=== PATIENT | male | born 2000 | race Caucasian/White ===

== ENCOUNTER → 2018-09-15 | Emergency (ER) | payer BC, MEDICAID ==
[~2018-09-15] VITALS: Ht 177.8 cm; Wt 78.9 kg
[~2018-09-15] MED LIST: RX-NAPROXEN (NAPROSYN) 250 MG TAB PPK#4 PO STA; RX-TRAMADOL 50 MG (ULTRAM) TAB PPK#4 PO STA; TRAM-42 PO
--- OUTSIDE RECORDS SUMMARY | 2018-09-15 20:53 | XMS REPORT ---
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 Name Role Phone JOSEFELIPAJOAN Unavailable PROBLEMS Type Condition ICD9-CM Code [id number] Code Onset Dates Condition Status SNOMED Code Problem Seasonal allergic rhinitis, unspecified allergic rhinitis trigger J30.2 Active 361830927 Problem PEARL (generalized anxiety disorder) F41.1 Active 04338856 Problem ADHD (attention deficit hyperactivity disorder), combined type F90.2 Active [id number] ALLERGIES No Information ENCOUNTERS Encounter Location Date Diagnosis [place] [id number] [address] Mar, [facility] [address] [address]- [address] Dec, ADHD (attention deficit hyperactivity disorder), combined type F90.2 and PEARL (generalized anxiety disorder) F41.1 [facility] [id number] [place] [address] 93664- 9491 Oct, Dysfunction of right eustachian tube H69.81 [place] [address] [place] [id number] [place] [address] 20811- 4745 Oct, [facility] [id number] [place] [address] 30728- 4669 Oct, [place] [address] [id number] [place] [address] 02030- 4570 Oct, [place] [address] [place] [id number] [place] [address] 61715- 5434 Sep, [place] [address] [place] [id number] [place] [address] 93181- 1347 Aug, ADHD (attention deficit hyperactivity disorder), combined type F90.2 and PEARL (generalized anxiety disorder) F41.1 [facility] [id number] [place] [address] 91567- 9511 Jul, [facility] [id number] [place] [address] 23635- 8973 Jul, [facility] [id number] [place] [address] 79257- 4031 Jun, [facility] [id number] [place] [address] 41683- 6412 May, [facility] [id number] [place] [address] 47544- 7923 May, [facility] [id number] [place] [address] 72811- 6437 Apr, [facility] [id number] [place] [address] 52940- 2027 Mar, [facility] [id number] [place] [address] 96844- 2696 February, [facility] [id number] [place] [address] 90731- 8652 February, [facility] [id number] [place] [address] 37021- 1229 February, PEARL (generalized anxiety disorder) F41.1 [facility] [id number] [place] [address] 16707- 9686 February, [facility] [id number] [place] [address] 48822 -6256 February, Seasonal allergic rhinitis, unspecified allergic rhinitis trigger J30.2 [facility] [id number] [place] [address] 50216- 1331 Jan, PEARL (generalized anxiety disorder) F41.1 [facility] [id number] [place] [address] 40418- 2455 Jan, ADHD (attention deficit hyperactivity disorder), combined type F90.2 and PEARL (generalized anxiety disorder) F41.1 [facility] [id number] [place] [address] 54179- 5909 Dec, [facility] [id number] [place] [address] 35349- 5241 Nov, [facility] [id number] [place] [address] 84736- 9244 Oct, [facility] [id number] [place] [address] 69646- 7985 Oct, [facility] [id number] [place] [address] 19235- 0397 Sep, [facility] [id number] [place] [address] 26561- 7446 Aug, ADHD (attention deficit hyperactivity disorder), combined type F90.2 and PEARL (generalized anxiety disorder) F41.1 [facility] [id number] [address]- 6180 Aug, [facility] [id number] [place] [address] 06008- 8064 Jul, [facility] [id number] [place] [address] 50177- 9152 Jun, ADHD (attention deficit hyperactivity disorder), combined type F90.2 ; ODD (oppositional defiant disorder) F91.3 and PEARL (generalized anxiety disorder) F41.1 [facility] [address] [address]- 7492 Jun, [facility] [id number] [place] [address] 40565- 8037 Jun, [facility] [id number] [address]- 1056 May, [facility] [id number] [place] [address] 24150- 3713 May, ODD (oppositional defiant disorder) F91.3 and ADHD ( attention deficit hyperactivity disorder), combined type F90.2 [facility] [id number] [place] [address] 36655- 4546 May, [facility] [id number] [address]- 1721 Apr, [facility] [id number] [place] [address] 75063- 8831 Mar, [facility] [id number] [place] [address] 37181- 1056 February, [facility] [id number] [place] [address] 78867- 5708 Jan, [facility] [id number] [place] [address] 14994- 3910 Dec, [facility] [id number] [place] [address] 29413- 4162 Dec, [facility] [id number] [place] [address] [id number] Nov, Dental examination Z01.20 [facility] [id number] [place] [address] 57322- 6095 Nov, [facility] [id number] [place] [address] 86419- 0437 Nov, [facility] [id number] [place] [address] 32924- 8155 Nov, Disruptive mood dysregulation disorder F34.8 ; ADHD ( attention deficit hyperactivity disorder), combined type F90.2 and ODD ( oppositional defiant disorder) F91.3 [facility] [address] [address]- 6917 Sep, [facility] [id number] [address]- 4679 Aug, [facility] [address] [address]- 4866 Jul, [facility] [address] [address]- 2816 Jul, [facility] [address] [address]- 2066 Jul, [facility] [id number] [place] [address] 54430- 7596 Jun, Bipolar disorder, unspecified 296.80 ; Attention deficit disorder (ADD), child, 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 and ODD (oppositional defiant disorder) 313.81 [facility] [address] [place] [address] 29396- 3836 May, [facility] [id number] [address]- 8616 May, [facility] [address] [address] [id number] [place] [address] 83864- 8776 May, [facility] [address] [address]- 0242 Apr, [facility] [id number] [place] [address] 06351- 6596 Mar, [facility] [address] [address]- 8086 Mar, [facility] [address] [address]- 1136 February, Bipolar disorder, unspecified 296.80 ; Attention deficit disorder 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 and Oppositional defiant behavior 313.81 [facility] [address] [address]- 6576 February, [facility] [address] [address]- 3536 Jan, [facility] [id number] [place] [address] 11618- 6830 Jan, [facility] [place] [facility] [address] [id number] [place] [address]- 2035 Dec, [facility] [place] [facility] [address] [id number] [place] [address]- 0692 Dec, [facility] [place] [facility] [address] [id number] [place] [address]- 8570 Dec, [facility] [place] [facility] [address] [id number] [place] [address]- 9433 Nov, [facility] [place] [facility] [address] [id number] [place] [address]- 7565 Nov, [facility] [place] [facility] [address] [id number] [place] [address]- 7601 Nov, [facility] [place] [facility] [address] [id number] [place] [address]- 4561 Nov, [facility] [place] [facility] [address] [id number] [place] [address]- 9232 Nov, [facility] [place] [facility] [address] [id number] [place] [address]- 9880 Nov, [facility] [place] [facility] [address] [id number] [place] [address]- 7329 Nov, [facility] [place] [facility] [address] [id number] [place] [address]- 3308 Nov, [facility] [place] [facility] [address] [id number] [place] [address]- 9851 Oct, [facility] [place] [facility] [address] [id number] [place] [address]- 6000 Oct, [facility] [place] [facility] [address] [id number] [place] [address]- 2856 15 Oct, 2014 [facility] [place] [facility] [address] [id number] [place] [address]- 5881 14 Oct, 2014 [facility] [place] [facility] [address] [id number] [place] [address]- 2637 14 Oct, 2014 [facility] [address] [id number] [place] [address]- 4595 Oct, [facility] [place] [facility] [address] [id number] [place] [address]- 2195 08 Oct, 2014 [facility] [address] [id number] [place] [address]- 9877 16 Sep, 2014 [facility] [place] [facility] [address] [id number] [place] [address]- 1963 Sep, [facility] [place] [facility] [address] [id number] [place] [address]- 0952 Sep, [facility] [place] [facility] [address] [id number] [place] [address]- 2781 Aug, [facility] [place] [facility] [address] [id number] [place] [address]- 6192 Aug, [facility] [address] [id number] [place] [address]- 1733 14 Jul, 2014 [facility] [place] [facility] [address] [id number] [place] [address]- 5666 Jul, [facility] [place] [facility] [address] [id number] [place] [address]- 8560 Jun, [facility] [place] [facility] [address] [id number] [place] [address]- 8057 Jun, [facility] [place] [facility] [address] [id number] [place] [address]- 8548 May, [facility] [place] [facility] [address] [id number] [place] [address]- 8654 May, [facility] [place] [facility] [address] [id number] [place] [address]- 5691 May, [facility] [place] [facility] [address] [id number] [place] [address]- 1048 May, [facility] [place] [facility] [address] [id number] [place] [address]- 0799 Apr, [facility] [place] [facility] [address] [id number] [place] [address]- 3138 Apr, [facility] [place] [facility] [address] [id number] [place] [address]- 9976 Apr, [facility] [place] [facility] [address] [id number] [place] [address]- 8000 Apr, [facility] [place] [facility] [address] [id number] [place] [address]- 1072 Apr, [facility] [place] [facility] [address] [id number] [place] [address]- 8985 Mar, [facility] [place] [facility] [address] [id number] [place] [address]- 3959 Mar, [facility] [place] [facility] [address] [id number] [place] [address]- 7877 Mar, [facility] [place] [facility] [address] [id number] [place] [address]- 0935 Mar, [facility] [place] [facility] [address] [id number] [place] [address]- 7379 Mar, [facility] [place] [facility] [address] [id number] [place] [address]- 0475 February, [facility] [place] [facility] [address] [id number] [place] [address]- 9697 February, [facility] [place] [facility] [address] [id number] [place] [address]- 6029 February, [facility] [place] [facility] [address] [id number] [place] [address]- 7876 Jan, [facility] [place] [facility] [address] [id number] [place] [address]- 3493 Jan, [facility] [place] [facility] [address] [id number] [place] [address]- 8339 Dec, [facility] [address] [id number] [place] [address]- 6405 Dec, [facility] [place] [facility] [address] [id number] [place] [address]- 5724 Nov, [facility] [place] [facility] [address] [id number] [place] [address]- 1509 Nov, [facility] [place] [facility] [address] [id number] [place] [address]- 1903 Sep, [facility] [place] [facility] [address] [id number] [place] 6812 Sep, [facility] [place] [facility] [address] [id number] [place] [address]- 9140 Sep, [facility] [address] [id number] [place] [address]- 5058 Sep, [facility] [place] [facility] [address] [id number] [place] [address]- 0775 Aug, [facility] [place] [facility] [address] [id number] [place] [address]- 4099 Aug, [facility] [place] [facility] [address] [id number] [place] [address]- 6984 Aug, [facility] [place] [facility] [address] [id number] [place] [address]- 0288 Aug, [facility] [place] [facility] [address] [id number] [place] [address]- 6507 Jul, [facility] [place] [facility] [address] [id number] [place] [address]- 7716 Jul, [facility] [place] [facility] [address] [id number] [place] [address]- 8510 Jun, [facility] [place] [facility] [address] [id number] [place] [address]- 2312 May, [facility] [place] [facility] [address] [id number] [place] [address]- 4258 15 May, 2013 [facility] [address] [id number] [place] [address]- 7433 15 May, 2013 [facility] [place] [facility] [address] [id number] [place] [address]- 2019 19 Apr, 2013 [facility] [place] [facility] [address] [id number] [place] [address]- 7088 18 Apr, 2013 [facility] [place] [facility] [address] [id number] [place] [address]- 2450 14 Oct, 2012 [facility] [place] [facility] [address] [id number] [place] [address]- 7834 24 Sep, 2012 [facility] [address] [id number] [place] [address]- 8286 Sep, [facility] [address] [id number] [place] [address]- 2704 Sep, [facility] [address] [id number] [place] [address]- 3801 Sep, [facility] [place] [facility] [address] [id number] [place] [address]- 9976 18 Sep, [address] [facility] [place] [facility] [address] [id number] [place] [address]- 6093 Sep, [facility] [place] [facility] [address] [id number] [place] [address]- 6922 03 Sep, 2012 [facility] [place] [facility] [address] [id number] [place] [address]- 9184 Aug, [facility] [place] [facility] [address] [id number] [place] [address]- 1121 19 Aug, 2012 [facility] [place] [facility] [address] [id number] [place] [address]- 7989 14 Aug, 2012 [facility] [place] [facility] [address] [id number], [place] [address]- 4696 Aug, [facility] [place] [facility] [address] [id number] [place] [address]- 3630 Jul, [facility] [place] [facility] [address] [id number] [place] [address]- 7373 Jul, [facility] [place] [facility] [address] [id number] [place] [address]- 4390 Jul, [facility] [place] [facility] [address] [id number], [place] [address]- 0430 Jun, [facility] [place] [facility] [address] [id number] [place] 0082 May, [facility] [place] [facility] [address] [id number] [place] [address]- 8500 May, [facility] [place] [facility] [address] [id number], [place] [address]- 7355 May, [facility] [place] [facility] [address] [id number], [place] [address]- 3352 May, [facility] [place] [facility] [address] [id number], [place] [address]- 9238 May, [facility] [place] [facility] [address] [id number], [place] [address]- 1789 Apr, [facility] [place] [facility] [address] [id number], [place] [address]- 0325 Apr, [facility] [place] [facility] [id number] [id number] Mar, [facility] [place] [facility] [address] [facility] [id number] [id number] Mar, [facility] [place] [facility] [address] [id number], [place] [address]- 4163 Mar, [facility] [place] [facility] [address] [id number], [place] [address]- 3831 Mar, [facility] [place] [facility] [address] [id number] [place] [address]- 3186 Mar, [facility] [address] [id number] [place] [address]- 6380 Mar, [facility] [place] [facility] [address] [id number] [place] [address]- 9156 February, [facility] [address] [id number] [place] [address]- 1166 Jan, [facility] [place] [facility] [address] [id number] [place] [address]- 5639 Jan, [facility] [place] [facility] [address] [id number] [place] [address]- 2205 Dec, [facility] [place] [facility] [address] [id number] [place] [address]- 4256 Dec, [facility] [place] [facility] [address] [id number] [place] [address]- 5600 Dec, [facility] [place] [facility] [address] [id number] [place] [address]- 5029 Dec, [facility] [place] [facility] [address] [id number] [place] [address]- 7187 Dec, [facility] [place] [facility] [address] [id number] [place] [address]- 5425 Nov, [facility] [place] [facility] [address] [id number] [place] [address]- 4993 Oct, [facility] [place] [facility] [address] [id number] [place] [address]- 2546 Oct, [facility] [place] [facility] [address] [id number] [place] [address]- 6097 Sep, [facility] [place] [facility] [address] [id number] [place] [address]- 2546 Sep, [facility] [place] [facility] [address] [id number] [place] [address]- 6016 Aug, [facility] [address] [id number] [address]- 2159 Aug, [facility] [address] [address] 4298 Jul, [facility] [address], [place] [address]- 3649 Jul, [facility] [address] [address]- 1332 Jun, [facility] [address], [place] [address]- 2419 February, [facility] [address] 7047 Jan, [facility] [address], [place] [address]- 4909 Dec, IMMUNIZATIONS No Known Immunizations SOCIAL HISTORY Never Assessed REASON FOR VISIT f/Deanna GODINEZ PLAN OF CARE Activity Details Follow Up 4 Months Reason: VITAL SIGNS Height 69.1 in 2017-12-19 Weight 179.1 lbs 2017-12-19 Heart Rate 60 bpm 2017-12-19 Respiratory Rate 20 2017-12-19 BMI 26.37 kg/m2 2017-12-19 Blood pressure systolic 120 mmHg 2017-12-19 Blood pressure diastolic 70 mmHg 2017-12-19 MEDICATIONS Medication Instructions Dosage Frequency Start Date End Date Duration Status Concerta 54 MG Orally Once a day for ADHD 1 tablet in the morning Dec 28 days Active Protonix 40 MG Orally Once a day 1 tablet 24h Not-Taking Fluticasone Propionate 50 MCG/ACT Nasally Once a day 1 spray in each nostril 24h February, 30 day(s) Not-Taking Clonidine HCl 0.1 MG Orally Once a day 1 tablet at bedtime 24h Aug, Active SudoGest 60 mg Orally every 6 hrs 1 tablet as needed 6h Oct, 05 days Not-Taking RESULTS No Results PROCEDURES No Known procedures INSTRUCTIONS MEDICATIONS ADMINISTERED No Known Medications MEDICAL (GENERAL) HISTORY Type Description Date Medical History Bipolar disorder, unspecified Medical History Bipolar disorder, unspecified Medical History ODD (oppositional defiant disorder) Medical History ODD (oppositional defiant disorder) Medical History Disruptive mood dysregulation disorder
--- OUTSIDE RECORDS SUMMARY | 2018-09-15 20:53 | XMS REPORT ---
Author JOAN Paniagua [employer] Address Unknown Phone Unavailable Care Team Providers Care Scaffolder Name Role Phone JOAN GARCIA CP Unavailable Allergies No Known Allergies Problems Problem Type Condition Code Onset Dates Condition Status Problem Problems with sight V41.0 Active Problem Spasm of muscle 728.85 Active Problem ADHD (attention deficit hyperactivity disorder), combined type F90.2 Active Problem ODD (oppositional defiant disorder) F91.3 Active Problem Disruptive mood dysregulation disorder F34.8 Active Problem Routine or child health check V20.2 Active Problem Allergic rhinitis due to pollen 477.0 Active Problem GARDASIL (HPV) DX V04.89 Active Problem DTAP TEST V06.1 Active Medications Medication Code System Code Instructions Start Date End Date Status Dosage Methylphenidate HCl [facility] [address]-56 5 mg Orally. Once in the afternoon for ADHD 1 tablet on an empty stomach Concerta [facility] [address]-07 54 MG Orally. Once a day for ADHD December 28, 2014 1 tablet Results No Known Results Summary Purpose [employer] Submission
--- OUTSIDE RECORDS SUMMARY | 2018-09-15 20:53 | XMS REPORT ---
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 Name Role Phone JOSEFELIPAJOAN Unavailable PROBLEMS Type Condition ICD9-CM Code MAO47-OG Code Onset Dates Condition Status SNOMED Code Problem Seasonal allergic rhinitis, unspecified allergic rhinitis trigger J30.2 Active 354079347 Problem PEARL (generalized anxiety disorder) F41.1 Active 82508888 Problem ADHD (attention deficit hyperactivity disorder), combined type F90.2 Active 30605930 ALLERGIES No Information ENCOUNTERS Encounter Location Date Diagnosis [place] [id number] [address] Mar, [facility] [address] [address] Dec, ADHD (attention deficit hyperactivity disorder), combined type F90.2 and PEARL (generalized anxiety disorder) F41.1 [facility] [id number] [place] [address]377- 8474 Oct, Dysfunction of right eustachian tube H69.81 [place] [address] [place] [id number] [place] [address] 49632- 7934 Oct, [facility] [id number] [place] [address] 38664- 0450 Oct, [place] [address] [id number] [place] [address] 57045- 0173 Oct, [place] [address] [place] [id number] [place] [address] 25187- 5513 Sep, [place] [address] [id number] [place] [address] 68469- 7994 Aug, ADHD (attention deficit hyperactivity disorder), combined type F90.2 and PEARL (generalized anxiety disorder) F41.1 [facility] [id number] [place] [address] 97391- 7682 Jul, [facility] [id number] [place] [address] 42525- 3666 Jul, [facility] [id number] [place] [address] 47884- 1157 Jun, [facility] [id number] [place] [address] 08289- 1922 May, [facility] [id number] [place] [address] 56427- 9321 May, [facility] [id number] [place] [address] 25734- 7609 Apr, [facility] [id number] [place] [address] 34418- 9475 Mar, [facility] [id number] [place] [address] 42042- 4990 February, [facility] [id number] [place] [address] 86753- 7768 February, [facility] [id number] [place] [address] 11517- 3665 February, PEARL (generalized anxiety disorder) F41.1 [facility] [id number] [place] [address] 02873- 4746 February, [facility] [id number] [place] [address] 69681 -3723 February, Seasonal allergic rhinitis, unspecified allergic rhinitis trigger J30.2 [facility] [id number] [place] [address] 46828- 4258 Jan, PEARL (generalized anxiety disorder) F41.1 [facility] [id number] [place] [address] 84693- 6683 Jan, ADHD (attention deficit hyperactivity disorder), combined type F90.2 and PEARL (generalized anxiety disorder) F41.1 [facility] [id number] [place] [address] 06994- 6830 Dec, [facility] [id number] [place] [address] 75065- 3692 Nov, [facility] [id number] [place] [address] 72127- 2077 Oct, [facility] [id number] [place] [address] 58011- 2429 Oct, [facility] [id number] [place] [address] 57709- 7908 Sep, [facility] [id number] [place] [address] 74791- 1175 Aug, ADHD (attention deficit hyperactivity disorder), combined type F90.2 and PEARL (generalized anxiety disorder) F41.1 [facility] [id number] [address]- 6289 Aug, [facility] [id number] [place] [address] 16288- 2108 Jul, [facility] [id number] [place] [address] 28901- 5213 Jun, ADHD (attention deficit hyperactivity disorder), combined type F90.2 ; ODD (oppositional defiant disorder) F91.3 and PEARL (generalized anxiety disorder) F41.1 [facility] [address] [address]- 4469 Jun, [facility] [id number] [place] [address] 35132- 0564 Jun, [facility] [id number] [address]- 8796 May, [facility] [id number] [place] [address] 86370- 1016 May, ODD (oppositional defiant disorder) F91.3 and ADHD ( attention deficit hyperactivity disorder), combined type F90.2 [facility] [address] [id number] [place] [address] 86026- 9502 May, [facility] [id number] [address]- 9189 Apr, [facility] [id number] [place] [address] 61142- 6821 Mar, [facility] [id number] [place] [address] 19227- 0289 February, [facility] [id number] [place] [address] 03940- 1379 Jan, [facility] [id number] [place] [address] 04058- 1817 Dec, [facility] [id number] [place] [address] 42986- 0539 Dec, [facility] [id number] [place] [address] [id number] Nov, Dental examination Z01.20 [facility] [id number] [place] [address] 40977- 6838 Nov, [facility] [id number] [place] [address] 20664- 0034 Nov, [facility] [id number] [place] [address] 74207- 8483 Nov, Disruptive mood dysregulation disorder F34.8 ; ADHD ( attention deficit hyperactivity disorder), combined type F90.2 and ODD ( oppositional defiant disorder) F91.3 [facility] [address] [address]- 5716 Sep, [facility] [id number] [address]- 2834 Aug, [facility] [address] [address]- 6446 Jul, [facility] [address] [address]- 7386 Jul, [facility] [address] [address]- 1736 Jul, [facility] [id number] [place] [address] 18689- 7836 Jun, Bipolar disorder, unspecified 296.80 ; Attention deficit disorder (ADD), child, 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 and ODD (oppositional defiant disorder) 313.81 [facility] [address] [place] [address] 35242- 1146 May, [facility] [id number] [address]- 8406 May, [facility] [id number] [place] [address] 48387- 3876 May, [facility] [address] [address]- 5838 Apr, [facility] [address] [place] [address] 06511- 8816 Mar, [facility] [address] [address]- 5616 Mar, [facility] [address] [address]- 9186 February, Bipolar disorder, unspecified 296.80 ; Attention deficit disorder 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 and Oppositional defiant behavior 313.81 [facility] [address] [address]- 0356 February, [facility] [address] [address]- 3186 Jan, [facility] [address] [place] [address] 05835- 4926 Jan, [facility] [place] [facility] [address] [id number] [place] [address]- 7286 Dec, [facility] [place] [facility] [address] [id number] [place] [address]- 9852 Dec, [facility] [place] [facility] [address] [id number] [place] [address]- 8672 Dec, [facility] [place] [facility] [address] [id number] [place] [address]- 9635 Nov, [facility] [place] [facility] [address] [id number] [place] [address]- 6093 Nov, [facility] [place] [facility] [address] [id number] [place] [address]- 2454 Nov, [facility] [place] [facility] [address] [id number] [place] [address]- 2495 Nov, [facility] [place] [facility] [address] [id number] [place] [address]- 4729 Nov, [facility] [place] [facility] [address] [id number] [place] [address]- 8052 Nov, [facility] [place] [facility] [address] [id number] [place] [address]- 6779 Nov, [facility] [place] [facility] [address] [id number] [place] [address]- 6815 Nov, [facility] [place] [facility] [address] [id number] [place] [address]- 1761 Oct, [facility] [place] [facility] [address] [id number] [place] [address]- 0226 Oct, [facility] [place] [facility] [address] [id number] [place] [address]- 3795 15 Oct, 2014 [facility] [place] [facility] [address] [id number] [place] [address]- 7556 14 Oct, 2014 [facility] [place] [facility] [address] [id number] [place] [address]- 8175 14 Oct, 2014 [facility] [address] [id number] [place] [address]- 6999 Oct, [facility] [place] [facility] [address] [id number] [place] [address]- 3781 08 Oct, 2014 [facility] [address] [id number] [place] [address]- 0348 16 Sep, 2014 [facility] [place] [facility] [address] [id number] [place] [address]- 8931 Sep, [facility] [place] [facility] [address] [id number] [place] [address]- 6295 Sep, [facility] [place] [facility] [address] [id number] [place] [address]- 9687 Aug, [facility] [place] [facility] [address] [id number] [place] [address]- 1366 Aug, [facility] [address] [id number] [place] [address]- 1248 14 Jul, 2014 [facility] [place] [facility] [address] [id number] [place] [address]- 6883 Jul, [facility] [place] [facility] [address] [id number] [place] [address]- 2444 Jun, [facility] [place] [facility] [address] [id number] [place] [address]- 1478 Jun, [facility] [place] [facility] [address] [id number] [place] [address]- 8402 May, [facility] [place] [facility] [address] [id number] [place] [address]- 8927 May, [facility] [place] [facility] [address] [id number] [place] [address]- 3543 May, [facility] [place] [facility] [address] [id number] [place] [address]- 8212 May, [facility] [place] [facility] [address] [id number] [place] [address]- 5370 Apr, [facility] [place] [facility] [address] [id number] [place] [address]- 0935 Apr, [facility] [place] [facility] [address] [id number] [place] [address]- 4596 Apr, [facility] [place] [facility] [address] [id number] [place] [address]- 3664 Apr, [facility] [place] [facility] [address] [id number] [place] [address]- 9753 Apr, [facility] [place] [facility] [address] [id number] [place] [address]- 4439 Mar, [facility] [place] [facility] [address] [id number] [place] [address]- 2549 Mar, [facility] [place] [facility] [address] [id number] [place] [address]- 2722 Mar, [facility] [place] [facility] [address] [id number] [place] [address]- 8175 Mar, [facility] [place] [facility] [address] [id number] [place] [address]- 2753 Mar, [facility] [place] [facility] [address] [id number] [place] [address]- 0200 February, [facility] [place] [facility] [address] [id number] [place] [address]- 7958 February, [facility] [place] [facility] [address] [id number] [place] [address]- 5199 February, [facility] [place] [facility] [address] [id number] [place] [address]- 5571 Jan, [facility] [place] [facility] [address] [id number] [place] [address]- 4992 Jan, [facility] [place] [facility] [address] [id number] [place] [address]- 9007 Dec, [facility] [address] [id number] [place] [address]- 1167 Dec, [facility] [place] [facility] [address] [id number] [place] [address]- 3636 Nov, [facility] [place] [facility] [address] [id number] [place] [address]- 6117 Nov, [facility] [place] [facility] [address] [id number] [place] [address]- 4167 Sep, [facility] [place] [facility] [address] [id number] [place] 2480 Sep, [facility] [place] [facility] [address] [id number] [place] [address]- 6839 Sep, [facility] [address] [id number] [place] [address]- 8757 Sep, [facility] [place] [facility] [address] [id number] [place] [address]- 8048 Aug, [facility] [place] [facility] [address] [id number] [place] [address]- 1518 Aug, [facility] [place] [facility] [address] [id number] [place] [address]- 6035 Aug, [facility] [place] [facility] [address] [id number] [place] [address]- 5777 Aug, [facility] [place] [facility] [address] [id number] [place] [address]- 3423 Jul, [facility] [place] [facility] [address] [id number] [place] [address]- 0257 Jul, [facility] [place] [facility] [address] [id number] [place] [address]- 2550 Jun, [facility] [place] [facility] [address] [id number] [place] [address]- 6153 May, [facility] [place] [facility] [address] [id number] [place] [address]- 5407 15 May, 2013 [facility] [address] [id number] [place] [address]- 8381 15 May, 2013 [facility] [place] [facility] [address] [id number] [place] [address]- 1488 19 Apr, 2013 [facility] [place] [facility] [address] [id number] [place] [address]- 1379 18 Apr, 2013 [facility] [place] [facility] [address] [id number] [place] [address]- 5274 14 Oct, 2012 [facility] [place] [facility] [address] [id number] [place] [address]- 8805 24 Sep, 2012 [facility] [address] [id number] [place] [address]- 3048 Sep, [facility] [address] [id number] [place] [address]- 2062 Sep, [facility] [address] [id number] [place] [address]- 3797 Sep, [facility] [place] [facility] [address] [id number] [place] [address]- 6551 18 Sep, 2012 [facility] [place] [facility] [address] [id number] [place] [address]- 1652 Sep, [facility] [place] [facility] [address] [id number] [place] [address]- 8959 03 Sep, 2012 [facility] [place] [facility] [address] [id number] [place] [address]- 3699 Aug, [facility] [place] [facility] [address] [id number] [place] [address]- 8511 19 Aug, 2012 [facility] [place] [facility] [address] [id number] [place] [address]- 6707 14 Aug, 2012 [facility] [place] [facility] [address] [id number] [address]- 3596 Aug, [facility] [place] [facility] [address] [id number] [place] [address]- 2363 Jul, [facility] [place] [facility] [address] [id number] [place] [address]- 2065 Jul, [facility] [place] [facility] [address] [id number] [place] [address]- 9469 Jul, [facility] [place] [facility] [address] [id number] [place] [address]- 8189 Jun, [facility] [place] [facility] [address] [id number] [place] 9108 May, [facility] [place] [facility] [address] [id number] [place] [address]- 5715 May, [facility] [place] [facility] [address] [id number] [place] [address]- 5417 May, [facility] [place] [facility] [address] [id number] [place] [address]- 8785 May, [facility] [place] [facility] [address] [id number] [place] [address]- 8403 May, [facility] [place] [facility] [address] [id number] [place] [address]- 2364 Apr, [facility] [place] [facility] [address] [id number] [place] [address]- 7642 Apr, [facility] [place] [facility] [id number] [address] Mar, [facility] [place] [facility] [address] [facility] [id number] [place] [id number] Mar, [facility] [place] [facility] [address] [id number] [place] [address]- 7247 Mar, [facility] [place] [facility] [address] [id number] [place] [address]- 0511 Mar, [facility] [place] [facility] [address] [id number] [place] [address]- 7932 Mar, [facility] [address] [id number] [place] [address]- 6828 Mar, [facility] [place] [facility] [address] [id number] [place] [address]- 8896 February, [facility] [address] [id number] [place] [address]- 3256 Jan, [facility] [place] [facility] [address] [id number] [place] [address]- 5142 Jan, [facility] [place] [facility] [address] [id number] [place] [address]- 9270 Dec, [facility] [place] [facility] [address] [id number] [place] [address]- 6486 Dec, [facility] [place] [facility] [address] [id number] [place] [address]- 6946 Dec, [facility] [place] [facility] [address] [id number] [place] [address]- 5602 Dec, [facility] [place] [facility] [address] [id number] [place] [address]- 3557 Dec, [facility] [place] [facility] [address] [id number] [place] [address]- 1821 Nov, [facility] [place] [facility] [address] [id number] [place] [address]- 1725 Oct, [facility] [place] [facility] [address] [id number] [place] [address]- 2546 Oct, [facility] [place] [facility] [address] [id number] [place] [address]- 8351 Sep, [facility] [place] [facility] [address] [id number] [place] [address]- 2546 Sep, [facility] [place] [facility] [address] [id number] [place] [address]- 8426 Aug, [facility] [id number] [address]- 1096 Aug, [facility] [id number] [address]- 0596 Jul, [facility] [address] [address]- 1836 Jul, [facility] [address] [address] 2546 Jun, [facility] [address] [address] February, [facility] [id number] [address] Jan, [facility] [id number] [address] Dec, IMMUNIZATIONS No Known Immunizations SOCIAL HISTORY Never Assessed REASON FOR VISIT Refill request PLAN OF CARE VITAL SIGNS MEDICATIONS Unknown Medications RESULTS No Results PROCEDURES No Known procedures INSTRUCTIONS MEDICATIONS ADMINISTERED No Known Medications MEDICAL (GENERAL) HISTORY Type Description Date Medical History Bipolar disorder, unspecified Medical History Bipolar disorder, unspecified Medical History ODD (oppositional defiant disorder) Medical History ODD (oppositional defiant disorder) Medical History Disruptive mood dysregulation disorder
--- OUTSIDE RECORDS SUMMARY | 2018-09-15 20:54 | XMS REPORT ---
Author Author JOAN GARCIA [facility] Address [address] [place] [address] Care Team Providers Care Applications Processor Name Role Phone JOSEFELIPAJOAN Unavailable PROBLEMS Type Condition ICD9-CM Code BKN39-FO Code Onset Dates Condition Status SNOMED Code Problem Seasonal allergic rhinitis, unspecified allergic rhinitis trigger J30.2 Active 258526649 Problem PEARL (generalized anxiety disorder) F41.1 Active 43646892 Problem ADHD (attention deficit hyperactivity disorder), combined type F90.2 Active [id number] ALLERGIES No Information ENCOUNTERS Encounter Location Date Diagnosis [place] [id number] [address] Apr, [facility] [address] [address]- 4065 Dec, ADHD (attention deficit hyperactivity disorder), combined type F90.2 and PEARL (generalized anxiety disorder) F41.1 [facility] [address] [place] [id number] [place] [address] 12985- 2724 Oct, Dysfunction of right eustachian tube H69.81 [place] [address] [place] [id number] [place] [address] 27212- 1074 Oct, [facility] [id number] [place] [address] 07007- 6530 Oct, [place] [id number] [place] [address] 35597- 0319 Oct, [place] [address] [id number] [place] [address] 75645- 4695 Sep, [place] [address] [id number] [place] [address] 60577- 9708 Aug, ADHD (attention deficit hyperactivity disorder), combined type F90.2 and PEARL (generalized anxiety disorder) F41.1 [facility] [id number] [place] [address] 96149- 0713 Jul, [facility] [id number] [place] [address] 01258- 6100 Jul, [facility] [id number] [place] [address] 55827- 5287 Jun, [facility] [id number] [place] [address] 29526- 5488 May, [facility] [id number] [place] [address] 25611- 4262 May, [facility] [id number] [place] [address] 53588- 0418 Apr, [facility] [id number] [place] [address] 64645- 6457 Mar, [facility] [id number] [place] [address] 15782- 9923 February, [facility] [id number] [place] [address] 34669- 1841 February, [facility] [id number] [place] [address] 42290- 1658 February, PEARL (generalized anxiety disorder) F41.1 [facility] [id number] [place] [address] 04924- 7547 February, [facility] [id number] [place] [address] 74183 -7596 February, Seasonal allergic rhinitis, unspecified allergic rhinitis trigger J30.2 [facility] [id number] [place] [address] 30581- 0897 Jan, PEARL (generalized anxiety disorder) F41.1 [facility] [id number] [place] [address] 63623- 3545 Jan, ADHD (attention deficit hyperactivity disorder), combined type F90.2 and PEARL (generalized anxiety disorder) F41.1 [facility] [id number] [place] [address] 32727- 6887 Dec, [facility] [id number] [place] [address] 33065- 7627 Nov, [facility] [id number] [place] [address] 32852- 2147 Oct, [facility] [id number] [place] [address] 43174- 6769 Oct, [facility] [id number] [place] [address] 40043- 9002 Sep, [facility] [id number] [place] [address] 49395- 7917 Aug, ADHD (attention deficit hyperactivity disorder), combined type F90.2 and PEARL (generalized anxiety disorder) F41.1 [facility] [id number] [address]- 2693 Aug, [facility] [id number] [place] [address] 35512- 2841 Jul, [facility] [id number] [place] [address] 09900- 6724 Jun, ADHD (attention deficit hyperactivity disorder), combined type F90.2 ; ODD (oppositional defiant disorder) F91.3 and PEARL (generalized anxiety disorder) F41.1 [facility] [address] [address]- 0469 Jun, [facility] [id number] [place] [address] 29659- 0852 Jun, [facility] [id number] [address]- 7248 May, [facility] [id number] [place] [address] 72822- 1305 May, ODD (oppositional defiant disorder) F91.3 and ADHD ( attention deficit hyperactivity disorder), combined type F90.2 [facility] [id number] [place] [address] 05792- 0024 May, [facility] [id number] [address]- 9456 Apr, [facility] [id number] [place] [address] 14016- 1173 Mar, [facility] [id number] [place] [address] 67899- 6242 February, [facility] [id number] [place] [address] 13106- 0683 Jan, [facility] [id number] [place] [address] 52028- 6820 Dec, [facility] [id number] [place] [address] 30197- 8191 Dec, [facility] [address] [id number] [place] [address] [id number] Nov, Dental examination Z01.20 [facility] [id number] [place] [address] 77280- 1997 Nov, [facility] [id number] [place] [address] 76785- 9588 Nov, [facility] [id number] [place] [address] 68888- 8262 Nov, Disruptive mood dysregulation disorder F34.8 ; ADHD ( attention deficit hyperactivity disorder), combined type F90.2 and ODD ( oppositional defiant disorder) F91.3 [facility] [address] [address]- 7598 Sep, [facility] [id number] [address]- 1044 Aug, [facility] [address] [address]- 6456 Jul, [facility] [address] [address]- 4686 Jul, [facility] [address] [address]- 5256 Jul, [facility] [id number] [place] [address] 80247- 2226 Jun, Bipolar disorder, unspecified 296.80 ; Attention deficit disorder (ADD), child, 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 and ODD (oppositional defiant disorder) 313.81 [facility] [id number] [place] [address] 15460- 0956 May, [facility] [id number] [address]- 2366 May, [facility] [id number] [place] [address] 33823- 0396 May, [facility] [address] [address]- 4493 Apr, [facility] [id number] [place] [address] 08890- 4026 Mar, [facility] [address] [address]- 5446 Mar, [facility] [address] [address]- 2036 February, Bipolar disorder, unspecified 296.80 ; Attention deficit disorder 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 and Oppositional defiant behavior 313.81 [facility] [address] [address]- 5966 February, [facility] [address] [address]- 2986 Jan, [facility] [id number] [place] [address] 84956- 5100 Jan, [facility] [place] [facility] [address] [id number] [place] [address]- 4443 Dec, [facility] [place] [facility] [address] [id number] [place] [address]- 7432 Dec, [facility] [place] [facility] [address] [id number] [place] [address]- 9285 Dec, [facility] [place] [facility] [address] [id number] [place] [address]- 4564 Nov, [facility] [place] [facility] [address] [id number] [place] [address]- 1300 Nov, [facility] [place] [facility] [address] [id number] [place] [address]- 1886 Nov, [facility] [place] [facility] [address] [id number] [place] [address]- 7148 Nov, [facility] [place] [facility] [address] [id number] [place] [address]- 2912 Nov, [facility] [place] [facility] [address] [id number] [place] [address]- 4245 Nov, [facility] [place] [facility] [address] [id number] [place] [address]- 1480 Nov, [facility] [place] [facility] [address] [id number] [place] [address]- 4568 Nov, [facility] [place] [facility] [address] [id number] [place] [address]- 3601 Oct, [facility] [place] [facility] [address] [id number] [place] [address]- 6433 Oct, [facility] [place] [facility] [address] [id number] [place] [address]- 8448 15 Oct, 2014 [facility] [place] [facility] [address] [id number] [place] [address]- 7218 14 Oct, 2014 [facility] [place] [facility] [address] [id number] [place] [address]- 3650 14 Oct, 2014 [facility] [address] [id number] [place] [address]- 5490 Oct, [facility] [place] [facility] [address] [id number] [place] [address]- 0849 08 Oct, 2014 [facility] [address] [id number] [place] [address]- 6947 16 Sep, 2014 [facility] [place] [facility] [address] [id number] [place] [address]- 7112 Sep, [facility] [place] [facility] [address] [id number] [place] [address]- 0847 Sep, [facility] [place] [facility] [address] [id number] [place] [address]- 2679 Aug, [facility] [place] [facility] [address] [id number] [place] [address]- 4314 Aug, [facility] [address] [id number] [place] [address]- 0491 14 Jul, 2014 [facility] [place] [facility] [address] [id number] [place] [address]- 9833 Jul, [facility] [place] [facility] [address] [id number] [place] [address]- 0498 Jun, [facility] [place] [facility] [address] [id number] [place] [address]- 2072 Jun, [facility] [place] [facility] [address] [id number] [place] [address]- 4988 May, [facility] [place] [facility] [address] [id number] [place] [address]- 4638 May, [facility] [place] [facility] [address] [id number] [place] [address]- 9371 May, [facility] [place] [facility] [address] [id number] [place] [address]- 7598 May, [facility] [place] [facility] [address] [id number] [place] [address]- 4361 Apr, [facility] [place] [facility] [address] [id number] [place] [address]- 2885 Apr, [facility] [place] [facility] [address] [id number] [place] [address]- 1601 Apr, [facility] [place] [facility] [address] [id number] [place] [address]- 5095 Apr, [facility] [place] [facility] [address] [id number] [place] [address]- 5012 Apr, [facility] [place] [facility] [address] [id number] [place] [address]- 1868 Mar, [facility] [place] [facility] [address] [id number] [place] [address]- 9516 Mar, [facility] [place] [facility] [address] [id number] [place] [address]- 4781 Mar, [facility] [place] [facility] [address] [id number] [place] [address]- 6385 Mar, [facility] [place] [facility] [address] [id number] [place] [address]- 7993 Mar, [facility] [place] [facility] [address] [id number] [place] [address]- 7538 February, [facility] [place] [facility] [address] [id number] [place] [address]- 5977 February, [facility] [place] [facility] [address] [id number] [place] [address]- 0583 February, [facility] [place] [facility] [address] [id number] [place] [address]- 3705 Jan, [facility] [place] [facility] [address] [id number] [place] [address]- 0008 Jan, [facility] [place] [facility] [address] [id number] [place] [address]- 3932 Dec, [facility] [address] [id number] [place] [address]- 7391 Dec, [facility] [place] [facility] [address] [id number] [place] [address]- 5156 Nov, [facility] [place] [facility] [address] [id number] [place] [address]- 7982 Nov, [facility] [place] [facility] [address] [id number] [place] [address]- 1577 Sep, [facility] [place] [facility] [address] [id number] [place] 4951 Sep, [facility] [place] [facility] [address] [id number] [place] [address]- 8892 Sep, [facility] [address] [id number] [place] [address]- 6734 Sep, [facility] [place] [facility] [address] [id number] [place] [address]- 4444 Aug, [facility] [place] [facility] [address] [id number] [place] [address]- 5003 Aug, [facility] [place] [facility] [address] [id number] [place] [address]- 2383 Aug, [facility] [place] [facility] [address] [id number] [place] [address]- 0266 Aug, [facility] [place] [facility] [address] [id number] [place] [address]- 8639 Jul, [facility] [place] [facility] [address] [id number] [place] [address]- 7666 Jul, [facility] [place] [facility] [address] [id number] [place] [address]- 0571 Jun, [facility] [place] [facility] [address] [id number] [place] [address]- 5262 May, [facility] [place] [facility] [address] [id number] [place] [address]- 0977 15 May, 2013 [facility] [address] [id number] [place] [address]- 9634 15 May, 2013 [facility] [place] [facility] [address] [id number] [place] [address]- 2880 19 Apr, 2013 [facility] [place] [facility] [address] [id number] [place] [address]- 4897 18 Apr, 2013 [facility] [place] [facility] [address] [id number] [place] [address]- 7270 14 Oct, 2012 [facility] [place] [facility] [address] [id number] [place] [address]- 1822 24 Sep, 2012 [facility] [address] [id number] [place] [address]- 8211 Sep, [facility] [address] [id number] [place] [address]- 6260 Sep, [facility] [address] [id number] [place] [address]- 5218 Sep, [facility] [place] [facility] [address] [id number] [place] [address]- 0851 18 Sep, 2012 [facility] [place] [facility] [address] [id number] [place] [address]- 9236 Sep, [facility] [place] [facility] [address] [id number] [place] [address]- 8078 03 Sep, 2012 [facility] [place] [facility] [address] [id number] [place] [address]- 4357 Aug, [facility] [place] [facility] [address] [id number] [place] [address]- 9704 19 Aug, 2012 [facility] [place] [facility] [address] [id number] [place] [address]- 7907 14 Aug, 2012 [facility] [place] [facility] [address] [id number] [address]- 5986 Aug, [facility] [place] [facility] [address] [id number] [place] [address]- 4268 Jul, [facility] [place] [facility] [address] [id number] [place] [address]- 7107 Jul, [facility] [place] [facility] [address] [id number] [place] [address]- 0595 Jul, [facility] [place] [facility] [address] [id number] [address]- 0242 Jun, [facility] [place] [facility] [address] [id number] [place] 0985 May, [facility] [place] [facility] [address] [id number] [place] [address]- 5263 May, [facility] [place] [facility] [address] [id number] [place] [address]- 3080 May, [facility] [place] [facility] [address] [id number] [place] [address]- 3622 May, [facility] [place] [facility] [address] [id number] [place] [address]- 4867 May, [facility] [place] [facility] [address] [id number] [place] [address]- 9557 Apr, [facility] [place] [facility] [address] [id number] [place] [address]- 8461 Apr, [facility] [place] [facility] [id number] [address] Mar, [facility] [place] [facility] [address] [facility] [id number] [address] Mar, [facility] [place] [facility] [address] [id number] [place] [address]- 5211 Mar, [facility] [place] [facility] [address] [id number] [place] [address]- 0292 Mar, [facility] [place] [facility] [address] [id number] [place] [address]- 4476 Mar, [facility] [address] [id number] [place] [address]- 2099 Mar, [facility] [place] [facility] [address] [id number] [place] [address]- 3106 February, [facility] [address] [id number] [place] [address]- 0686 Jan, [facility] [place] [facility] [address] [id number] [place] [address]- 8892 Jan, [facility] [place] [facility] [address] [id number] [place] [address]- 0267 Dec, [facility] [place] [facility] [address] [id number] [place] [address]- 9166 Dec, [facility] [place] [facility] [address] [id number] [place] [address]- 1122 Dec, [facility] [place] [facility] [address] [id number] [place] [address]- 0985 Dec, [facility] [place] [facility] [address] [id number] [place] [address]- 2756 Dec, [facility] [place] [facility] [address] [id number] [place] [address]- 1032 Nov, [facility] [place] [facility] [address] [id number] [place] [address]- 0582 Oct, [facility] [place] [facility] [address] [id number] [place] [address]- 2546 Oct, [facility] [place] [facility] [address] [id number] [place] [address]- 7395 Sep, [facility] [place] [facility] [address] [id number] [place] [address]- 2546 Sep, [facility] [place] [facility] [address] [id number] [place] [address]- 1156 Aug, [facility] [address] [id number] [address]- 2546 Aug, [facility] [address] [id number] [address] 2546 Jul, [facility] [address] [address]- 2546 Jul, [facility] [address] [address]- 2546 Jun, [facility] [address] [address]- 2546 February, [facility] [address] [address]- 2546 Jan, [facility] [address] [id number] [address] Dec, IMMUNIZATIONS No Known Immunizations SOCIAL HISTORY Never Assessed REASON FOR VISIT concerta 06/25/2017 PLAN OF CARE VITAL SIGNS MEDICATIONS Medication Instructions Dosage Frequency Start Date End Date Duration Status Concerta 54 MG Orally Once a day for ADHD 1 tablet in the morning Jun 28 days Active RESULTS No Results PROCEDURES No Known procedures INSTRUCTIONS MEDICATIONS ADMINISTERED No Known Medications MEDICAL (GENERAL) HISTORY Type Description Date Medical History Bipolar disorder, unspecified Medical History Bipolar disorder, unspecified Medical History ODD (oppositional defiant disorder) Medical History ODD (oppositional defiant disorder) Medical History Disruptive mood dysregulation disorder
--- OUTSIDE RECORDS SUMMARY | 2018-09-15 20:55 | XMS REPORT ---
Author Author JOAN GARCIA [facility] Address [address] [place] [address] Care Team Providers Care Bait Painter Name Role Phone JOSEFELIPAJOAN Unavailable PROBLEMS Type Condition ICD9-CM Code CSD35-ZR Code Onset Dates Condition Status SNOMED Code Problem Seasonal allergic rhinitis, unspecified allergic rhinitis trigger J30.2 Active 184167188 Problem PEARL (generalized anxiety disorder) F41.1 Active 94112851 Problem ADHD (attention deficit hyperactivity disorder), combined type F90.2 Active 26244043 ALLERGIES No Information ENCOUNTERS Encounter Location Date Diagnosis [place] [address] [address] Apr, [facility] [address] [address]- [address] Dec, ADHD (attention deficit hyperactivity disorder), combined type F90.2 and PEARL (generalized anxiety disorder) F41.1 [facility] [address] [place] [id number] [place] [address] 33179- 1083 Oct, Dysfunction of right eustachian tube H69.81 [place] [address] [place] [id number] [place] [address] 86506- 4930 Oct, [facility] [id number] [place] [address] 31735- 7939 Oct, [place] [address] [place] [id number] [place] [address] 44436- 2165 Oct, [place] [address] [place] [id number] [place] [address] 97233- 4697 Sep, [place] [address] [place] [id number] [place] [address] 36143- 9839 Aug, ADHD (attention deficit hyperactivity disorder), combined type F90.2 and PEARL (generalized anxiety disorder) F41.1 [facility] [id number] [place] [address] 26345- 5495 Jul, [facility] [id number] [place] [address] 17122- 8105 Jul, [facility] [id number] [place] [address] 54776- 8152 Jun, [facility] [id number] [place] [address] 70669- 9568 May, [facility] [id number] [place] [address] 18448- 2791 May, [facility] [id number] [place] [address] 96097- 0206 Apr, [facility] [id number] [place] [address] 53304- 8632 Mar, [facility] [id number] [place] [address] 53511- 5197 February, [facility] [id number] [place] [address] 43696- 4296 February, [facility] [id number] [place] [address] 87148- 7031 February, PEARL (generalized anxiety disorder) F41.1 [facility] [id number] [place] [address] 96445- 5345 February, [facility] [id number] [place] [address] 49198 -8608 February, Seasonal allergic rhinitis, unspecified allergic rhinitis trigger J30.2 [facility] [id number] [place] [address] 97459- 1327 Jan, PEARL (generalized anxiety disorder) F41.1 [facility] [id number] [place] [address] 54754- 7619 Jan, ADHD (attention deficit hyperactivity disorder), combined type F90.2 and PEARL (generalized anxiety disorder) F41.1 [facility] [id number] [place] [address] 26937- 3654 Dec, [facility] [id number] [place] [address] 05049- 9053 Nov, [facility] [id number] [place] [address] 51952- 6158 Oct, [facility] [id number] [place] [address] 99367- 1585 Oct, [facility] [id number] [place] [address] 84034- 9716 Sep, [facility] [id number] [place] [address] 07512- 5397 Aug, ADHD (attention deficit hyperactivity disorder), combined type F90.2 and PEARL (generalized anxiety disorder) F41.1 [facility] [id number] [address]- 5670 Aug, [facility] [id number] [place] [address] 35345- 5145 Jul, [facility] [address] [id number] [place] [address] 59449- 4577 Jun, ADHD (attention deficit hyperactivity disorder), combined type F90.2 ; ODD (oppositional defiant disorder) F91.3 and PEARL (generalized anxiety disorder) F41.1 [facility] [address] [address]- 1322 Jun, [facility] [address] [id number] [place] [address] 25549- 1474 Jun, [facility] [id number] [address]- 3273 May, [facility] [address] [id number] [place] [address] 51548- 2034 May, ODD (oppositional defiant disorder) F91.3 and ADHD ( attention deficit hyperactivity disorder), combined type F90.2 [facility] [address] [id number] [place] [address] 71529- 7715 May, [facility] [id number] [address]- 6243 Apr, [facility] [address] [id number] [place] [address] 93273- 6928 Mar, [facility] [address] [id number] [place] [address] 38754- 1507 February, [facility] [address] [place] [id number] [place] [address] 48463- 7270 Jan, [facility] [id number] [place] [address] 48976- 4818 Dec, [facility] [id number] [place] [address] 95266- 8802 Dec, [facility] [address] [place] [id number] [place] [address] [id number] Nov, Dental examination Z01.20 [facility] [address] [id number] [place] [address] 34935- 5785 Nov, [facility] [address] [id number] [place] [address] 44512- 3419 Nov, [facility] [id number] [place] [address] 07439- 3569 Nov, Disruptive mood dysregulation disorder F34.8 ; ADHD ( attention deficit hyperactivity disorder), combined type F90.2 and ODD ( oppositional defiant disorder) F91.3 [facility] [address] [address]- 9467 Sep, [facility] [id number] [address]- 8090 Aug, [facility] [address] [address]- 4636 Jul, [facility] [address] [address]- 5346 Jul, [facility] [address] [address]- 5056 Jul, [facility] [address] [place] [id number] [place] [address] 37818- 4106 Jun, Bipolar disorder, unspecified 296.80 ; Attention deficit disorder (ADD), child, 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 and ODD (oppositional defiant disorder) 313.81 [facility] [id number] [place] [address] 67122- 9666 May, [facility] [id number] [address]- 4626 May, [facility] [address] [place] [id number] [place] [address] 33516- 2886 May, [facility] [address] [address]- 4912 Apr, [facility] [id number] [place] [address] 87988- 3836 Mar, [facility] [address] [address]- 3646 Mar, [facility] [address] [address]- 9226 February, Bipolar disorder, unspecified 296.80 ; Attention deficit disorder 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 and Oppositional defiant behavior 313.81 [facility] [address] [address]- 1046 February, [facility] [address] [address]- 7206 Jan, [facility] [id number] [place] [address] 98919- 3008 Jan, [facility] [place] [facility] [address] [id number] [place] [address]- 9170 Dec, [facility] [place] [facility] [address] [id number] [place] [address]- 5060 Dec, [facility] [place] [facility] [address] [id number] [place] [address]- 3999 Dec, [facility] [place] [facility] [address] [id number] [place] [address]- 4374 Nov, [facility] [place] [facility] [address] [id number] [place] [address]- 8157 Nov, [facility] [place] [facility] [address] [id number] [place] [address]- 3484 Nov, [facility] [place] [facility] [address] [id number] [place] [address]- 1986 Nov, [facility] [place] [facility] [address] [id number] [place] [address]- 2278 Nov, [facility] [place] [facility] [address] [id number] [place] [address]- 6185 Nov, [facility] [place] [facility] [address] [id number] [place] [address]- 8008 Nov, [facility] [place] [facility] [address] [id number] [place] [address]- 3416 Nov, [facility] [place] [facility] [address] [id number] [place] [address]- 5072 Oct, [facility] [place] [facility] [address] [id number] [place] [address]- 0329 Oct, [facility] [place] [facility] [address] [id number] [place] [address]- 3509 15 Oct, 2014 [facility] [place] [facility] [address] [id number] [place] [address]- 3952 14 Oct, 2014 [facility] [place] [facility] [address] [id number] [place] [address]- 1757 14 Oct, 2014 [facility] [address] [id number] [place] [address]- 6547 Oct, [facility] [place] [facility] [address] [id number] [place] [address]- 0329 08 Oct, 2014 [facility] [address] [id number] [place] [address]- 0687 16 Sep, 2014 [facility] [place] [facility] [address] [id number] [place] [address]- 8536 Sep, [facility] [place] [facility] [address] [id number] [place] [address]- 4825 Sep, [facility] [place] [facility] [address] [id number] [place] [address]- 1824 Aug, [facility] [place] [facility] [address] [id number] [place] [address]- 4301 Aug, [facility] [address] [id number] [place] [address]- 6547 14 Jul, 2014 [facility] [place] [facility] [address] [id number] [place] [address]- 7996 Jul, [facility] [place] [facility] [address] [id number] [place] [address]- 7514 Jun, [facility] [place] [facility] [address] [id number] [place] [address]- 4640 Jun, [facility] [place] [facility] [address] [id number] [place] [address]- 1717 May, [facility] [place] [facility] [address] [id number] [place] [address]- 8845 May, [facility] [place] [facility] [address] [id number] [place] [address]- 1312 May, [facility] [place] [facility] [address] [id number] [place] [address]- 3445 May, [facility] [place] [facility] [address] [id number] [place] [address]- 6346 Apr, [facility] [place] [facility] [address] [id number] [place] [address]- 5380 Apr, [facility] [place] [facility] [address] [id number] [place] [address]- 1102 Apr, [facility] [place] [facility] [address] [id number] [place] [address]- 3446 Apr, [facility] [place] [facility] [address] [id number] [place] [address]- 4867 Apr, [facility] [place] [facility] [address] [id number] [place] [address]- 6433 Mar, [facility] [place] [facility] [address] [id number] [place] [address]- 6714 Mar, [facility] [place] [facility] [address] [id number] [place] [address]- 5131 Mar, [facility] [place] [facility] [address] [id number] [place] [address]- 1721 Mar, [facility] [place] [facility] [address] [id number] [place] [address]- 5445 Mar, [facility] [place] [facility] [address] [id number] [place] [address]- 0952 February, [facility] [place] [facility] [address] [id number] [place] [address]- 5594 February, [facility] [place] [facility] [address] [id number] [place] [address]- 4752 February, [facility] [place] [facility] [address] [id number] [place] [address]- 3404 Jan, [facility] [place] [facility] [address] [id number] [place] [address]- 0910 Jan, [facility] [place] [facility] [address] [id number] [place] [address]- 2580 Dec, [facility] [address] [id number] [place] [address]- 0807 Dec, [facility] [place] [facility] [address] [id number] [place] [address]- 2890 Nov, [facility] [place] [facility] [address] [id number] [place] [address]- 1510 Nov, [facility] [place] [facility] [address] [id number] [place] [address]- 2283 Sep, [facility] [place] [facility] [address] [id number] [place] 7632 Sep, [facility] [place] [facility] [address] [id number] [place] [address]- 3832 Sep, [facility] [address] [id number] [place] [address]- 3929 Sep, [facility] [place] [facility] [address] [id number] [place] [address]- 5578 Aug, [facility] [place] [facility] [address] [id number] [place] [address]- 0206 Aug, [facility] [place] [facility] [address] [id number] [place] [address]- 8265 Aug, [facility] [place] [facility] [address] [id number] [place] [address]- 0044 Aug, [facility] [place] [facility] [address] [id number] [place] [address]- 5121 Jul, [facility] [place] [facility] [address] [id number] [place] [address]- 1542 Jul, [facility] [place] [facility] [address] [id number] [place] [address]- 7671 Jun, [facility] [place] [facility] [address] [id number] [place] [address]- 6679 May, [facility] [place] [facility] [address] [id number] [place] [address]- 0710 15 May, 2013 [facility] [address] [id number] [place] [address]- 9796 15 May, 2013 [facility] [place] [facility] [address] [id number] [place] [address]- 7312 19 Apr, 2013 [facility] [place] [facility] [address] [id number] [place] [address]- 1512 18 Apr, 2013 [facility] [place] [facility] [address] [id number] [place] [address]- 1028 14 Oct, 2012 [facility] [place] [facility] [address] [id number] [place] [address]- 5073 24 Sep, 2012 [facility] [address] [id number] [place] [address]- 8613 Sep, [facility] [address] [id number] [place] [address]- 5641 Sep, [facility] [address] [id number] [place] [address]- 8383 Sep, [facility] [place] [facility] [address] [id number] [place] [address]- 8270 18 Sep, 2012 [facility] [place] [facility] [address] [id number] [place] [address]- 4428 Sep, [facility] [place] [facility] [address] [id number] [place] [address]- 6370 03 Sep, 2012 [facility] [place] [facility] [address] [id number] [place] [address]- 4959 Aug, [facility] [place] [facility] [address] [id number] [place] [address]- 1727 19 Aug, 2012 [facility] [place] [facility] [address] [id number] [place] [address]- 6288 14 Aug, 2012 [facility] [place] [facility] [address] [id number] [address]- 0466 Aug, [facility] [place] [facility] [address] [id number] [place] [address]- 5440 Jul, [facility] [place] [facility] [address] [id number] [place] [address]- 9805 Jul, [facility] [place] [facility] [address] [id number] [place] [address]- 1474 Jul, [facility] [place] [facility] [address] [id number], [place] [address]- 6967 Jun, [facility] [place] [facility] [address] [id number] [place] 9122 May, [facility] [place] [facility] [address] [id number] [place] [address]- 8051 May, [facility] [place] [facility] [address] [id number], [place] [address]- 2257 May, [facility] [place] [facility] [address] [id number], [place] [address]- 6298 May, [facility] [place] [facility] [address] [id number], [place] [address]- 8464 May, [facility] [place] [facility] [address] [id number], [place] [address]- 3830 Apr, [facility] [place] [facility] [address] [id number], [place] [address]- 1882 Apr, [facility] [place] [facility] [id number] [id number] Mar, [facility] [place] [facility] [address] [facility] [id number] [id number] Mar, [facility] [place] [facility] [address] [id number], [place] [address]- 8766 Mar, [facility] [place] [facility] [address] [id number], [place] [address]- 6506 Mar, [facility] [place] [facility] [address] [id number] [place] [address]- 6523 Mar, [facility] [address] [id number] [place] [address]- 0171 Mar, [facility] [place] [facility] [address] [id number] [place] [address]- 4316 February, [facility] [address] [id number] [place] [address]- 3936 Jan, [facility] [place] [facility] [address] [id number] [place] [address]- 3807 Jan, [facility] [place] [facility] [address] [id number] [place] [address]- 2354 Dec, [facility] [place] [facility] [address] [id number] [place] [address]- 4206 Dec, [facility] [place] [facility] [address] [id number] [place] [address]- 9600 Dec, [facility] [place] [facility] [address] [id number] [place] [address]- 9471 Dec, [facility] [place] [facility] [address] [id number] [place] [address]- 0504 Dec, [facility] [place] [facility] [address] [id number] [place] [address]- 1996 Nov, [facility] [place] [facility] [address] [id number] [place] [address]- 6525 Oct, [facility] [place] [facility] [address] [id number] [place] [address]- 2546 Oct, [facility] [place] [facility] [address] [id number] [place] [address]- 2524 Sep, [facility] [place] [facility] [address] [id number] [place] [address]- 2546 Sep, [facility] [place] [facility] [address] [id number] [place] [address]- 6906 Aug, [facility] [id number] [address]- 7386 Aug, [facility] [id number] [address]- 2148 Jul, [facility] [address] [address]- 3356 Jul, [facility] [address] [address]- 3706 Jun, [facility] [address] [address]- 7832 February, [facility] [id number] [address]- 8402 Jan, [facility] [id number] [address]- 6873 Dec, IMMUNIZATIONS No Known Immunizations SOCIAL HISTORY Never Assessed REASON FOR VISIT med refill PLAN OF CARE VITAL SIGNS MEDICATIONS Unknown Medications RESULTS No Results PROCEDURES No Known procedures INSTRUCTIONS MEDICATIONS ADMINISTERED No Known Medications MEDICAL (GENERAL) HISTORY Type Description Date Medical History Bipolar disorder, unspecified Medical History Bipolar disorder, unspecified Medical History ODD (oppositional defiant disorder) Medical History ODD (oppositional defiant disorder) Medical History Disruptive mood dysregulation disorder
--- OUTSIDE RECORDS SUMMARY | 2018-09-15 20:55 | XMS REPORT ---
Author JOAN Paniagua [employer] Address Unknown Phone Unavailable Care Team Providers Care Medical Registrar Name Role Phone JOAN GARCIA CP Unavailable Allergies, Adverse Reactions, Alerts Substance Reaction Event Type N.K.D.A. Info Not Available Non Drug Allergy Problems Problem Type Condition Code Onset Dates Condition Status Assessment ODD (oppositional defiant disorder) F91.3 Active Problem Problems with sight V41.0 Active Problem Spasm of muscle 728.85 Active Assessment ADHD (attention deficit hyperactivity disorder), combined type F90.2 Active Problem ADHD (attention deficit hyperactivity disorder), [...] Instructions Start Date End Date Status Dosage Metoprolol Succinate ER [facility] [address]-29 25 MG Orally at bedtime for panic Jun 05, 2016 1 tablet Procedures Procedure Coding System Code Date Office Visit, Est Pt., Level 4 CPT-4 36284 Jun 05, 2016 Vital Signs Date/Time: Jun 05, 2016 Cardiac Monitoring Heart Rate 68 bpm Weight 186.5 lbs Height 69.0 in Ht Percentile 47.42 % BMI 27.54 Index Blood Pressure Diastolic 71 mmHg Blood Pressure Systolic 122 mmHg BMIPercentile 93.15 % Wt Percentile 91.21 % Results No Known Results Summary Purpose [employer] Submission
--- OUTSIDE RECORDS SUMMARY | 2018-09-15 20:56 | XMS REPORT ---
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 Active Problem Spasm of muscle 728.85 Active Problem Bipolar disorder, unspecified 296.80 Active Problem Allergic rhinitis due to pollen 477.0 Active Problem Problems with sight V41.0 Active Medications Medication Code System Code Instructions Start Date End Date Status Dosage Methylphenidate HCl [facility] [address]-18 5 MG Orally Once a day qAM February 21, 2015 Jun 22, 2015 1 tablet Concerta [facility] [address]-09 54 MG Orally Once a day for ADHD December 28, 2014 Jul 20, 2015 1 tablet Results No Known Results Summary Purpose [employer] Submission
--- OUTSIDE RECORDS SUMMARY | 2018-09-15 20:57 | XMS REPORT ---
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 Role Phone JOSEFLEIPAJOAN Unavailable PROBLEMS Type Condition ICD9-CM Code GKU59-PD Code Onset Dates Condition Status SNOMED Code Problem Seasonal allergic rhinitis, unspecified allergic rhinitis trigger J30.2 Active 611169584 Problem PEARL (generalized anxiety disorder) F41.1 Active 59813747 Problem ADHD (attention deficit hyperactivity disorder), combined type F90.2 Active [id number] ALLERGIES No Information ENCOUNTERS Encounter Location Date Diagnosis [place] [address] [address] Apr, [facility] [address] [address]- [address]763 Dec, ADHD (attention deficit hyperactivity disorder), combined type F90.2 and PEARL (generalized anxiety disorder) F41.1 [facility] [address] [place] [id number] [place] [address] 66218- 4915 Oct, Dysfunction of right eustachian tube H69.81 [place] [address] [place] [id number] [place] [address] 55513- 2195 Oct, [facility] [id number] [place] [address] 81847- 5665 Oct, [place] [id number] [place] [address] 88879- 7779 Oct, [place] [address] [id number] [place] [address] 95924- 2288 Sep, [place] [address] [id number] [place] [address] 40987- 5245 Aug, ADHD (attention deficit hyperactivity disorder), combined type F90.2 and PEARL (generalized anxiety disorder) F41.1 [facility] [id number] [place] [address] 38535- 2079 Jul, [facility] [id number] [place] [address] 97414- 5160 Jul, [facility] [id number] [place] [address] 03138- 0431 Jun, [facility] [id number] [place] [address] 65306- 9646 May, [facility] [id number] [place] [address] 55493- 8195 May, [facility] [id number] [place] [address] 76763- 6470 Apr, [facility] [id number] [place] [address] 40573- 5839 Mar, [facility] [id number] [place] [address] 85720- 7819 February, [facility] [id number] [place] [address] 11424- 0698 February, [facility] [id number] [place] [address] 83219- 3300 February, PEARL (generalized anxiety disorder) F41.1 [facility] [id number] [place] [address] 16119- 1573 February, [facility] [id number] [place] [address] 15431 -8650 February, Seasonal allergic rhinitis, unspecified allergic rhinitis trigger J30.2 [facility] [id number] [place] [address] 51081- 8769 Jan, PEARL (generalized anxiety disorder) F41.1 [facility] [id number] [place] [address] 33772- 6059 Jan, ADHD (attention deficit hyperactivity disorder), combined type F90.2 and PEARL (generalized anxiety disorder) F41.1 [facility] [id number] [place] [address] 25689- 1234 Dec, [facility] [id number] [place] [address] 34674- 4079 Nov, [facility] [id number] [place] [address] 49242- 3103 Oct, [facility] [id number] [place] [address] 91027- 6490 Oct, [facility] [id number] [place] [address] 25367- 9414 Sep, [facility] [id number] [place] [address] 39914- 9312 Aug, ADHD (attention deficit hyperactivity disorder), combined type F90.2 and PEARL (generalized anxiety disorder) F41.1 [facility] [id number] [address]- 5237 Aug, [facility] [id number] [place] [address] 83405- 6607 Jul, [facility] [id number] [place] [address] 92993- 1692 Jun, ADHD (attention deficit hyperactivity disorder), combined type F90.2 ; ODD (oppositional defiant disorder) F91.3 and PEARL (generalized anxiety disorder) F41.1 [facility] [address] [address]- 8029 Jun, [facility] [id number] [place] [address] 09949- 1777 Jun, [facility] [id number] [address]- 6519 May, [facility] [address] [id number] [place] [address] 80547- 9542 May, ODD (oppositional defiant disorder) F91.3 and ADHD ( attention deficit hyperactivity disorder), combined type F90.2 [facility] [address] [id number] [place] [address] 73480- 9421 May, [facility] [id number] [address]- 7110 Apr, [facility] [id number] [place] [address] 70104- 1100 Mar, [facility] [id number] [place] [address] 45189- 8952 February, [facility] [id number] [place] [address] 47546- 4206 Jan, [facility] [id number] [place] [address] 76717- 2177 Dec, [facility] [id number] [place] [address] 50022- 3860 Dec, [facility] [address] [id number] [place] [address] [id number] Nov, Dental examination Z01.20 [facility] [address] [id number] [place] [address] 07176- 1823 Nov, [facility] [address] [id number] [place] [address] 39804- 9663 Nov, [facility] [address] [id number] [place] [address] 21008- 2013 Nov, Disruptive mood dysregulation disorder F34.8 ; ADHD ( attention deficit hyperactivity disorder), combined type F90.2 and ODD ( oppositional defiant disorder) F91.3 [facility] [address] [address]- 5249 Sep, [facility] [id number] [address]- 9513 Aug, [facility] [address] [address]- 5066 Jul, [facility] [address] [address]- 1536 Jul, [facility] [address] [address]- 5866 Jul, [facility] [address] [place] [id number] [place] [address] 63978- 7576 Jun, Bipolar disorder, unspecified 296.80 ; Attention deficit disorder (ADD), child, 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 and ODD (oppositional defiant disorder) 313.81 [facility] [id number] [place] [address] 58073- 0776 May, [facility] [id number] [address]- 7946 May, [facility] [address] [place] [id number] [place] [address] 95243- 5726 May, [facility] [address] [address]- 4821 Apr, [facility] [id number] [place] [address] 00434- 7706 Mar, [facility] [address] [address]- 6946 Mar, [facility] [address] [address]- 3166 February, Bipolar disorder, unspecified 296.80 ; Attention deficit disorder 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 and Oppositional defiant behavior 313.81 [facility] [address] [address]- 9096 February, [facility] [address] [address]- 9536 Jan, [facility] [id number] [place] [address] 24931- 4426 Jan, [facility] [place] [facility] [address] [id number] [place] [address]- 9513 Dec, [facility] [place] [facility] [address] [id number] [place] [address]- 9875 Dec, [facility] [place] [facility] [address] [id number] [place] [address]- 5479 Dec, [facility] [place] [facility] [address] [id number] [place] [address]- 6537 Nov, [facility] [place] [facility] [address] [id number] [place] [address]- 7018 Nov, [facility] [place] [facility] [address] [id number] [place] [address]- 3417 Nov, [facility] [place] [facility] [address] [id number] [place] [address]- 5129 Nov, [facility] [place] [facility] [address] [id number] [place] [address]- 6983 Nov, [facility] [place] [facility] [address] [id number] [place] [address]- 9596 Nov, [facility] [place] [facility] [address] [id number] [place] [address]- 2448 Nov, [facility] [place] [facility] [address] [id number] [place] [address]- 6514 Nov, [facility] [place] [facility] [address] [id number] [place] [address]- 5916 Oct, [facility] [place] [facility] [address] [id number] [place] [address]- 6248 Oct, [facility] [place] [facility] [address] [id number] [place] [address]- 7486 15 Oct, 2014 [facility] [place] [facility] [address] [id number] [place] [address]- 8066 14 Oct, 2014 [facility] [place] [facility] [address] [id number] [place] [address]- 8981 14 Oct, 2014 [facility] [address] [id number] [place] [address]- 6042 Oct, [facility] [place] [facility] [address] [id number] [place] [address]- 5287 08 Oct, 2014 [facility] [address] [id number] [place] [address]- 4105 16 Sep, 2014 [facility] [place] [facility] [address] [id number] [place] [address]- 6143 Sep, [facility] [place] [facility] [address] [id number] [place] [address]- 4771 Sep, [facility] [place] [facility] [address] [id number] [place] [address]- 0056 Aug, [facility] [place] [facility] [address] [id number] [place] [address]- 7480 Aug, [facility] [address] [id number] [place] [address]- 0603 14 Jul, 2014 [facility] [place] [facility] [address] [id number] [place] [address]- 7897 Jul, [facility] [place] [facility] [address] [id number] [place] [address]- 2423 Jun, [facility] [place] [facility] [address] [id number] [place] [address]- 2357 Jun, [facility] [place] [facility] [address] [id number] [place] [address]- 3951 May, [facility] [place] [facility] [address] [id number] [place] [address]- 6709 May, [facility] [place] [facility] [address] [id number] [place] [address]- 9140 May, [facility] [place] [facility] [address] [id number] [place] [address]- 2205 May, [facility] [place] [facility] [address] [id number] [place] [address]- 8761 Apr, [facility] [place] [facility] [address] [id number] [place] [address]- 6184 Apr, [facility] [place] [facility] [address] [id number] [place] [address]- 0860 Apr, [facility] [place] [facility] [address] [id number] [place] [address]- 8186 Apr, [facility] [place] [facility] [address] [id number] [place] [address]- 4526 Apr, [facility] [place] [facility] [address] [id number] [place] [address]- 6305 Mar, [facility] [place] [facility] [address] [id number] [place] [address]- 7255 Mar, [facility] [place] [facility] [address] [id number] [place] [address]- 8614 Mar, [facility] [place] [facility] [address] [id number] [place] [address]- 9866 Mar, [facility] [place] [facility] [address] [id number] [place] [address]- 0352 Mar, [facility] [place] [facility] [address] [id number] [place] [address]- 5600 February, [facility] [place] [facility] [address] [id number] [place] [address]- 2330 February, [facility] [place] [facility] [address] [id number] [place] [address]- 2773 February, [facility] [place] [facility] [address] [id number] [place] [address]- 5464 Jan, [facility] [place] [facility] [address] [id number] [place] [address]- 2719 Jan, [facility] [place] [facility] [address] [id number] [place] [address]- 6731 Dec, [facility] [address] [id number] [place] [address]- 8673 Dec, [facility] [place] [facility] [address] [id number] [place] [address]- 3099 Nov, [facility] [place] [facility] [address] [id number] [place] [address]- 3294 Nov, [facility] [place] [facility] [address] [id number] [place] [address]- 5118 Sep, [facility] [place] [facility] [address] [id number] [place] 4968 Sep, [facility] [place] [facility] [address] [id number] [place] [address]- 2583 Sep, [facility] [address] [id number] [place] [address]- 6806 Sep, [facility] [place] [facility] [address] [id number] [place] [address]- 2682 Aug, [facility] [place] [facility] [address] [id number] [place] [address]- 8615 Aug, [facility] [place] [facility] [address] [id number] [place] [address]- 7737 Aug, [facility] [place] [facility] [address] [id number] [place] [address]- 5298 Aug, [facility] [place] [facility] [address] [id number] [place] [address]- 2635 Jul, [facility] [place] [facility] [address] [id number] [place] [address]- 8188 Jul, [facility] [place] [facility] [address] [id number] [place] [address]- 0713 Jun, [facility] [place] [facility] [address] [id number] [place] [address]- 0918 May, [facility] [place] [facility] [address] [id number] [place] [address]- 8845 15 May, 2013 [facility] [address] [id number] [place] [address]- 9192 15 May, 2013 [facility] [place] [facility] [address] [id number] [place] [address]- 0172 19 Apr, 2013 [facility] [place] [facility] [address] [id number] [place] [address]- 2173 18 Apr, 2013 [facility] [place] [facility] [address] [id number] [place] [address]- 0243 14 Oct, 2012 [facility] [place] [facility] [address] [id number] [place] [address]- 1507 24 Sep, 2012 [facility] [address] [id number] [place] [address]- 0175 Sep, [facility] [address] [id number] [place] [address]- 3041 Sep, [facility] [address] [id number] [place] [address]- 1974 Sep, [facility] [place] [facility] [address] [id number] [place] [address]- 4605 18 Sep, 2012 [facility] [place] [facility] [address] [id number] [place] [address]- 1328 Sep, [facility] [place] [facility] [address] [id number] [place] [address]- 3520 03 Sep, 2012 [facility] [place] [facility] [address] [id number] [place] [address]- 7977 Aug, [facility] [place] [facility] [address] [id number] [place] [address]- 9199 19 Aug, 2012 [facility] [place] [facility] [address] [id number] [place] [address]- 8353 14 Aug, 2012 [facility] [place] [facility] [address] [id number] [address]- 2956 Aug, [facility] [place] [facility] [address] [id number] [place] [address]- 6947 Jul, [facility] [place] [facility] [address] [id number] [place] [address]- 9543 Jul, [facility] [place] [facility] [address] [id number] [place] [address]- 9791 Jul, [facility] [place] [facility] [address] [id number] [address]- 6117 Jun, [facility] [place] [facility] [address] [id number] [place]756 May, [facility] [place] [facility] [address] [id number] [place] [address]- 2593 May, [facility] [place] [facility] [address] [id number] [address]- 4008 May, [facility] [place] [facility] [address] [id number] [address]- 9383 May, [facility] [place] [facility] [address] [id number] [address]- 9861 May, [facility] [place] [facility] [address] [id number] [address]- 6878 Apr, [facility] [place] [facility] [address] [id number] [place] [address]- 5848 Apr, [facility] [place] [facility] [address] [id number] [id number] Mar, [facility] [place] [facility] [address] [facility] [id number] [id number] Mar, [facility] [place] [facility] [address] [id number] [address]- 2407 Mar, [facility] [place] [facility] [address] [id number] [address]- 0825 Mar, [facility] [place] [facility] [address] [id number] [place] [address]- 2807 Mar, [facility] [address] [id number] [place] [address]- 4360 Mar, [facility] [place] [facility] [address] [id number] [place] [address]- 0186 February, [facility] [address] [id number] [place] [address]- 9006 Jan, [facility] [place] [facility] [address] [id number] [place] [address]- 9247 Jan, [facility] [place] [facility] [address] [id number] [place] [address]- 1362 Dec, [facility] [place] [facility] [address] [id number] [place] [address]- 7396 Dec, [facility] [place] [facility] [address] [id number] [place] [address]- 2872 Dec, [facility] [place] [facility] [address] [id number] [place] [address]- 5327 Dec, [facility] [place] [facility] [address] [id number] [place] [address]- 7133 Dec, [facility] [place] [facility] [address] [id number] [place] [address]- 3270 Nov, [facility] [place] [facility] [address] [id number] [place] [address]- 6427 Oct, [facility] [place] [facility] [address] [id number] [place] [address]- 2546 Oct, [facility] [place] [facility] [address] [id number] [place] [address] Sep, [facility] [place] [facility] [address] [id number] [place] [address] Sep, [facility] [place] [facility] [address] [id number] [place] [address] Aug, [facility] [address] [id number] [address] Aug, [facility] [address] [id number] [address] Jul, [facility] [id number] [address] Jul, [facility] [id number] [address] Jun, [facility] [id number] [address] February, [facility] [address] [id number] [address] Jan, [facility] [address] [id number] [address] Dec, IMMUNIZATIONS No Known Immunizations SOCIAL HISTORY [...]
--- OUTSIDE RECORDS SUMMARY | 2018-09-15 20:57 | XMS REPORT ---
Author Author JOAN GARCIA [facility] Address [address] [place] [address] Care Team Providers Care Resident Inspector Name Role Phone JOSEFELIPAJOAN Unavailable PROBLEMS Type Condition ICD9-CM Code NFF74-QO Code Onset Dates Condition Status SNOMED Code Problem Seasonal allergic rhinitis, unspecified allergic rhinitis trigger J30.2 Active 129805079 Problem PEARL (generalized anxiety disorder) F41.1 Active 12830638 Problem ADHD (attention deficit hyperactivity disorder), combined type F90.2 Active [id number] ALLERGIES No Known Allergies ENCOUNTERS Encounter Location Date Diagnosis [place] [id number] [address] Apr, [facility] [address] [address]- [address] Dec, ADHD (attention deficit hyperactivity disorder), combined type F90.2 and PEARL (generalized anxiety disorder) F41.1 [facility] [address] [place] [id number] [place] [address] 87752- 0271 Oct, Dysfunction of right eustachian tube H69.81 [place] [address] [place] [id number] [place] [address] 13978- 9725 Oct, [facility] [id number] [place] [address] 45351- 8175 Oct, [place] [address] [place] [id number] [place] [address] 94921- 9163 Oct, [place] [address] [place] [id number] [place] [address] 79576- 4579 Sep, [place] [address] [place] [id number] [place] [address] 51249- 8720 Aug, ADHD (attention deficit hyperactivity disorder), combined type F90.2 and PEARL (generalized anxiety disorder) F41.1 [facility] [id number] [place] [address] 99547- 5252 Jul, [facility] [id number] [place] [address] 20299- 8645 Jul, [facility] [id number] [place] [address] 95624- 0624 Jun, [facility] [id number] [place] [address] 69547- 2163 May, [facility] [id number] [place] [address] 98113- 1433 May, [facility] [id number] [place] [address] 58230- 9870 Apr, [facility] [id number] [place] [address] 85580- 5564 Mar, [facility] [id number] [place] [address] 61993- 1820 February, [facility] [id number] [place] [address] 54226- 2372 February, [facility] [id number] [place] [address] 70659- 6732 February, EPARL (generalized anxiety disorder) F41.1 [facility] [id number] [place] [address] 79207- 0800 February, [facility] [id number] [place] [address] 28877 -7975 February, Seasonal allergic rhinitis, unspecified allergic rhinitis trigger J30.2 [facility] [id number] [place] [address] 39444- 1946 Jan, PEARL (generalized anxiety disorder) F41.1 [facility] [id number] [place] [address] 10925- 9675 Jan, ADHD (attention deficit hyperactivity disorder), combined type F90.2 and PEARL (generalized anxiety disorder) F41.1 [facility] [id number] [place] [address] 30549- 4694 Dec, [facility] [id number] [place] [address] 61025- 3751 Nov, [facility] [id number] [place] [address] 74690- 0425 Oct, [facility] [id number] [place] [address] 05578- 1344 Oct, [facility] [id number] [place] [address] 80570- 3080 Sep, [facility] [id number] [place] [address] 23158- 0218 Aug, ADHD (attention deficit hyperactivity disorder), combined type F90.2 and PEARL (generalized anxiety disorder) F41.1 [facility] [address] [id number] [place] [address] 02984- 2660 Aug, [facility] [id number] [place] [address] 76951- 6941 Jul, [facility] [id number] [place] [address] 96927- 7829 Jun, ADHD (attention deficit hyperactivity disorder), combined type F90.2 ; ODD (oppositional defiant disorder) F91.3 and PEARL (generalized anxiety disorder) F41.1 [facility] [address] [address]- 5322 Jun, [facility] [address] [id number] [place] [address] 90777- 7169 Jun, [facility] [address] [id number] [place] [address] 91733- 2985 May, [facility] [address] [id number] [place] [address] 54413- 1045 May, ODD (oppositional defiant disorder) F91.3 and ADHD ( attention deficit hyperactivity disorder), combined type F90.2 [facility] [address] [place] [id number] [place] [address] 97290- 0440 May, [facility] [address] [address]- 8294 Apr, [facility] [address] [place] [id number] [place] [address] 75761- 6653 Mar, [facility] [address] [place] [id number] [place] [address] 75880- 7832 February, [facility] [address] [id number] [place] [address] 739694- 7593 Jan, [facility] [address] [id number] [place] [address] 76781- 6032 Dec, [facility] [address] [id number] [place] [address] 78166- 9674 Dec, [facility] [address] [id number] [place] [address] [id number] Nov, Dental examination Z01.20 [facility] [address] [address]- 5431 Nov, [facility] [address] [address]- 0751 Nov, [facility] [address] [id number] [place] [address] 36382- 4771 Nov, Disruptive mood dysregulation disorder F34.8 ; ADHD ( attention deficit hyperactivity disorder), combined type F90.2 and ODD ( oppositional defiant disorder) F91.3 [facility] [address] [address]- 0316 Sep, [facility] [id number] [address]- 8504 Aug, [facility] [address] [address]- 4256 Jul, [facility] [address] [address]- 5106 Jul, [facility] [address] [address]- 2546 Jul, [facility] [address] [id number] [place] [address] 72076- 5316 Jun, Bipolar disorder, unspecified 296.80 ; Attention deficit disorder (ADD), child, 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 and ODD (oppositional defiant disorder) 313.81 [facility] [address] [address] [id number] [address]- 2196 May, [facility] [address] [address]- 9846 May, [facility] [address] [id number] [address]- 6406 May, [facility] [address] [address]- 3338 Apr, [facility] [address] [address]- 9066 Mar, [facility] [address] [address]- 1516 Mar, [facility] [address] [address]- 3346 February, Bipolar disorder, unspecified 296.80 ; Attention deficit disorder 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 and Oppositional defiant behavior 313.81 [facility] [address] [address]- 2416 February, [facility] [address] [address]- 3046 Jan, [facility] [address] [address]- 7944 Jan, [facility] [place] [facility] [address] [id number] [place] [address]- 9688 Dec, [facility] [place] [facility] [address] [id number] [place] [address]- 9882 Dec, [facility] [place] [facility] [address] [id number] [place] [address]- 3611 Dec, [facility] [place] [facility] [address] [id number] [place] [address]- 8117 Nov, [facility] [place] [facility] [address] [id number] [place] [address]- 6574 Nov, [facility] [place] [facility] [address] [id number] [place] [address]- 5192 Nov, [facility] [place] [facility] [address] [id number] [place] [address]- 8151 Nov, [facility] [place] [facility] [address] [id number] [place] [address]- 5841 Nov, [facility] [place] [facility] [address] [id number] [place] [address]- 0855 Nov, [facility] [place] [facility] [address] [id number] [place] [address]- 1549 Nov, [facility] [place] [facility] [address] [id number] [place] [address]- 1463 Nov, [facility] [place] [facility] [address] [id number] [place] [address]- 4595 Oct, [facility] [place] [facility] [address] [id number] [place] [address]- 1094 Oct, [facility] [place] [facility] [address] [id number] [place] [address]- 2631 15 Oct, 2014 [facility] [place] [facility] [address] [id number] [place] [address]- 0448 14 Oct, 2014 [facility] [place] [facility] [address] [id number] [place] [address]- 8700 14 Oct, 2014 [facility] [place] [facility] [address] [id number] [place] [address]- 6530 Oct, [facility] [place] [facility] [address] [id number] [place] [address]- 2101 08 Oct, 2014 [facility] [place] [facility] [address] [id number] [place] [address]- 6963 16 Sep, 2014 [facility] [place] [facility] [address] [id number] [place] [address]- 3626 Sep, [facility] [place] [facility] [address] [id number] [place] [address]- 9195 Sep, [facility] [place] [facility] [address] [id number] [place] [address]- 3592 Aug, [facility] [place] [facility] [address] [id number] [place] [address]- 0052 Aug, [facility] [place] [facility] [address] [id number] [place] [address]- 2295 Jul, [facility] [place] [facility] [address] [id number] [place] [address]- 1434 Jul, [facility] [place] [facility] [address] [id number] [place] [address]- 0771 Jun, [facility] [place] [facility] [address] [id number] [place] [address]- 9714 Jun, [facility] [place] [facility] [address] [id number] [place] [address]- 8983 May, [facility] [place] [facility] [address] [id number] [place] [address]- 5722 May, [facility] [place] [facility] [address] [id number] [place] [address]- 6877 May, [facility] [place] [facility] [address] [id number] [place] [address]- 8225 May, [facility] [place] [facility] [address] [id number] [place] [address]- 6853 Apr, [facility] [place] [facility] [address] [id number] [place] [address]- 5508 Apr, [facility] [place] [facility] [address] [id number] [place] [address]- 2390 Apr, [facility] [place] [facility] [address] [id number] [place] [address]- 9269 Apr, [facility] [place] [facility] [address] [id number] [place] [address]- 1941 Apr, [facility] [place] [facility] [address] [id number] [place] [address]- 3551 Mar, [facility] [place] [facility] [address] [id number] [place] [address]- 6231 Mar, [facility] [place] [facility] [address] [id number] [place] [address]- 9049 Mar, [facility] [place] [facility] [address] [id number] [place] [address]- 3725 Mar, [facility] [place] [facility] [address] [id number] [place] [address]- 7146 Mar, [facility] [place] [facility] [address] [id number] [place] [address]- 4439 February, [facility] [place] [facility] [address] [id number] [place] [address]- 9329 February, [facility] [place] [facility] [address] [id number] [place] [address]- 6717 February, [facility] [place] [facility] [address] [id number] [place] [address]- 2270 Jan, [facility] [place] [facility] [address] [id number] [place] [address]- 1172 Jan, [facility] [place] [facility] [address] [id number] [place] [address]- 2781 10 Dec, 2013 [facility] [place] [facility] [address] [id number] [place] [address]- 5705 Dec, [facility] [place] [facility] [address] [id number] [place] [address]- 4317 03 Nov, 2013 [facility] [place] [facility] [address] [id number] [place] [address]- 0006 Nov, [facility] [place] [facility] [address] [id number] [place] [address]- 6395 Sep, [facility] [place] [facility] [address] [id number] [place] 2764 Sep, [facility] [place] [facility] [address] [id number] [place] [address]- 9582 Sep, [facility] [place] [facility] [address] [id number] [place] [address]- 3719 Sep, [facility] [place] [facility] [address] [id number] [place] [address]- 4672 Aug, [facility] [place] [facility] [address] [id number] [place] [address]- 4373 Aug, [facility] [place] [facility] [address] [facility] [id number] [place] [address]- 4694 Aug, [facility] [place] [facility] [address] [id number] [place] [address]- 8952 Aug, [facility] [place] [facility] [address] [id number] [place] [address]- 1198 Jul, [facility] [place] [facility] [address] [id number] [place] [address]- 2117 Jul, [facility] [place] [facility] [address] [id number] [place] [address]- 6315 Jun, [facility] [place] [facility] [address] [id number] [place] [address]- 5429 May, [facility] [place] [facility] [address] [id number] [place] [address]- 4330 15 May, 2013 [facility] [address] [id number] [place] [address]- 9889 15 May, 2013 [facility] [address] [id number] [place] [address]- 9921 19 Apr, 2013 [facility] [address] [id number] [place] [address]- 6879 18 Apr, 2013 [facility] [address] [id number] [place] [address]- 7280 14 Oct, 2012 [facility] [address] [id number] [place] [address]- 0420 24 Sep, 2012 [facility] [address] [id number] [place] [address]- 0564 Sep, [facility] [address] [id number] [place] [address]- 5782 Sep, [facility] [address] [id number] [place] [address]- 3154 Sep, [facility] [address] [id number] [place] [address]- 4862 18 Sep, 2012 [facility] [address] [id number] [place] [address]- 8638 Sep, [facility] [address] [id number] [place] [address]- 4374 Sep, [facility] [place] [facility] [address] [id number] [place] [address]- 4290 Aug, [facility] [place] [facility] [address] [id number] [place] [address]- 9476 19 Aug, 2012 [facility] [place] [facility] [address] [id number] [place] [address]- 2342 14 Aug, 2012 [facility] [address] [id number] [address]- 5588 Aug, [facility] [place] [facility] [address] [id number] [place] 3998 Jul, [facility] [place] [facility] [address] [id number] [place] [address]- 5114 Jul, [facility] [place] [facility] [address] [id number] [place] [address]- 5105 Jul, [facility] [place] [facility] [address] [id number] [place] [address]- 3157 Jun, [facility] [place] [facility] [address] [id number] [place] [address]- 9941 May, [facility] [place] [facility] [address] [id number] [place] [address]- 8941 May, [facility] [place] [facility] [address] [id number] [place] [address]- 1478 May, [facility] [place] [facility] [address] [id number] [place] [address]- 1491 May, [facility] [place] [facility] [address] [id number] [place] [address]- 3769 May, [facility] [place] [facility] [address] [id number] [place] [address]- 5862 Apr, [facility] [place] [facility] [address] [id number] [place] [address]- 4714 Apr, [facility] [place] [facility] [id number] [address] Mar, [facility] [place] [facility] [address] [id number] [place] [address] Mar, [facility] [place] [facility] [address] [id number] [place] [address]- 1309 Mar, [facility] [place] [facility] [address] [id number] [place] [address]- 4505 Mar, [facility] [place] [facility] [address] [id number] [place] [address] 2541 Mar, [facility] [address] [id number] [place] [address]- 4660 Mar, [facility] [place] [facility] [address] [id number] [place] [address]- 7156 February, [facility] [address] [id number] [place] [address]- 1146 Jan, [facility] [place] [facility] [address] [id number] [place] [address]- 7833 Jan, [facility] [address] [id number] [place] [address]- 4178 Dec, [facility] [place] [facility] [address] [id number] [place] [address]- 7226 Dec, [facility] [address] [id number] [place] [address]- 1581 Dec, [facility] [address] [id number] [place] [address]- 6152 Dec, [facility] [place] [facility] [address] [id number] [place] [address]- 4214 Dec, [facility] [address] [id number] [place] [address]- 3912 Nov, [facility] [place] [facility] [address] [id number] [place] [address]- 0956 Oct, [facility] [place] [facility] [address] [id number] [place] [address]- 2546 Oct, [facility] [place] [facility] [address] [id number] [place] [address]- 7318 Sep, [facility] [place] [facility] [address] [id number] [place] [address]- 2546 Sep, [facility] [place] [facility] [address] [id number] [place] [address]- 4322 Aug, [facility] [id number] [address]- 1884 Aug, [facility] [address] [address]- 6149 Jul, [facility] [address] [address]- 7130 Jul, [facility] [address] [address]- 3280 Jun, [facility] [address] [address]- 2861 February, [facility] [address] [address]- 4713 Jan, [facility] [address] [address]- 5747 Dec, IMMUNIZATIONS No Known Immunizations SOCIAL HISTORY Never Assessed REASON FOR VISIT f/u--Kelley Farias MA, contract, needs stimulant refill if continued. PLAN OF CARE Activity Details Follow Up 6 Weeks Reason: VITAL SIGNS Height 69.1 in 2017-09-10 Weight 179.7 lbs 2017-09-10 Heart Rate 82 bpm 2017-09-10 Respiratory Rate 20 2017-09-10 BMI 26.46 kg/m2 2017-09-10 Blood pressure systolic 118 mmHg 2017-09-10 Blood pressure diastolic 88 mmHg 2017-09-10 MEDICATIONS Medication Instructions Dosage Frequency Start Date End Date Duration Status Fluticasone Propionate 50 MCG/ACT Nasally Once a day 1 spray in each nostril 24h February, 30 day(s) Active Clonidine HCl 0.1 MG Orally Once a day 1 tablet at bedtime 24h Aug, 30 day(s) Active Concerta 54 MG Orally Once a day for ADHD 1 tablet in the morning AugSep, 28 days Active Protonix 40 MG Orally Once a day 1 tablet 24h Active RESULTS No Results PROCEDURES No Known procedures INSTRUCTIONS MEDICATIONS ADMINISTERED No Known Medications MEDICAL (GENERAL) HISTORY Type Description Date Medical History Bipolar disorder, unspecified Medical History Bipolar disorder, unspecified Medical History ODD (oppositional defiant disorder) Medical History ODD (oppositional defiant disorder) Medical History Disruptive mood dysregulation disorder
--- OUTSIDE RECORDS SUMMARY | 2018-09-15 20:57 | XMS REPORT ---
Author Author JOAN GARCIA [facility] Address [address] [place] [address] Care Team Providers Care Bindery Machine Setter/Set Up Operator Name Role Phone JOSEFELIPAJOAN Unavailable PROBLEMS Type Condition ICD9-CM Code OTB98-CT Code Onset Dates Condition Status SNOMED Code Problem Seasonal allergic rhinitis, unspecified allergic rhinitis trigger J30.2 Active 685496269 Problem PEARL (generalized anxiety disorder) F41.1 Active 37208917 Problem ADHD (attention deficit hyperactivity disorder), combined type F90.2 Active [id number] ALLERGIES No Information ENCOUNTERS Encounter Location Date Diagnosis [place] [id number] [address] Apr, [facility] [address] [address]- 9597 Dec, ADHD (attention deficit hyperactivity disorder), combined type F90.2 and PEARL (generalized anxiety disorder) F41.1 [facility] [id number] [place] [address] 24426- 2707 Oct, Dysfunction of right eustachian tube H69.81 [place] [address] [place] [id number] [place] [address] 23354- 3338 Oct, [facility] [id number] [place] [address] 39428- 5622 Oct, [place] [id number] [place] [address] 16376- 0764 Oct, [place] [address] [id number] [place] [address] 47918- 9982 Sep, [place] [id number] [place] [address] 55230- 4028 Aug, ADHD (attention deficit hyperactivity disorder), combined type F90.2 and PEARL (generalized anxiety disorder) F41.1 [facility] [id number] [place] [address] 79775- 7200 Jul, [facility] [id number] [place] [address] 91873- 7694 Jul, [facility] [id number] [place] [address] 48663- 8623 Jun, [facility] [id number] [place] [address] 09562- 5985 May, [facility] [id number] [place] [address] 90811- 0607 May, [facility] [id number] [place] [address] 36162- 5355 Apr, [facility] [id number] [place] [address] 04321- 8790 Mar, [facility] [id number] [place] [address] 47038- 0181 February, [facility] [id number] [place] [address] 46367- 8171 February, [facility] [id number] [place] [address] 68922- 4589 February, PEARL (generalized anxiety disorder) F41.1 [facility] [id number] [place] [address] 73548- 6675 February, [facility] [id number] [place] [address] 72879 -8143 February, Seasonal allergic rhinitis, unspecified allergic rhinitis trigger J30.2 [facility] [id number] [place] [address] 71011- 1305 Jan, PEARL (generalized anxiety disorder) F41.1 [facility] [id number] [place] [address] 22691- 1201 Jan, ADHD (attention deficit hyperactivity disorder), combined type F90.2 and PEARL (generalized anxiety disorder) F41.1 [facility] [id number] [place] [address] 74939- 8511 Dec, [facility] [id number] [place] [address] 61960- 4108 Nov, [facility] [id number] [place] [address] 24849- 5722 Oct, [facility] [id number] [place] [address] 62452- 1906 Oct, [facility] [id number] [place] [address] 28895- 8086 Sep, [facility] [id number] [place] [address] 38247- 1301 Aug, ADHD (attention deficit hyperactivity disorder), combined type F90.2 and PEARL (generalized anxiety disorder) F41.1 [facility] [id number] [address]- 1752 Aug, [facility] [id number] [place] [address] 88046- 7345 Jul, [facility] [id number] [place] [address] 51062- 2027 Jun, ADHD (attention deficit hyperactivity disorder), combined type F90.2 ; ODD (oppositional defiant disorder) F91.3 and PEARL (generalized anxiety disorder) F41.1 [facility] [address] [address]- 4883 Jun, [facility] [id number] [place] [address] 31684- 5895 Jun, [facility] [id number] [address]- 2950 May, [facility] [id number] [place] [address] 92970- 3835 May, ODD (oppositional defiant disorder) F91.3 and ADHD ( attention deficit hyperactivity disorder), combined type F90.2 [facility] [id number] [place] [address] 95128- 3140 May, [facility] [id number] [address]- 2037 Apr, [facility] [id number] [place] [address] 04437- 2335 Mar, [facility] [id number] [place] [address] 28215- 6017 February, [facility] [id number] [place] [address] 78081- 1009 Jan, [facility] [id number] [place] [address] 23019- 1890 Dec, [facility] [id number] [place] [address] 22991- 6391 Dec, [facility] [id number] [place] [address] [id number] Nov, Dental examination Z01.20 [facility] [id number] [place] [address] 82546- 9172 Nov, [facility] [id number] [place] [address] 22801- 8742 Nov, [facility] [id number] [place] [address] 79323- 4574 Nov, Disruptive mood dysregulation disorder F34.8 ; ADHD ( attention deficit hyperactivity disorder), combined type F90.2 and ODD ( oppositional defiant disorder) F91.3 [facility] [address] [address]- 9185 Sep, [facility] [id number] [address]- 7614 Aug, [facility] [address] [address]- 0376 Jul, [facility] [address] [address]- 1546 Jul, [facility] [address] [address]- 5346 Jul, [facility] [id number] [place] [address] 17252- 9436 Jun, Bipolar disorder, unspecified 296.80 ; Attention deficit disorder (ADD), child, 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 and ODD (oppositional defiant disorder) 313.81 [facility] [id number] [place] [address] 08370- 7296 May, [facility] [id number] [address]- 1176 May, [facility] [id number] [place] [address] 17177- 0126 May, [facility] [address], [place] [address]- 4235 Apr, [facility] [id number] [place] [address] 70044- 0256 Mar, [facility] [address] [address]- 3866 Mar, [facility] [address] [address]- 4966 February, Bipolar disorder, unspecified 296.80 ; Attention deficit disorder 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 and Oppositional defiant behavior 313.81 [facility] [address], [place] [address]- 7876 February, [facility] [address], [place] [address]- 3356 Jan, [facility] [id number] [place] [address] 37739- 7867 Jan, [facility] [place] [facility] [address] [id number] [place] [address]- 7654 Dec, [facility] [place] [facility] [address] [id number] [place] [address]- 5359 Dec, [facility] [place] [facility] [address] [id number] [place] [address]- 2425 Dec, [facility] [place] [facility] [address] [id number] [place] [address]- 3668 Nov, [facility] [place] [facility] [address] [id number] [place] [address]- 1922 Nov, [facility] [place] [facility] [address] [id number] [place] [address]- 4186 Nov, [facility] [place] [facility] [address] [id number] [place] [address]- 9146 Nov, [facility] [place] [facility] [address] [id number] [place] [address]- 2770 Nov, [facility] [place] [facility] [address] [id number] [place] [address]- 8475 Nov, [facility] [place] [facility] [address] [id number] [place] [address]- 4644 Nov, [facility] [place] [facility] [address] [id number] [place] [address]- 3272 Nov, [facility] [place] [facility] [address] [id number] [place] [address]- 6700 Oct, [facility] [place] [facility] [address] [id number] [place] [address]- 2441 Oct, [facility] [place] [facility] [address] [id number] [place] [address]- 9564 15 Oct, 2014 [facility] [place] [facility] [address] [id number] [place] [address]- 5517 14 Oct, 2014 [facility] [place] [facility] [address] [id number] [place] [address]- 9579 14 Oct, 2014 [facility] [address] [id number] [place] [address]- 4231 Oct, [facility] [place] [facility] [address] [id number] [place] [address]- 8056 08 Oct, 2014 [facility] [address] [id number] [place] [address]- 2666 16 Sep, 2014 [facility] [place] [facility] [address] [id number] [place] [address]- 3302 Sep, [facility] [place] [facility] [address] [id number] [place] [address]- 5491 Sep, [facility] [place] [facility] [address] [id number] [place] [address]- 0299 Aug, [facility] [place] [facility] [address] [id number] [place] [address]- 4806 Aug, [facility] [address] [id number] [place] [address]- 7007 14 Jul, 2014 [facility] [place] [facility] [address] [id number] [place] [address]- 3185 Jul, [facility] [place] [facility] [address] [id number] [place] [address]- 7451 Jun, [facility] [place] [facility] [address] [id number] [place] [address]- 0140 Jun, [facility] [place] [facility] [address] [id number] [place] [address]- 0798 May, [facility] [place] [facility] [address] [id number] [place] [address]- 5737 May, [facility] [place] [facility] [address] [id number] [place] [address]- 1586 May, [facility] [place] [facility] [address] [id number] [place] [address]- 2557 May, [facility] [place] [facility] [address] [id number] [place] [address]- 1710 Apr, [facility] [place] [facility] [address] [id number] [place] [address]- 4349 Apr, [facility] [place] [facility] [address] [id number] [place] [address]- 5980 Apr, [facility] [place] [facility] [address] [id number] [place] [address]- 2852 Apr, [facility] [place] [facility] [address] [id number] [place] [address]- 9410 Apr, [facility] [place] [facility] [address] [id number] [place] [address]- 6537 Mar, [facility] [place] [facility] [address] [id number] [place] [address]- 2417 Mar, [facility] [place] [facility] [address] [id number] [place] [address]- 4631 Mar, [facility] [place] [facility] [address] [id number] [place] [address]- 1438 Mar, [facility] [place] [facility] [address] [id number] [place] [address]- 5023 Mar, [facility] [place] [facility] [address] [id number] [place] [address]- 7640 February, [facility] [place] [facility] [address] [id number] [place] [address]- 5533 February, [facility] [place] [facility] [address] [id number] [place] [address]- 1783 February, [facility] [place] [facility] [address] [id number] [place] [address]- 5227 Jan, [facility] [place] [facility] [address] [id number] [place] [address]- 3141 Jan, [facility] [place] [facility] [address] [id number] [place] [address]- 4074 Dec, [facility] [address] [id number] [place] [address]- 8324 Dec, [facility] [place] [facility] [address] [id number] [place] [address]- 9511 Nov, [facility] [place] [facility] [address] [id number] [place] [address]- 9700 Nov, [facility] [place] [facility] [address] [id number] [place] [address]- 0913 Sep, [facility] [place] [facility] [address] [id number] [place] 3430 Sep, [facility] [place] [facility] [address] [id number] [place] [address]- 6112 Sep, [facility] [address] [id number] [place] [address]- 9442 Sep, [facility] [place] [facility] [address] [id number] [place] [address]- 0865 Aug, [facility] [place] [facility] [address] [id number] [place] [address]- 5298 Aug, [facility] [place] [facility] [address] [id number] [place] [address]- 4458 Aug, [facility] [place] [facility] [address] [id number] [place] [address]- 9875 Aug, [facility] [place] [facility] [address] [id number] [place] [address]- 0965 Jul, [facility] [place] [facility] [address] [id number] [place] [address]- 1990 Jul, [facility] [place] [facility] [address] [id number] [place] [address]- 2448 Jun, [facility] [place] [facility] [address] [id number] [place] [address]- 3708 May, [facility] [place] [facility] [address] [id number] [place] [address]- 8674 15 May, 2013 [facility] [address] [id number] [place] [address]- 5757 15 May, 2013 [facility] [place] [facility] [address] [id number] [place] [address]- 5861 19 Apr, 2013 [facility] [place] [facility] [address] [id number] [place] [address]- 4912 18 Apr, 2013 [facility] [place] [facility] [address] [id number] [place] [address]- 8355 14 Oct, 2012 [facility] [place] [facility] [address] [id number] [place] [address]- 3490 24 Sep, 2012 [facility] [address] [id number] [place] [address]- 5586 Sep, [facility] [address] [id number] [place] [address]- 4719 Sep, [facility] [address] [id number] [place] [address]- 7870 Sep, [facility] [place] [facility] [address] [id number] [place] [address]- 9046 18 Sep, 2012 [facility] [place] [facility] [address] [id number] [place] [address]- 1174 Sep, [facility] [place] [facility] [address] [id number] [place] [address]- 6591 03 Sep, 2012 [facility] [place] [facility] [address] [id number] [place] [address]- 9019 Aug, [facility] [place] [facility] [address] [id number] [place] [address]- 4375 19 Aug, 2012 [facility] [place] [facility] [address] [id number] [place] [address]- 5932 14 Aug, 2012 [facility] [place] [facility] [address] [id number], [place] [address]- 6226 Aug, [facility] [place] [facility] [address] [id number] [place] [address]- 8012 Jul, [facility] [place] [facility] [address] [id number] [place] [address]- 8536 Jul, [facility] [place] [facility] [address] [id number] [place] [address]- 1174 Jul, [facility] [place] [facility] [address] [id number], [place] [address]- 0880 Jun, [facility] [place] [facility] [address] [id number] [place] 2715 May, [facility] [place] [facility] [address] [id number] [place] [address]- 7134 May, [facility] [place] [facility] [address] [id number], [place] [address]- 2287 May, [facility] [place] [facility] [address] [id number], [place] [address]- 3110 May, [facility] [place] [facility] [address] [id number], [place] [address]- 5914 May, [facility] [place] [facility] [address] [id number], [place] [address]- 9790 Apr, [facility] [place] [facility] [address] [id number], [place] [address]- 5925 Apr, [facility] [place] [facility] [id number] [id number] Mar, [facility] [place] [facility] [address] [facility] [id number] [address] Mar, [facility] [place] [facility] [address] [id number], [place] [address]- 0801 Mar, [facility] [place] [facility] [address] [id number], [place] [address]- 1693 Mar, [facility] [place] [facility] [address] [id number] [place] [address]- 6499 Mar, [facility] [address] [id number] [place] [address]- 4644 Mar, [facility] [place] [facility] [address] [id number] [place] [address]- 3066 February, [facility] [address] [id number] [place] [address]- 4336 Jan, [facility] [place] [facility] [address] [id number] [place] [address]- 5922 Jan, [facility] [place] [facility] [address] [id number] [place] [address]- 3603 Dec, [facility] [place] [facility] [address] [id number] [place] [address]- 2626 Dec, [facility] [place] [facility] [address] [id number] [place] [address]- 3423 Dec, [facility] [place] [facility] [address] [id number] [place] [address]- 0130 Dec, [facility] [place] [facility] [address] [id number] [place] [address]- 0025 Dec, [facility] [place] [facility] [address] [id number] [place] [address]- 0980 Nov, [facility] [place] [facility] [address] [id number] [place] [address]- 6406 Oct, [facility] [place] [facility] [address] [id number] [place] [address]- 2546 Oct, [facility] [place] [facility] [address] [id number] [place] [address]- 5608 Sep, [facility] [place] [facility] [address] [id number] [place] [address]- 2546 Sep, [facility] [place] [facility] [address] [id number] [place] [address]- 8806 Aug, [facility] [id number] [address]- 2546 Aug, [facility] [id number] [address]- 2546 Jul, [facility] [address], [place] [address]- 2546 Jul, [facility] [address], [place] [address]- 2546 Jun, [facility] [address], [place] [address]- 2546 February, [facility] [address], [place] [address]- 2546 Jan, [facility] [id number], [place] [address]- 1896 Dec, IMMUNIZATIONS No Known Immunizations SOCIAL HISTORY Never Assessed REASON FOR VISIT concerta 03/28/2017 PLAN OF CARE VITAL SIGNS MEDICATIONS Medication Instructions Dosage Frequency Start Date End Date Duration Status Concerta 54 MG Orally Once a day for ADHD 1 tablet in the morning Mar 28 days Active RESULTS No Results PROCEDURES No Known procedures INSTRUCTIONS MEDICATIONS ADMINISTERED No Known Medications MEDICAL (GENERAL) HISTORY Type Description Date Medical History Bipolar disorder, unspecified Medical History Bipolar disorder, unspecified Medical History ODD (oppositional defiant disorder) Medical History ODD (oppositional defiant disorder) Medical History Disruptive mood dysregulation disorder
--- OUTSIDE RECORDS SUMMARY | 2018-09-15 20:57 | XMS REPORT ---
Author JOAN Paniagua [employer] Address Unknown Phone Unavailable Care Team Providers Care Alarm Adjuster Name Role Phone JOAN GARCIA CP Unavailable Allergies No Known Allergies Problems Problem Type Condition Code Onset Dates Condition Status Problem Spasm of muscle 728.85 Active Problem Allergic rhinitis due to pollen 477.0 Active Problem Problems with sight V41.0 Active Problem Disruptive mood dysregulation disorder F34.8 Active Problem ADHD (attention deficit hyperactivity disorder), combined type F90.2 Active Problem PEARL (generalized anxiety disorder) F41.1 Active Problem DTAP TEST V06.1 Active Problem Routine infant or child health check V20.2 Active Problem ODD (oppositional defiant disorder) F91.3 Active Problem GARDASIL (HPV) DX V04.89 Active Medications Medication Code System Code Instructions Start Date End Date Status Dosage Concerta [facility] [address]-17 54 MG Orally Once a day for ADHD Jul 05, 2016 1 tablet in the morning Results No Known Results Summary Purpose eClinicalWorks Submission
--- OUTSIDE RECORDS SUMMARY | 2018-09-15 20:58 | XMS REPORT ---
Author Author JOAN GARCIA [employer] Address Unknown Phone Unavailable Care Team Providers Care Design Painter Name Role Phone JOAN GARCIA CP Unavailable Allergies No Known Allergies Problems Problem Type Condition Code Onset Dates Condition Status Problem DTAP [...] Start Date End Date Status Dosage Concerta [facility] [address]-19 54 MG Orally Once a day for ADHD Dr De Dios to sign for Camille December 28, 2014 1 tablet Methylphenidate HCl [facility] [address]-23 5 MG Orally Once in the afternoon for ADHD Dr De Dios to sign for Camlile 1 tablet on an empty stomach Results No Known Results Summary Purpose e[employer]Works Submission
--- OUTSIDE RECORDS SUMMARY | 2018-09-15 20:58 | XMS REPORT ---
Author JOAN Paniagua [employer] Address Unknown Phone Unavailable Care Team Providers Care Retort Loader Name Role Phone JOAN GARCIA CP Unavailable [...] Start Date End Date Status Dosage Concerta [facility] [address]-35 54 MG Orally. Once a day for ADHD December 28, 2014 1 tablet Methylphenidate HCl [facility] [address]-72 5 mg Orally. Once in the afternoon for ADHD 1 tablet on an empty stomach Results No Known Results Summary Purpose eClinicalWorks Submission
--- OUTSIDE RECORDS SUMMARY | 2018-09-15 20:58 | XMS REPORT ---
Author Author JOAN GARCIA [facility] Address [address] [place] [address] Care Team Providers Care Cytogenetic Technician Name Role Phone JOSEFELIPAJOAN Unavailable PROBLEMS Type Condition ICD9-CM Code [id number] Code Onset Dates Condition Status SNOMED Code Problem Seasonal allergic rhinitis, unspecified allergic rhinitis trigger J30.2 Active 108613942 Problem PEARL (generalized anxiety disorder) F41.1 Active 30296614 Problem ADHD (attention deficit hyperactivity disorder), combined type F90.2 Active [id number] ALLERGIES No Information ENCOUNTERS Encounter Location Date Diagnosis [place] [id number] [address] Apr, [facility] [address] [address]- [address] Dec, ADHD (attention deficit hyperactivity disorder), combined type F90.2 and PEARL (generalized anxiety disorder) F41.1 [facility] [id number] [place] [address] 05060- 0736 Oct, Dysfunction of right eustachian tube H69.81 [facility] [id number] [place] [address] 73098- 6481 Oct, [facility] [id number] [place] [address] 43276- 3854 Oct, [place] [id number] [place] [address] 41561- 1873 Oct, [place] [id number] [place] [address] 98939- 8188 Sep, [place] [id number] [place] [address] 14911- 8357 Aug, ADHD (attention deficit hyperactivity disorder), combined type F90.2 and PEARL (generalized anxiety disorder) F41.1 [facility] [id number] [place] [address] 86149- 3314 Jul, [facility] [id number] [place] [address] 34213- 4674 Jul, [facility] [id number] [place] [address] 63464- 8160 Jun, [facility] [id number] [place] [address] 03099- 0015 May, [facility] [id number] [place] [address] 81444- 2886 May, [facility] [id number] [place] [address] 07727- 3130 Apr, [facility] [id number] [place] [address] 76937- 7705 Mar, [facility] [id number] [place] [address] 45902- 1290 February, [facility] [id number] [place] [address] 26599- 6370 February, [facility] [id number] [place] [address] 02226- 5671 February, PEARL (generalized anxiety disorder) F41.1 [facility] [id number] [place] [address] 72840- 3184 February, [facility] [id number] [place] [address] 42046 -7719 February, Seasonal allergic rhinitis, unspecified allergic rhinitis trigger J30.2 [facility] [id number] [place] [address] 42323- 3643 Jan, PEARL (generalized anxiety disorder) F41.1 [facility] [id number] [place] [address] 42254- 5835 Jan, ADHD (attention deficit hyperactivity disorder), combined type F90.2 and PEARL (generalized anxiety disorder) F41.1 [facility] [id number] [place] [address] 33727- 7843 Dec, [facility] [id number] [place] [address] 83550- 8333 Nov, [facility] [id number] [place] [address] 81006- 0530 Oct, [facility] [id number] [place] [address] 44487- 6707 Oct, [facility] [id number] [place] [address] 07020- 8910 Sep, [facility] [id number] [place] [address] 49437- 0691 Aug, ADHD (attention deficit hyperactivity disorder), combined type F90.2 and PEARL (generalized anxiety disorder) F41.1 [facility] [id number] [address]- 0272 Aug, [facility] [id number] [place] [address] 84043- 9725 Jul, [facility] [id number] [place] [address] 62753- 4391 Jun, ADHD (attention deficit hyperactivity disorder), combined type F90.2 ; ODD (oppositional defiant disorder) F91.3 and PEARL (generalized anxiety disorder) F41.1 [facility] [address] [address]- 6326 Jun, [facility] [id number] [place] [address] 08975- 7935 Jun, [facility] [id number] [address]- 9910 May, [facility] [id number] [place] [address] 47473- 9753 May, ODD (oppositional defiant disorder) F91.3 and ADHD ( attention deficit hyperactivity disorder), combined type F90.2 [facility] [id number] [place] [address] 34787- 8624 May, [facility] [id number] [address]- 4779 Apr, [facility] [id number] [place] [address] 51326- 9231 Mar, [facility] [id number] [place] [address] 09455- 7667 February, [facility] [id number] [place] [address] 82188- 7176 Jan, [facility] [id number] [place] [address] 46910- 9318 Dec, [facility] [id number] [place] [address] 19611- 7341 Dec, [facility] [id number] [place] [address] [id number] Nov, Dental examination Z01.20 [facility] [id number] [place] [address] 24821- 8793 Nov, [facility] [id number] [place] [address] 83499- 9353 Nov, [facility] [id number] [place] [address] 77565- 8486 Nov, Disruptive mood dysregulation disorder F34.8 ; ADHD ( attention deficit hyperactivity disorder), combined type F90.2 and ODD ( oppositional defiant disorder) F91.3 [facility] [address] [address]- 4653 Sep, [facility] [id number] [address]- 3121 Aug, [facility] [address] [address]- 3906 Jul, [facility] [address], [place] [address]- 5176 Jul, [facility] [address], [place] [address]- 3916 Jul, [facility] [id number] [place] [address] 25517- 8476 Jun, Bipolar disorder, unspecified 296.80 ; Attention deficit disorder (ADD), child, 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 and ODD (oppositional defiant disorder) 313.81 [facility] [id number] [place] [address] 79070- 0766 May, [facility] [id number] [address]- 3486 May, [facility] [address] [id number] [place] [address] 32729- 0666 May, [facility] [address], [place] [address]- 4913 Apr, [facility] [id number] [place] [address] 38904- 3536 Mar, [facility] [address], [place] [address]- 1366 Mar, [facility] [address] [address]- 0256 February, Bipolar disorder, unspecified 296.80 ; Attention deficit disorder 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 and Oppositional defiant behavior 313.81 [facility] [address] [address]- 0116 February, [facility] [address] [address]- 3996 Jan, [facility] [id number] [place] [address] 00355- 2361 Jan, [facility] [place] [facility] [address] [id number] [place] [address]- 5203 Dec, [facility] [place] [facility] [address] [id number] [place] [address]- 4241 Dec, [facility] [place] [facility] [address] [id number] [place] [address]- 3935 Dec, [facility] [place] [facility] [address] [id number] [place] [address]- 6306 Nov, [facility] [place] [facility] [address] [id number] [place] [address]- 2629 Nov, [facility] [place] [facility] [address] [id number] [place] [address]- 4990 Nov, [facility] [place] [facility] [address] [id number] [place] [address]- 2970 Nov, [facility] [place] [facility] [address] [id number] [place] [address]- 8667 Nov, [facility] [place] [facility] [address] [id number] [place] [address]- 6150 Nov, [facility] [place] [facility] [address] [id number] [place] [address]- 2258 Nov, [facility] [place] [facility] [address] [id number] [place] [address]- 5154 Nov, [facility] [place] [facility] [address] [id number] [place] [address]- 2829 Oct, [facility] [place] [facility] [address] [id number] [place] [address]- 7503 Oct, [facility] [place] [facility] [address] [id number] [place] [address]- 5513 15 Oct, 2014 [facility] [place] [facility] [address] [id number] [place] [address]- 6810 14 Oct, 2014 [facility] [place] [facility] [address] [id number] [place] [address]- 6405 14 Oct, 2014 [facility] [address] [id number] [place] [address]- 7280 Oct, [facility] [place] [facility] [address] [id number] [place] [address]- 4194 08 Oct, 2014 [facility] [address] [id number] [place] [address]- 6092 16 Sep, 2014 [facility] [place] [facility] [address] [id number] [place] [address]- 3478 Sep, [facility] [place] [facility] [address] [id number] [place] [address]- 8222 Sep, [facility] [place] [facility] [address] [id number] [place] [address]- 5543 Aug, [facility] [place] [facility] [address] [id number] [place] [address]- 9788 Aug, [facility] [address] [id number] [place] [address]- 4418 14 Jul, 2014 [facility] [place] [facility] [address] [id number] [place] [address]- 1902 Jul, [facility] [place] [facility] [address] [id number] [place] [address]- 5693 Jun, [facility] [place] [facility] [address] [id number] [place] [address]- 3480 Jun, [facility] [place] [facility] [address] [id number] [place] [address]- 5206 May, [facility] [place] [facility] [address] [id number] [place] [address]- 3959 May, [facility] [place] [facility] [address] [id number] [place] [address]- 5728 May, [facility] [place] [facility] [address] [id number] [place] [address]- 5899 May, [facility] [place] [facility] [address] [id number] [place] [address]- 5126 Apr, [facility] [place] [facility] [address] [id number] [place] [address]- 1210 Apr, [facility] [place] [facility] [address] [id number] [place] [address]- 3063 Apr, [facility] [place] [facility] [address] [id number] [place] [address]- 6148 Apr, [facility] [place] [facility] [address] [id number] [place] [address]- 4956 Apr, [facility] [place] [facility] [address] [id number] [place] [address]- 9947 Mar, [facility] [place] [facility] [address] [id number] [place] [address]- 2005 Mar, [facility] [place] [facility] [address] [id number] [place] [address]- 3218 Mar, [facility] [place] [facility] [address] [id number] [place] [address]- 9380 Mar, [facility] [place] [facility] [address] [id number] [place] [address]- 4358 Mar, [facility] [place] [facility] [address] [id number] [place] [address]- 1931 February, [facility] [place] [facility] [address] [id number] [place] [address]- 0907 February, [facility] [place] [facility] [address] [id number] [place] [address]- 0409 February, [facility] [place] [facility] [address] [id number] [place] [address]- 0679 Jan, [facility] [place] [facility] [address] [id number] [place] [address]- 1420 Jan, [facility] [place] [facility] [address] [id number] [place] [address]- 0840 Dec, [facility] [address] [id number] [place] [address]- 8102 Dec, [facility] [place] [facility] [address] [id number] [place] [address]- 5445 Nov, [facility] [place] [facility] [address] [id number] [place] [address]- 4144 Nov, [facility] [place] [facility] [address] [id number] [place] [address]- 5747 Sep, [facility] [place] [facility] [address] [id number] [place] 3781 Sep, [facility] [place] [facility] [address] [id number] [place] [address]- 7057 Sep, [facility] [address] [id number] [place] [address]- 2673 Sep, [facility] [place] [facility] [address] [id number] [place] [address]- 2317 Aug, [facility] [place] [facility] [address] [id number] [place] [address]- 1367 Aug, [facility] [place] [facility] [address] [id number] [place] [address]- 7072 Aug, [facility] [place] [facility] [address] [id number] [place] [address]- 8887 Aug, [facility] [place] [facility] [address] [id number] [place] [address]- 1040 Jul, [facility] [place] [facility] [address] [id number] [place] [address]- 8726 Jul, [facility] [place] [facility] [address] [id number] [place] [address]- 9305 Jun, [facility] [place] [facility] [address] [id number] [place] [address]- 5704 May, [facility] [place] [facility] [address] [id number] [place] [address]- 1377 15 May, 2013 [facility] [address] [id number] [place] [address]- 0935 15 May, 2013 [facility] [place] [facility] [address] [id number] [place] [address]- 2676 19 Apr, 2013 [facility] [place] [facility] [address] [id number] [place] [address]- 7750 18 Apr, 2013 [facility] [place] [facility] [address] [id number] [place] [address]- 6265 14 Oct, 2012 [facility] [place] [facility] [address] [id number] [place] [address]- 0483 24 Sep, 2012 [facility] [address] [id number] [place] [address]- 1227 Sep, [facility] [address] [id number] [place] [address]- 4206 Sep, [facility] [address] [id number] [place] [address]- 3008 Sep, [facility] [place] [facility] [address] [id number] [place] [address]- 5364 18 Sep, 2012 [facility] [place] [facility] [address] [id number] [place] [address]- 8935 Sep, [facility] [place] [facility] [address] [id number] [place] [address]- 3651 03 Sep, 2012 [facility] [place] [facility] [address] [id number] [place] [address]- 5277 Aug, [facility] [place] [facility] [address] [id number] [place] [address]- 5777 19 Aug, 2012 [facility] [place] [facility] [address] [id number] [place] [address]- 8930 14 Aug, 2012 [facility] [place] [facility] [address] [id number], [place] [address]- 3216 Aug, [facility] [place] [facility] [address] [id number] [place] [address]- 0446 Jul, [facility] [place] [facility] [address] [id number] [place] [address]- 3703 Jul, [facility] [place] [facility] [address] [id number] [place] [address]- 9191 Jul, [facility] [place] [facility] [address] [id number], [place] [address]- 8513 Jun, [facility] [place] [facility] [address] [id number] [place] 8541 May, [facility] [place] [facility] [address] [id number] [place] [address]- 1052 May, [facility] [place] [facility] [address] [id number], [place] [address]- 5213 May, [facility] [place] [facility] [address] [id number], [place] [address]- 5091 May, [facility] [place] [facility] [address] [id number], [place] [address]- 0699 May, [facility] [place] [facility] [address] [id number], [place] [address]- 8297 Apr, [facility] [place] [facility] [address] [id number], [place] [address]- 4344 Apr, [facility] [place] [facility] [id number] [id number] Mar, [facility] [place] [facility] [address] [facility] [id number] [address] Mar, [facility] [place] [facility] [address] [id number], [place] [address]- 7804 Mar, [facility] [place] [facility] [address] [id number], [place] [address]- 0848 Mar, [facility] [place] [facility] [address] [id number] [place] [address]- 5049 Mar, [facility] [address] [id number] [place] [address]- 5545 Mar, [facility] [place] [facility] [address] [id number] [place] [address]- 3286 February, [facility] [address] [id number] [place] [address]- 7896 Jan, [facility] [place] [facility] [address] [id number] [place] [address]- 2298 Jan, [facility] [place] [facility] [address] [id number] [place] [address]- 6406 Dec, [facility] [place] [facility] [address] [id number] [place] [address]- 5936 Dec, [facility] [place] [facility] [address] [id number] [place] [address]- 7264 Dec, [facility] [place] [facility] [address] [id number] [place] [address]- 7437 Dec, [facility] [place] [facility] [address] [id number] [place] [address]- 4899 Dec, [facility] [place] [facility] [address] [id number] [place] [address]- 8955 Nov, [facility] [place] [facility] [address] [id number] [place] [address]- 6781 Oct, [facility] [place] [facility] [address] [id number] [place] [address]- 2546 Oct, [facility] [place] [facility] [address] [id number] [place] [address]- 9085 Sep, [facility] [place] [facility] [address] [id number] [place] [address]- 2546 Sep, [facility] [place] [facility] [address] [id number] [place] [address]- 3866 Aug, [facility] [address] [id number] [address]- 2546 Aug, [facility] [address] [id number], [place] [address] 2546 Jul, [facility] [address], [place] [address]- 2546 Jul, [facility] [address], [place] [address]- 2546 Jun, [facility] [address], [place] [address]- 2546 February, [facility] [address], [place] [address]- 2546 Jan, [facility] [address] [id number], [place] [address]- 2276 Dec, IMMUNIZATIONS No Known Immunizations SOCIAL HISTORY Never Assessed REASON FOR VISIT concerta 11/05/2017 PLAN OF CARE VITAL SIGNS MEDICATIONS Medication Instructions Dosage Frequency Start Date End Date Duration Status Concerta 54 MG Orally Once a day for ADHD 1 tablet in the morning Oct 28 days Active RESULTS No Results PROCEDURES No Known procedures INSTRUCTIONS MEDICATIONS ADMINISTERED No Known Medications MEDICAL (GENERAL) HISTORY Type Description Date Medical History Bipolar disorder, unspecified Medical History Bipolar disorder, unspecified Medical History ODD (oppositional defiant disorder) Medical History ODD (oppositional defiant disorder) Medical History Disruptive mood dysregulation disorder
--- OUTSIDE RECORDS SUMMARY | 2018-09-15 20:58 | XMS REPORT ---
Author Author JOAN GARCIA Organization [facility] Address [address] [place] [address] Care Team Providers Care Lens Block Gauger Name Role Phone JOAN GARCIA Unavailable PROBLEMS Type Condition ICD9-CM Code [id number] Code Onset Dates Condition Status SNOMED Code Problem Problems with sight V41.0 Active 5126822 Problem DTAP TEST V06.1 Active Problem Routine infant or child health check V20.2 Active 518265048 Problem Seasonal allergic rhinitis, unspecified allergic rhinitis trigger J30.2 Active 906155436 Problem PEARL (generalized anxiety disorder) F41.1 Active 19461616 Problem Spasm of muscle 728.85 Active 46542859 Problem GARDASIL (HPV) DX V04.89 Active Problem ADHD (attention deficit hyperactivity disorder), combined type F90.2 Active 56605977 Problem Allergic rhinitis due to pollen 477.0 Active 75893446 ALLERGIES No Information SOCIAL HISTORY Never Assessed PLAN OF CARE VITAL SIGNS MEDICATIONS Medication Instructions Dosage Frequency Start Date End Date Duration Status Methylphenidate HCl 5 mg Orally at 4pm for ADHD 1 tablet on an empty stomach Nov, 28 days Active Concerta 54 MG Orally Once a day for ADHD 1 tablet in the morning Nov 28 days Active RESULTS No Results PROCEDURES No Known procedures IMMUNIZATIONS No Known Immunizations MEDICAL (GENERAL) HISTORY Type Description Date Medical History Bipolar disorder, unspecified Medical History Bipolar disorder, unspecified Medical History ODD (oppositional defiant disorder) Medical History ODD (oppositional defiant disorder) Medical History Disruptive mood dysregulation disorder
--- OUTSIDE RECORDS SUMMARY | 2018-09-15 20:58 | XMS REPORT ---
Author Author JOAN GARCIA eClinical[employer] Address Unknown Phone Unavailable Care Team Providers Care Clinical Assistant Name Role Phone JOAN GARCIA CP Unavailable [...] Date End Date Status Dosage Methylphenidate HCl [facility] [address]-37 5 MG Orally Once in the afternoon for ADHD Mateo to sign for Camille 1 tablet on an empty stomach Concerta [facility] [address]-31 54 MG Orally Once a day for ADHD Mateo to sign for Camille December 28, 2014 1 tablet Results No Known Results Summary Purpose eClinicalWorks Submission
--- OUTSIDE RECORDS SUMMARY | 2018-09-15 20:58 | XMS REPORT ---
Author Author JOAN GARCIA Organization [facility] Address [address] [place] [address] Care Team Providers Care Svp Digital Sales Food & Cooking Name Role Phone JOAN GARCIA Unavailable PROBLEMS Type Condition ICD9-CM Code [id number] Code Onset Dates Condition Status SNOMED Code Problem Problems with sight V41.0 Active Problem Routine or child health check V20.2 Active 021861702 Problem Allergic rhinitis due to pollen 477.0 Active 96577854 Assessment ADHD (attention deficit hyperactivity disorder), combined type F90.2 Jun, Active 138685584 Problem Spasm of muscle 728.85 Active 99638801 Problem PEARL (generalized anxiety disorder) F41.1 Active 38509218 Problem Disruptive mood dysregulation disorder F34.8 Active 98383823 Problem GARDASIL (HPV) DX V04.89 Active Problem DTAP TEST V06.1 Active Problem ADHD (attention deficit hyperactivity disorder), combined type F90.2 Active 40157933 Problem ODD (oppositional defiant disorder) F91.3 Active 05868368 ALLERGIES Substance Reaction Event Type Date Status N.K.D.A. Unknown Non Drug Allergy Jun, Unknown SOCIAL HISTORY No smoking Hx information available PLAN OF CARE VITAL SIGNS Height 68.5 in 2016-07-05 Weight 189.2 lbs 2016-07-05 Heart Rate 92 bpm 2016-07-05 Respiratory Rate 18 2016-07-05 BMI 28.35 kg/m2 2016-07-05 Blood pressure systolic 123 mmHg 2016-07-05 Blood pressure diastolic 67 mmHg 2016-07-05 MEDICATIONS Medication Instructions Dosage Frequency Start Date End Date Duration Status Concerta 54 MG Orally Once a day for ADHD 1 tablet in the morning Jun Active Metoprolol Tartrate 25 MG Orally Twice a day 1/2 tablet 12h May, Active RESULTS No Results PROCEDURES Procedure Date Ordered Related Diagnosis Body Site MH Office Visit, Est Pt., Level 4 Jul 05, 2016 IMMUNIZATIONS No Known Immunizations
--- OUTSIDE RECORDS SUMMARY | 2018-09-15 20:58 | XMS REPORT ---
Author Author JOAN GARCIA Organization [facility] Address [address] [place] [address] Care Team Providers Care Staff Nuclear Weapons Officer Name Role Phone JOAN GARCIA Unavailable PROBLEMS Type Condition ICD9-CM Code RXV69-ZD Code Onset Dates Condition Status SNOMED Code Problem Spasm of muscle 728.85 Active 64797797 Problem Allergic rhinitis due to pollen 477.0 Active 84212277 Problem Problems with sight V41.0 Active Problem Disruptive mood dysregulation disorder F34.8 Active 20778422 Problem ADHD (attention deficit hyperactivity disorder), combined type F90.2 Active 57581919 Problem DTAP TEST V06.1 Active Problem Routine infant or child health check V20.2 Active 777980470 Problem ODD (oppositional defiant disorder) F91.3 Active 95324332 Problem GARDASIL (HPV) DX V04.89 Active ALLERGIES Unknown Allergies SOCIAL HISTORY No smoking Hx information available PLAN OF CARE VITAL SIGNS MEDICATIONS Unknown Medications RESULTS No Results PROCEDURES No Known procedures IMMUNIZATIONS No Known Immunizations
--- OUTSIDE RECORDS SUMMARY | 2018-09-15 20:58 | XMS REPORT ---
Author Author JOAN GARCIA Organization [facility] Address [address] [place] [address] Care Team Providers Care Medical Record Clerk Name Role Phone JOAN GARCIA Unavailable PROBLEMS Type Condition ICD9-CM Code UGN27-AB Code Onset Dates Condition Status SNOMED Code Problem Spasm of muscle 728.85 Active 14686460 Problem Allergic rhinitis due to pollen 477.0 Active 84151320 Problem Problems with sight V41.0 Active Problem Disruptive mood dysregulation disorder F34.8 Active 23065720 Problem ADHD (attention deficit hyperactivity disorder), combined type F90.2 Active 35255002 Problem DTAP TEST V06.1 Active Problem Routine infant or child health check V20.2 Active 143104861 Problem ODD (oppositional defiant disorder) F91.3 Active 89490704 Problem GARDASIL (HPV) DX V04.89 Active ALLERGIES Unknown Allergies SOCIAL HISTORY No smoking Hx information available PLAN OF CARE VITAL SIGNS MEDICATIONS Unknown Medications RESULTS No Results PROCEDURES No Known procedures IMMUNIZATIONS No Known Immunizations
--- OUTSIDE RECORDS SUMMARY | 2018-09-15 20:59 | XMS REPORT ---
Author Author JOAN GARCIA [facility] Address [address] [place] [address] Care Team Providers Care Senior Payroll Manager Name Role Phone JOSEFELIPAJOAN Unavailable PROBLEMS Type Condition ICD9-CM Code MFE75-OP Code Onset Dates Condition Status SNOMED Code Problem Seasonal allergic rhinitis, unspecified allergic rhinitis trigger J30.2 Active 606408467 Problem PEARL (generalized anxiety disorder) F41.1 Active 45002563 Problem ADHD (attention deficit hyperactivity disorder), combined type F90.2 Active 30002767 ALLERGIES No Information ENCOUNTERS Encounter Location Date Diagnosis [place] [id number] [address] Apr, [facility] [address] [address] Dec, ADHD (attention deficit hyperactivity disorder), combined type F90.2 and PEARL (generalized anxiety disorder) F41.1 [facility] [id number] [place] [address]99- 9895 Oct, Dysfunction of right eustachian tube H69.81 [place] [address] [place] [id number] [place] [address] 7[address]20- 4309 Oct, [facility] [id number] [place] [address] 55356- 5720 Oct, [place] [address] [id number] [place] [address] 92024- 9826 Oct, [place] [address] [id number] [place] [address]16- 8937 Sep, [place] [address] [id number] [place] [address] 28630- 9341 Aug, ADHD (attention deficit hyperactivity disorder), combined type F90.2 and PEARL (generalized anxiety disorder) F41.1 [facility] [id number] [place] [address] 50408- 7911 Jul, [facility] [id number] [place] [address] 99281- 0483 Jul, [facility] [id number] [place] [address] 75476- 8197 Jun, [facility] [id number] [place] [address] 00743- 2049 May, [facility] [id number] [place] [address] 03902- 4113 May, [facility] [id number] [place] [address] 08188- 7089 Apr, [facility] [id number] [place] [address] 83392- 6960 Mar, [facility] [id number] [place] [address] 10351- 1909 February, [facility] [id number] [place] [address] 49234- 7628 February, [facility] [id number] [place] [address] 45397- 7631 February, PEARL (generalized anxiety disorder) F41.1 [facility] [id number] [place] [address] 95235- 6094 February, [facility] [id number] [place] [address] 76699 -2829 February, Seasonal allergic rhinitis, unspecified allergic rhinitis trigger J30.2 [facility] [id number] [place] [address] 41172- 0839 Jan, PEARL (generalized anxiety disorder) F41.1 [facility] [id number] [place] [address] 25403- 3122 Jan, ADHD (attention deficit hyperactivity disorder), combined type F90.2 and PEARL (generalized anxiety disorder) F41.1 [facility] [id number] [place] [address] 81705- 4051 Dec, [facility] [id number] [place] [address] 16772- 5643 Nov, [facility] [id number] [place] [address] 74320- 0645 Oct, [facility] [id number] [place] [address] 55622- 0518 Oct, [facility] [id number] [place] [address] 67376- 1491 Sep, [facility] [id number] [place] [address] 25223- 2044 Aug, ADHD (attention deficit hyperactivity disorder), combined type F90.2 and PEARL (generalized anxiety disorder) F41.1 [facility] [id number] [address]- 9792 Aug, [facility] [id number] [place] [address] 21626- 3711 Jul, [facility] [id number] [place] [address] 31466- 9594 Jun, ADHD (attention deficit hyperactivity disorder), combined type F90.2 ; ODD (oppositional defiant disorder) F91.3 and PEARL (generalized anxiety disorder) F41.1 [facility] [address] [place] [address]- 0826 Jun, [facility] [id number] [place] [address] 62616- 7597 Jun, [facility] [id number] [address]- 6641 May, [facility] [id number] [place] [address] 83037- 8467 May, ODD (oppositional defiant disorder) F91.3 and ADHD ( attention deficit hyperactivity disorder), combined type F90.2 [facility] [id number] [place] [address] 41100- 7388 May, [facility] [id number] [address]- 6469 Apr, [facility] [id number] [place] [address] 42432- 7622 Mar, [facility] [id number] [place] [address] 60185- 8657 February, [facility] [id number] [place] [address] 61730- 4409 Jan, [facility] [id number] [place] [address] 36015- 8138 Dec, [facility] [id number] [place] [address] 83821- 6413 Dec, [facility] [address] [id number] [place] [address] [id number] Nov, Dental examination Z01.20 [facility] [id number] [place] [address] 43262- 6414 Nov, [facility] [id number] [place] [address] 88174- 6499 Nov, [facility] [id number] [place] [address] 54852- 9117 Nov, Disruptive mood dysregulation disorder F34.8 ; ADHD ( attention deficit hyperactivity disorder), combined type F90.2 and ODD ( oppositional defiant disorder) F91.3 [facility] [address] [place] [address]- 7206 Sep, [facility] [id number] [place] [address]- 2109 Aug, [facility] [address] [place] [address]- 9786 Jul, [facility] [address] [place] [address]- 3746 Jul, [facility] [address] [place] [address]- 7166 Jul, [facility] [id number] [place] [address] 07737- 4756 Jun, Bipolar disorder, unspecified 296.80 ; Attention deficit disorder (ADD), child, 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 and ODD (oppositional defiant disorder) 313.81 [facility] [id number] [place] [address] 98520- 8366 May, [facility] [id number] [place] [address]- 4116 May, [facility] [address] [id number] [place] [address] 34646- 0776 May, [facility] [address], [place] [address]- 1496 Apr, [facility] [id number] [place] [address] 58614- 0206 Mar, [facility] [address], [place] [address]- 6516 Mar, [facility] [address] [place] [address]- 7406 February, Bipolar disorder, unspecified 296.80 ; Attention deficit disorder 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 and Oppositional defiant behavior 313.81 [facility] [address], [place] [address]- 8376 February, [facility] [address], [place] [address]- 8316 Jan, [facility] [id number] [place] [address] 62402- 3551 Jan, [facility] [place] [facility] [address] [id number] [place] [address]- 5711 Dec, [facility] [place] [facility] [address] [id number] [place] [address]- 8868 Dec, [facility] [place] [facility] [address] [id number] [place] [address]- 5580 Dec, [facility] [place] [facility] [address] [id number] [place] [address]- 9488 Nov, [facility] [place] [facility] [address] [id number] [place] [address]- 3715 Nov, [facility] [place] [facility] [address] [id number] [place] [address]- 2758 Nov, [facility] [place] [facility] [address] [id number] [place] [address]- 1983 Nov, [facility] [place] [facility] [address] [id number] [place] [address]- 2071 Nov, [facility] [place] [facility] [address] [id number] [place] [address]- 2335 Nov, [facility] [place] [facility] [address] [id number] [place] [address]- 1642 Nov, [facility] [place] [facility] [address] [id number] [place] [address]- 4284 Nov, [facility] [place] [facility] [address] [id number] [place] [address]- 7069 Oct, [facility] [place] [facility] [address] [id number] [place] [address]- 3199 Oct, [facility] [place] [facility] [address] [id number] [place] [address]- 6831 15 Oct, 2014 [facility] [place] [facility] [address] [id number] [place] [address]- 1132 14 Oct, 2014 [facility] [place] [facility] [address] [id number] [place] [address]- 4383 14 Oct, 2014 [facility] [address] [id number] [place] [address]- 2527 Oct, [facility] [place] [facility] [address] [id number] [place] [address]- 4381 08 Oct, 2014 [facility] [address] [id number] [place] [address]- 4880 16 Sep, 2014 [facility] [place] [facility] [address] [id number] [place] [address]- 5711 Sep, [facility] [place] [facility] [address] [id number] [place] [address]- 5162 Sep, [facility] [place] [facility] [address] [id number] [place] [address]- 2973 Aug, [facility] [place] [facility] [address] [id number] [place] [address]- 0856 Aug, [facility] [address] [id number] [place] [address]- 8945 14 Jul, 2014 [facility] [place] [facility] [address] [id number] [place] [address]- 0389 Jul, [facility] [place] [facility] [address] [id number] [place] [address]- 6116 Jun, [facility] [place] [facility] [address] [id number] [place] [address]- 9980 Jun, [facility] [place] [facility] [address] [id number] [place] [address]- 2618 May, [facility] [place] [facility] [address] [id number] [place] [address]- 9119 May, [facility] [place] [facility] [address] [id number] [place] [address]- 1863 May, [facility] [place] [facility] [address] [id number] [place] [address]- 6803 May, [facility] [place] [facility] [address] [id number] [place] [address]- 3520 Apr, [facility] [place] [facility] [address] [id number] [place] [address]- 7902 Apr, [facility] [place] [facility] [address] [id number] [place] [address]- 0565 Apr, [facility] [place] [facility] [address] [id number] [place] [address]- 8247 Apr, [facility] [place] [facility] [address] [id number] [place] [address]- 3507 Apr, [facility] [place] [facility] [address] [id number] [place] [address]- 2643 Mar, [facility] [place] [facility] [address] [id number] [place] [address]- 6245 Mar, [facility] [place] [facility] [address] [id number] [place] [address]- 9560 Mar, [facility] [place] [facility] [address] [id number] [place] [address]- 6126 Mar, [facility] [place] [facility] [address] [id number] [place] [address]- 8772 Mar, [facility] [place] [facility] [address] [id number] [place] [address]- 3641 February, [facility] [place] [facility] [address] [id number] [place] [address]- 3787 February, [facility] [place] [facility] [address] [id number] [place] [address]- 4695 February, [facility] [place] [facility] [address] [id number] [place] [address]- 8839 Jan, [facility] [place] [facility] [address] [id number] [place] [address]- 7959 Jan, [facility] [place] [facility] [address] [id number] [place] [address]- 5112 Dec, [facility] [address] [id number] [place] [address]- 8330 Dec, [facility] [place] [facility] [address] [id number] [place] [address]- 1545 Nov, [facility] [place] [facility] [address] [id number] [place] [address]- 1388 Nov, [facility] [place] [facility] [address] [id number] [place] [address]- 5162 Sep, [facility] [place] [facility] [address] [id number] [place] 9049 Sep, [facility] [place] [facility] [address] [id number] [place] [address]- 1289 Sep, [facility] [address] [id number] [place] [address]- 2421 Sep, [facility] [place] [facility] [address] [id number] [place] [address]- 8817 Aug, [facility] [place] [facility] [address] [id number] [place] [address]- 9871 Aug, [facility] [place] [facility] [address] [id number] [place] [address]- 1300 Aug, [facility] [place] [facility] [address] [id number] [place] [address]- 1416 Aug, [facility] [place] [facility] [address] [id number] [place] [address]- 8158 Jul, [facility] [place] [facility] [address] [id number] [place] [address]- 3629 Jul, [facility] [place] [facility] [address] [id number] [place] [address]- 8582 Jun, [facility] [place] [facility] [address] [id number] [place] [address]- 7543 May, [facility] [place] [facility] [address] [id number] [place] [address]- 9771 15 May, 2013 [facility] [address] [id number] [place] [address]- 4423 15 May, 2013 [facility] [place] [facility] [address] [id number] [place] [address]- 3793 19 Apr, 2013 [facility] [place] [facility] [address] [id number] [place] [address]- 6585 18 Apr, 2013 [facility] [place] [facility] [address] [id number] [place] [address]- 7978 14 Oct, 2012 [facility] [place] [facility] [address] [id number] [place] [address]- 0375 24 Sep, 2012 [facility] [address] [id number] [place] [address]- 5565 Sep, [facility] [address] [id number] [place] [address]- 8038 Sep, [facility] [address] [id number] [place] [address]- 8222 Sep, [facility] [place] [facility] [address] [id number] [place] [address]- 7225 18 Sep, 2012 [facility] [place] [facility] [address] [id number] [place] [address]- 3120 Sep, [facility] [place] [facility] [address] [id number] [place] [address]- 6258 03 Sep, 2012 [facility] [place] [facility] [address] [id number] [place] [address]- 0294 Aug, [facility] [place] [facility] [address] [id number] [place] [address]- 6933 19 Aug, 2012 [facility] [place] [facility] [address] [id number] [place] [address]- 6844 14 Aug, 2012 [facility] [place] [facility] [address] [id number], [place] [address]- 9136 Aug, [facility] [place] [facility] [address] [id number] [place] [address]- 7148 Jul, [facility] [place] [facility] [address] [id number] [place] [address]- 5278 Jul, [facility] [place] [facility] [address] [id number] [place] [address]- 7510 Jul, [facility] [place] [facility] [address] [id number], [place] [address]- 1353 Jun, [facility] [place] [facility] [address] [id number] [place] 3005 May, [facility] [place] [facility] [address] [id number] [place] [address]- 6106 May, [facility] [place] [facility] [address] [id number], [place] [address]- 8284 May, [facility] [place] [facility] [address] [id number], [place] [address]- 5221 May, [facility] [place] [facility] [address] [id number], [place] [address]- 4427 May, [facility] [place] [facility] [address] [id number], [place] [address]- 3823 Apr, [facility] [place] [facility] [address] [id number], [place] [address]- 1558 Apr, [facility] [place] [facility] [id number] [id number] Mar, [facility] [place] [facility] [address] [facility] [id number] [id number] Mar, [facility] [place] [facility] [address] [id number], [place] [address]- 7981 Mar, [facility] [place] [facility] [address] [id number], [place] [address] Mar, [facility] [place] [facility] [address] [id number] [place] [address] Mar, [facility] [address] [id number] [place] [address] Mar, [facility] [place] [facility] [address] [id number] [place] [address] February, [facility] [address] [id number] [place] [address] Jan, [facility] [place] [facility] [address] [id number] [place] [address] Jan, [facility] [place] [facility] [address] [id number] [place] [address] Dec, [facility] [place] [facility] [address] [id number] [place] [address] Dec, [facility] [place] [facility] [address] [id number] [place] [address] Dec, [facility] [place] [facility] [address] [id number] [place] [address] Dec, [facility] [place] [facility] [address] [id number] [place] [address] Dec, [facility] [place] [facility] [address] [id number] [place] [address] Nov, [facility] [place] [facility] [address] [id number] [place] [address] Oct, [facility] [place] [facility] [address] [id number] [place] [address] Oct, [facility] [place] [facility] [address] [id number] [place] [address] Sep, [facility] [place] [facility] [address] [id number] [place] [address] Sep, [facility] [place] [facility] [address] [id number] [place] [address] Aug, [facility] [address] [id number], [place] [address] Aug, [facility] [address] [id number], [place] [address] Jul, [facility] [id number], [place] [address] Jul, [facility] [id number], [place] [address] Jun, [facility] [id number], [place] [address] February, [facility] [id number], [place] [address] Jan, [facility] [address] [id number], [place] [address] Dec, IMMUNIZATIONS No Known Immunizations SOCIAL HISTORY Never Assessed REASON FOR VISIT concerta 04/30/2017 PLAN OF CARE VITAL SIGNS MEDICATIONS Medication Instructions Dosage Frequency Start Date End Date Duration Status Concerta 54 MG Orally Once a day for ADHD 1 tablet in the morning Apr 28 days Active RESULTS No Results PROCEDURES No Known procedures INSTRUCTIONS MEDICATIONS ADMINISTERED No Known Medications MEDICAL (GENERAL) HISTORY Type Description Date Medical History Bipolar disorder, unspecified Medical History Bipolar disorder, unspecified Medical History ODD (oppositional defiant disorder) Medical History ODD (oppositional defiant disorder) Medical History Disruptive mood dysregulation disorder
--- OUTSIDE RECORDS SUMMARY | 2018-09-15 20:59 | XMS REPORT ---
Author Author JOAN GARCIA Organization [facility], [place] Address [address] [place] [address] Care Team Providers Care Mosaic Worker Name Role Phone JOAN GARCIA Unavailable PROBLEMS Type Condition ICD9-CM Code [id number] Code Onset Dates Condition Status SNOMED Code Problem Problems with sight V41.0 Active 4417143 Problem DTAP TEST V06.1 Active Problem Routine infant or child health check V20.2 Active 565276210 Problem Seasonal allergic rhinitis, unspecified allergic rhinitis trigger J30.2 Active 144836307 Problem PEARL (generalized anxiety disorder) F41.1 Active 00870197 Problem Spasm of muscle 728.85 Active 33604911 Problem GARDASIL (HPV) DX V04.89 Active 109633336 Problem ADHD (attention deficit hyperactivity disorder), combined type F90.2 Active 97378075 Problem Allergic rhinitis due to pollen 477.0 Active 33170540 ALLERGIES No Information SOCIAL HISTORY Never Assessed PLAN OF CARE VITAL SIGNS MEDICATIONS Unknown Medications RESULTS No Results PROCEDURES No Known procedures IMMUNIZATIONS No Known Immunizations MEDICAL (GENERAL) HISTORY Type Description Date Medical History Bipolar disorder, unspecified Medical History Bipolar disorder, unspecified Medical History ODD (oppositional defiant disorder) Medical History ODD (oppositional defiant disorder) Medical History Disruptive mood dysregulation disorder
--- OUTSIDE RECORDS SUMMARY | 2018-09-15 20:59 | XMS REPORT ---
Author JOAN Paniagua [employer] Address Unknown Phone Unavailable Care Team Providers Care Ncr Operator Name Role Phone JOAN GARCIA CP [...] Start Date End Date Status Dosage Metoprolol Tartrate [facility] [address]-87 25 MG Orally Twice a day Jun 13, 2016 1/2 tablet Results No Known Results Summary Purpose eClinical[employer] Submission
--- OUTSIDE RECORDS SUMMARY | 2018-09-15 20:59 | XMS REPORT ---
Author Author JOAN GARCIA Organization [facility] Address [address] [place] [address] Care Team Providers Care Hospice Coordinator Name Role Phone JOAN GARCIA Unavailable PROBLEMS Type Condition ICD9-CM Code [id number] Code Onset Dates Condition Status SNOMED Code Problem Problems with sight V41.0 Active 2514916 Problem DTAP TEST V06.1 Active Problem Routine infant or child health check V20.2 Active 432205770 Problem Seasonal allergic rhinitis, unspecified allergic rhinitis trigger J30.2 Active 085063231 Problem PEARL (generalized anxiety disorder) F41.1 Active 04833148 Problem Spasm of muscle 728.85 Active 64791841 Problem GARDASIL (HPV) DX V04.89 Active Problem ADHD (attention deficit hyperactivity disorder), combined type F90.2 Active 15747932 Problem Allergic rhinitis due to pollen 477.0 Active 29949402 ALLERGIES Unknown Allergies SOCIAL HISTORY No smoking Hx information available PLAN OF CARE VITAL SIGNS MEDICATIONS Medication Instructions Dosage Frequency Start Date End Date Duration Status Concerta 54 MG Orally Once a day for ADHD 1 tablet in the morning Oct 28 days Active Methylphenidate HCl 5 mg Orally at 4pm for ADHD 1 tablet on an empty stomach Oct, 28 days Active RESULTS No Results PROCEDURES No Known procedures IMMUNIZATIONS No Known Immunizations
--- OUTSIDE RECORDS SUMMARY | 2018-09-15 20:59 | XMS REPORT ---
Author Author JOAN GARCIA Organization [facility] Address [address] [place] [address] Care Team Providers Care Car Detailer Name Role Phone JOAN GARCIA Unavailable PROBLEMS Type Condition ICD9-CM Code [id number] Code Onset Dates Condition Status SNOMED Code Problem Problems with sight V41.0 Active 4172884 Problem DTAP TEST V06.1 Active Problem Routine infant or child health check V20.2 Active 581243256 Problem Seasonal allergic rhinitis, unspecified allergic rhinitis trigger J30.2 Active 123793232 Problem PEARL (generalized anxiety disorder) F41.1 Active 67897610 Problem Spasm of muscle 728.85 Active 80142729 Problem GARDASIL (HPV) DX V04.89 Active Problem ADHD (attention deficit hyperactivity disorder), combined type F90.2 Active 84509147 Problem Allergic rhinitis due to pollen 477.0 Active 63626530 ALLERGIES Unknown Allergies SOCIAL HISTORY No smoking Hx information available PLAN OF CARE VITAL SIGNS MEDICATIONS Medication Instructions Dosage Frequency Start Date End Date Duration Status Methylphenidate HCl 5 mg Orally at 4pm for ADHD 1 tablet on an empty stomach Oct, 28 days Active Concerta 54 MG Orally Once a day for ADHD 1 tablet in the morning Oct 28 days Active RESULTS No Results PROCEDURES No Known procedures IMMUNIZATIONS No Known Immunizations
--- OUTSIDE RECORDS SUMMARY | 2018-09-15 21:00 | XMS REPORT ---
Author Author JIL LOMBARDO Organization [facility] Address [address] [place] [address] Care Team Providers Care Vascular Manager Name Role Phone JIL LOMBARDO Unavailable PROBLEMS Type Condition ICD9-CM Code CUL06-RY Code Onset Dates Condition Status SNOMED Code Problem Problems with sight V41.0 Active 0503358 Problem DTAP TEST V06.1 Active Problem Routine or child health check V20.2 Active 618971482 Problem Seasonal allergic rhinitis, unspecified allergic rhinitis trigger J30.2 Active 983530110 Problem PEARL (generalized anxiety disorder) F41.1 Active 74075504 Problem Spasm of muscle 728.85 Active 33961481 Problem GARDASIL (HPV) DX V04.89 Active 945158693 Problem ADHD (attention deficit hyperactivity disorder), combined type F90.2 Active 98674232 Problem Allergic rhinitis due to pollen 477.0 Active 74544494 ALLERGIES No Known Allergies SOCIAL HISTORY Never Assessed PLAN OF CARE Activity Details Follow Up prn Reason: VITAL SIGNS Height 69.1 in 2017-02-19 Weight 180.2 lbs 2017-02-19 Temperature 98.8 degrees Fahrenheit 2017-02-19 Heart Rate 74 bpm 2017-02-19 Respiratory Rate 20 2017-02-19 BMI 26.53 kg/m2 2017-02-19 Blood pressure systolic 128 mmHg 2017-02-19 Blood pressure diastolic 84 mmHg 2017-02-19 MEDICATIONS Medication Instructions Dosage Frequency Start Date End Date Duration Status Zyrtec Allergy 10 MG Orally Once a day 1 tablet 24h February, Mar, 30 day(s) Active Concerta 54 MG Orally Once a day for ADHD 1 tablet in the morning JanFebruary, 28 days Active Fluticasone Propionate 50 MCG/ACT Nasally Once a day 1 spray in each nostril 24h February, 30 day(s) Active RESULTS No Results PROCEDURES No Known procedures IMMUNIZATIONS No Known Immunizations MEDICAL (GENERAL) HISTORY Type Description Date Medical History Bipolar disorder, unspecified Medical History Bipolar disorder, unspecified Medical History ODD (oppositional defiant disorder) Medical History ODD (oppositional defiant disorder) Medical History Disruptive mood dysregulation disorder
--- OUTSIDE RECORDS SUMMARY | 2018-09-15 21:00 | XMS REPORT ---
Author Author KASSANDRA IRAHETA [facility] Address [address] [place] [address] Care Team Providers Care Learning Support Resource Room Teacher Name Role Phone KASSANDRA IRAHETA Unavailable PROBLEMS Type Condition ICD9-CM Code LLV92-ES Code Onset Dates Condition Status SNOMED Code Problem Seasonal allergic rhinitis, unspecified allergic rhinitis trigger J30.2 Active 705455291 Problem PEARL (generalized anxiety disorder) F41.1 Active 36514639 Problem ADHD (attention deficit hyperactivity disorder), combined type F90.2 Active [id number] ALLERGIES No Known Allergies ENCOUNTERS Encounter Location Date Diagnosis [place] [address] [address] Apr, [facility] [address] [address]- [address] Mar, [place] [address] [address]- 1803 Dec, ADHD (attention deficit hyperactivity disorder), combined type F90.2 and PEARL (generalized anxiety disorder) F41.1 [place] [address] [place] [id number] [place] [address] 45486- 3613 Oct, Dysfunction of right eustachian tube H69.81 [facility] [address] [id number] [place] [address] 80713- 6942 Oct, [facility] [address] [address]- 0454 Oct, [place] [address] [place] [id number] [place] [address] 25147- 0541 Oct, [place] [address] [place] [id number] [place] [address] 02708- 8927 Sep, [place] [id number] [address] 39[address] Aug, ADHD (attention deficit hyperactivity disorder), combined type F90.2 and PEARL (generalized anxiety disorder) F41.1 [facility] [address] [id number] [place] [address] 49516- 3848 Jul, [facility] [id number] [place] [address] 68418- 0623 Jul, [facility] [id number] [place] [address] 50648- 0703 Jun, [facility] [id number] [place] [address] 58626- 5060 May, [facility] [id number] [place] [address] 09817- 1198 May, [facility] [id number] [place] [address] 13561- 0274 Apr, [facility] [address] [id number] [place] [address] 96799- 6232 Mar, [facility] [address] [id number] [place] [address] 96474- 1733 February, [facility] [id number] [place] [address] 08353- 6196 February, [facility] [id number] [place] [address] 09435- 7535 February, PEARL (generalized anxiety disorder) F41.1 [facility] [address], [place] [address] 4078 February, [facility] [address], [place] [address] February, Seasonal allergic rhinitis, unspecified allergic rhinitis trigger J30.2 [facility] [address], [place] [address]- 4151 Jan, PEARL (generalized anxiety disorder) F41.1 [facility] [address], [place] [address] Jan, ADHD (attention deficit hyperactivity disorder), combined type F90.2 and PEARL (generalized anxiety disorder) F41.1 [facility] [address] [id number] [place] [address] 53507- 6387 Dec, [facility] [id number] [place] [address] 11470- 6169 Nov, [facility] [id number] [place] [address] 83730- 9939 Oct, [facility] [id number] [place] [address] 24144- 4328 Oct, [facility] [id number] [place] [address] 65369- 3910 Sep, [facility] [address] [id number] [place] [address] 68343- 7895 Aug, ADHD (attention deficit hyperactivity disorder), combined type F90.2 and PEARL (generalized anxiety disorder) F41.1 [facility] [address] [id number] [place] [address] 12154- 3754 Aug, [facility] [address] [id number] [place] [address] 90820- 8654 Jul, [facility] [address] [id number] [place] [address] 44637- 3415 Jun, ADHD (attention deficit hyperactivity disorder), combined type F90.2 ; ODD (oppositional defiant disorder) F91.3 and PEARL (generalized anxiety disorder) F41.1 [facility] [address] [id number] [place] [address] 03363- 4175 Jun, [facility] [address] [id number] [place] [address] 58193- 4453 Jun, [facility] [address] [address] [id number] [place] [address] 08471- 7801 May, [facility] [address] 7[address] May, ODD (oppositional defiant disorder) F91.3 and ADHD ( attention deficit hyperactivity disorder), combined type F90.2 [facility] [address] 5619 May, [facility] [address] [address] [id number] [place] [address] 80593- 4265 Apr, [facility] [id number] [place] [address] 99071- 4922 Mar, [facility] [address] [id number] [place] [address] 84072- 2896 February, [facility] [address] [address] [id number] [place] [address] 90176- 1150 Jan, [facility] [address] [address] [id number] [place] [address] 23183- 9834 Dec, [facility] [id number] [place] [address] 39190- 7860 Dec, [facility] [place] [facility] [id number] [place] [address] [id number] Nov, Dental examination Z01.20 [facility] [address], [place] [address]- 5729 Nov, [facility] [address] [id number] [place] [address] 36342- 0150 Nov, [facility] [address], [place] [address]- 9990 Nov, Disruptive mood dysregulation disorder F34.8 ; ADHD ( attention deficit hyperactivity disorder), combined type F90.2 and ODD ( oppositional defiant disorder) F91.3 [facility] [address], [place] [address]- 9520 Sep, [facility] [address], [place] [address]- 2546 Aug, [facility] [address], [place] [address] 2546 Jul, [facility] [address], [place] [address]- 2546 Jul, [facility] [address], [place] [address]- 2546 Jul, [facility] [address], [place] [address]- 2546 Jun, Bipolar disorder, unspecified 296.80 ; Attention deficit disorder (ADD), child, 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 and ODD (oppositional defiant disorder) 313.81 [facility] [address], [place] [address] 2546 May, [facility] [address], [place] [address]- 2546 May, [facility] [address], [place] [address]- 1106 May, [facility] [address], [place] [address]- 2546 Apr, [facility] [address] [place] [id number] [address]- 2546 Mar, [facility] [address], [place] [address]- 2546 Mar, [facility] [address] [place] [id number] [address] 2546 February, Bipolar disorder, unspecified 296.80 ; Attention deficit disorder 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 and Oppositional defiant behavior 313.81 [facility] [address] [place] [address] [id number] [address]- 2546 February, [facility] [address] [place] [address] [id number], [place] [address]- 0443 Jan, [facility] [place] [facility] [address] [id number] [place] [address]- 0480 13 Jan, 2015 [facility] [place] [facility] [address] [id number] [place] [address]- 0982 Dec, [facility] [place] [facility] [address] [id number] [place] [address]- 0296 Dec, [facility] [place] [facility] [address] [id number] [place] [address]- 5214 Dec, [facility] [place] [facility] [address] [id number] [place] [address]- 5224 Nov, [facility] [place] [facility] [address] [id number] [place] [address]- 8466 Nov, [facility] [place] [facility] [address] [id number] [place] [address]- 0232 Nov, [facility] [place] [facility] [address] [id number] [place] [address]- 0983 Nov, [facility] [place] [facility] [address] [id number] [place] [address]- 7021 Nov, [facility] [place] [facility] [address] [id number] [place] [address]- 5540 Nov, [facility] [place] [facility] [address] [id number] [place] [address]- 9390 Nov, [facility] [place] [facility] [address] [id number] [place] [address]- 5969 Nov, [facility] [place] [facility] [address] [id number] [place] [address]- 5333 Oct, [facility] [place] [facility] [address] [id number] [place] [address]- 5675 Oct, [facility] [place] [facility] [address] [id number] [place] [address]- 1401 15 Oct, 2014 [facility] [place] [facility] [address] [id number] [place] [address]- 9184 14 Oct, 2014 [facility] [place] [facility] [address] [id number] [place] [address]- 1111 14 Oct, 2014 [facility] [place] [facility] [address] [id number] [place] [address]- 9941 08 Oct, 2014 [facility] [place] [facility] [address] [id number] [place] [address]- 0251 08 Oct, 2014 [facility] [place] [facility] [address] [id number] [place] [address]- 1816 16 Sep, 2014 [facility] [place] [facility] [address] [id number] [place] [address]- 7474 Sep, [facility] [place] [facility] [address] [id number] [place] [address]- 4156 15 Sep, 2014 [facility] [place] [facility] [address] [id number] [place] [address]- 8869 Aug, [facility] [place] [facility] [address] [id number] [place] [address]- 2149 Aug, [facility] [place] [facility] [address] [id number] [place] [address]- 6177 14 Jul, 2014 [facility] [place] [facility] [address] [id number] [place] [address]- 2208 14 Jul, 2014 [facility] [place] [facility] [address] [id number] [place] [address]- 9290 Jun, [facility] [place] [facility] [address] [id number] [place] [address]- 4287 Jun, [facility] [place] [facility] [address] [id number] [place] [address]- 3342 May, [facility] [place] [facility] [address] [id number] [place] [address]- 3750 May, [facility] [place] [facility] [address] [id number] [place] [address]- 8359 May, [facility] [place] [facility] [address] [id number] [place] [address]- 6835 May, [facility] [place] [facility] [address] [id number] [place] [address]- 4495 Apr, [facility] [place] [facility] [address] [id number] [place] [address]- 4595 Apr, [facility] [place] [facility] [address] [id number] [place] [address]- 3437 Apr, [facility] [place] [facility] [address] [id number] [place] [address]- 2993 Apr, [facility] [place] [facility] [address] [id number] [place] [address]- 0031 Apr, [facility] [place] [facility] [address] [id number] [place] [address]- 8222 Mar, [facility] [place] [facility] [address] [id number] [place] [address]- 9469 Mar, [facility] [place] [facility] [address] [id number] [place] [address]- 5336 Mar, [facility] [place] [facility] [address] [id number] [place] [address]- 1916 Mar, [facility] [place] [facility] [address] [id number] [place] [address]- 0908 Mar, [facility] [place] [facility] [address] [id number] [place] [address]- 2691 February, [facility] [place] [facility] [address] [id number] [place] [address]- 7406 February, [facility] [place] [facility] [address] [id number] [place] [address]- 9971 February, [facility] [place] [facility] [address] [id number] [place] [address]- 7607 Jan, [facility] [place] [facility] [address] [id number] [place] [address]- 8722 14 Jan, 2014 [facility] [place] [facility] [address] [id number] [place] [address]- 9913 10 Dec, 2013 [facility] [place] [facility] [address] [id number] [place] [address]- 1442 10 Dec, 2013 [facility] [place] [facility] [address] [id number] [place] [address]- 9334 Nov, [facility] [place] [facility] [address] [id number] [place] [address]- 7680 Nov, [facility] [place] [facility] [address] [id number] [place] [address]- 6778 Sep, [facility] [place] [facility] [address] [id number] [place] [address]- 5282 Sep, [facility] [place] [facility] [address] [id number] [place] [address] Sep, [facility] [place] [facility] [address] [id number] [place] [address]- 4136 Sep, [facility] [place] [facility] [address] [id number] [place] [address]- 8068 Aug, [facility] [place] [facility] [address] [facility] [id number] [place] [address]- 1690 Aug, [facility] [place] [facility] [address] [id number] [place] [address]- 9413 Aug, [facility] [place] [facility] [address] [id number] [place] [address]- 2548 Aug, [facility] [place] [facility] [address] [id number] [place] [address]- 5649 Jul, [facility] [place] [facility] [address] [id number] [place] [address]- 3956 Jul, [facility] [place] [facility] [address] [id number] [place] [address]- 1497 Jun, [facility] [place] [facility] [address] [id number] [place] [address]- 7829 16 May, 2013 [facility] [address] [id number] [place] [address]- 5508 May, [facility] [address] [id number] [place] [address]- 8307 15 May, 2013 [facility] [address] [id number] [place] [address]- 1043 19 Apr, 2013 [facility] [address] [id number] [place] [address]- 2285 18 Apr, 2013 [facility] [address] [id number] [place] [address]- 0977 Oct, [facility] [address] [id number] [place] [address]- 8626 24 Sep, 2012 [facility] [address] [id number] [place] [address]- 6995 Sep, [facility] [address] [id number] [place] [address]- 2205 Sep, [facility] [address] [id number] [place] [address]- 4899 Sep, [facility] [address] [id number] [place] [address]- 5537 Sep, [facility] [address] [id number] [place] [address]- 9942 Sep, [facility] [address] [id number] [place] [address]- 6179 Sep, [facility] [place] [facility] [address] [id number] [place] [address]- 0658 Aug, [facility] [address] [id number] [place] [address]- 1375 Aug, [facility] [address] [id number], [place] [address]- 1303 Aug, [facility] [place] [facility] [address] [id number] [place] [address]- 6450 Aug, [facility] [place] [facility] [address] [id number] [place] [address]- 4861 Jul, [facility] [place] [facility] [address] [id number] [place] [address]- 5905 Jul, [facility] [place] [facility] [address] [id number] [place] [address]- 0115 Jul, [facility] [place] [facility] [address] [id number] [place] [address]- 5798 Jun, [facility] [place] [facility] [address] [id number] [place] 0027 May, [facility] [place] [facility] [address] [id number] [place] [address]- 4339 May, [facility] [place] [facility] [address] [id number] [place] [address]- 5427 May, [facility] [place] [facility] [address] [id number] [place] [address]- 8235 May, [facility] [place] [facility] [address] [id number] [place] [address]- 8221 May, [facility] [place] [facility] [address] [id number], [place] [address]- 4218 Apr, [facility] [place] [facility] [address] [id number], [place] [address]- 5301 Apr, [facility] [place] [facility] [address] [id number] [place] [address] Mar, [facility] [place] [facility] [address] [id number] [address] Mar, [facility] [place] [facility] [address] [id number] [place] [address]- 6692 Mar, [facility] [place] [facility] [address] [id number] [place] [address]- 4563 Mar, [facility] [address] [id number] [place] [address]- 4289 Mar, [facility] [place] [facility] [address] [id number] [place] [address]- 1350 Mar, [facility] [address] [id number] [place] [address]- 0426 February, [facility] [place] [facility] [address] [id number] [place] [address]- 7848 Jan, [facility] [address] [id number] [place] [address]- 2974 Jan, [facility] [place] [facility] [address] [id number] [place] [address]- 1666 Dec, [facility] [address] [id number] [place] [address]- 2446 Dec, [facility] [place] [facility] [address] [id number] [place] [address]- 0860 Dec, [facility] [place] [facility] [address] [id number] [place] [address]- 4953 Dec, [facility] [address] [id number] [place] [address]- 8591 Dec, [facility] [place] [facility] [address] [id number] [place] [address]- 1417 Nov, [facility] [place] [facility] [address] [id number] [place] [address] 2549 Oct, [facility] [place] [facility] [address] [id number] [place] [address]- 1052 Oct, [facility] [place] [facility] [address] [id number] [place] [address]- 8156 Sep, [facility] [place] [facility] [address] [id number] [place] [address]- 6004 Sep, [facility] [address] [id number], [place] [address]- 9436 Aug, [facility] [address], [place] [address] 2546 Aug, [facility] [address], [place] [address]- 3086 Jul, [facility] [id number] [place] [address] 649[address]- 9956 Jul, [facility] [address], [place] [address]- 5605 Jun, [facility] [id number] [place] [address] 88524- 3326 February, [facility] [address], [place] [address]- 7436 Jan, [facility] [address], [place] [address]- 2846 Dec, IMMUNIZATIONS No Known Immunizations SOCIAL HISTORY Never Assessed REASON FOR VISIT ear pain and loss of hearing with nasal drainage and yellow mucusLisha GODINEZ PLAN OF CARE Activity Details Follow Up prn Reason: VITAL SIGNS Height 69.1 in 2017-11-14 Weight 177.4 lbs 2017-11-14 Temperature 98.3 degrees Fahrenheit 2017-11-14 Heart Rate 72 bpm 2017-11-14 Respiratory Rate 20 2017-11-14 BMI 26.12 kg/m2 2017-11-14 Blood pressure systolic 114 mmHg 2017-11-14 Blood pressure diastolic 76 mmHg 2017-11-14 MEDICATIONS Medication Instructions Dosage Frequency Start Date [...] in the morning Oct 28 days Active SudoGest 60 mg Orally every 6 hrs 1 tablet as needed 6h Oct, 05 days Active Protonix 40 MG Orally Once a day 1 tablet 24h Not-Taking RESULTS No Results PROCEDURES No Known procedures INSTRUCTIONS MEDICATIONS ADMINISTERED No Known Medications MEDICAL (GENERAL) HISTORY Type Description Date Medical History Bipolar disorder, unspecified Medical History Bipolar disorder, unspecified Medical History ODD (oppositional defiant disorder) Medical History ODD (oppositional defiant disorder) Medical History Disruptive mood dysregulation disorder
--- OUTSIDE RECORDS SUMMARY | 2018-09-15 21:00 | XMS REPORT ---
Author Author JOAN GARCIA [facility] Address [address] [place] [address] Care Team Providers Care Automatic Profile Shaper Operator Name Role Phone JOSEFELIPAJOAN Unavailable PROBLEMS Type Condition ICD9-CM Code IVB65-XU Code Onset Dates Condition Status SNOMED Code Problem Seasonal allergic rhinitis, unspecified allergic rhinitis trigger J30.2 Active 082963546 Problem PEARL (generalized anxiety disorder) F41.1 Active 72890699 Problem ADHD (attention deficit hyperactivity disorder), combined type F90.2 Active [id number] ALLERGIES No Information ENCOUNTERS Encounter Location Date Diagnosis [place] [id number] [address] Apr, [facility], [place] [address] [address]- [address]10 Dec, ADHD (attention deficit hyperactivity disorder), combined type F90.2 and PEARL (generalized anxiety disorder) F41.1 [facility], [place] [address] [place] [id number] [place] [address] 44903- 6657 Oct, Dysfunction of right eustachian tube H69.81 [place] [address] [place] [id number] [place] [address] 30716- 3442 Oct, [facility], [place] [id number] [place] [address] 98770- 5721 Oct, [place] [address] [place] [id number] [place] [address] 81963- 6499 Oct, [place] [address] [place] [id number] [place] [address] 46474- 8085 Sep, [place] [address] [place] [id number] [place] [address] 88949- 8042 Aug, ADHD (attention deficit hyperactivity disorder), combined type F90.2 and PEARL (generalized anxiety disorder) F41.1 [facility], [place] [id number] [place] [address] 23967- 1873 Jul, [facility], [place] [address] [id number] [place] [address] 52241- 7466 Jul, [facility], [place] [id number] [place] [address] 82825- 9000 Jun, [facility], [place] [id number] [place] [address] 48183- 6687 May, [facility], [place] [id number] [place] [address] 79114- 8262 May, [facility], [place] [id number] [place] [address] 84220- 6742 Apr, [facility], [place] [id number] [place] [address] 72572- 7565 Mar, [facility], [place] [id number] [place] [address] 37546- 4302 February, [facility], [place] [address] [id number] [place] [address] 73969- 4867 February, [facility], [place] [id number] [place] [address] 07822- 4722 February, PEARL (generalized anxiety disorder) F41.1 [facility], [place] [id number] [place] [address] 57017- 7012 February, [facility] [id number] [place] [address] 23108 -1327 February, Seasonal allergic rhinitis, unspecified allergic rhinitis trigger J30.2 [facility], [place] [id number] [place] [address] 93297- 3456 Jan, PEARL (generalized anxiety disorder) F41.1 [facility], [place] [id number] [place] [address] 43425- 8222 Jan, ADHD (attention deficit hyperactivity disorder), combined type F90.2 and PEARL (generalized anxiety disorder) F41.1 [facility], [place] [id number] [place] [address] 33094- 8274 Dec, [facility], [place] [id number] [place] [address] 03724- 4491 Nov, [facility], [place] [id number] [place] [address] 72141- 0875 Oct, [facility], [place] [id number] [place] [address] 32851- 8713 Oct, [facility], [place] [id number] [place] [address] 57637- 4107 Sep, [facility], [place] [id number] [place] [address] 53751- 9691 Aug, ADHD (attention deficit hyperactivity disorder), combined type F90.2 and PEARL (generalized anxiety disorder) F41.1 [facility], [place] [id number] [address]- 0583 Aug, [facility], [place] [id number] [place] [address] 25759- 7220 Jul, [facility], [place] [id number] [place] [address] 53136- 3520 Jun, ADHD (attention deficit hyperactivity disorder), combined type F90.2 ; ODD (oppositional defiant disorder) F91.3 and PEARL (generalized anxiety disorder) F41.1 [facility], [place] [address] [address]- 2084 Jun, [facility], [place] [id number] [place] [address] 05058- 0254 Jun, [facility], [place] [id number] [address]- 7351 May, [facility], [place] [id number] [place] [address] 87047- 6924 May, ODD (oppositional defiant disorder) F91.3 and ADHD ( attention deficit hyperactivity disorder), combined type F90.2 [facility], [place] [address] [place] [id number] [place] [address] 14567- 5519 May, [facility], [place] [id number] [address]- 5595 Apr, [facility], [place] [id number] [place] [address] 79893- 2209 Mar, [facility], [place] [id number] [place] [address] 68880- 4682 February, [facility], [place] [id number] [place] [address] 48993- 9684 Jan, [facility], [place] [id number] [place] [address] 43604- 4778 Dec, [facility], [place] [id number] [place] [address] 89381- 5678 Dec, [facility] [id number] [place] [address] [id number] Nov, Dental examination Z01.20 [facility], [place] [id number] [place] [address] 72755- 9945 Nov, [facility], [place] [id number] [place] [address] 48781- 6854 Nov, [facility], [place] [id number] [place] [address] 39223- 9817 Nov, Disruptive mood dysregulation disorder F34.8 ; ADHD ( attention deficit hyperactivity disorder), combined type F90.2 and ODD ( oppositional defiant disorder) F91.3 [facility], [place] [address] [address]- 5874 Sep, [facility], [place] [id number] [address]- 0047 Aug, [facility], [place] [address] [address]- 2676 Jul, [facility], [place] [id number] [address]- 3416 Jul, [facility], [place] [address] [address]- 1886 Jul, [facility], [place] [id number] [place] [address] 49239- 7656 Jun, Bipolar disorder, unspecified 296.80 ; Attention deficit disorder (ADD), child, 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 and ODD (oppositional defiant disorder) 313.81 [facility], [place] [id number] [place] [address] 55802- 1466 May, [facility], [place] [id number] [address]- 9426 May, [facility], [place] [id number] [place] [address] 77493- 7006 May, [facility], [place] [address] [address]- 4248 Apr, [facility], [place] [id number] [place] [address] 23760- 6786 Mar, [facility], [place] [address], [place] [address]- 8096 Mar, [facility], [place] [address] [address]- 7446 February, Bipolar disorder, unspecified 296.80 ; Attention deficit disorder 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 and Oppositional defiant behavior 313.81 [facility], [place] [address], [place] [address]- 1476 February, [facility], [place] [address], [place] [address]- 9786 Jan, [facility], [place] [id number] [place] [address] 50821- 6414 Jan, [facility] [place] [facility] [address] [id number] [place] [address]- 9993 Dec, [facility] [place] [facility] [address] [id number] [place] [address]- 3812 Dec, [facility] [place] [facility] [address] [id number] [place] [address]- 6064 Dec, [facility] [place] [facility] [address] [id number] [place] [address]- 6932 Nov, [facility] [place] [facility] [address] [id number] [place] [address]- 2911 Nov, [facility] [place] [facility] [address] [id number] [place] [address]- 0975 Nov, [facility] [place] [facility] [address] [id number] [place] [address]- 2357 Nov, [facility] [place] [facility] [address] [id number] [place] [address]- 4702 Nov, [facility] [place] [facility] [address] [id number] [place] [address]- 2594 Nov, [facility] [place] [facility] [address] [id number] [place] [address]- 7013 Nov, [facility] [place] [facility] [address] [id number] [place] [address]- 8779 Nov, [facility] [place] [facility] [address] [id number] [place] [address]- 1602 Oct, [facility] [place] [facility] [address] [id number] [place] [address]- 6987 Oct, [facility] [place] [facility] [address] [id number] [place] [address]- 8599 15 Oct, 2014 [facility] [place] [facility] [address] [id number] [place] [address]- 3494 14 Oct, 2014 [facility] [place] [facility] [address] [id number] [place] [address]- 9644 14 Oct, 2014 [facility] [address] [id number] [place] [address]- 0588 Oct, [facility] [place] [facility] [address] [id number] [place] [address]- 1385 08 Oct, 2014 [facility] [address] [id number] [place] [address]- 9906 16 Sep, 2014 [facility] [place] [facility] [address] [id number] [place] [address]- 6858 Sep, [facility] [place] [facility] [address] [id number] [place] [address]- 5709 Sep, [facility] [place] [facility] [address] [id number] [place] [address]- 0470 Aug, [facility] [place] [facility] [address] [id number] [place] [address]- 9962 Aug, [facility] [address] [id number] [place] [address]- 7278 14 Jul, 2014 [facility] [place] [facility] [address] [id number] [place] [address]- 5532 Jul, [facility] [place] [facility] [address] [id number] [place] [address]- 7558 Jun, [facility] [place] [facility] [address] [id number] [place] [address]- 8722 Jun, [facility] [place] [facility] [address] [id number] [place] [address]- 0640 May, [facility] [place] [facility] [address] [id number] [place] [address]- 6438 May, [facility] [place] [facility] [address] [id number] [place] [address]- 2585 May, [facility] [place] [facility] [address] [id number] [place] [address]- 7216 May, [facility] [place] [facility] [address] [id number] [place] [address]- 2751 Apr, [facility] [place] [facility] [address] [id number] [place] [address]- 6926 Apr, [facility] [place] [facility] [address] [id number] [place] [address]- 9804 Apr, [facility] [place] [facility] [address] [id number] [place] [address]- 0378 Apr, [facility] [place] [facility] [address] [id number] [place] [address]- 8491 Apr, [facility] [place] [facility] [address] [id number] [place] [address]- 4876 Mar, [facility] [place] [facility] [address] [id number] [place] [address]- 1829 Mar, [facility] [place] [facility] [address] [id number] [place] [address]- 3817 Mar, [facility] [place] [facility] [address] [id number] [place] [address]- 3948 Mar, [facility] [place] [facility] [address] [id number] [place] [address]- 8751 Mar, [facility] [place] [facility] [address] [id number] [place] [address]- 7741 February, [facility] [place] [facility] [address] [id number] [place] [address]- 8317 February, [facility] [place] [facility] [address] [id number] [place] [address]- 0048 February, [facility] [place] [facility] [address] [id number] [place] [address]- 1950 Jan, [facility] [place] [facility] [address] [id number] [place] [address]- 8637 Jan, [facility] [place] [facility] [address] [id number] [place] [address]- 9397 Dec, [facility] [address] [id number] [place] [address]- 3986 Dec, [facility] [place] [facility] [address] [id number] [place] [address]- 8834 Nov, [facility] [place] [facility] [address] [id number] [place] [address]- 0182 Nov, [facility] [place] [facility] [address] [id number] [place] [address]- 6707 Sep, [facility] [place] [facility] [address] [id number] [place] 6428 Sep, [facility] [place] [facility] [address] [id number] [place] [address]- 8185 Sep, [facility] [address] [id number] [place] [address]- 0050 Sep, [facility] [place] [facility] [address] [id number] [place] [address]- 8682 Aug, [facility] [place] [facility] [address] [id number] [place] [address]- 1629 Aug, [facility] [place] [facility] [address] [id number] [place] [address]- 3538 Aug, [facility] [place] [facility] [address] [id number] [place] [address]- 4778 Aug, [facility] [place] [facility] [address] [id number] [place] [address]- 4158 Jul, [facility] [place] [facility] [address] [id number] [place] [address]- 3901 Jul, [facility] [place] [facility] [address] [id number] [place] [address]- 5073 Jun, [facility] [place] [facility] [address] [id number] [place] [address]- 0503 May, [facility] [place] [facility] [address] [id number] [place] [address]- 1985 15 May, 2013 [facility] [address] [id number] [place] [address]- 9095 15 May, 2013 [facility] [place] [facility] [address] [id number] [place] [address]- 3667 19 Apr, 2013 [facility] [place] [facility] [address] [id number] [place] [address]- 0954 18 Apr, 2013 [facility] [place] [facility] [address] [id number] [place] [address]- 0622 14 Oct, 2012 [facility] [place] [facility] [address] [id number] [place] [address]- 7713 24 Sep, 2012 [facility] [address] [id number] [place] [address]- 2438 Sep, [facility] [address] [id number] [place] [address]- 7784 Sep, [facility] [address] [id number] [place] [address]- 7951 Sep, [facility] [place] [facility] [address] [id number] [place] [address]- 6873 18 Sep, 2012 [facility] [place] [facility] [address] [id number] [place] [address]- 9862 Sep, [facility] [place] [facility] [address] [id number] [place] [address]- 6892 03 Sep, 2012 [facility] [place] [facility] [address] [id number] [place] [address]- 2197 Aug, [facility] [place] [facility] [address] [id number] [place] [address]- 6983 19 Aug, 2012 [facility] [place] [facility] [address] [id number] [place] [address]- 2260 14 Aug, 2012 [facility] [place] [facility] [address] [id number], [place] [address]- 1676 Aug, [facility] [place] [facility] [address] [id number] [place] [address]- 2687 Jul, [facility] [place] [facility] [address] [id number] [place] [address]- 4574 Jul, [facility] [place] [facility] [address] [id number] [place] [address]- 9513 Jul, [facility] [place] [facility] [address] [id number], [place] [address]- 2308 Jun, [facility] [place] [facility] [address] [id number] [place] 2819 May, [facility] [place] [facility] [address] [id number] [place] [address]- 0292 May, [facility] [place] [facility] [address] [id number], [place] [address]- 5343 May, [facility] [place] [facility] [address] [id number], [place] [address]- 8610 May, [facility] [place] [facility] [address] [id number], [place] [address]- 1671 May, [facility] [place] [facility] [address] [id number], [place] [address]- 7284 Apr, [facility] [place] [facility] [address] [id number], [place] [address]- 1926 Apr, [facility] [place] [facility] [id number] [id number] Mar, [facility] [place] [facility] [address] [facility] [id number] [id number] Mar, [facility] [place] [facility] [address] [id number], [place] [address]- 1934 Mar, [facility] [place] [facility] [address] [id number], [place] [address]- 3045 Mar, [facility] [place] [facility] [address] [id number] [place] [address]- 8712 Mar, [facility] [address] [id number] [place] [address]- 3988 Mar, [facility] [place] [facility] [address] [id number] [place] [address]- 3156 February, [facility] [address] [id number] [place] [address]- 2696 Jan, [facility] [place] [facility] [address] [id number] [place] [address]- 4919 Jan, [facility] [place] [facility] [address] [id number] [place] [address]- 5341 Dec, [facility] [place] [facility] [address] [id number] [place] [address]- 7956 Dec, [facility] [place] [facility] [address] [id number] [place] [address]- 8956 Dec, [facility] [place] [facility] [address] [id number] [place] [address]- 6547 Dec, [facility] [place] [facility] [address] [id number] [place] [address]- 5470 Dec, [facility] [place] [facility] [address] [id number] [place] [address]- 8244 Nov, [facility] [place] [facility] [address] [id number] [place] [address]- 3039 Oct, [facility] [place] [facility] [address] [id number] [place] [address]- 2546 Oct, [facility] [place] [facility] [address] [id number] [place] [address]- 1591 Sep, [facility] [place] [facility] [address] [id number] [place] [address]- 2546 Sep, [facility] [place] [facility] [address] [id number] [place] [address]- 1616 Aug, [facility] [place] [address] [id number] [address]- 2546 Aug, [facility], [place] [address] [id number] [address] Jul, [facility], [place] [id number] [address] Jul, [facility], [place] [id number] [address] Jun, [facility], [place] [id number] [address] February, [facility], [place] [id number] [address] Jan, [facility], [place] [address] [id number], [place] [address] Dec, IMMUNIZATIONS No Known Immunizations SOCIAL HISTORY Never Assessed REASON FOR VISIT concerta 10/08/2017 PLAN OF CARE VITAL SIGNS MEDICATIONS Medication Instructions Dosage Frequency Start Date End Date Duration Status Concerta 54 MG Orally Once a day for ADHD 1 tablet in the morning Sep 28 days Active RESULTS No Results PROCEDURES No Known procedures INSTRUCTIONS MEDICATIONS ADMINISTERED No Known Medications MEDICAL (GENERAL) HISTORY Type Description Date Medical History Bipolar disorder, unspecified Medical History Bipolar disorder, unspecified Medical History ODD (oppositional defiant disorder) Medical History ODD (oppositional defiant disorder) Medical History Disruptive mood dysregulation disorder
--- OUTSIDE RECORDS SUMMARY | 2018-09-15 21:01 | XMS REPORT ---
Author Author JOAN GARCIA [facility] Address [address] [place] [address] Care Team Providers Care Rn Delivery Name Role Phone JOSEFELIPAJOAN Unavailable PROBLEMS Type Condition ICD9-CM Code FFC18-GW Code Onset Dates Condition Status SNOMED Code Problem Seasonal allergic rhinitis, unspecified allergic rhinitis trigger J30.2 Active 853200491 Problem PEARL (generalized anxiety disorder) F41.1 Active 43414720 Problem ADHD (attention deficit hyperactivity disorder), combined type F90.2 Active 23406289 ALLERGIES No Information ENCOUNTERS Encounter Location Date Diagnosis [place] [id number] [address] Apr, [facility] [address] [address] Dec, ADHD (attention deficit hyperactivity disorder), combined type F90.2 and PEARL (generalized anxiety disorder) F41.1 [facility] [id number] [place] [address] 09545- 7774 Oct, Dysfunction of right eustachian tube H69.81 [facility] [id number] [place] [address] 76086- 9781 Oct, [facility] [id number] [place] [address] 53262- 7316 Oct, [place] [id number] [place] [address] 23075- 5577 Oct, [place] [id number] [place] [address] 57777- 7560 Sep, [place] [id number] [place] [address] 28114- 2875 Aug, ADHD (attention deficit hyperactivity disorder), combined type F90.2 and PEARL (generalized anxiety disorder) F41.1 [facility] [id number] [place] [address] 64386- 5069 Jul, [facility] [id number] [place] [address] 27727- 0515 Jul, [facility] [id number] [place] [address] 88929- 4442 Jun, [facility] [id number] [place] [address] 70934- 7467 May, [facility] [id number] [place] [address] 91875- 4785 May, [facility] [id number] [place] [address] 24588- 0713 Apr, [facility] [id number] [place] [address] 85151- 9602 Mar, [facility] [id number] [place] [address] 54247- 1943 February, [facility] [id number] [place] [address] 75916- 0155 February, [facility] [id number] [place] [address] 04571- 2719 February, PEARL (generalized anxiety disorder) F41.1 [facility] [id number] [place] [address] 69594- 0175 February, [facility] [id number] [place] [address] 35426 -3794 February, Seasonal allergic rhinitis, unspecified allergic rhinitis trigger J30.2 [facility] [id number] [place] [address] 88707- 1403 Jan, PEARL (generalized anxiety disorder) F41.1 [facility] [id number] [place] [address] 10842- 4765 Jan, ADHD (attention deficit hyperactivity disorder), combined type F90.2 and PEARL (generalized anxiety disorder) F41.1 [facility] [id number] [place] [address] 33562- 7066 Dec, [facility] [id number] [place] [address] 52031- 3738 Nov, [facility] [id number] [place] [address] 75143- 0287 Oct, [facility] [id number] [place] [address] 38368- 3145 Oct, [facility] [id number] [place] [address] 04434- 0447 Sep, [facility] [id number] [place] [address] 75669- 8674 Aug, ADHD (attention deficit hyperactivity disorder), combined type F90.2 and PEARL (generalized anxiety disorder) F41.1 [facility] [id number] [address]- 8798 Aug, [facility] [id number] [place] [address] 05003- 8639 Jul, [facility] [id number] [place] [address] 17383- 8077 Jun, ADHD (attention deficit hyperactivity disorder), combined type F90.2 ; ODD (oppositional defiant disorder) F91.3 and PEARL (generalized anxiety disorder) F41.1 [facility] [address] [address]- 1173 Jun, [facility] [id number] [place] [address] 48084- 1202 Jun, [facility] [id number] [address]- 7515 May, [facility] [id number] [place] [address] 77279- 0021 May, ODD (oppositional defiant disorder) F91.3 and ADHD ( attention deficit hyperactivity disorder), combined type F90.2 [facility] [id number] [place] [address] 64220- 7076 May, [facility] [id number] [address]- 8170 Apr, [facility] [id number] [place] [address] 70385- 3004 Mar, [facility] [id number] [place] [address] 96021- 3447 February, [facility] [id number] [place] [address] 07358- 7647 Jan, [facility] [id number] [place] [address] 10371- 4871 Dec, [facility] [id number] [place] [address] 76383- 2669 Dec, [facility] [id number] [place] [address] [id number] Nov, Dental examination Z01.20 [facility] [id number] [place] [address] 27557- 8040 Nov, [facility] [id number] [place] [address] 38580- 7155 Nov, [facility] [id number] [place] [address] 06335- 4179 Nov, Disruptive mood dysregulation disorder F34.8 ; ADHD ( attention deficit hyperactivity disorder), combined type F90.2 and ODD ( oppositional defiant disorder) F91.3 [facility] [address] [address]- 8789 Sep, [facility] [id number] [address]- 0042 Aug, [facility] [address] [address]- 6396 Jul, [facility] [address] [address]- 7616 Jul, [facility] [address] [address]- 9296 Jul, [facility] [id number] [place] [address] 17016- 0346 Jun, Bipolar disorder, unspecified 296.80 ; Attention deficit disorder (ADD), child, 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 and ODD (oppositional defiant disorder) 313.81 [facility] [address] [place] [address] 92602- 1466 May, [facility] [id number] [address]- 2536 May, [facility] [id number] [place] [address] 42061- 0626 May, [facility] [address] [address]- 8158 Apr, [facility] [id number] [place] [address] 44068- 2826 Mar, [facility] [address] [address]- 4226 Mar, [facility] [address] [address]- 5146 February, Bipolar disorder, unspecified 296.80 ; Attention deficit disorder 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 and Oppositional defiant behavior 313.81 [facility] [address] [address]- 2446 February, [facility] [address] [address]- 3816 Jan, [facility] [address] [place] [address] 05825- 8955 Jan, [facility] [place] [facility] [address] [id number] [place] [address]- 6294 Dec, [facility] [place] [facility] [address] [id number] [place] [address]- 4326 Dec, [facility] [place] [facility] [address] [id number] [place] [address]- 5295 Dec, [facility] [place] [facility] [address] [id number] [place] [address]- 9144 Nov, [facility] [place] [facility] [address] [id number] [place] [address]- 6254 Nov, [facility] [place] [facility] [address] [id number] [place] [address]- 7302 Nov, [facility] [place] [facility] [address] [id number] [place] [address]- 3697 Nov, [facility] [place] [facility] [address] [id number] [place] [address]- 4903 Nov, [facility] [place] [facility] [address] [id number] [place] [address]- 4044 Nov, [facility] [place] [facility] [address] [id number] [place] [address]- 6972 Nov, [facility] [place] [facility] [address] [id number] [place] [address]- 1539 Nov, [facility] [place] [facility] [address] [id number] [place] [address]- 6570 Oct, [facility] [place] [facility] [address] [id number] [place] [address]- 4938 Oct, [facility] [place] [facility] [address] [id number] [place] [address]- 8730 15 Oct, 2014 [facility] [place] [facility] [address] [id number] [place] [address]- 4730 14 Oct, 2014 [facility] [place] [facility] [address] [id number] [place] [address]- 1434 14 Oct, 2014 [facility] [address] [id number] [place] [address]- 1370 Oct, [facility] [place] [facility] [address] [id number] [place] [address]- 1480 08 Oct, 2014 [facility] [address] [id number] [place] [address]- 4904 16 Sep, 2014 [facility] [place] [facility] [address] [id number] [place] [address]- 4600 Sep, [facility] [place] [facility] [address] [id number] [place] [address]- 0604 Sep, [facility] [place] [facility] [address] [id number] [place] [address]- 2387 Aug, [facility] [place] [facility] [address] [id number] [place] [address]- 7687 Aug, [facility] [address] [id number] [place] [address]- 6844 14 Jul, 2014 [facility] [place] [facility] [address] [id number] [place] [address]- 9369 Jul, [facility] [place] [facility] [address] [id number] [place] [address]- 2089 Jun, [facility] [place] [facility] [address] [id number] [place] [address]- 2736 Jun, [facility] [place] [facility] [address] [id number] [place] [address]- 2991 May, [facility] [place] [facility] [address] [id number] [place] [address]- 7312 May, [facility] [place] [facility] [address] [id number] [place] [address]- 9761 May, [facility] [place] [facility] [address] [id number] [place] [address]- 4276 May, [facility] [place] [facility] [address] [id number] [place] [address]- 9129 Apr, [facility] [place] [facility] [address] [id number] [place] [address]- 6676 Apr, [facility] [place] [facility] [address] [id number] [place] [address]- 3836 Apr, [facility] [place] [facility] [address] [id number] [place] [address]- 8720 Apr, [facility] [place] [facility] [address] [id number] [place] [address]- 0120 Apr, [facility] [place] [facility] [address] [id number] [place] [address]- 6268 Mar, [facility] [place] [facility] [address] [id number] [place] [address]- 4498 Mar, [facility] [place] [facility] [address] [id number] [place] [address]- 6910 Mar, [facility] [place] [facility] [address] [id number] [place] [address]- 9491 Mar, [facility] [place] [facility] [address] [id number] [place] [address]- 8502 Mar, [facility] [place] [facility] [address] [id number] [place] [address]- 1836 February, [facility] [place] [facility] [address] [id number] [place] [address]- 4997 February, [facility] [place] [facility] [address] [id number] [place] [address]- 0220 February, [facility] [place] [facility] [address] [id number] [place] [address]- 4487 Jan, [facility] [place] [facility] [address] [id number] [place] [address]- 2893 Jan, [facility] [place] [facility] [address] [id number] [place] [address]- 1368 Dec, [facility] [address] [id number] [place] [address]- 3463 Dec, [facility] [place] [facility] [address] [id number] [place] [address]- 6796 Nov, [facility] [place] [facility] [address] [id number] [place] [address]- 8407 Nov, [facility] [place] [facility] [address] [id number] [place] [address]- 0639 Sep, [facility] [place] [facility] [address] [id number] [place] 8910 Sep, [facility] [place] [facility] [address] [id number] [place] [address]- 5105 Sep, [facility] [address] [id number] [place] [address]- 6859 Sep, [facility] [place] [facility] [address] [id number] [place] [address]- 9368 Aug, [facility] [place] [facility] [address] [id number] [place] [address]- 8985 Aug, [facility] [place] [facility] [address] [id number] [place] [address]- 2752 Aug, [facility] [place] [facility] [address] [id number] [place] [address]- 8192 Aug, [facility] [place] [facility] [address] [id number] [place] [address]- 6416 Jul, [facility] [place] [facility] [address] [id number] [place] [address]- 4448 Jul, [facility] [place] [facility] [address] [id number] [place] [address]- 2284 Jun, [facility] [place] [facility] [address] [id number] [place] [address]- 1065 May, [facility] [place] [facility] [address] [id number] [place] [address]- 6328 15 May, 2013 [facility] [address] [id number] [place] [address]- 8916 15 May, 2013 [facility] [place] [facility] [address] [id number] [place] [address]- 1999 19 Apr, 2013 [facility] [place] [facility] [address] [id number] [place] [address]- 6575 18 Apr, 2013 [facility] [place] [facility] [address] [id number] [place] [address]- 2473 14 Oct, 2012 [facility] [place] [facility] [address] [id number] [place] [address]- 4695 24 Sep, 2012 [facility] [address] [id number] [place] [address]- 9357 Sep, [facility] [address] [id number] [place] [address]- 6676 Sep, [facility] [address] [id number] [place] [address]- 3599 Sep, [facility] [place] [facility] [address] [id number] [place] [address]- 4837 18 Sep, 2012 [facility] [place] [facility] [address] [id number] [place] [address]- 8778 Sep, [facility] [place] [facility] [address] [id number] [place] [address]- 7942 03 Sep, 2012 [facility] [place] [facility] [address] [id number] [place] [address]- 4202 Aug, [facility] [place] [facility] [address] [id number] [place] [address]- 1873 19 Aug, 2012 [facility] [place] [facility] [address] [id number] [place] [address]- 4438 14 Aug, 2012 [facility] [place] [facility] [address] [id number], [place] [address]- 4506 Aug, [facility] [place] [facility] [address] [id number] [place] [address]- 0970 Jul, [facility] [place] [facility] [address] [id number] [place] [address]- 9627 Jul, [facility] [place] [facility] [address] [id number] [place] [address]- 9740 Jul, [facility] [place] [facility] [address] [id number], [place] [address]- 3759 Jun, [facility] [place] [facility] [address] [id number] [place] 6327 May, [facility] [place] [facility] [address] [id number] [place] [address]- 6361 May, [facility] [place] [facility] [address] [id number], [place] [address]- 1989 May, [facility] [place] [facility] [address] [id number], [place] [address]- 9511 May, [facility] [place] [facility] [address] [id number], [place] [address]- 3692 May, [facility] [place] [facility] [address] [id number], [place] [address]- 4421 Apr, [facility] [place] [facility] [address] [id number], [place] [address]- 7610 Apr, [facility] [place] [facility] [id number] [address] Mar, [facility] [place] [facility] [address] [facility] [id number] [id number] Mar, [facility] [place] [facility] [address] [id number], [place] [address]- 0823 Mar, [facility] [place] [facility] [address] [id number], [place] [address]- 5982 Mar, [facility] [place] [facility] [address] [id number] [place] [address]- 3975 Mar, [facility] [address] [id number] [place] [address]- 7539 Mar, [facility] [place] [facility] [address] [id number] [place] [address]- 4056 February, [facility] [address] [id number] [place] [address]- 3936 Jan, [facility] [place] [facility] [address] [id number] [place] [address]- 9245 Jan, [facility] [place] [facility] [address] [id number] [place] [address]- 1103 Dec, [facility] [place] [facility] [address] [id number] [place] [address]- 0666 Dec, [facility] [place] [facility] [address] [id number] [place] [address]- 9301 Dec, [facility] [place] [facility] [address] [id number] [place] [address]- 4653 Dec, [facility] [place] [facility] [address] [id number] [place] [address]- 8527 Dec, [facility] [place] [facility] [address] [id number] [place] [address]- 8869 Nov, [facility] [place] [facility] [address] [id number] [place] [address]- 7382 Oct, [facility] [place] [facility] [address] [id number] [place] [address]- 2546 Oct, [facility] [place] [facility] [address] [id number] [place] [address]- 8793 Sep, [facility] [place] [facility] [address] [id number] [place] [address]- 2546 Sep, [facility] [place] [facility] [address] [id number] [place] [address]- 9446 Aug, [facility] [id number] [address]- 2546 Aug, [facility] [id number] [address] 2546 Jul, [facility] [address] [address]- 2546 Jul, [facility] [address], [place] [address]- 2546 Jun, [facility] [address], [place] [address]- 2546 February, [facility] [address] [address]- 4776 Jan, [facility] [address] [address]- 0696 Dec, IMMUNIZATIONS No Known Immunizations SOCIAL HISTORY Never Assessed REASON FOR VISIT med refill PLAN OF CARE VITAL SIGNS MEDICATIONS Medication Instructions Dosage Frequency Start Date End Date Duration Status Clonidine HCl 0.1 MG Orally Once a day 1 tablet at bedtime 24h Aug, 30 day(s) Active RESULTS No Results PROCEDURES No Known procedures INSTRUCTIONS MEDICATIONS ADMINISTERED No Known Medications MEDICAL (GENERAL) HISTORY Type Description Date Medical History Bipolar disorder, unspecified Medical History Bipolar disorder, unspecified Medical History ODD (oppositional defiant disorder) Medical History ODD (oppositional defiant disorder) Medical History Disruptive mood dysregulation disorder
--- OUTSIDE RECORDS SUMMARY | 2018-09-15 21:01 | XMS REPORT ---
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 [employer] Name Role Phone SHAW CASTAÑEDALELE Unavailable PROBLEMS Type Condition ICD9-CM Code SAD08-RU Code Onset Dates Condition Status SNOMED Code Problem Seasonal allergic rhinitis, unspecified allergic rhinitis trigger J30.2 Active 535484424 Problem PEARL (generalized anxiety disorder) F41.1 Active 51440763 Problem ADHD (attention deficit hyperactivity disorder), combined type F90.2 Active 53476009 ALLERGIES No Information ENCOUNTERS Encounter Location Date Diagnosis [place] [address] [address] Apr, [place] [address] 97001- [address]878 Dec, ADHD (attention deficit hyperactivity disorder), combined type F90.2 and PEARL (generalized anxiety disorder) F41.1 [place] [address] [place] [id number] [place] [address] 20247- 4919 Oct, Dysfunction of right eustachian tube H69.81 [place] [address] [place] [id number] [place] [address] 68516- 7887 Oct, [place] [address] [place] [id number] [place] [address] 02892- 5199 Oct, [place] [address] 76057- 9548 Oct, [place] [address] [place] [id number] [place] [address] 24494- 5803 Sep, [place] [address] [place] [id number] [place] [address] 63990- 3304 Aug, ADHD (attention deficit hyperactivity disorder), combined type F90.2 and PEARL (generalized anxiety disorder) F41.1 [facility] [address] [id number] [place] [address] 57927- 1610 Jul, [facility] [id number] [place] [address] 03177- 1192 Jul, [facility] [address] [id number] [place] [address] 75154- 5768 Jun, [facility] [id number] [place] [address] 17680- 5218 May, [facility] [id number] [place] [address] 64233- 6433 May, [facility] [address] [id number] [place] [address] 93957- 6069 Apr, [facility] [address] [id number] [place] [address] 18756- 1454 Mar, [facility] [address] [place] [id number] [place] [address] 24744- 8569 February, [facility] [address] [place] [id number] [place] [address] 36371- 5758 February, [facility] [address] [place] [id number] [place] [address] 37024- 0292 February, PEARL (generalized anxiety disorder) F41.1 [facility] [address] [place] [id number] [place] [address] 22488- 9095 February, [facility] [address] [place] [address] 48383 -0296 February, Seasonal allergic rhinitis, unspecified allergic rhinitis trigger J30.2 [facility] [address] [place] [id number] [place] [address] 85326- 2472 Jan, PEARL (generalized anxiety disorder) F41.1 [facility] [address] [place] [id number] [place] [address] 41969- 3865 Jan, ADHD (attention deficit hyperactivity disorder), combined type F90.2 and PEARL (generalized anxiety disorder) F41.1 [facility] [address] [place] [id number] [place] [address] 24194- 6348 Dec, [facility] [address] [place] [id number] [place] [address] 41828- 0177 Nov, [facility] [address] [place] [id number] [place] [address] 28609- 3128 Oct, [facility] [address] [place] [id number] [place] [address] 38050- 8507 Oct, [facility] [address] [id number] [place] [address] 12485- 0797 Sep, [facility] [address] [place] [id number] [place] [address] 77743- 7221 Aug, ADHD (attention deficit hyperactivity disorder), combined type F90.2 and PEARL (generalized anxiety disorder) F41.1 [facility] [address] [place] [id number] [address]- 4892 Aug, [facility] [address] [place] [id number] [place] [address] 62394- 8776 Jul, [facility] [address] [place] [id number] [place] [address] 58851- 8342 Jun, ADHD (attention deficit hyperactivity disorder), combined type F90.2 ; ODD (oppositional defiant disorder) F91.3 and PEARL (generalized anxiety disorder) F41.1 [facility] [address] [address]- 2682 Jun, [facility] [address] [place] [id number] [place] [address] 39663- 1922 Jun, [facility] [address] [id number] [address]- 9706 May, [facility] [address] [place] [id number] [place] [address] 09516- 7565 May, ODD (oppositional defiant disorder) F91.3 and ADHD ( attention deficit hyperactivity disorder), combined type F90.2 [facility] [address] [place] [id number] [place] [address] 15466- 6393 May, [facility] [address] [id number] [address]- 6402 Apr, [facility] [address] [place] [id number] [place] [address] 84320- 5905 Mar, [facility] [address] [place] [id number] [place] [address] 61590- 0463 February, [facility] [address] [place] [id number] [place] [address] 05508- 9177 Jan, [facility] [address] [place] [id number] [place] [address] 71384- 4387 Dec, [facility] [address] [place] [id number] [place] [address] 01690- 0521 Dec, [facility] [address] [place] [id number] [place] [address] [id number] Nov, Dental examination Z01.20 [facility] [address] [place] [id number] [place] [address] 51915- 4241 Nov, [facility] [address] [place] [id number] [place] [address] 82927- 2808 Nov, [facility] [address] [place] [id number] [place] [address] 76518- 2705 Nov, Disruptive mood dysregulation disorder F34.8 ; ADHD ( attention deficit hyperactivity disorder), combined type F90.2 and ODD ( oppositional defiant disorder) F91.3 [facility] [address] [address]- 8043 Sep, [facility] [address] [place] [address] [id number] [address]- 8820 Aug, [facility] [address] [address]- 4626 Jul, [facility] [address], [place] [address]- 4976 Jul, [facility] [address], [place] [address]- 3536 Jul, [facility] [address] [place] [id number] [place] [address] 28206- 6486 Jun, Bipolar disorder, unspecified 296.80 ; Attention deficit disorder (ADD), child, 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 and ODD (oppositional defiant disorder) 313.81 [facility] [address] [place] [address] 52830- 8866 May, [facility] [address] [place] [id number] [address]- 9576 May, [facility] [address] [place] [id number] [place] [address] 93332- 8406 May, [facility] [address], [place] [address]- 9408 Apr, [facility] [address] [place] [address] 04731- 3846 Mar, [facility] [address], [place] [address]- 9236 Mar, [facility] [address], [place] [address]- 4186 February, Bipolar disorder, unspecified 296.80 ; Attention deficit disorder 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 and Oppositional defiant behavior 313.81 [facility] [address], [place] [address]- 7366 February, [facility] [address], [place] [address]- 5396 Jan, [facility] [address] [place] [address] 54614- 3522 Jan, [facility] [place] [facility] [address] [id number] [place] [address]- 5761 Dec, [facility] [place] [facility] [address] [id number] [place] [address]- 9340 Dec, [facility] [place] [facility] [address] [id number] [place] [address]- 4113 Dec, [facility] [place] [facility] [address] [id number] [place] [address]- 1275 Nov, [facility] [place] [facility] [address] [id number] [place] [address]- 2540 Nov, [facility] [place] [facility] [address] [id number] [place] [address]- 0427 Nov, [facility] [place] [facility] [address] [id number] [place] [address]- 0731 Nov, [facility] [place] [facility] [address] [id number] [place] [address]- 3831 Nov, [facility] [place] [facility] [address] [id number] [place] [address]- 7060 Nov, [facility] [place] [facility] [address] [id number] [place] [address]- 1976 Nov, [facility] [place] [facility] [address] [id number] [place] [address]- 2004 Nov, [facility] [place] [facility] [address] [id number] [place] [address]- 3861 Oct, [facility] [place] [facility] [address] [id number] [place] [address]- 7199 Oct, [facility] [place] [facility] [address] [id number] [place] [address]- 9769 15 Oct, 2014 [facility] [place] [facility] [address] [id number] [place] [address]- 4751 14 Oct, 2014 [facility] [place] [facility] [address] [id number] [place] [address]- 6389 14 Oct, 2014 [facility] [address] [id number] [place] [address]- 4703 Oct, [facility] [place] [facility] [address] [id number] [place] [address]- 0116 08 Oct, 2014 [facility] [address] [id number] [place] [address]- 1363 16 Sep, 2014 [facility] [place] [facility] [address] [id number] [place] [address]- 0331 Sep, [facility] [place] [facility] [address] [id number] [place] [address]- 3394 Sep, [facility] [place] [facility] [address] [id number] [place] [address]- 7157 Aug, [facility] [place] [facility] [address] [id number] [place] [address]- 6717 Aug, [facility] [address] [id number] [place] [address]- 1018 14 Jul, 2014 [facility] [place] [facility] [address] [id number] [place] [address]- 9217 Jul, [facility] [place] [facility] [address] [id number] [place] [address]- 4203 Jun, [facility] [place] [facility] [address] [id number] [place] [address]- 9175 Jun, [facility] [place] [facility] [address] [id number] [place] [address]- 1367 May, [facility] [place] [facility] [address] [id number] [place] [address]- 4321 May, [facility] [place] [facility] [address] [id number] [place] [address]- 8482 May, [facility] [place] [facility] [address] [id number] [place] [address]- 2416 May, [facility] [place] [facility] [address] [id number] [place] [address]- 7068 Apr, [facility] [place] [facility] [address] [id number] [place] [address]- 9505 Apr, [facility] [place] [facility] [address] [id number] [place] [address]- 0054 Apr, [facility] [place] [facility] [address] [id number] [place] [address]- 2760 Apr, [facility] [place] [facility] [address] [id number] [place] [address]- 1872 Apr, [facility] [place] [facility] [address] [id number] [place] [address]- 8640 Mar, [facility] [place] [facility] [address] [id number] [place] [address]- 6895 Mar, [facility] [place] [facility] [address] [id number] [place] [address]- 2107 Mar, [facility] [place] [facility] [address] [id number] [place] [address]- 1931 Mar, [facility] [place] [facility] [address] [id number] [place] [address]- 4252 Mar, [facility] [place] [facility] [address] [id number] [place] [address]- 9203 February, [facility] [place] [facility] [address] [id number] [place] [address]- 9498 February, [facility] [place] [facility] [address] [id number] [place] [address]- 2822 February, [facility] [place] [facility] [address] [id number] [place] [address]- 6143 Jan, [facility] [place] [facility] [address] [id number] [place] [address]- 9109 Jan, [facility] [place] [facility] [address] [id number] [place] [address]- 7019 Dec, [facility] [address] [id number] [place] [address]- 7718 Dec, [facility] [place] [facility] [address] [id number] [place] [address]- 8328 Nov, [facility] [place] [facility] [address] [id number] [place] [address]- 4245 Nov, [facility] [place] [facility] [address] [id number] [place] [address]- 1332 Sep, [facility] [place] [facility] [address] [id number] [place] 1998 Sep, [facility] [place] [facility] [address] [id number] [place] [address]- 9077 Sep, [facility] [address] [id number] [place] [address]- 1926 Sep, [facility] [place] [facility] [address] [id number] [place] [address]- 8490 Aug, [facility] [place] [facility] [address] [id number] [place] [address]- 3153 Aug, [facility] [place] [facility] [address] [id number] [place] [address]- 4498 Aug, [facility] [place] [facility] [address] [id number] [place] [address]- 8055 Aug, [facility] [place] [facility] [address] [id number] [place] [address]- 3298 Jul, [facility] [place] [facility] [address] [id number] [place] [address]- 9920 Jul, [facility] [place] [facility] [address] [id number] [place] [address]- 9436 Jun, [facility] [place] [facility] [address] [id number] [place] [address]- 5064 May, [facility] [place] [facility] [address] [id number] [place] [address]- 3125 15 May, 2013 [facility] [address] [id number] [place] [address]- 5283 15 May, 2013 [facility] [place] [facility] [address] [id number] [place] [address]- 7577 19 Apr, 2013 [facility] [place] [facility] [address] [id number] [place] [address]- 0833 18 Apr, 2013 [facility] [place] [facility] [address] [id number] [place] [address]- 2833 14 Oct, 2012 [facility] [place] [facility] [address] [id number] [place] [address]- 3869 24 Sep, 2012 [facility] [address] [id number] [place] [address]- 3554 Sep, [facility] [address] [id number] [place] [address]- 3795 Sep, [facility] [address] [id number] [place] [address]- 1165 Sep, [facility] [place] [facility] [address] [id number] [place] [address]- 1370 18 Sep, 2012 [facility] [place] [facility] [address] [id number] [place] [address]- 1140 Sep, [facility] [place] [facility] [address] [id number] [place] [address]- 5097 03 Sep, 2012 [facility] [place] [facility] [address] [id number] [place] [address]- 2752 Aug, [facility] [place] [facility] [address] [id number] [place] [address]- 0388 19 Aug, 2012 [facility] [place] [facility] [address] [id number] [place] [address]- 1197 14 Aug, 2012 [facility] [place] [facility] [address] [id number] [address]- 4636 Aug, [facility] [place] [facility] [address] [id number] [place] [address]- 7691 Jul, [facility] [place] [facility] [address] [id number] [place] [address]- 5145 Jul, [facility] [place] [facility] [address] [id number] [place] [address]- 4567 Jul, [facility] [place] [facility] [address] [id number], [place] [address]- 1574 Jun, [facility] [place] [facility] [address] [id number] [place] 9163 May, [facility] [place] [facility] [address] [id number] [place] [address]- 3944 May, [facility] [place] [facility] [address] [id number], [place] [address]- 9667 May, [facility] [place] [facility] [address] [id number], [place] [address]- 2243 May, [facility] [place] [facility] [address] [id number], [place] [address]- 5058 May, [facility] [place] [facility] [address] [id number], [place] [address]- 0845 Apr, [facility] [place] [facility] [address] [id number], [place] [address]- 9401 Apr, [facility] [place] [facility] [id number] [address] Mar, [facility] [place] [facility] [address] [facility] [id number] [address] Mar, [facility] [place] [facility] [address] [id number], [place] [address]- 4909 Mar, [facility] [place] [facility] [address] [id number], [place] [address]- 8493 Mar, [facility] [place] [facility] [address] [id number] [place] [address]- 5876 Mar, [facility] [address] [id number] [place] [address]- 6359 Mar, [facility] [place] [facility] [address] [id number] [place] [address]- 9076 February, [facility] [address] [id number] [place] [address]- 1886 Jan, [facility] [place] [facility] [address] [id number] [place] [address]- 7193 Jan, [facility] [place] [facility] [address] [id number] [place] [address]- 1926 Dec, [facility] [place] [facility] [address] [id number] [place] [address]- 1396 Dec, [facility] [place] [facility] [address] [id number] [place] [address]- 5605 Dec, [facility] [place] [facility] [address] [id number] [place] [address]- 7578 Dec, [facility] [place] [facility] [address] [id number] [place] [address]- 8096 Dec, [facility] [place] [facility] [address] [id number] [place] [address]- 9584 Nov, [facility] [place] [facility] [address] [id number] [place] [address]- 4714 Oct, [facility] [place] [facility] [address] [id number] [place] [address]- 2546 Oct, [facility] [place] [facility] [address] [id number] [place] [address]- 1820 Sep, [facility] [place] [facility] [address] [id number] [place] [address]- 2546 Sep, [facility] [place] [facility] [address] [id number] [place] [address]- 3436 Aug, [facility] [id number] [address] 2546 Aug, [facility] [id number] [address]- 5786 Jul, [facility] [address], [place] [address]- 1836 Jul, [facility] [address], [place] [address]- 2546 Jun, [facility] [address], [place] [address]- 7622 February, [facility] [address], [place] [address]- 1786 Jan, [facility] [address], [place] [address]- 8704 Dec, IMMUNIZATIONS No Known Immunizations SOCIAL HISTORY Never Assessed REASON FOR VISIT concerta due 11/12/17 PLAN OF CARE VITAL SIGNS MEDICATIONS Medication Instructions Dosage Frequency Start Date End Date Duration Status Concerta 54 MG Orally Once a day for ADHD 1 tablet in the morning Oct 28 days Active Clonidine HCl 0.1 MG Orally Once [...]
--- OUTSIDE RECORDS SUMMARY | 2018-09-15 21:02 | XMS REPORT ---
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
--- OUTSIDE RECORDS SUMMARY | 2018-09-15 21:02 | XMS REPORT ---
Author Author JOAN GARCIA [facility] Address [address] [place] [address] Care Team Providers Care Train Gate Attendant Name Role Phone JOSEFELIPAJOAN Unavailable PROBLEMS Type Condition ICD9-CM Code XHE43-ZJ Code Onset Dates Condition Status SNOMED Code Problem Seasonal allergic rhinitis, unspecified allergic rhinitis trigger J30.2 Active 094702306 Problem PEARL (generalized anxiety disorder) F41.1 Active 21414064 Problem ADHD (attention deficit hyperactivity disorder), combined type F90.2 Active [id number] ALLERGIES No Information ENCOUNTERS Encounter Location Date Diagnosis [place] [id number] [address] Apr, [facility] [address] [address]- [address] Dec, ADHD (attention deficit hyperactivity disorder), combined type F90.2 and PEARL (generalized anxiety disorder) F41.1 [facility] [id number] [place] [address] 15239- 3122 Oct, Dysfunction of right eustachian tube H69.81 [facility] [id number] [place] [address] 38565- 2524 Oct, [facility] [id number] [place] [address] 50207- 9564 Oct, [place] [id number] [place] [address] 83231- 3586 Oct, [place] [id number] [place] [address] 67236- 9836 Sep, [place] [id number] [place] [address] 13329- 6459 Aug, ADHD (attention deficit hyperactivity disorder), combined type F90.2 and PEARL (generalized anxiety disorder) F41.1 [facility] [id number] [place] [address] 43667- 5850 Jul, [facility] [id number] [place] [address] 33845- 7868 Jul, [facility] [id number] [place] [address] 35554- 9121 Jun, [facility] [id number] [place] [address] 74426- 5074 May, [facility] [id number] [place] [address] 90875- 2708 May, [facility] [id number] [place] [address] 18595- 4501 Apr, [facility] [id number] [place] [address] 38453- 7720 Mar, [facility] [id number] [place] [address] 44277- 4873 February, [facility] [id number] [place] [address] 47838- 7945 February, [facility] [id number] [place] [address] 86677- 8818 February, PEARL (generalized anxiety disorder) F41.1 [facility] [id number] [place] [address] 00756- 1724 February, [facility] [id number] [place] [address] 66743 -5589 February, Seasonal allergic rhinitis, unspecified allergic rhinitis trigger J30.2 [facility] [id number] [place] [address] 57408- 4335 Jan, PEARL (generalized anxiety disorder) F41.1 [facility] [id number] [place] [address] 36031- 8016 Jan, ADHD (attention deficit hyperactivity disorder), combined type F90.2 and PEARL (generalized anxiety disorder) F41.1 [facility] [id number] [place] [address] 52017- 7164 Dec, [facility] [id number] [place] [address] 69723- 1416 Nov, [facility] [id number] [place] [address] 66231- 5684 Oct, [facility] [id number] [place] [address] 08533- 7447 Oct, [facility] [id number] [place] [address] 26090- 3082 Sep, [facility] [id number] [place] [address] 71428- 5862 Aug, ADHD (attention deficit hyperactivity disorder), combined type F90.2 and PEARL (generalized anxiety disorder) F41.1 [facility] [address] [id number] [address]- 8876 Aug, [facility] [id number] [place] [address] 32820- 7498 Jul, [facility] [id number] [place] [address] 67567- 4250 Jun, ADHD (attention deficit hyperactivity disorder), combined type F90.2 ; ODD (oppositional defiant disorder) F91.3 and PEARL (generalized anxiety disorder) F41.1 [facility] [address] [address]- 2328 Jun, [facility] [id number] [place] [address] 40724- 4912 Jun, [facility] [address] [address]- 8992 May, [facility] [id number] [place] [address] 82432- 6954 May, ODD (oppositional defiant disorder) F91.3 and ADHD ( attention deficit hyperactivity disorder), combined type F90.2 [facility] [id number] [place] [address] 49842- 5017 May, [facility] [address] [address]- 9956 Apr, [facility] [id number] [place] [address] 50879- 1253 Mar, [facility] [id number] [place] [address] 57757- 6990 February, [facility] [id number] [place] [address] 75850- 2374 Jan, [facility] [id number] [place] [address] 55210- 4556 Dec, [facility] [id number] [place] [address] 91836- 9861 Dec, [facility] [id number] [place] [address] [id number] Nov, Dental examination Z01.20 [facility] [id number] [place] [address] 47957- 0705 Nov, [facility] [id number] [place] [address] 55116- 3013 Nov, [facility] [id number] [place] [address] 41957- 1512 Nov, Disruptive mood dysregulation disorder F34.8 ; ADHD ( attention deficit hyperactivity disorder), combined type F90.2 and ODD ( oppositional defiant disorder) F91.3 [facility] [address] [address]- 0102 Sep, [facility] [address] [address]- 3620 Aug, [facility] [address] [address]- 0336 Jul, [facility] [address] [address]- 5406 Jul, [facility] [address], [place] [address]- 6826 Jul, [facility] [id number] [place] [address] 46126- 9106 Jun, Bipolar disorder, unspecified 296.80 ; Attention deficit disorder (ADD), child, 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 and ODD (oppositional defiant disorder) 313.81 [facility] [id number] [place] [address] 71924- 9206 May, [facility] [address] [address]- 2816 May, [facility] [id number] [place] [address] 46527- 2426 May, [facility] [address], [place] [address]- 2616 Apr, [facility] [id number] [place] [address] 91928- 5146 Mar, [facility] [address] [address]- 9276 Mar, [facility] [address] [address]- 2636 February, Bipolar disorder, unspecified 296.80 ; Attention deficit disorder 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 and Oppositional defiant behavior 313.81 [facility] [address], [place] [address]- 6036 February, [facility] [address], [place] [address]- 3866 Jan, [facility] [id number] [place] [address] 45849- 3117 Jan, [facility] [place] [facility] [address] [id number] [place] [address]- 7247 Dec, [facility] [place] [facility] [address] [id number] [place] [address]- 2908 Dec, [facility] [place] [facility] [address] [id number] [place] [address]- 9179 Dec, [facility] [place] [facility] [address] [id number] [place] [address]- 4603 Nov, [facility] [place] [facility] [address] [id number] [place] [address]- 2596 Nov, [facility] [place] [facility] [address] [id number] [place] [address]- 9814 Nov, [facility] [place] [facility] [address] [id number] [place] [address]- 5774 Nov, [facility] [place] [facility] [address] [id number] [place] [address]- 4045 Nov, [facility] [place] [facility] [address] [id number] [place] [address]- 1649 Nov, [facility] [place] [facility] [address] [id number] [place] [address]- 9694 Nov, [facility] [place] [facility] [address] [id number] [place] [address]- 1084 Nov, [facility] [place] [facility] [address] [id number] [place] [address]- 1392 Oct, [facility] [place] [facility] [address] [id number] [place] [address]- 3570 Oct, [facility] [place] [facility] [address] [id number] [place] [address]- 4933 15 Oct, 2014 [facility] [place] [facility] [address] [id number] [place] [address]- 7754 14 Oct, 2014 [facility] [place] [facility] [address] [id number] [place] [address]- 8907 14 Oct, 2014 [facility] [address] [id number] [place] [address]- 9978 Oct, [facility] [place] [facility] [address] [id number] [place] [address]- 8677 08 Oct, 2014 [facility] [address] [id number] [place] [address]- 0374 16 Sep, 2014 [facility] [place] [facility] [address] [id number] [place] [address]- 4857 Sep, [facility] [place] [facility] [address] [id number] [place] [address]- 3271 Sep, [facility] [place] [facility] [address] [id number] [place] [address]- 4292 Aug, [facility] [place] [facility] [address] [id number] [place] [address]- 3051 Aug, [facility] [address] [id number] [place] [address]- 7730 14 Jul, 2014 [facility] [place] [facility] [address] [id number] [place] [address]- 4646 Jul, [facility] [place] [facility] [address] [id number] [place] [address]- 9623 Jun, [facility] [place] [facility] [address] [id number] [place] [address]- 6650 Jun, [facility] [place] [facility] [address] [id number] [place] [address]- 7010 May, [facility] [place] [facility] [address] [id number] [place] [address]- 0598 May, [facility] [place] [facility] [address] [id number] [place] [address]- 4357 May, [facility] [place] [facility] [address] [id number] [place] [address]- 4407 May, [facility] [place] [facility] [address] [id number] [place] [address]- 6216 Apr, [facility] [place] [facility] [address] [id number] [place] [address]- 3574 Apr, [facility] [place] [facility] [address] [id number] [place] [address]- 2255 Apr, [facility] [place] [facility] [address] [id number] [place] [address]- 4387 Apr, [facility] [place] [facility] [address] [id number] [place] [address]- 7961 Apr, [facility] [place] [facility] [address] [id number] [place] [address]- 7940 Mar, [facility] [place] [facility] [address] [id number] [place] [address]- 3934 Mar, [facility] [place] [facility] [address] [id number] [place] [address]- 0928 Mar, [facility] [place] [facility] [address] [id number] [place] [address]- 0263 Mar, [facility] [place] [facility] [address] [id number] [place] [address]- 9598 Mar, [facility] [place] [facility] [address] [id number] [place] [address]- 1366 February, [facility] [place] [facility] [address] [id number] [place] [address]- 5238 February, [facility] [place] [facility] [address] [id number] [place] [address]- 9053 February, [facility] [place] [facility] [address] [id number] [place] [address]- 9309 Jan, [facility] [place] [facility] [address] [id number] [place] [address]- 1182 Jan, [facility] [place] [facility] [address] [id number] [place] [address]- 7187 Dec, [facility] [address] [id number] [place] [address]- 6122 Dec, [facility] [place] [facility] [address] [id number] [place] [address]- 0102 Nov, [facility] [place] [facility] [address] [id number] [place] [address]- 5275 Nov, [facility] [place] [facility] [address] [id number] [place] [address]- 0580 Sep, [facility] [place] [facility] [address] [id number] [place] 5830 Sep, [facility] [place] [facility] [address] [id number] [place] [address]- 6877 Sep, [facility] [address] [id number] [place] [address]- 1921 Sep, [facility] [place] [facility] [address] [id number] [place] [address]- 7367 Aug, [facility] [place] [facility] [address] [id number] [place] [address]- 7064 Aug, [facility] [place] [facility] [address] [id number] [place] [address]- 4172 Aug, [facility] [place] [facility] [address] [id number] [place] [address]- 8709 Aug, [facility] [place] [facility] [address] [id number] [place] [address]- 8156 Jul, [facility] [place] [facility] [address] [id number] [place] [address]- 0974 Jul, [facility] [place] [facility] [address] [id number] [place] [address]- 6353 Jun, [facility] [place] [facility] [address] [id number] [place] [address]- 3438 May, [facility] [place] [facility] [address] [id number] [place] [address]- 3424 15 May, 2013 [facility] [address] [id number] [place] [address]- 3974 15 May, 2013 [facility] [place] [facility] [address] [id number] [place] [address]- 2329 19 Apr, 2013 [facility] [place] [facility] [address] [id number] [place] [address]- 2063 18 Apr, 2013 [facility] [place] [facility] [address] [id number] [place] [address]- 8946 14 Oct, 2012 [facility] [place] [facility] [address] [id number] [place] [address]- 1564 24 Sep, 2012 [facility] [address] [id number] [place] [address]- 3049 Sep, [facility] [address] [id number] [place] [address]- 7487 Sep, [facility] [address] [id number] [place] [address]- 4096 Sep, [facility] [place] [facility] [address] [id number] [place] [address]- 3674 18 Sep, 2012 [facility] [place] [facility] [address] [id number] [place] [address]- 0609 Sep, [facility] [place] [facility] [address] [id number] [place] [address]- 2484 03 Sep, 2012 [facility] [place] [facility] [address] [id number] [place] [address]- 8807 Aug, [facility] [place] [facility] [address] [id number] [place] [address]- 5530 19 Aug, 2012 [facility] [place] [facility] [address] [id number] [place] [address]- 9191 14 Aug, 2012 [facility] [place] [facility] [address] [id number] [address]- 6626 Aug, [facility] [place] [facility] [address] [id number] [place] [address]- 3753 Jul, [facility] [place] [facility] [address] [id number] [place] [address]- 5177 Jul, [facility] [place] [facility] [address] [id number] [place] [address]- 5330 Jul, [facility] [place] [facility] [address] [id number], [place] [address]- 0344 Jun, [facility] [place] [facility] [address] [id number] [place] 6333 May, [facility] [place] [facility] [address] [id number] [place] [address]- 0176 May, [facility] [place] [facility] [address] [id number], [place] [address]- 0635 May, [facility] [place] [facility] [address] [id number], [place] [address]- 2022 May, [facility] [place] [facility] [address] [id number], [place] [address]- 8035 May, [facility] [place] [facility] [address] [id number], [place] [address]- 3152 Apr, [facility] [place] [facility] [address] [id number], [place] [address]- 9223 Apr, [facility] [place] [facility] [id number] [address] Mar, [facility] [place] [facility] [address] [facility] [id number] [address] Mar, [facility] [place] [facility] [address] [id number], [place] [address]- 5840 Mar, [facility] [place] [facility] [address] [id number], [place] [address]- 7816 Mar, [facility] [place] [facility] [address] [id number] [place] [address]- 8353 Mar, [facility] [address] [id number] [place] [address]- 2814 Mar, [facility] [place] [facility] [address] [id number] [place] [address]- 2996 February, [facility] [address] [id number] [place] [address]- 3796 Jan, [facility] [place] [facility] [address] [id number] [place] [address]- 2316 Jan, [facility] [place] [facility] [address] [id number] [place] [address]- 0179 Dec, [facility] [place] [facility] [address] [id number] [place] [address]- 0886 Dec, [facility] [place] [facility] [address] [id number] [place] [address]- 2860 Dec, [facility] [place] [facility] [address] [id number] [place] [address]- 1306 Dec, [facility] [place] [facility] [address] [id number] [place] [address]- 9709 Dec, [facility] [place] [facility] [address] [id number] [place] [address]- 2622 Nov, [facility] [place] [facility] [address] [id number] [place] [address]- 0492 Oct, [facility] [place] [facility] [address] [id number] [place] [address]- 2546 Oct, [facility] [place] [facility] [address] [id number] [place] [address]- 3315 Sep, [facility] [place] [facility] [address] [id number] [place] [address]- 2546 Sep, [facility] [place] [facility] [address] [id number] [place] [address]- 0086 Aug, [facility] [id number] [address]- 2546 Aug, [facility] [id number] [address]- 2546 Jul, [facility] [address], [place] [address]- 2546 Jul, [facility] [address], [place] [address]- 2546 Jun, [facility] [address], [place] [address]- 2546 February, [facility] [address], [place] [address]- 2546 Jan, [facility] [id number] [address]- 2706 Dec, IMMUNIZATIONS No Known Immunizations SOCIAL HISTORY Never Assessed REASON FOR VISIT concerta 05/28/2017 PLAN OF CARE VITAL SIGNS MEDICATIONS Medication Instructions Dosage Frequency Start Date End Date Duration Status Concerta 54 MG Orally Once a day for ADHD 1 tablet in the morning May 28 days Active RESULTS No Results PROCEDURES No Known procedures INSTRUCTIONS MEDICATIONS ADMINISTERED No Known Medications MEDICAL (GENERAL) HISTORY Type Description Date Medical History Bipolar disorder, unspecified Medical History Bipolar disorder, unspecified Medical History ODD (oppositional defiant disorder) Medical History ODD (oppositional defiant disorder) Medical History Disruptive mood dysregulation disorder
--- OUTSIDE RECORDS SUMMARY | 2018-09-15 21:02 | XMS REPORT | Continuity of Care Document ---
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 12/28/2010 LEN MARTINEZ PHD 487.1 INFLUENZA WITH OTHER RESPIRATORY MANIFESTATIONS 12/28/2010 LEN MARTINEZ PHD V58.69 LONG-TERM (CURRENT) USE OF OTHER MEDICATIONS 12/28/2010 LEN MARTINEZ PHD 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 12/28/2010 LEN MARTINEZ PHD 487.1 INFLUENZA WITH OTHER RESPIRATORY MANIFESTATIONS 12/28/2010 LEN MARTINEZ PHD V58.69 LONG-TERM (CURRENT) USE OF OTHER MEDICATIONS 12/28/2010 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 12/28/2010 487.1 INFLUENZA WITH OTHER RESPIRATORY MANIFESTATIONS 12/28/2010 V58.69 LONG-TERM ( CURRENT) USE OF OTHER MEDICATIONS 12/28/2010 TOMEKA ANDERSON MD 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 12/28/2010 TOMEKA ANDERSON MD 487.1 INFLUENZA WITH OTHER RESPIRATORY MANIFESTATIONS 12/28/2010 TOMEKA ANDERSON MD V58.69 LONG-TERM (CURRENT) USE OF OTHER MEDICATIONS 12/28/[address] MD 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 12/28/[address] MD 487.1 INFLUENZA WITH OTHER RESPIRATORY MANIFESTATIONS 12/28/[address] MD V58.69 LONG-TERM (CURRENT) USE OF OTHER MEDICATIONS 12/28/2010 JOAN GARCIA APRN 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 12/28/2010 JOAN GARCIA APRN 487.1 INFLUENZA WITH OTHER RESPIRATORY MANIFESTATIONS 12/28/2010 JOAN GARCIA APRN V58.69 LONG-TERM (CURRENT) USE OF OTHER MEDICATIONS 12/28/2010 JOAN GARCIA APRN 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 12/28/2010 JOAN GARCIA APRN 487.1 INFLUENZA WITH OTHER RESPIRATORY MANIFESTATIONS 12/28/2010 JOAN GARCIA APRN V58.69 LONG-TERM (CURRENT) USE OF OTHER MEDICATIONS 12/28/2010 JOAN GARCIA APRN 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 12/28/2010 JOAN GARCIA APRN 487.1 INFLUENZA WITH OTHER RESPIRATORY MANIFESTATIONS 12/28/2010 JOAN GARCIA APRN V58.69 LONG-TERM (CURRENT) USE OF OTHER MEDICATIONS 12/28/2010 JOAN GARCIA APRN 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 12/28/2010 JOAN GARCIA APRN 487.1 INFLUENZA WITH OTHER RESPIRATORY MANIFESTATIONS 12/28/2010 JOAN GARCIA APRN V58.69 LONG-TERM (CURRENT) USE OF OTHER MEDICATIONS 12/28/2010 JOAN GARCIA APRN 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 12/28/2010 JOAN GARCIA APRN 487.1 INFLUENZA WITH OTHER RESPIRATORY MANIFESTATIONS 12/28/2010 JOAN GARCIA APRN V58.69 LONG-TERM (CURRENT) USE OF OTHER MEDICATIONS 12/28/2010 JOAN GARCIA APRN 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 12/28/2010 MARIO GARCIA APRNA Colton 487.1 INFLUENZA WITH OTHER RESPIRATORY MANIFESTATIONS 12/28/2010 JOAN GARCIA APRN V58.69 LONG-TERM (CURRENT) USE OF OTHER MEDICATIONS 12/28/2010 JOAN GARCIA APRN 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 12/28/2010 MARIO GARCAI APRNA Colton 487.1 INFLUENZA WITH OTHER RESPIRATORY MANIFESTATIONS 12/28/2010 JOAN GARCIA APRN V58.69 LONG-TERM (CURRENT) USE OF OTHER MEDICATIONS 01/31/2011 JUAN GILLIAM, LEN Hoffman 296.90 MO MOOD DIS NOS 01/31/2011 JUAN GILLIAM, LEN Hoffman 313.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 01/31/2011 JUAN GILLIAM, LEN Hoffman 296.90 MO MOOD DIS NOS 01/31/2011 LEN MARTINEZ PHD 313.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 01/31/2011 296.90 MO MOOD DIS NOS 01/31/2011 313.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 01/31/2011 JUSTIN CRUZ, OTMEKA 296.90 MO MOOD DIS NOS 01/31/2011 JUSTIN CRUZ, TOMEKA 313.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 01/31/2011 FERDINAND CRUZ, TROY 296.90 MO MOOD DIS NOS 01/31/2011 FERDINAND CRUZ, TROY 313.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 01/31/2011 JOSE BOWERS, JOAN J 296.90 MO MOOD DIS NOS 01/31/2011 JOSE BOWERS, JOAN J 313.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 01/31/2011 JOSE BOWERS, JOAN J 296.90 MO MOOD DIS NOS 01/31/2011 JOSE BOWERS, JOAN J 313.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 01/31/2011 JOSE BOWERS, JOAN J 296.90 MO MOOD DIS NOS 01/31/2011 JOSE BOWERS, JOAN J 313.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 01/31/2011 JOSE BOWERS, JOAN J 296.90 MO MOOD DIS NOS 01/31/2011 JOSE BOWERS, JOAN J 313.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 01/31/2011 JOSE BOWERS, JOAN J 296.90 MO MOOD DIS NOS 01/31/2011 JOSE ADANN, JOAN J 313.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 01/31/2011 JOSE BOWERS, JOAN J 296.90 MO MOOD DIS NOS 01/31/2011 JOSE BOWERS, JOAN J 313.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 01/31/2011 JOSE BOWERS, JOAN J 296.90 MO MOOD DIS NOS 01/31/2011 JOSE BOWERS, JOAN J 313.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 03/21/2012 JUAN GILLIAM, LEN Hoffman V04.89 GARDASIL (HPV) DX 03/21/2012 JUAN PHD, LEN A V06.1 TDAP DX 03/21/2012 JUAN PHD, LEN A V20.2 WELL CHILD 03/21/2012 JUAN GILLIAM, LEN Hoffman V04.89 GARDASIL (HPV) DX 03/21/2012 JUAN PHD, LEN A V06.1 TDAP DX 03/21/2012 JUAN PHD, LEN A V20.2 WELL CHILD 03/21/2012 V04.89 GARDASIL (HPV ) DX 03/21/2012 V06.1 TDAP DX 03/21/2012 V20.2 WELL CHILD 03/21/2012 JUSTIN CRUZ, TOMEKA V04.89 GARDASIL (HPV) DX 03/21/2012 JUSTIN CRUZ, TOMEKA V06.1 TDAP DX 03/21/2012 JUSTIN CRUZ, TOMEKA V20.2 WELL CHILD 03/21/2012 FERDINAND CRUZ, TROY V04.89 GARDASIL (HPV) DX 03/21/2012 FERDINAND CRUZ, TROY V06.1 TDAP DX 03/21/2012 FERDINAND CRUZ, TROY V20.2 WELL CHILD 03/21/2012 MARIO GARCIA APRNA J V04.89 GARDASIL (HPV) DX 03/21/2012 MARIO GARCIA APRNA J V06.1 TDAP DX 03/21/2012 MARIO GARCIA APRNA J V20.2 WELL CHILD 03/21/2012 MARIO GARCIA APRNA J V04.89 GARDASIL (HPV) DX 03/21/2012 MARIO GARCIA APRNA J V06.1 TDAP DX 03/21/2012 MARIO GARCIA APRNA J V20.2 WELL CHILD 03/21/2012 JOSE BOWERS JOAN J V04.89 GARDASIL (HPV) DX 03/21/2012 MARIO GARCIA APRNA J V06.1 TDAP DX 03/21/2012 MARIO GARCIA APRNA J V20.2 WELL CHILD 03/21/2012 MARIO GARCIA APRNA J V04.89 GARDASIL (HPV) DX 03/21/2012 MARIO GARCIA APRNA J V06.1 TDAP DX 03/21/2012 JOAN GARCIA APRN J V20.2 WELL CHILD 03/21/2012 MARIO GARCIA APRNA J V04.89 GARDASIL (HPV) DX 03/21/2012 JOAN GARCIA APRN J V06.1 TDAP DX 03/21/2012 JOAN GARCIA APRN J V20.2 WELL CHILD 03/21/2012 JOAN GARCIA APRN J V04.89 GARDASIL (HPV) DX 03/21/2012 JOAN GARCIA APRN J V06.1 TDAP DX 03/21/2012 JOAN GARCIA APRN J V20.2 WELL CHILD 03/21/2012 JOAN GARCIA APRN J V04.89 GARDASIL (HPV) DX 03/21/2012 JOAN GARCIA APRN J V06.1 TDAP DX 03/21/2012 JOAN GARCIA APRN V20.2 WELL CHILD 04/14/2012 JUAN PHD, LEN Hoffman 296.80 MO BIPOLAR NOS 04/14/2012 JUAN PHD, LEN Hoffman 296.80 MO BIPOLAR NOS 04/14/2012 296.80 MO BIPOLAR NOS 04/14/2012 TOMEKA ANDERSON MD 296.80 MO BIPOLAR NOS 04/14/[address] MD 296.80 MO BIPOLAR NOS 04/14/2012 JOAN GARCIA APRN 296.80 MO BIPOLAR NOS 04/14/2012 MARIO GARCIA APRNA J 296.80 MO BIPOLAR NOS 04/14/2012 MARIO GARCIA APRNA J 296.80 MO BIPOLAR NOS 04/14/2012 JOAN GARCIA APRN J 296.80 MO BIPOLAR NOS 04/14/2012 MARIO GARCIA APRNA J 296.80 MO BIPOLAR NOS 04/14/2012 MARIO GARCIA APRNA J 296.80 MO BIPOLAR NOS 04/14/2012 MARIO GARCIA APRNA Colton 296.80 MO BIPOLAR NOS 06/04/2013 TOMEKA ANDERSON MD 728.85 MUSCLE SPASM 06/04/2013 TOMEKA ANDERSON MD V41.0 vision problems 06/04/[address] MD 728.85 MUSCLE SPASM 06/04/[address]ER MD V41.0 vision problems 06/04/2013 JOAN GARCIA APRN 728.85 MUSCLE SPASM 06/04/2013 JOSE MILL SET UP, JOAN J V41.0 vision problems 06/04/2013 JOSE MILL SET UP, JOAN J 728.85 MUSCLE SPASM 06/04/2013 JOSE MILL SET UP, JOAN J V41.0 vision problems 06/04/2013 JOSE MILL SET UP, JOAN J 728.85 MUSCLE SPASM 06/04/2013 JOSE MILL SET UP, JOAN J V41.0 vision problems 06/04/2013 JOSE MILL SET UP, JOAN J 728.85 MUSCLE SPASM 06/04/2013 JOSE MILL SET UP, JOAN J V41.0 vision problems 06/04/2013 JOSE MILL SET UP, JOAN J 728.85 MUSCLE SPASM 06/04/2013 JOSE MILL SET UP, JOAN J V41.0 vision problems 06/04/2013 JOSE MILL SET UP, JOAN J 728.85 MUSCLE SPASM 06/04/2013 JOSE MILL SET UP, JOAN J V41.0 vision problems 06/04/2013 JOSE MILL SET UP, JOAN J 728.85 MUSCLE SPASM 06/04/2013 JOSE MILL SET UP, JOAN J V41.0 vision problems 04/01/2014 FERDINAND CRUZ, TROY 477.0 ALLERGIC RHINITIS DUE TO POLLEN 04/01/2014 JOSE MILL SET UP, JOAN J 477.0 ALLERGIC RHINITIS DUE TO POLLEN 04/01/2014 JOSE MILL SET UP, JOAN J 477.0 ALLERGIC RHINITIS DUE TO POLLEN 04/01/2014 JOSE MILL SET UP, JOAN J 477.0 ALLERGIC RHINITIS DUE TO POLLEN 04/01/2014 JOSE MILL SET UP, JOAN J 477.0 ALLERGIC RHINITIS DUE TO POLLEN 04/01/2014 JOSE MILL SET UP, JOAN J 477.0 ALLERGIC RHINITIS DUE TO POLLEN 04/01/2014 JOSE MILL SET UP, JOAN J 477.0 ALLERGIC RHINITIS DUE TO POLLEN 04/01/2014 JOSE ADANN, JOAN J 477.0 ALLERGIC RHINITIS DUE TO POLLEN 04/30/2017 MARIEL CASTELLANOS 462 ACUTE PHARYNGITIS 04/30/2017 MARIEL CASTELLANOS A 785.6 ENLARGEMENT OF LYMPH NODES 04/30/2017 MARIEL CASTELLANOS W J02.9 ACUTE PHARYNGITIS, UNSPECIFIED 04/30/2017 MARIEL CASTELLANOS R59.0 LOCALIZED ENLARGED LYMPH NODES 11/27/2017 Jaja Rubio 558.9 OTHER AND UNSPECIFIED NONINFECTIOUS GASTROENTERITIS AND COLITIS 11/27/2017 Jaja Rubio K52.9 NONINFECTIVE GASTROENTERITIS AND COLITIS, UNSPECIFIED 02/03/2018 Jamal Last 784.0 HEADACHE 02/03/2018 Jamal Last R51 HEADACHE Procedures Code [place] [address] PSYCH FAMILY TX W/PAT 09/09/2012 68544 PSYCH FAMILY TX NO PATIENT 09/22/2012 82155 PSYCH PHARM MGMT 09/22/2012 58002 PURE TONE HEARING TEST AIR 06/04/2013 OPHTHALMO CHASEAYALA LOPEZ 06/04/2013 Results Test Result Range Drug Screen Collection Only - 06/12/17 12:37 BMP - 11/27/17 15:01 Anion Gap 15 6-14 BUN 9 mg/dL 5-25 Calcium 9.9 mg/dL 8.3-10.4 Chloride 108 mmol/L 95-114 CO2 22 mEq/L 22-33 Creat 0.85 mg/dL 0.50-1.50 eGFR 116 mL/min/1.73m2 >59 Glucose 94 mg/dL 70-110 Osmo 290 280-295 Potassium 3.7 mmol/L 3.5-5.3 Sodium 141 mmol/L 134-148 Encounters ACCT No. Visit Date/Time Discharge Status Pt. Type Provider Facility Loc./Unit Complaint [id number] 12/16/2014 15:44:00 12/16/2014 23:59:59 CLS Outpatient JOAN GARCIA APRN [id number] 10/28/2014 16:40:00 10/28/2014 23:59:59 CLS Outpatient JOAN GARCIA APRN [id number] 10/28/2014 16:40:00 10/28/2014 23:59:59 CLS Outpatient JOAN GARCIA APRN [id number] 08/03/2014 16:32:00 08/03/2014 23:59:59 CLS Outpatient JOAN GARCIA APRN [id number] 08/03/2014 16:32:00 08/03/2014 23:59:59 CLS Outpatient JOAN GARCIA APRN [id number] 06/10/2014 15:47:00 06/10/2014 23:59:59 CLS Outpatient JOAN GARCIA APRN [id number] 06/10/2014 15:47:00 06/10/2014 23:59:59 CLS Outpatient JOAN GARCIA APRN [id number] 04/01/2014 10:57:00 04/01/2014 23:59:59 CLS Outpatient TROY STREETER MD [id number] 06/04/2013 13:20:00 06/04/2013 23:59:59 CLS Outpatient TOMEKA ANDERSON MD [id number] 09/22/2012 11:33:00 09/22/2012 23:59:59 CLS Outpatient LEN MARTINEZ PHD [id number] 09/08/2012 14:12:00 09/08/2012 23:59:59 CLS Outpatient LEN MARTINEZ PHD [id number] 05/08/2013 10:33:00 Document Registration [id number] 12/19/2017 13:00:00 12/19/2017 23:59:59 CLS Outpatient JOAN GARCIA APRN [facility] [id number] 02/03/2018 13:03:00 02/03/2018 13:39:00 DIS Outpatient Jamal Last [id number] 11/27/2017 14:49:00 11/27/2017 15:50:[address] [facility] [id number] 06/12/2017 11:58:00 06/12/2017 23:59:00 DIS Outpatient UNLISTED, UNLISTED [id number] 04/30/2017 06:12:00 04/30/2017 06:30:00 DIS Outpatient MARIEL CASTELLANOS [id number] 11/27/2017 15:02:05 Document Registration
--- OUTSIDE RECORDS SUMMARY | 2018-09-15 21:02 | XMS REPORT ---
Author Author JOAN GARCIA [employer] Address Unknown Phone Unavailable Care Team Providers Care Bakelite Molder Name Role Phone JOAN GARCIA CP Unavailable [...] Date End Date Status Dosage Methylphenidate HCl [facility] [address]-12 5 MG Orally. MUST HAVE APPT FOR FURTHER REFILLS Once in the afternoon for ADHD Mateo to sign for Camille 1 tablet on an empty stomach Concerta [facility] [address]-16 54 MG Orally. MUST HAVE APPT FOR FUTURE REFILLS Once a day for ADHD Mateo to sign for Camille December 28, 2014 1 tablet Results No Known Results Summary Purpose eClinicalWorks Submission
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
--- NOTE | 2018-09-15 21:40 | Diagnostic Imaging Report ---
INDICATION: Pain status post injury COMPARISON: None. FINDINGS: 3 views of the right hand were obtained. There is subtle cortical irregularity involving the lateral distal margins of the hamate at the carpometacarpal joint space. Small displaced fracture fragment is identified posteriorly. Otherwise, joint spaces are maintained. There is mild soft tissue swelling. No expectorated thick foreign bodies are seen. IMPRESSION: 1. Findings consistent with acute fracture of the hamate of the right wrist. Dictated by: Dictated on workstation # [id number]
== END | disposition home or self-care (01) ==
LOC: EDUNIT# 20:47 → ER 20:49
DX: S62.91XA Unspecified fracture of right hand, initial encounter for closed fracture (principal); W22.01XA Walked into wall, initial encounter
CPT/HCPCS: 73130

== ENCOUNTER 2018-12-23 18:06 | Emergency (ER) | payer BC ==
[~2018-12-23] VITALS: Ht 157.5 cm; Wt 79.4 kg
[~2018-12-23 18:06] MED LIST changes: -RX-NAPROXEN (NAPROSYN) 250 MG TAB PPK#4 PO STA; -RX-TRAMADOL 50 MG (ULTRAM) TAB PPK#4 PO STA
--- OUTSIDE RECORDS SUMMARY | 2018-12-23 18:17 | XMS REPORT | Continuity of Care Document ---
Author Author [facility] Address Unknown Phone Unavailable Allergies Active Description Code Type Severity Reaction Onset Reported/Identified Relationship to Patient Clinical Status Yes NO KNOWN DRUG ALLERGIES UNKNOWN NO KNOWN DRUG ALLERG Yes No Known Drug Allergies [id number] Drug Allergy Unknown N/A 09/15/2018 Medications Medication Packaging Start Date Stop Date [...] DEFICIT DISORDER OF CHILDHOOD WITH HYPERACTIVITY 12/28/2010 TMOEKA ANDERSON MD 487.1 INFLUENZA WITH OTHER RESPIRATORY MANIFESTATIONS 12/28/2010 TOMEKA ANDERSON MD V58.69 LONG-TERM (CURRENT) USE OF OTHER MEDICATIONS 12/28/[address] MD 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 12/28/[address] MD 487.1 INFLUENZA WITH OTHER RESPIRATORY MANIFESTATIONS 12/28/2010 FERDINAND CRUZ, TROY V58.69 LONG-TERM (CURRENT) USE OF OTHER MEDICATIONS 12/28/2010 JOAN GARCIA APRN 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 12/28/2010 MARIO GARCIA APRNA J 487.1 INFLUENZA WITH OTHER RESPIRATORY MANIFESTATIONS 12/28/2010 MARIO GARCIA APRNA [place] V58.69 LONG-TERM (CURRENT) USE OF OTHER MEDICATIONS 12/28/2010 MARIO GARCIA APRNA J 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 12/28/2010 MARIO GARCIA APRNA [place] 487.1 INFLUENZA WITH OTHER RESPIRATORY MANIFESTATIONS 12/28/2010 MARIO GARCIA APRNA [place] V58.69 LONG-TERM (CURRENT) USE OF OTHER MEDICATIONS 12/28/2010 JOAN GARCIA APRN 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 12/28/2010 MARIO GARCIA APRNA [place] 487.1 INFLUENZA WITH OTHER RESPIRATORY MANIFESTATIONS 12/28/2010 JOAN GARCIA APRN V58.69 LONG-TERM (CURRENT) USE OF OTHER MEDICATIONS 12/28/2010 MARIO GARCIA APRNA J 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 12/28/2010 MARIO GARCIA APRNA J 487.1 INFLUENZA WITH OTHER RESPIRATORY MANIFESTATIONS 12/28/2010 JOAN GARCIA APRN V58.69 LONG-TERM (CURRENT) USE OF OTHER MEDICATIONS 12/28/2010 MARIO GARCIA APRNA J 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 12/28/2010 MARIO GARCIA APRNA [place] 487.1 INFLUENZA WITH OTHER RESPIRATORY MANIFESTATIONS 12/28/2010 MARIO GARCIA APRNA [place] V58.69 LONG-TERM (CURRENT) USE OF OTHER MEDICATIONS 12/28/2010 MARIO GARCIA APRNA J 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 12/28/2010 MARIO GARCIA APRNA [place] 487.1 INFLUENZA WITH OTHER RESPIRATORY MANIFESTATIONS 12/28/2010 MARIO GARCIA APRNA [place] V58.69 LONG-TERM (CURRENT) USE OF OTHER MEDICATIONS 12/28/2010 MARIO GARCIA APRNA J 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 12/28/2010 MARIO GARCIA APRNA [place] 487.1 INFLUENZA WITH OTHER RESPIRATORY MANIFESTATIONS 12/28/2010 MARIO GARCIA APRNA [place] V58.69 LONG-TERM (CURRENT) USE OF OTHER MEDICATIONS 01/31/2011 JUAN PHD, LEN A 296.90 MO MOOD DIS NOS 01/31/2011 JUAN GILLIAM, LEN A 313.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 01/31/2011 JUAN GILLIAM, LEN A 296.90 MO MOOD DIS NOS 01/31/2011 JUAN GILILAM, LEN A 313.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 01/31/2011 296.90 MO MOOD DIS NOS 01/31/2011 313.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 01/31/2011 JUSTIN CRUZ, TOMEKA 296.90 MO MOOD DIS NOS 01/31/2011 JUSTIN CRUZ, TOMEKA 313.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 01/31/2011 FERDINAND CRUZ, RTOY 296.90 MO MOOD DIS NOS 01/31/2011 FERDINAND CRUZ, TROY 313.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 01/31/2011 FELIPA GARCIA APRNINDA J 296.90 MO MOOD DIS NOS 01/31/2011 JOSE BOWERS, JOAN J 313.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 01/31/2011 JOSE BOWERS, JOAN J 296.90 MO MOOD DIS NOS 01/31/2011 JOSE BOWERS, JOAN J 313.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 01/31/2011 JOSE BOWERS, JOAN J 296.90 MO MOOD DIS NOS 01/31/2011 JOSE BOWERS JOAN J 313.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 01/31/2011 JOSE BOWERS, JOAN J 296.90 MO MOOD DIS NOS 01/31/2011 JOSE BOWERS JOAN J 313.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 01/31/2011 JOSE BOWERS, JOAN J 296.90 MO MOOD DIS NOS 01/31/2011 JOSE BOWERS, JOAN J 313.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 01/31/2011 JOSE BOWERS JOAN J 296.90 MO MOOD DIS NOS 01/31/2011 JOSE BOWERS, JOAN J 313.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 01/31/2011 JOSE BOWERS JOAN J 296.90 MO MOOD DIS NOS 01/31/2011 JOSE BOWERS JOAN J 313.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 03/21/2012 JUAN PHD, LEN Hoffman V04.89 GARDASIL (HPV) DX 03/21/2012 JUAN PHD, LEN Hoffman V06.1 TDAP DX 03/21/2012 JUAN PHD, LEN A V20.2 WELL CHILD 03/21/2012 JUAN PHD, LEN Hoffman V04.89 GARDASIL (HPV) DX 03/21/2012 JUAN PHD, LEN Hoffman V06.1 TDAP DX 03/21/2012 JUAN PHD, LEN [...] FERDINAND CRUZ, TROY V20.2 WELL CHILD 03/21/2012 JOAN GARCIA APRN V04.89 GARDASIL (HPV) DX 03/21/2012 JOAN GARCIA APRN V06.1 TDAP DX 03/21/2012 JOAN GARCIA APRN V20.2 WELL CHILD 03/21/2012 JOAN GARCIA APRN V04.89 GARDASIL (HPV) DX 03/21/2012 MARIO GARCIA APRNA J V06.1 TDAP DX 03/21/2012 JOAN GARCIA APRN V20.2 WELL CHILD 03/21/2012 JOAN GARCIA APRN V04.89 GARDASIL (HPV) DX 03/21/2012 MARIO GARCIA APRNA J V06.1 TDAP DX 03/21/2012 JOAN GARCIA APRN V20.2 WELL CHILD 03/21/2012 JOAN GARCIA APRN V04.89 GARDASIL (HPV) DX 03/21/2012 JOAN GARCIA APRN V06.1 TDAP DX 03/21/2012 MARIO GARCIA APRNA J V20.2 WELL CHILD 03/21/2012 MARIO GARCIA APRNA J V04.89 GARDASIL (HPV) DX 03/21/2012 MARIO GARCIA APRNA J V06.1 TDAP DX 03/21/2012 JOAN GARCIA APRN J V20.2 WELL CHILD 03/21/2012 MARIO GARCIA APRNA J V04.89 GARDASIL (HPV) DX 03/21/2012 MARIO GARCIA APRNA J V06.1 TDAP DX 03/21/2012 MARIO GARCIA APRNA J V20.2 WELL CHILD 03/21/2012 JOAN GARCIA APRN J V04.89 GARDASIL (HPV) DX 03/21/2012 MARIO GARCIA APRNA J V06.1 TDAP DX 03/21/2012 JOAN GARCIA APRN V20.2 WELL CHILD 04/14/2012 JUAN PHD, LEN A 296.80 MO BIPOLAR NOS 04/14/2012 JUAN PHD, LEN Hoffman 296.80 MO BIPOLAR NOS 04/14/2012 296.80 MO BIPOLAR NOS 04/14/2012 TOMEKA ANDERSON MD 296.80 MO BIPOLAR NOS 04/14/[address] MD 296.80 MO BIPOLAR NOS 04/14/2012 JOAN GARCIA APRN 296.80 MO BIPOLAR NOS 04/14/2012 JOAN GRACIA APRN J 296.80 MO BIPOLAR NOS 04/14/2012 MARIO GARCIA APRNA J 296.80 MO BIPOLAR NOS 04/14/2012 MARIO GARCIA APRNA J 296.80 MO BIPOLAR NOS 04/14/2012 MARIO GARCIA APRNA J 296.80 MO BIPOLAR NOS 04/14/2012 MARIO GARCIA APRNA J 296.80 MO BIPOLAR NOS 04/14/2012 JOAN GARCIA APRN J 296.80 MO BIPOLAR NOS 06/04/2013 TOMEKA ANDERSON MD 728.85 MUSCLE SPASM 06/04/2013 TOMEKA ANDERSON MD V41.0 vision problems 06/04/[address] MD 728.85 MUSCLE SPASM 06/04/2013 FERDINAND MD, TROY V41.0 vision problems 06/04/2013 JOSE ASSISTANT VICE PRESIDENT, JOAN J 728.85 MUSCLE SPASM 06/04/2013 JOSE ASSISTANT VICE PRESIDENT, JOAN J V41.0 vision problems 06/04/2013 JOSE ASSISTANT VICE PRESIDENT, JOAN J 728.85 MUSCLE SPASM 06/04/2013 JOSE ASSISTANT VICE PRESIDENT, JOAN J V41.0 vision problems 06/04/2013 JOSE ASSISTANT VICE PRESIDENT, JOAN J 728.85 MUSCLE SPASM 06/04/2013 JOSE ASSISTANT VICE PRESIDENT, JOAN J V41.0 vision problems 06/04/2013 JOSE ASSISTANT VICE PRESIDENT, JOAN J 728.85 MUSCLE SPASM 06/04/2013 JOSE ASSISTANT VICE PRESIDENT, JOAN J V41.0 vision problems 06/04/2013 JOSE ASSISTANT VICE PRESIDENT, JOAN J 728.85 MUSCLE SPASM 06/04/2013 OJSE ASSISTANT VICE PRESIDENT, JOAN J V41.0 vision problems 06/04/2013 JOSE ASSISTANT VICE PRESIDENT, JOAN J 728.85 MUSCLE SPASM 06/04/2013 JOSE ASSISTANT VICE PRESIDENT, JOAN J V41.0 vision problems 06/04/2013 JOSE ASSISTANT VICE PRESIDENT, JOAN J 728.85 MUSCLE SPASM 06/04/2013 JOSE ASSISTANT VICE PRESIDENT, JOAN J V41.0 vision problems 04/01/2014 FERDINAND CRUZ, TROY 477.0 ALLERGIC RHINITIS DUE TO POLLEN 04/01/2014 JOSE ASSISTANT VICE PRESIDENT, JOAN J 477.0 ALLERGIC RHINITIS DUE TO POLLEN 04/01/2014 JOSE ADANN, JOAN J 477.0 ALLERGIC RHINITIS DUE TO POLLEN 04/01/2014 JOSE BOWERS, JOAN J 477.0 ALLERGIC RHINITIS DUE TO POLLEN 04/01/2014 JOSE ASSISTANT VICE PRESIDENT, JOAN J 477.0 ALLERGIC RHINITIS DUE TO POLLEN 04/01/2014 JOSE ASSISTANT VICE PRESIDENT, JOAN J 477.0 ALLERGIC RHINITIS DUE TO POLLEN 04/01/2014 JOSE ADANN, JOAN J 477.0 ALLERGIC RHINITIS DUE TO POLLEN 04/01/2014 JOSE BOWERS, JOAN J 477.0 ALLERGIC RHINITIS DUE TO POLLEN 04/30/2017 MARIEL CASTELLANOS W 462 ACUTE PHARYNGITIS 04/30/2017 MARIEL CASTELLANOS A [...] Procedures Code [place] [address] PSYCH FAMILY TX W/PAT 09/09/2012 69521 PSYCH FAMILY TX NO PATIENT 09/22/2012 32363 PSYCH PHARM MGMT 09/22/2012 53796 PURE TONE HEARING TEST AIR 06/04/2013 OPHTHALMO AYALA CANTU 06/04/2013 Results Test Result Range Drug Screen [...] Status Pt. Type Provider Facility Loc./Unit Complaint [id number] 12/16/2014 15:44:00 12/16/2014 23:59:59 CLS Outpatient JOAN GARCIA APRN [id number] 10/28/2014 16:40:00 10/28/2014 23:59:59 CLS Outpatient JOAN GARCIA APRN [id number] 10/28/2014 16:40:00 10/28/2014 23:59:59 CLS Outpatient JOAN GARCIA APRN [id number] 08/03/2014 16:32:00 08/03/2014 23:59:59 CLS Outpatient JOAN GARCIA APRN [id number] 08/03/2014 16:32:00 08/03/2014 23:59:59 CLS Outpatient JOAN GARCIA APRN [id number] 06/10/2014 15:47:00 06/10/2014 23:59:59 CLS Outpatient JOAN GARCIA APRN [id number] 06/10/2014 15:47:00 06/10/2014 23:59:59 CLS Outpatient JOAN GARCIA APRN [id number] 04/01/2014 10:57:00 04/01/2014 23:59:59 CLS Outpatient FERDINAND CRUZ, TROY [id number] 06/04/2013 13:20:00 06/04/2013 23:59:59 CLS Outpatient TOMEKA ANDERSON MD [id number] 09/22/2012 11:33:00 09/22/2012 23:59:59 CLS Outpatient LEN MARTINEZ PHD [id number] 09/08/2012 14:12:00 09/08/2012 23:59:59 CLS Outpatient LEN MARTINEZ PHD [id number] 05/08/2013 10:33:00 Document Registration [id number] 12/19/2017 13:00:00 12/19/2017 23:59:59 CLS Outpatient [facility]ARC[facility]N [facility] [id number] 02/03/2018 13:03:00 02/03/2018 13:39:00 DIS Outpatient Abundiotato Jamal [id number] 11/27/2017 14:49:00 11/27/2017 15:50:00 [id number] 06/12/2017 11:58:00 06/12/2017 23:59:00 DIS Outpatient UNLISTED, UNLISTED [id number] 04/30/2017 06:12:00 04/30/2017 06:30:00 DIS Outpatient MARIEL CASTELLANOS [id number] 11/27/2017 15:02:05 Document Registration [id number] 09/15/2018 20:49:00 09/15/2018 22:19:00 DIS Emergency RENNY KATELYN DOUGHERTY K [facility] ER PUNCHED SHED WALL/INJ R HAND [id number] 12/23/2018 18:07:00 ACT Emergency BERNOT, VALARIE [facility] ER FLU SYMPTOMS
[2018-12-23] MEDS ORDERED: TAMIFLU (18:20)
--- NOTE | 2018-12-23 18:32 | ED General ---
General Chief Complaint: General Problems/Pain Stated Complaint: FLU SYMPTOMS Nursing Triage Note: PT WAS SEEN BY HIS DR AND PUT ON TAMIFLU. IS WANTING TO GO BACK TO WORK BUT HAS MISPLACED THE PAPERWORK GIVEN BY HIS DR. WOULD LIKE A NOTE SAYING HE CAN GO BACK AND FOR THE DAYS HE MISSED FROM WORK. STATES HE FEELS BETTER ET ONLY HAS A COUGH NOW. Nursing Sepsis Screen: Possible Sepsis Risk Source of Information: Patient Exam Limitations: No Limitations History of Present Illness Date Seen by Provider: Dec 23, 2018 Time Seen by Provider: 18:31 Initial Comments 18-year-old male who presents to the emergency room with the need for a work note. He reports that 5 days ago he had the diagnosis of the flu and received Tamiflu and symptoms are improving but he still has a cough. He reports that he misplaced the paperwork given to him by his doctor and would like a work note saying that he can return back to work. Timing/Duration: 1 Week Associated Systoms: Cough Allergies and Home Medications Allergies Coded Allergies: No Known Drug Allergies (Unverified , 09/15/18) Patient Home Medication List Home Medication List Reviewed: Yes Review of Systems Review of Systems Constitutional: no symptoms reported, see HPI Respiratory: see HPI, cough All Other Systems Reviewed Negative Unless Noted: Yes Past Wllnqyl-Cshaox-Bzpoel Hx Past Med/Social Hx: Reviewed Nursing Past Med/Soc Hx Patient Social History Alcohol Use: Occasionally Uses Alcohol Beverage of Choice: Beer Recreational Drug Use: Yes Drug of Choice: POT Smoking Status: Never a Smoker Type Used: Cigarettes 2nd Hand Smoke Exposure: Yes Recent Foreign Travel: No Contact w/Someone Who Travel: No Recent Infectious Disease Expo: No Recent Hopitalizations: No Seasonal Allergies Seasonal Allergies: No Past Medical History Surgeries: No Respiratory: No Cardiac: No Neurological: No Genitourinary: No Gastrointestinal: No Musculoskeletal: No Endocrine: No HEENT: No Cancer: No Psychosocial: No Integumentary: No Blood Disorders: No Family Medical History Reviewed Nursing Family Hx Physical Exam Vital Signs Vital Signs - First Documented 12/23/18 18:10 Temp 98.1 Pulse 95 Resp 26 B/P (MAP) 145/68 (93) Pulse Ox 100 O2 Delivery Room Air Capillary Refill : Less Than 3 Seconds Height, Weight, BMI Height: 5'2.00" Weight: 175lbs. oz. 79.378587yj; 21.09 BMI Method:Stated General Appearance: No Apparent Distress, WD/WN HEENT: PERRL/EOMI, TMs Normal, Normal ENT Inspection, Pharynx Normal Respiratory: Chest Non Tender, Lungs Clear, Normal Breath Sounds, No Accessory Muscle Use, No Respiratory Distress Cardiovascular: Regular Rate, Rhythm, No Edema, No Gallop, No JVD, No Murmur, Normal Peripheral Pulses Extremity: Normal Capillary Refill Neurologic/Psychiatric: Alert, Oriented x3, Normal Mood/Affect Skin: Normal Color, Warm/Dry Progress/Results/Core Measures Suspected Sepsis Recent Fever Within 48 Hours: No Infection Criteria Present: Documented Infection New/Unexplained Altered Menta: No Sepsis Screen: Possible Sepsis Risk SIRS Temperature:98.1 Pulse: 95 Respiratory Rate: 26 Blood Pressure 145 /68 Mean: 93 Results/Orders Vital Signs/I&O Capillary Refill : Less Than 3 Seconds Blood Pressure Mean: 93 Departure Impression Primary Impression: Influenza Disposition: 01 HOME, SELF-CARE Condition: Stable/Unchanged Departure-Patient Inst. Decision time for Depature: 18:31 [place]: [facility] [place] Primary Care Physician Patient Instructions: Flu, Adult (DC) Add. Discharge Instructions: You may use ibuprofen and Tylenol as directed by the bottle for pain and fever relief. You may use zoll-yza-vfyuzai cold cough flu medications. Do not exceed your daily limit of 4000 mg of Tylenol. Return back to the emergency room for worsening symptoms or concerns as needed. All discharge instructions reviewed with patient and/or family. Voiced understanding. Work/School Note: Work Release Form Date Seen in the Emergency Department: Dec 23, 2018 Return to Work: Dec 24, 2018 Restrictions: No Restrictions VALARIE DANIELS Dec 23, 2018 18:32
[2018-12-23 18:38] VITALS: BP 145/68
== END 2018-12-23 18:38 | disposition home or self-care (01) ==
LOC: EDUNIT# 18:06 → ER 18:07
DX: J11.1 Influenza due to unidentified influenza virus with other respiratory manifestations (principal); F12.10 Cannabis abuse, uncomplicated; Z77.22 Contact with and (suspected) exposure to environmental tobacco smoke (acute) (chronic)
CPT/HCPCS: 99281

== ENCOUNTER 2019-05-18 01:13 | Emergency (ER) | payer BC ==
[~2019-05-18] VITALS: Ht 177.8 cm; Wt 83.9 kg
[~2019-05-18 01:13] MED LIST changes: +TAMIFLU
--- OUTSIDE RECORDS SUMMARY | 2019-05-18 01:22 | XMS REPORT ---
Author Author JOAN GARCIA [facility] Address [address] [place] [address] Care Team Providers Care [employer] Name Role Phone JOSE JOAN Unavailable PROBLEMS Type Condition ICD9-CM Code IHD45-QW Code Onset Dates Condition Status SNOMED Code Problem PEARL (generalized anxiety disorder) F41.1 Active 64837497 Problem Seasonal allergic rhinitis, unspecified allergic rhinitis trigger J30.2 Active 818861270 Problem ADHD (attention deficit hyperactivity disorder), combined type F90.2 Active 81412315 ALLERGIES No Information ENCOUNTERS Encounter Location Date Diagnosis [facility] [id number] [place] [address] February, Concern about STD in male without diagnosis Z71.1 [facility] [id number] [place] [address] Mar, [facility] [address] [address] Dec, ADHD (attention deficit hyperactivity disorder), combined type F90.2 and PEARL (generalized anxiety disorder) F41.1 [facility] [id number] [place] [address] Oct, Dysfunction of right eustachian tube H69.81 [facility] [id number] [place] [address] Oct, [facility] [address] [address] Oct, [facility] [id number] [place] [address] Oct, [facility] [address] [address] Sep, [facility] [id number] [place] [address] Aug, ADHD (attention deficit hyperactivity disorder), combined type F90.2 and PEARL (generalized anxiety disorder) F41.1 [facility] [id number] [address] Jul, [facility] [id number] [place] [address] Jul, [facility] [id number] [place] [address] Jun, [facility] [id number] [place] [address] May, [facility] [id number] [place] [address] May, [facility] [id number] [place] [address] Apr, [facility] [id number] [place] [address] Mar, [facility] [id number] [place] [address] February, [facility] [id number] [address] February, [facility] [id number] [place] [address] February, PEARL (generalized anxiety disorder) F41.1 [facility] [id number] [place] [address] February, [facility] [address] [address] February, Seasonal allergic rhinitis, unspecified allergic rhinitis trigger J30.2 [facility] [id number] [place] [address] Jan, PEARL (generalized anxiety disorder) F41.1 [facility] [address] [address] Jan, ADHD (attention deficit hyperactivity disorder), combined type F90.2 and PEARL (generalized anxiety disorder) F41.1 [facility] [address] [address] Dec, [facility] [id number] [place] [address] Nov, [facility] [id number] [place] [address] Oct, [facility] [id number] [place] [address] Oct, [facility] [id number] [place] [address] Sep, [facility] [id number] [place] [address] Aug, ADHD (attention deficit hyperactivity disorder), combined type F90.2 and PEARL (generalized anxiety disorder) F41.1 [facility] [id number] [place] [address] Aug, [facility] [address] [address] Jul, [facility] [id number] [place] [address] Jun, ADHD (attention deficit hyperactivity disorder), combined type F90.2 ; ODD (oppositional defiant disorder) F91.3 and PEARL (generalized anxiety disorder) F41.1 [facility] [id number] [place] [address] Jun, [facility] [id number] [address] Jun, [facility] [address] [address] May, [facility] [address] [place] [address] May, ODD (oppositional defiant disorder) F91.3 and ADHD (attention deficit hyperactivity disorder), combined type F90.2 [facility] [id number] [place] [address] May, [facility] [id number] [place] [address] Apr, [facility] [id number] [place] [address] Mar, [facility] [id number] [place] [address] February, [facility] [id number] [place] [address] Jan, [facility] [id number] [place] [address] Dec, [facility] [id number] [place] [address] Dec, [facility] [address] [place] [id number] Nov, Dental examination Z01.20 [facility] [address] [place] [address] Nov, [facility] [address] [address] Nov, [facility] [id number] [place] [address] Nov, Disruptive mood dysregulation disorder F34.8 ; ADHD (attention deficit hyperactivity disorder), combined type F90.2 and ODD (oppositional defiant disorder) F91.3 [facility] [address] [place] [address] Sep, [facility] [address] [address] Aug, [facility] [id number] [place] [address] Jul, [facility] [address] [address] Jul, [facility] [id number] [place] [address] Jul, [facility] [address] [address] Jun, Bipolar disorder, unspecified 296.80 ; Attention deficit disorder (ADD), child, 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 and ODD (oppositional defiant disorder) 313.81 [facility] [address] [address] May, [facility] [address] [address] May, [facility] [address] [place] [address] May, [facility] [address] [address] Apr, [facility] [address] [address] Mar, [facility] [address] [address] Mar, [facility] [id number] [address] February, Bipolar disorder, unspecified 296.80 ; Attention deficit disorder 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 and Oppositional defiant behavior 313.81 [facility] [address] [address] February, [facility] [id number] [place] [address] [place] [address] 14 Jan, 2015 [facility] [place] [facility] [address] [id number] [place] [address] 13 Jan, 2015 [facility] [place] [facility] [address] [id number] [place] [address] 11 Dec, 2014 [facility] [place] [facility] [address] [id number] [place] [address] 10 Dec, 2014 [facility] [place] [facility] [address] [id number] [place] [address] 10 Dec, 2014 [facility] [place] [facility] [address] [id number] [place] [address] Nov, [facility] [place] [facility] [address] [id number] [place] [address] Nov, [facility] [place] [facility] [address] [id number] [place] [address] Nov, [facility] [place] [facility] [address] [id number] [place] [address] Nov, [facility] [place] [facility] [address] [id number] [place] [address] Nov, [facility] [place] [facility] [address] [id number] [place] [address] Nov, [facility] [place] [facility] [address] [id number] [place] [address] Nov, [facility] [place] [facility] [address] [id number] [place] [address] Nov, [facility] [place] [facility] [address] [id number] [place] [address] Oct, [facility] [place] [facility] [address] [id number] [place] [address] Oct, [facility] [place] [facility] [address] [id number] [place] [address] 15 Oct, 2014 [facility] [place] [facility] [address] [id number] [place] [address] 14 Oct, 2014 [facility] [place] [facility] [address] [id number] [place] [address] Oct, [facility] [place] [facility] [address] [id number] [place] [address] Oct, [facility] [place] [facility] [address] [id number] [place] [address] Oct, [facility] [place] [facility] [address] [id number] [place] [address] 16 Sep, 2014 [facility] [place] [facility] [address] [id number] [place] [address] 15 Sep, 2014 [facility] [place] [facility] [address] [id number] [place] [address] Sep, [facility] [place] [facility] [address] [id number] [place] [address] Aug, [facility] [place] [facility] [address] [id number] [place] [address] Aug, [facility] [place] [facility] [address] [id number] [place] [address] 14 Jul, 2014 [facility] [place] [facility] [address] [id number] [place] [address] Jul, [facility] [place] [facility] [address] [id number] [place] [address] Jun, [facility] [place] [facility] [address] [id number] [place] [address] Jun, [facility] [place] [facility] [address] [id number] [place] [address] May, [facility] [place] [facility] [address] [id number] [place] [address] May, [facility] [place] [facility] [address] [id number] [place] [address] May, [facility] [place] [facility] [address] [id number] [place] [address] May, [facility] [place] [facility] [address] [id number] [place] [address] Apr, [facility] [place] [facility] [address] [id number] [place] [address] Apr, [facility] [place] [facility] [address] [id number] [place] [address] Apr, [facility] [place] [facility] [address] [id number] [place] [address] Apr, [facility] [place] [facility] [address] [id number] [place] [address] Apr, [facility] [place] [facility] [address] [id number] [place] [address] Mar, [facility] [place] [facility] [address] [id number] [place] [address] Mar, [facility] [place] [facility] [address] [id number] [place] [address] Mar, [facility] [place] [facility] [address] [id number] [place] [address] Mar, [facility] [place] [facility] [address] [id number] [place] [address] Mar, [facility] [place] [facility] [address] [id number] [place] [address] February, [facility] [place] [facility] [address] [id number] [place] [address] February, [facility] [place] [facility] [address] [id number] [place] [address] February, [facility] [place] [facility] [address] [id number] [place] [address] Jan, [facility] [place] [facility] [address] [id number] [place] [address] 14 Jan, 2014 [facility] [place] [facility] [address] [id number] [place] [address] Dec, [facility] [place] [facility] [address] [id number] [place] [address] Dec, [facility] [place] [facility] [address] [id number] [place] [address] Nov, [facility] [place] [facility] [address] [id number] [place] [address] Nov, [facility] [place] [facility] [address] [id number] [place] [address] Sep, [facility] [place] [facility] [address] [id number] [place] [address] Sep, [facility] [place] [facility] [address] [id number] [place] [address] Sep, [facility] [place] [facility] [address] [id number] [place] [address] Sep, [facility] [place] [facility] [address] [id number] [place] [address] Aug, [facility] [place] [facility] [address] [id number] [place] [address] Aug, [facility] [place] [facility] [address] [id number] [place] [address] Aug, [facility] [place] [facility] [address] [id number] [place] [address] Aug, [facility] [place] [facility] [address] [id number] [place] [address] Jul, [facility] [place] [facility] [address] [id number] [place] [address] Jul, [facility] [place] [facility] [address] [id number] [place] [address] Jun, [facility] [address] [id number] [place] [address] 16 May, 2013 [facility] [place] [facility] [address] [id number] [place] [address] May, [facility] [place] [facility] [address] [id number] [place] [address] May, [facility] [place] [facility] [address] [id number] [place] [address] Apr, [facility] [place] [facility] [address] [id number] [place] [address] Apr, [facility] [place] [facility] [address] [id number] [place] [address] Oct, [facility] [place] [facility] [address] [id number] [place] [address] 24 Sep, 2012 [facility] [place] [facility] [address] [id number] [place] [address] Sep, [facility] [place] [facility] [address] [id number] [place] [address] Sep, [facility] [place] [facility] [address] [id number] [place] [address] Sep, [facility] [place] [facility] [address] [id number] [place] [address] Sep, [facility] [place] [facility] [address] [id number] [address] Sep, [facility] [place] [facility] [address] [id number] [place] [address] Sep, [facility] [place] [facility] [address] [id number] [place] [address] Aug, [facility] [place] [facility] [address] [id number] [place] [address] Aug, [facility] [place] [facility] [address] [id number] [place] [address] 14 Aug, 2012 [facility] [place] [facility] [address] [id number] [place] [address] Aug, [facility] [place] [facility] [address] [id number] [place] [address] Jul, [facility] [place] [facility] [address] [id number] [place] [address] Jul, [facility] [place] [facility] [address] [id number] [place] [address] Jul, [facility] [place] [facility] [address] [id number] [place] [address] Jun, [facility] [place] [facility] [address] [id number] [place] [address] May, [facility] [place] [facility] [address] [id number] [place] [address] May, [facility] [place] [facility] [address] [id number] [place] [address] May, [facility] [place] [facility] [address] [id number] [place] [address] May, [facility] [place] [facility] [address] [facility] [id number] [place] [address] May, [facility] [place] [facility] [address] [id number] [place] [address] Apr, [facility] [place] [facility] [address] [id number] [place] [address] Apr, [facility] [place] [facility] [address] [id number] [place] [id number] Mar, [facility] [place] [facility] [id number] [place] [id number] Mar, [facility] [place] [facility] [address] [id number] [place] [address] Mar, [facility] [place] [facility] [address] [id number] [place] [address] Mar, [facility] [place] [facility] [address] [id number] [place] [address] Mar, [facility] [place] [facility] [address] [id number] [place] [address] Mar, [facility] [place] [facility] [address] [id number] [place] [address] February, [facility] [address] [id number] [place] [address] Jan, [facility] [place] [facility] [address] [id number] [place] [address] Jan, [facility] [address] [id number] [place] [address] Dec, [facility] [address] [id number] [place] [address] Dec, [facility] [place] [facility] [address] [id number] [place] [address] Dec, [facility] [place] [facility] [address] [id number] [place] [address] Dec, [facility] [place] [facility] [address] [id number] [place] [address] Dec, [facility] [place] [facility] [address] [id number] [place] [address] Nov, [facility] [place] [facility] [address] [id number] [place] [address] Oct, [facility] [place] [facility] [address] [id number] [place] [address] Oct, [facility] [place] [facility] [address] [id number] [place] [address] Sep, [facility] [place] [facility] [address] [id number] [place] [address] Sep, [facility] [id number] [address] Aug, [facility] [address] [address] Aug, [facility] [address] [address] Jul, [facility] [address] [address] Jul, [facility] [address] [address] Jun, [facility] [address] [address] February, [facility] [address] [address] Jan, [facility] [address] [address] Dec, IMMUNIZATIONS No Known Immunizations SOCIAL HISTORY Never Assessed REASON FOR VISIT PLAN OF CARE VITAL SIGNS MEDICATIONS No Known Medications RESULTS No Results PROCEDURES No Known procedures INSTRUCTIONS MEDICATIONS ADMINISTERED No Known Medications MEDICAL (GENERAL) HISTORY Type Description Date Medical History Bipolar disorder, unspecified Medical History Bipolar disorder, unspecified Medical History ODD (oppositional defiant disorder) Medical History ODD (oppositional defiant disorder) Medical History Disruptive mood dysregulation disorder Surgical History No know Surgical history
--- OUTSIDE RECORDS SUMMARY | 2019-05-18 01:22 | XMS REPORT ---
Author Author JOAN GARCIA [facility] Address [address] [place] [address] Care Team Providers Care Sales Product Manager Name Role Phone JOSE JOAN Unavailable PROBLEMS Type Condition ICD9-CM Code [id number] Code Onset Dates Condition Status SNOMED Code Problem PEARL (generalized anxiety disorder) F41.1 Active 51312119 Problem Seasonal allergic rhinitis, unspecified allergic rhinitis trigger J30.2 Active 992338492 Problem ADHD (attention deficit hyperactivity disorder), combined type F90.2 Active [id number] ALLERGIES No Information ENCOUNTERS Encounter Location Date Diagnosis [facility] [id number] [place] [address] February, Concern about STD in male without diagnosis Z71.1 [facility] [id number] [place] [address] Mar, [facility] [address] [address] Dec, ADHD (attention deficit hyperactivity disorder), combined type F90.2 and PEARL (generalized anxiety disorder) F41.1 [facility] [id number] [place] [address] Oct, Dysfunction of right eustachian tube H69.81 [facility] [id number] [place] [address] Oct, [facility] [address] [address] Oct, [facility] [id number] [place] [address] Oct, [facility] [address] [address] Sep, [facility] [id number] [place] [address] Aug, ADHD (attention deficit hyperactivity disorder), combined type F90.2 and PEARL (generalized anxiety disorder) F41.1 [facility] [id number] [address] Jul, [facility] [id number] [place] [address] Jul, [facility] [id number] [place] [address] Jun, [facility] [id number] [place] [address] May, [facility] [id number] [place] [address] May, [facility] [id number] [place] [address] Apr, [facility] [id number] [place] [address] Mar, [facility] [id number] [place] [address] February, [facility] [id number] [address] February, [facility] [id number] [place] [address] February, PEARL (generalized anxiety disorder) F41.1 [facility] [id number] [place] [address] February, [facility] [address] [address] February, Seasonal allergic rhinitis, unspecified allergic rhinitis trigger J30.2 [facility] [id number] [place] [address] Jan, PEARL (generalized anxiety disorder) F41.1 [facility] [address] [address] Jan, ADHD (attention deficit hyperactivity disorder), combined type F90.2 and PEARL (generalized anxiety disorder) F41.1 [facility] [address] [address] Dec, [facility] [id number] [place] [address] Nov, [facility] [id number] [place] [address] Oct, [facility] [id number] [place] [address] Oct, [facility] [id number] [place] [address] Sep, [facility] [id number] [place] [address] Aug, ADHD (attention deficit hyperactivity disorder), combined type F90.2 and PEARL (generalized anxiety disorder) F41.1 [facility] [id number] [place] [address] Aug, [facility] [address] [address] Jul, [facility] [id number] [place] [address] Jun, ADHD (attention deficit hyperactivity disorder), combined type F90.2 ; ODD (oppositional defiant disorder) F91.3 and PEARL (generalized anxiety disorder) F41.1 [facility] [id number] [place] [address] Jun, [facility] [id number] [address] Jun, [facility] [address] [address] May, [facility] [id number] [place] [address] May, ODD (oppositional defiant disorder) F91.3 and ADHD (attention deficit hyperactivity disorder), combined type F90.2 [facility] [id number] [place] [address] May, [facility] [id number] [place] [address] Apr, [facility] [id number] [place] [address] Mar, [facility] [id number] [place] [address] February, [facility] [id number] [place] [address] Jan, [facility] [id number] [place] [address] Dec, [facility] [id number] [place] [address] Dec, [facility] [id number] [place] [id number] Nov, Dental examination Z01.20 [facility] [id number] [place] [address] Nov, [facility] [address] [address] Nov, [facility] [id number] [place] [address] Nov, Disruptive mood dysregulation disorder F34.8 ; ADHD (attention deficit hyperactivity disorder), combined type F90.2 and ODD (oppositional defiant disorder) F91.3 [facility] [id number] [place] [address] Sep, [facility] [address] [address] Aug, [facility] [id number] [place] [address] Jul, [facility] [address] [address] Jul, [facility] [id number] [place] [address] Jul, [facility] [address] [address] Jun, Bipolar disorder, unspecified 296.80 ; Attention deficit disorder (ADD), child, 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 and ODD (oppositional defiant disorder) 313.81 [facility] [id number] [address] May, [facility] [id number] [address] May, [facility] [id number] [place] [address] May, [facility] [address] [address] Apr, [facility] [address] [address] Mar, [facility] [id number] [address] Mar, [facility] [id number] [address] February, Bipolar disorder, unspecified 296.80 ; Attention deficit disorder 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 and Oppositional defiant behavior 313.81 [facility] [address] [address] February, [facility] [id number] [place] [address] [place] [address] 14 Jan, 2015 [facility] [place] [facility] [address] [id number] [place] [address] 13 Jan, 2015 [facility] [place] [facility] [address] [id number] [place] [address] 11 Dec, 2014 [facility] [place] [facility] [address] [id number] [place] [address] 10 Dec, 2014 [facility] [place] [facility] [address] [id number] [place] [address] 10 Dec, 2014 [facility] [place] [facility] [address] [id number] [place] [address] Nov, [facility] [place] [facility] [address] [id number] [place] [address] Nov, [facility] [place] [facility] [address] [id number] [place] [address] Nov, [facility] [place] [facility] [address] [id number] [place] [address] Nov, [facility] [place] [facility] [address] [id number] [place] [address] Nov, [facility] [place] [facility] [address] [id number] [place] [address] Nov, [facility] [place] [facility] [address] [id number] [place] [address] Nov, [facility] [place] [facility] [address] [id number] [place] [address] Nov, [facility] [place] [facility] [address] [id number] [place] [address] Oct, [facility] [place] [facility] [address] [id number] [place] [address] Oct, [facility] [place] [facility] [address] [id number] [place] [address] 15 Oct, 2014 [facility] [place] [facility] [address] [id number] [place] [address] 14 Oct, 2014 [facility] [place] [facility] [address] [id number] [place] [address] Oct, [facility] [place] [facility] [address] [id number] [place] [address] Oct, [facility] [place] [facility] [address] [id number] [place] [address] Oct, [facility] [place] [facility] [address] [id number] [place] [address] 16 Sep, 2014 [facility] [place] [facility] [address] [id number] [place] [address] 15 Sep, 2014 [facility] [place] [facility] [address] [id number] [place] [address] Sep, [facility] [place] [facility] [address] [id number] [place] [address] Aug, [facility] [place] [facility] [address] [id number] [place] [address] Aug, [facility] [place] [facility] [address] [id number] [place] [address] 14 Jul, 2014 [facility] [place] [facility] [address] [id number] [place] [address] Jul, [facility] [place] [facility] [address] [id number] [place] [address] Jun, [facility] [place] [facility] [address] [id number] [place] [address] Jun, [facility] [place] [facility] [address] [id number] [place] [address] May, [facility] [place] [facility] [address] [id number] [place] [address] May, [facility] [place] [facility] [address] [id number] [place] [address] May, [facility] [place] [facility] [address] [id number] [place] [address] May, [facility] [place] [facility] [address] [id number] [place] [address] Apr, [facility] [place] [facility] [address] [id number] [place] [address] Apr, [facility] [place] [facility] [address] [id number] [place] [address] Apr, [facility] [place] [facility] [address] [id number] [place] [address] Apr, [facility] [place] [facility] [address] [id number] [place] [address] Apr, [facility] [place] [facility] [address] [id number] [place] [address] Mar, [facility] [place] [facility] [address] [id number] [place] [address] Mar, [facility] [place] [facility] [address] [id number] [place] [address] Mar, [facility] [place] [facility] [address] [id number] [place] [address] Mar, [facility] [place] [facility] [address] [id number] [place] [address] Mar, [facility] [place] [facility] [address] [id number] [place] [address] February, [facility] [place] [facility] [address] [id number] [place] [address] February, [facility] [place] [facility] [address] [id number] [place] [address] February, [facility] [place] [facility] [address] [id number] [place] [address] Jan, [facility] [place] [facility] [address] [id number] [place] [address] 14 Jan, 2014 [facility] [place] [facility] [address] [id number] [place] [address] Dec, [facility] [place] [facility] [address] [id number] [place] [address] Dec, [facility] [place] [facility] [address] [id number] [place] [address] Nov, [facility] [place] [facility] [address] [id number] [place] [address] Nov, [facility] [place] [facility] [address] [id number] [place] [address] Sep, [facility] [place] [facility] [address] [id number] [place] [address] Sep, [facility] [place] [facility] [address] [id number] [place] [address] Sep, [facility] [place] [facility] [address] [id number] [place] [address] Sep, [facility] [place] [facility] [address] [id number] [place] [address] Aug, [facility] [place] [facility] [address] [id number] [place] [address] Aug, [facility] [place] [facility] [address] [id number] [place] [address] Aug, [facility] [place] [facility] [address] [id number] [place] [address] Aug, [facility] [place] [facility] [address] [id number] [place] [address] Jul, [facility] [place] [facility] [address] [id number] [place] [address] Jul, [facility] [place] [facility] [address] [id number] [place] [address] Jun, [facility] [address] [id number] [place] [address] 16 May, 2013 [facility] [place] [facility] [address] [id number] [place] [address] May, [facility] [place] [facility] [address] [id number] [place] [address] May, [facility] [place] [facility] [address] [id number] [place] [address] Apr, [facility] [place] [facility] [address] [id number] [place] [address] Apr, [facility] [place] [facility] [address] [id number] [place] [address] Oct, [facility] [place] [facility] [address] [id number] [place] [address] 24 Sep, 2012 [facility] [place] [facility] [address] [id number] [place] [address] Sep, [facility] [place] [facility] [address] [id number] [place] [address] Sep, [facility] [place] [facility] [address] [id number] [place] [address] Sep, [facility] [place] [facility] [address] [id number] [place] [address] Sep, [facility] [place] [facility] [address] [id number] [address] Sep, [facility] [place] [facility] [address] [id number] [place] [address] Sep, [facility] [place] [facility] [address] [id number] [place] [address] Aug, [facility] [place] [facility] [address] [id number] [place] [address] Aug, [facility] [place] [facility] [address] [id number] [place] [address] 14 Aug, 2012 [facility] [place] [facility] [address] [id number] [place] [address] Aug, [facility] [place] [facility] [address] [id number] [place] [address] Jul, [facility] [place] [facility] [address] [id number] [place] [address] Jul, [facility] [place] [facility] [address] [id number] [place] [address] Jul, [facility] [place] [facility] [address] [id number] [place] [address] Jun, [facility] [place] [facility] [address] [id number] [place] [address] May, [facility] [place] [facility] [address] [id number] [place] [address] May, [facility] [place] [facility] [address] [id number] [place] [address] May, [facility] [place] [facility] [address] [id number] [place] [address] May, [facility] [place] [facility] [address] [facility] [id number] [place] [address] May, [facility] [place] [facility] [address] [id number] [place] [address] Apr, [facility] [place] [facility] [address] [id number] [place] [address] Apr, [facility] [place] [facility] [address] [id number] [place] [id number] Mar, [facility] [place] [facility] [id number] [id number] Mar, [facility] [place] [facility] [address] [id number] [place] [address] Mar, [facility] [place] [facility] [address] [id number] [place] [address] Mar, [facility] [place] [facility] [address] [id number] [place] [address] Mar, [facility] [place] [facility] [address] [id number] [place] [address] Mar, [facility] [place] [facility] [address] [id number] [place] [address] February, [facility] [address] [id number] [place] [address] Jan, [facility] [place] [facility] [address] [id number] [place] [address] Jan, [facility] [address] [id number] [place] [address] Dec, [facility] [address] [id number] [place] [address] Dec, [facility] [place] [facility] [address] [id number] [place] [address] Dec, [facility] [place] [facility] [address] [id number] [place] [address] Dec, [facility] [place] [facility] [address] [id number] [place] [address] Dec, [facility] [place] [facility] [address] [id number] [place] [address] Nov, [facility] [place] [facility] [address] [id number] [place] [address] Oct, [facility] [place] [facility] [address] [id number] [place] [address] Oct, [facility] [place] [facility] [address] [id number] [place] [address] Sep, [facility] [place] [facility] [address] [id number] [address] Sep, [facility] [address] [id number] [address] Aug, [facility] [id number] [address] Aug, [facility] [id number] [address] Jul, [facility] [id number] [address] Jul, [facility] [id number] [address] Jun, [facility] [id number] [address] February, [facility] [id number] [address] Jan, [facility] [id number] [address] Dec, IMMUNIZATIONS No Known Immunizations SOCIAL HISTORY [...]
--- OUTSIDE RECORDS SUMMARY | 2019-05-18 01:22 | XMS REPORT ---
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 Name Role Phone JOSEFELIPAJOAN Unavailable PROBLEMS Type Condition ICD9-CM Code [id number] Code Onset Dates Condition Status SNOMED Code Problem PEARL (generalized anxiety disorder) F41.1 Active 75075806 Problem Seasonal allergic rhinitis, unspecified allergic rhinitis trigger J30.2 Active 448953511 Problem ADHD (attention deficit hyperactivity disorder), combined type F90.2 Active 24205270 ALLERGIES No Information ENCOUNTERS Encounter Location Date Diagnosis [facility] [id number] [place] [address] February, Concern about STD in male without diagnosis Z71.1 [facility] [id number] [place] [address] Mar, [facility] [address] [address] Dec, ADHD (attention deficit hyperactivity disorder), combined type F90.2 and PEARL (generalized anxiety disorder) F41.1 [facility] [id number] [place] [address] Oct, Dysfunction of right eustachian tube H69.81 [facility] [id number] [place] [address] Oct, [facility] [address] [address] Oct, [facility] [id number] [place] [address] Oct, [facility] [address] [address] Sep, [facility] [id number] [place] [address] Aug, ADHD (attention deficit hyperactivity disorder), combined type F90.2 and PEARL (generalized anxiety disorder) F41.1 [facility] [id number] [address] Jul, [facility] [id number] [place] [address] Jul, [facility] [id number] [place] [address] Jun, [facility] [id number] [place] [address] May, [facility] [id number] [place] [address] May, [facility] [id number] [place] [address] Apr, [facility] [id number] [place] [address] Mar, [facility] [id number] [place] [address] February, [facility] [id number] [address] February, [facility] [id number] [place] [address] February, PEARL (generalized anxiety disorder) F41.1 [facility] [id number] [place] [address] February, [facility] [address] [address] February, Seasonal allergic rhinitis, unspecified allergic rhinitis trigger J30.2 [facility] [id number] [place] [address] Jan, PEARL (generalized anxiety disorder) F41.1 [facility] [address] [address] Jan, ADHD (attention deficit hyperactivity disorder), combined type F90.2 and PEARL (generalized anxiety disorder) F41.1 [facility] [address] [address] Dec, [facility] [id number] [place] [address] Nov, [facility] [id number] [place] [address] Oct, [facility] [id number] [place] [address] Oct, [facility] [id number] [place] [address] Sep, [facility] [id number] [place] [address] Aug, ADHD (attention deficit hyperactivity disorder), combined type F90.2 and PEARL (generalized anxiety disorder) F41.1 [facility] [address] [place] [address] Aug, [facility] [address] [address] Jul, [facility] [id number] [place] [address] Jun, ADHD (attention deficit hyperactivity disorder), combined type F90.2 ; ODD (oppositional defiant disorder) F91.3 and PEARL (generalized anxiety disorder) F41.1 [facility] [id number] [place] [address] Jun, [facility] [id number], [place] [address] Jun, [facility] [address] [address] May, [facility] [address] [place] [address] May, ODD (oppositional defiant disorder) F91.3 and ADHD (attention deficit hyperactivity disorder), combined type F90.2 [facility] [id number] [place] [address] May, [facility] [id number] [place] [address] Apr, [facility] [id number] [place] [address] Mar, [facility] [id number] [place] [address] February, [facility] [id number] [place] [address] Jan, [facility] [id number] [place] [address] Dec, [facility] [id number] [place] [address] Dec, [facility] [id number] [place] [id number] Nov, Dental examination Z01.20 [facility] [id number] [place] [address] Nov, [facility] [address] [address] Nov, [facility] [id number] [place] [address] Nov, Disruptive mood dysregulation disorder F34.8 ; ADHD (attention deficit hyperactivity disorder), combined type F90.2 and ODD (oppositional defiant disorder) F91.3 [facility] [id number] [place] [address] Sep, [facility] [address], [place] [address] Aug, [facility] [id number] [place] [address] Jul, [facility] [address], [place] [address] Jul, [facility] [id number] [place] [address] Jul, [facility] [address] [address] Jun, Bipolar disorder, unspecified 296.80 ; Attention deficit disorder (ADD), child, 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 and ODD (oppositional defiant disorder) 313.81 [facility] [id number] [address] May, [facility] [id number] [address] May, [facility] [id number] [place] [address] May, [facility] [address], [place] [address] Apr, [facility] [address] [address] Mar, [facility] [id number] [address] Mar, [facility] [id number] [address] February, Bipolar disorder, unspecified 296.80 ; Attention deficit disorder 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 and Oppositional defiant behavior 313.81 [facility] [address] [address] February, [facility] [id number] [place] [address] [place] [address] 14 Jan, 2015 [facility] [place] [facility] [address] [id number] [place] [address] 13 Jan, 2015 [facility] [place] [facility] [address] [id number] [place] [address] 11 Dec, 2014 [facility] [place] [facility] [address] [id number] [place] [address] 10 Dec, 2014 [facility] [place] [facility] [address] [id number] [place] [address] 10 Dec, 2014 [facility] [place] [facility] [address] [id number] [place] [address] Nov, [facility] [place] [facility] [address] [id number] [place] [address] Nov, [facility] [place] [facility] [address] [id number] [place] [address] Nov, [facility] [place] [facility] [address] [id number] [place] [address] Nov, [facility] [place] [facility] [address] [id number] [place] [address] Nov, [facility] [place] [facility] [address] [id number] [place] [address] Nov, [facility] [place] [facility] [address] [id number] [place] [address] Nov, [facility] [place] [facility] [address] [id number] [place] [address] Nov, [facility] [place] [facility] [address] [id number] [place] [address] Oct, [facility] [place] [facility] [address] [id number] [place] [address] Oct, [facility] [place] [facility] [address] [id number] [place] [address] 15 Oct, 2014 [facility] [place] [facility] [address] [id number] [place] [address] 14 Oct, 2014 [facility] [place] [facility] [address] [id number] [place] [address] Oct, [facility] [place] [facility] [address] [id number] [place] [address] Oct, [facility] [place] [facility] [address] [id number] [place] [address] Oct, [facility] [place] [facility] [address] [id number] [place] [address] 16 Sep, 2014 [facility] [place] [facility] [address] [id number] [place] [address] 15 Sep, 2014 [facility] [place] [facility] [address] [id number] [place] [address] Sep, [facility] [place] [facility] [address] [id number] [place] [address] Aug, [facility] [place] [facility] [address] [id number] [place] [address] Aug, [facility] [place] [facility] [address] [id number] [place] [address] 14 Jul, 2014 [facility] [place] [facility] [address] [id number] [place] [address] Jul, [facility] [place] [facility] [address] [id number] [place] [address] Jun, [facility] [place] [facility] [address] [id number] [place] [address] Jun, [facility] [place] [facility] [address] [id number] [place] [address] May, [facility] [place] [facility] [address] [id number] [place] [address] May, [facility] [place] [facility] [address] [id number] [place] [address] May, [facility] [place] [facility] [address] [id number] [place] [address] May, [facility] [place] [facility] [address] [id number] [place] [address] Apr, [facility] [place] [facility] [address] [id number] [place] [address] Apr, [facility] [place] [facility] [address] [id number] [place] [address] Apr, [facility] [place] [facility] [address] [id number] [place] [address] Apr, [facility] [place] [facility] [address] [id number] [place] [address] Apr, [facility] [place] [facility] [address] [id number] [place] [address] Mar, [facility] [place] [facility] [address] [id number] [place] [address] Mar, [facility] [place] [facility] [address] [id number] [place] [address] Mar, [facility] [place] [facility] [address] [id number] [place] [address] Mar, [facility] [place] [facility] [address] [id number] [place] [address] Mar, [facility] [place] [facility] [address] [id number] [place] [address] February, [facility] [place] [facility] [address] [id number] [place] [address] February, [facility] [place] [facility] [address] [id number] [place] [address] February, [facility] [place] [facility] [address] [id number] [place] [address] Jan, [facility] [place] [facility] [address] [id number] [place] [address] 14 Jan, 2014 [facility] [place] [facility] [address] [id number] [place] [address] Dec, [facility] [place] [facility] [address] [id number] [place] [address] Dec, [facility] [place] [facility] [address] [id number] [place] [address] Nov, [facility] [place] [facility] [address] [id number] [place] [address] Nov, [facility] [place] [facility] [address] [id number] [place] [address] Sep, [facility] [place] [facility] [address] [id number] [place] [address] Sep, [facility] [place] [facility] [address] [id number] [place] [address] Sep, [facility] [place] [facility] [address] [id number] [place] [address] Sep, [facility] [place] [facility] [address] [id number] [place] [address] Aug, [facility] [place] [facility] [address] [id number] [place] [address] Aug, [facility] [place] [facility] [address] [id number] [place] [address] Aug, [facility] [place] [facility] [address] [id number] [place] [address] Aug, [facility] [place] [facility] [address] [id number] [place] [address] Jul, [facility] [place] [facility] [address] [id number] [place] [address] Jul, [facility] [place] [facility] [address] [id number] [place] [address] Jun, [facility] [address] [id number] [place] [address] 16 May, 2013 [facility] [place] [facility] [address] [id number] [place] [address] May, [facility] [place] [facility] [address] [id number] [place] [address] May, [facility] [place] [facility] [address] [id number] [place] [address] Apr, [facility] [place] [facility] [address] [id number] [place] [address] Apr, [facility] [place] [facility] [address] [id number] [place] [address] Oct, [facility] [place] [facility] [address] [id number] [place] [address] 24 Sep, 2012 [facility] [place] [facility] [address] [id number] [place] [address] Sep, [facility] [place] [facility] [address] [id number] [place] [address] Sep, [facility] [place] [facility] [address] [id number] [place] [address] Sep, [facility] [place] [facility] [address] [id number] [place] [address] Sep, [facility] [place] [facility] [address] [id number], [place] [address] Sep, [facility] [place] [facility] [address] [id number] [place] [address] Sep, [facility] [place] [facility] [address] [id number] [place] [address] Aug, [facility] [place] [facility] [address] [id number] [place] [address] Aug, [facility] [place] [facility] [address] [id number] [place] [address] 14 Aug, 2012 [facility] [place] [facility] [address] [id number] [place] [address] Aug, [facility] [place] [facility] [address] [id number] [place] [address] Jul, [facility] [place] [facility] [address] [id number] [place] [address] Jul, [facility] [place] [facility] [address] [id number] [place] [address] Jul, [facility] [place] [facility] [address] [id number] [place] [address] Jun, [facility] [place] [facility] [address] [id number] [place] [address] May, [facility] [place] [facility] [address] [id number] [place] [address] May, [facility] [place] [facility] [address] [id number] [place] [address] May, [facility] [place] [facility] [address] [id number] [place] [address] May, [facility] [place] [facility] [address] [facility] [id number] [place] [address] May, [facility] [place] [facility] [address] [id number] [place] [address] Apr, [facility] [place] [facility] [address] [id number] [place] [address] Apr, [facility] [place] [facility] [address] [id number] [place] [id number] Mar, [facility] [place] [facility] [id number] [id number] Mar, [facility] [place] [facility] [address] [id number] [place] [address] Mar, [facility] [place] [facility] [address] [id number] [place] [address] Mar, [facility] [place] [facility] [address] [id number] [place] [address] Mar, [facility] [place] [facility] [address] [id number] [place] [address] Mar, [facility] [place] [facility] [address] [id number] [place] [address] February, [facility] [address] [id number] [place] [address] Jan, [facility] [place] [facility] [address] [id number] [place] [address] Jan, [facility] [address] [id number] [place] [address] Dec, [facility] [address] [id number] [place] [address] Dec, [facility] [place] [facility] [address] [id number] [place] [address] Dec, [facility] [place] [facility] [address] [id number] [place] [address] Dec, [facility] [place] [facility] [address] [id number] [place] [address] Dec, [facility] [place] [facility] [address] [id number] [place] [address] Nov, [facility] [place] [facility] [address] [id number] [place] [address] Oct, [facility] [place] [facility] [address] [id number] [place] [address] Oct, [facility] [place] [facility] [address] [id number] [place] [address] Sep, [facility] [place] [facility] [address] [id number], [place] [address] Sep, [facility] [id number] [address] Aug, [facility] [id number] [address] Aug, [facility] [id number] [address] Jul, [facility] [address] [address] Jul, [facility] [id number] [address] Jun, [facility] [id number] [address] February, [facility] [id number] [address] Jan, [facility] [id number] [address] Dec, IMMUNIZATIONS No Known Immunizations SOCIAL HISTORY Never Assessed REASON FOR VISIT PLAN OF CARE VITAL SIGNS Height 68 in 2014-10-28 Weight 186.5 lbs 2014-10-28 Temperature 98.9 degrees Fahrenheit 2014-10-28 Heart Rate 100 bpm 2014-10-28 Respiratory Rate 24 2014-10-28 Blood pressure systolic 126 mmHg 2014-10-28 Blood pressure diastolic 72 mmHg 2014-10-28 MEDICATIONS No Known Medications RESULTS No Results [...]
--- OUTSIDE RECORDS SUMMARY | 2019-05-18 01:23 | XMS REPORT ---
Author Author Migration, Doctor Organization [facility] Address Unknown Phone Unavailable Care Team Providers Care Stack Matcher Name Role Phone Migration, Doctor Unavailable Unavailable PROBLEMS Type Condition ICD9-CM Code HRI63-BU Code Onset Dates Condition Status SNOMED Code Problem PEARL (generalized anxiety disorder) F41.1 Active 02999471 Problem Seasonal allergic rhinitis, unspecified allergic rhinitis trigger J30.2 Active 919364917 Problem ADHD (attention deficit hyperactivity disorder), combined type F90.2 Active [id number] ALLERGIES No Information ENCOUNTERS Encounter Location Date Diagnosis [facility] [id number] [place] [address] February, Concern about STD in male without diagnosis Z71.1 [facility] [address] [address] Mar, [facility] [address] [address] Dec, ADHD (attention deficit hyperactivity disorder), combined type F90.2 and PEARL (generalized anxiety disorder) F41.1 [facility] [id number] [place] [address] Oct, Dysfunction of right eustachian tube H69.81 [facility] [id number] [place] [address] Oct, [facility] [id number] [place] [address] Oct, [facility] [address] [address] Oct, [facility] [id number] [place] [address] Sep, [facility] [address] [address] Aug, ADHD (attention deficit hyperactivity disorder), combined type F90.2 and PEARL (generalized anxiety disorder) F41.1 [facility] [id number] [place] [address] Jul, [facility] [id number] [place] [address] Jul, [facility] [id number] [place] [address] Jun, [facility] [id number] [place] [address] May, [facility] [id number] [place] [address] May, [facility] [id number] [place] [address] Apr, [facility] [id number] [place] [address] Mar, [facility] [id number] [place] [address] February, [facility] [id number] [place] [address] February, [facility] [id number] [place] [address] February, PEARL (generalized anxiety disorder) F41.1 [facility] [address] [address] February, [facility] [id number] [place] [address] February, Seasonal allergic rhinitis, unspecified allergic rhinitis trigger J30.2 [facility] [address], [place] [address] Jan, PEARL (generalized anxiety disorder) F41.1 [facility] [address] [id number] [address] Jan, ADHD (attention deficit hyperactivity disorder), combined type F90.2 and PEARL (generalized anxiety disorder) F41.1 [facility] [id number] [place] [address] Dec, [facility] [id number] [place] [address] Nov, [facility] [id number] [place] [address] Oct, [facility] [id number] [place] [address] Oct, [facility] [id number] [place] [address] Sep, [facility] [id number] [place] [address] Aug, ADHD (attention deficit hyperactivity disorder), combined type F90.2 and PEARL (generalized anxiety disorder) F41.1 [facility] [id number] [place] [address] Aug, [facility] [id number] [place] [address] Jul, [facility] [id number] [place] [address] Jun, ADHD (attention deficit hyperactivity disorder), combined type F90.2 ; ODD (oppositional defiant disorder) F91.3 and PEARL (generalized anxiety disorder) F41.1 [facility] [address] [address] Jun, [facility] [id number] [place] [address] Jun, [facility] [id number] [place] [address] May, [facility] [address], [place] [address] May, ODD (oppositional defiant disorder) F91.3 and ADHD (attention deficit hyperactivity disorder), combined type F90.2 [facility] [address] [address] May, [facility] [id number] [place] [address] Apr, [facility] [id number] [place] [address] Mar, [facility] [id number] [place] [address] February, [facility] [id number] [place] [address] Jan, [facility] [id number] [place] [address] Dec, [facility] [id number] [place] [address] Dec, [facility] [id number] [place] [id number] Nov, Dental examination Z01.20 [facility] [address], [place] [address] Nov, [facility] [id number] [place] [address] Nov, [facility] [address] [place] [address] Nov, Disruptive mood dysregulation disorder F34.8 ; ADHD (attention deficit hyperactivity disorder), combined type F90.2 and ODD (oppositional defiant disorder) F91.3 [facility] [address] [address] Sep, [facility] [id number] [place] [address] Aug, [facility] [address], [place] [address] Jul, [facility] [address], [place] [address] Jul, [facility] [address], [place] [address] Jul, [facility] [address], [place] [address] Jun, Bipolar disorder, unspecified 296.80 ; Attention deficit disorder (ADD), child, 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 and ODD (oppositional defiant disorder) 313.81 [facility] [address], [place] [address] May, [facility] [address], [place] [address] May, [facility] [address], [place] [address] May, [facility] [address], [place] [address] Apr, [facility] [address], [place] [address] Mar, [facility] [address], [place] [address] Mar, [facility] [id number] [address] February, Bipolar disorder, unspecified 296.80 ; Attention deficit disorder 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 and Oppositional defiant behavior 313.81 [facility] [address], [place] [address] February, [facility] [id number] [address] Jan, [facility] [address] [place] [address] 13 Jan, 2015 [facility] [place] [facility] [address] [id number] [place] [address] Dec, [facility] [place] [facility] [address] [id number] [place] [address] Dec, [facility] [place] [facility] [address] [id number] [place] [address] Dec, [facility] [place] [facility] [address] [id number] [place] [address] Nov, 2014 [facility] [place] [facility] [address] [id number] [place] [address] Nov, 2014 [facility] [place] [facility] [address] [facility] [id number] [place] [address] Nov, 2014 [facility] [place] [facility] [address] [id number] [place] [address] Nov, [facility] [place] [facility] [address] [id number] [place] [address] Nov, [facility] [place] [facility] [address] [id number] [place] [address] Nov, [facility] [place] [facility] [address] [facility] [id number] [place] [address] Nov, [facility] [place] [facility] [address] [facility] [id number] [place] [address] Nov, [facility] [place] [facility] [address] [id number] [place] [address] Oct, [facility] [place] [facility] [address] [id number] [place] [address] Oct, [facility] [place] [facility] [address] [id number] [place] [address] 15 Oct, 2014 [facility] [place] [facility] [address] [facility] [id number] [place] [address] 14 Oct, 2014 [facility] [place] [facility] [address] [id number] [place] [address] 14 Oct, 2014 [facility] [place] [facility] [address] [id number] [place] [address] Oct, [facility] [place] [facility] [address] [id number] [place] [address] Oct, [facility] [place] [facility] [address] [id number] [place] [address] 16 Sep, 2014 [facility] [place] [facility] [address] [id number] [place] [address] Sep, [facility] [place] [facility] [address] [id number] [place] [address] Sep, [facility] [place] [facility] [address] [id number] [place] [address] Aug, [facility] [place] [facility] [address] [id number] [place] [address] Aug, [facility] [place] [facility] [address] [id number] [place] [address] 14 Jul, 2014 [facility] [place] [facility] [address] [id number] [place] [address] Jul, [facility] [place] [facility] [address] [id number] [place] [address] Jun, [facility] [place] [facility] [address] [id number], [place] [address] Jun, [facility] [place] [facility] [address] [id number] [place] [address] May, [facility] [place] [facility] [address] [id number] [place] [address] May, [facility] [place] [facility] [address] [id number] [place] [address] May, [facility] [place] [facility] [address] [id number] [place] [address] May, [facility] [place] [facility] [address] [id number] [place] [address] Apr, [facility] [place] [facility] [address] [id number] [place] [address] Apr, [facility] [place] [facility] [address] [id number] [place] [address] Apr, [facility] [place] [facility] [address] [id number] [place] [address] Apr, [facility] [place] [facility] [address] [id number] [place] [address] Apr, [facility] [place] [facility] [address] [id number] [place] [address] Mar, [facility] [place] [facility] [address] [id number] [place] [address] Mar, [facility] [place] [facility] [address] [id number] [place] [address] Mar, [facility] [place] [facility] [address] [id number] [place] [address] Mar, [facility] [place] [facility] [address] [id number] [place] [address] Mar, [facility] [place] [facility] [address] [id number] [place] [address] February, [facility] [place] [facility] [address] [id number] [place] [address] February, [facility] [place] [facility] [address] [id number] [place] [address] February, [facility] [place] [facility] [address] [id number] [place] [address] Jan, [facility] [place] [facility] [address] [id number] [place] [address] Jan, [facility] [place] [facility] [address] [id number] [place] [address] Dec, [facility] [place] [facility] [address] [id number] [place] [address] Dec, [facility] [place] [facility] [address] [id number] [place] [address] Nov, [facility] [place] [facility] [address] [id number] [place] [address] Nov, [facility] [place] [facility] [address] [id number] [place] [address] Sep, [facility] [place] [facility] [address] [id number] [place] [address] Sep, [facility] [place] [facility] [address] [id number] [place] [address] Sep, [facility] [place] [facility] [address] [id number] [place] [address] Sep, [facility] [place] [facility] [address] [id number] [place] [address] Aug, [facility] [place] [facility] [address] [id number] [place] [address] Aug, [facility] [place] [facility] [address] [id number] [place] [address] Aug, [facility] [place] [facility] [address] [id number], [place] [address] Aug, [facility] [place] [facility] [address] [id number] [place] [address] Jul, [facility] [place] [facility] [address] [id number] [place] [address] Jul, [facility] [place] [facility] [address] [id number] [place] [address] Jun, [facility] [place] [facility] [address] [id number] [place] [address] 16 May, 2013 [facility] [address] [id number] [place] [address] 15 May, 2013 [facility] [place] [facility] [address] [id number] [place] [address] 15 May, 2013 [facility] [address] [id number] [place] [address] 19 Apr, 2013 [facility] [place] [facility] [address] [id number] [place] [address] 18 Apr, 2013 [facility] [address] [id number] [place] [address] 14 Oct, 2012 [facility] [address] [id number] [place] [address] 24 Sep, 2012 [facility] [address] [id number] [place] [address] 19 Sep, 2012 [facility] [address] [id number] [place] [address] 19 Sep, 2012 [facility] [address] [id number] [place] [address] 18 Sep, 2012 [facility] [address] [id number] [place] [address] 18 Sep, 2012 [facility] [address] [id number] [place] [address] 03 Sep, 2012 [facility] [place] [facility] [address] [id number] [place] [address] 03 Sep, 2012 [facility] [place] [facility] [address] [id number] [place] [address] 19 Aug, 2012 [facility] [place] [facility] [address] [id number] [place] [address] 19 Aug, 2012 [facility] [place] [facility] [address] [id number] [place] [address] 14 Aug, 2012 [facility] [place] [facility] [address] [id number] [place] [address] Aug, [facility] [place] [facility] [address] [id number] [place] [address] Jul, [facility] [place] [facility] [address] [id number] [place] [address] Jul, [facility] [place] [facility] [address] [id number] [place] [address] Jul, [facility] [place] [facility] [address] [id number] [place] [address] Jun, [facility] [place] [facility] [address] [id number] [place] [address] May, [facility] [place] [facility] [address] [id number] [place] [address] May, [facility] [place] [facility] [address] [id number] [place] [address] May, [facility] [place] [facility] [address] [id number] [place] [address] May, [facility] [place] [facility] [address] [id number] [place] [address] May, [facility] [place] [facility] [address] [id number] [place] [address] Apr, [facility] [place] [facility] [address] [id number] [place] [address] Apr, [facility] [place] [facility] [address] [id number] [place] [id number] Mar, [facility] [place] [facility] [address] [id number] [place] [id number] Mar, [facility] [place] [facility] [address] [id number] [place] [address] Mar, [facility] [place] [facility] [address] [id number] [place] [address] Mar, [facility] [address] [id number] [place] [address] Mar, [facility] [place] [facility] [address] [id number] [place] [address] Mar, [facility] [place] [facility] [address] [id number] [place] [address] February, [facility] [place] [facility] [address] [id number] [place] [address] Jan, [facility] [place] [facility] [address] [id number] [place] [address] Jan, [facility] [place] [facility] [address] [id number] [place] [address] Dec, [facility] [place] [facility] [address] [id number] [place] [address] Dec, [facility] [place] [facility] [address] [id number] [place] [address] Dec, [facility] [place] [facility] [address] [id number] [place] [address] Dec, [facility] [place] [facility] [address] [id number] [place] [address] Dec, [facility] [place] [facility] [address] [id number] [place] [address] Nov, [facility] [place] [facility] [address] [id number], [place] [address] Oct, [facility] [place] [facility] [address] [id number] [place] [address] Oct, [facility] [place] [facility] [address] [id number] [place] [address] Sep, [facility] [place] [facility] [address] [id number] [place] [address] Sep, [facility] [place] [facility] [id number], [place] [address] 17 Aug, 2011 [facility] [address], [place] [address] 15 Aug, 2011 [facility] [id number], [place] [address] 29 Jul, 2011 [facility] [address], [place] [address] Jul, [facility] [address], [place] [address] 16 Jun, 2011 [facility] [address], [place] [address] February, [facility] [address], [place] [address] Jan, [facility] [id number], [place] [address] 10 Dec, 2010 IMMUNIZATIONS No Known Immunizations SOCIAL HISTORY Never Assessed REASON FOR VISIT [facility] [place] PLAN OF CARE VITAL SIGNS MEDICATIONS No [...]
--- OUTSIDE RECORDS SUMMARY | 2019-05-18 01:23 | XMS REPORT ---
Author Author [facility]AN [facility] Address [address] [place] [address] Care Team Providers Care Manager Database Name Role Phone JOSEFELIPAJOAN Unavailable PROBLEMS Type Condition ICD9-CM Code PQS02-TF Code Onset Dates Condition Status SNOMED Code Problem PEARL (generalized anxiety disorder) F41.1 Active 34188984 Problem Seasonal allergic rhinitis, unspecified allergic rhinitis trigger J30.2 Active 281482982 Problem ADHD (attention deficit hyperactivity disorder), combined type F90.2 Active 27483827 ALLERGIES No Information ENCOUNTERS Encounter Location Date Diagnosis [facility] [id number] [place] [address] February, Concern about STD in male without diagnosis Z71.1 [facility] [id number] [place] [address] Mar, [facility] [address] [address] Dec, ADHD (attention deficit hyperactivity disorder), combined type F90.2 and PEARL (generalized anxiety disorder) F41.1 [facility] [id number] [place] [address] Oct, Dysfunction of right eustachian tube H69.81 [facility] [id number] [place] [address] Oct, [facility] [address] [address] Oct, [facility] [id number] [place] [address] Oct, [facility] [address] [address] Sep, [facility] [id number] [place] [address] Aug, ADHD (attention deficit hyperactivity disorder), combined type F90.2 and PEARL (generalized anxiety disorder) F41.1 [facility] [id number] [address] Jul, [facility] [id number] [place] [address] Jul, [facility] [id number] [place] [address] Jun, [facility] [id number] [place] [address] May, [facility] [id number] [place] [address] May, [facility] [id number] [place] [address] Apr, [facility] [id number] [place] [address] Mar, [facility] [id number] [place] [address] February, [facility] [id number] [address] February, [facility] [id number] [place] [address] February, PEARL (generalized anxiety disorder) F41.1 [facility] [id number] [place] [address] February, [facility] [address] [address] February, Seasonal allergic rhinitis, unspecified allergic rhinitis trigger J30.2 [facility] [id number] [place] [address] Jan, PEARL (generalized anxiety disorder) F41.1 [facility] [address] [address] Jan, ADHD (attention deficit hyperactivity disorder), combined type F90.2 and PEARL (generalized anxiety disorder) F41.1 [facility] [address] [address] Dec, [facility] [id number] [place] [address] Nov, [facility] [id number] [place] [address] Oct, [facility] [id number] [place] [address] Oct, [facility] [id number] [place] [address] Sep, [facility] [id number] [place] [address] Aug, ADHD (attention deficit hyperactivity disorder), combined type F90.2 and PEARL (generalized anxiety disorder) F41.1 [facility] [id number] [place] [address] Aug, [facility] [address] [address] Jul, [facility] [id number] [place] [address] Jun, ADHD (attention deficit hyperactivity disorder), combined type F90.2 ; ODD (oppositional defiant disorder) F91.3 and PEARL (generalized anxiety disorder) F41.1 [facility] [id number] [place] [address] Jun, [facility] [id number] [address] Jun, [facility] [address] [place] [address] May, [facility] [id number] [place] [address] May, ODD (oppositional defiant disorder) F91.3 and ADHD (attention deficit hyperactivity disorder), combined type F90.2 [facility] [id number] [place] [address] May, [facility] [id number] [place] [address] Apr, [facility] [id number] [place] [address] Mar, [facility] [id number] [place] [address] February, [facility] [id number] [place] [address] Jan, [facility] [id number] [place] [address] Dec, [facility] [id number] [place] [address] Dec, [facility] [id number] [place] [id number] Nov, Dental examination Z01.20 [facility] [id number] [place] [address] Nov, [facility] [address] [address] Nov, [facility] [id number] [place] [address] Nov, Disruptive mood dysregulation disorder F34.8 ; ADHD (attention deficit hyperactivity disorder), combined type F90.2 and ODD (oppositional defiant disorder) F91.3 [facility] [id number] [place] [address] Sep, [facility] [address], [place] [address] Aug, [facility] [id number] [place] [address] Jul, [facility] [address] [address] Jul, [facility] [id number] [place] [address] Jul, [facility] [address] [address] Jun, Bipolar disorder, unspecified 296.80 ; Attention deficit disorder (ADD), child, 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 and ODD (oppositional defiant disorder) 313.81 [facility] [id number] [address] May, [facility] [id number] [address] May, [facility] [id number] [place] [address] May, [facility] [address], [place] [address] Apr, [facility] [address] [address] Mar, [facility] [id number] [address] Mar, [facility] [id number] [address] February, Bipolar disorder, unspecified 296.80 ; Attention deficit disorder 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 and Oppositional defiant behavior 313.81 [facility] [address] [address] February, [facility] [id number] [place] [address] [place] [address] 14 Jan, 2015 [facility] [place] [facility] [address] [id number] [place] [address] 13 Jan, 2015 [facility] [place] [facility] [address] [id number] [place] [address] 11 Dec, 2014 [facility] [place] [facility] [address] [id number] [place] [address] 10 Dec, 2014 [facility] [place] [facility] [address] [id number] [place] [address] 10 Dec, 2014 [facility] [place] [facility] [address] [id number] [place] [address] Nov, [facility] [place] [facility] [address] [id number] [place] [address] Nov, [facility] [place] [facility] [address] [id number] [place] [address] Nov, [facility] [place] [facility] [address] [id number] [place] [address] Nov, [facility] [place] [facility] [address] [id number] [place] [address] Nov, [facility] [place] [facility] [address] [id number] [place] [address] Nov, [facility] [place] [facility] [address] [id number] [place] [address] Nov, [facility] [place] [facility] [address] [id number] [place] [address] Nov, [facility] [place] [facility] [address] [id number] [place] [address] Oct, [facility] [place] [facility] [address] [id number] [place] [address] Oct, [facility] [place] [facility] [address] [id number] [place] [address] 15 Oct, 2014 [facility] [place] [facility] [address] [id number] [place] [address] 14 Oct, 2014 [facility] [place] [facility] [address] [id number] [place] [address] Oct, [facility] [place] [facility] [address] [id number] [place] [address] Oct, [facility] [place] [facility] [address] [id number] [place] [address] Oct, [facility] [place] [facility] [address] [id number] [place] [address] 16 Sep, 2014 [facility] [place] [facility] [address] [id number] [place] [address] 15 Sep, 2014 [facility] [place] [facility] [address] [id number] [place] [address] Sep, [facility] [place] [facility] [address] [id number] [place] [address] Aug, [facility] [place] [facility] [address] [id number] [place] [address] Aug, [facility] [place] [facility] [address] [id number] [place] [address] 14 Jul, 2014 [facility] [place] [facility] [address] [id number] [place] [address] Jul, [facility] [place] [facility] [address] [id number] [place] [address] Jun, [facility] [place] [facility] [address] [id number] [place] [address] Jun, [facility] [place] [facility] [address] [id number] [place] [address] May, [facility] [place] [facility] [address] [id number] [place] [address] May, [facility] [place] [facility] [address] [id number] [place] [address] May, [facility] [place] [facility] [address] [id number] [place] [address] May, [facility] [place] [facility] [address] [id number] [place] [address] Apr, [facility] [place] [facility] [address] [id number] [place] [address] Apr, [facility] [place] [facility] [address] [id number] [place] [address] Apr, [facility] [place] [facility] [address] [id number] [place] [address] Apr, [facility] [place] [facility] [address] [id number] [place] [address] Apr, [facility] [place] [facility] [address] [id number] [place] [address] Mar, [facility] [place] [facility] [address] [id number] [place] [address] Mar, [facility] [place] [facility] [address] [id number] [place] [address] Mar, [facility] [place] [facility] [address] [id number] [place] [address] Mar, [facility] [place] [facility] [address] [id number] [place] [address] Mar, [facility] [place] [facility] [address] [id number] [place] [address] February, [facility] [place] [facility] [address] [id number] [place] [address] February, [facility] [place] [facility] [address] [id number] [place] [address] February, [facility] [place] [facility] [address] [id number] [place] [address] Jan, [facility] [place] [facility] [address] [id number] [place] [address] 14 Jan, 2014 [facility] [place] [facility] [address] [id number] [place] [address] Dec, [facility] [place] [facility] [address] [id number] [place] [address] Dec, [facility] [place] [facility] [address] [id number] [place] [address] Nov, [facility] [place] [facility] [address] [id number] [place] [address] Nov, [facility] [place] [facility] [address] [id number] [place] [address] Sep, [facility] [place] [facility] [address] [id number] [place] [address] Sep, [facility] [place] [facility] [address] [id number] [place] [address] Sep, [facility] [place] [facility] [address] [id number] [place] [address] Sep, [facility] [place] [facility] [address] [id number] [place] [address] Aug, [facility] [place] [facility] [address] [id number] [place] [address] Aug, [facility] [place] [facility] [address] [id number] [place] [address] Aug, [facility] [place] [facility] [address] [id number] [place] [address] Aug, [facility] [place] [facility] [address] [id number] [place] [address] Jul, [facility] [place] [facility] [address] [id number] [place] [address] Jul, [facility] [place] [facility] [address] [id number] [place] [address] Jun, [facility] [address] [id number] [place] [address] 16 May, 2013 [facility] [place] [facility] [address] [id number] [place] [address] May, [facility] [place] [facility] [address] [id number] [place] [address] May, [facility] [place] [facility] [address] [id number] [place] [address] Apr, [facility] [place] [facility] [address] [id number] [place] [address] Apr, [facility] [place] [facility] [address] [id number] [place] [address] Oct, [facility] [place] [facility] [address] [id number] [place] [address] 24 Sep, 2012 [facility] [place] [facility] [address] [id number] [place] [address] Sep, [facility] [place] [facility] [address] [id number] [place] [address] Sep, [facility] [place] [facility] [address] [id number] [place] [address] Sep, [facility] [place] [facility] [address] [id number] [place] [address] Sep, [facility] [place] [facility] [address] [id number] [address] Sep, [facility] [place] [facility] [address] [id number] [place] [address] Sep, [facility] [place] [facility] [address] [id number] [place] [address] Aug, [facility] [place] [facility] [address] [id number] [place] [address] Aug, [facility] [place] [facility] [address] [id number] [place] [address] 14 Aug, 2012 [facility] [place] [facility] [address] [id number] [place] [address] Aug, [facility] [place] [facility] [address] [id number] [place] [address] Jul, [facility] [place] [facility] [address] [id number] [place] [address] Jul, [facility] [place] [facility] [address] [id number] [place] [address] Jul, [facility] [place] [facility] [address] [id number] [place] [address] Jun, [facility] [place] [facility] [address] [id number] [place] [address] May, [facility] [place] [facility] [address] [id number] [place] [address] May, [facility] [place] [facility] [address] [id number] [place] [address] May, [facility] [place] [facility] [address] [id number] [place] [address] May, [facility] [place] [facility] [address] [facility] [id number] [place] [address] May, [facility] [place] [facility] [address] [id number] [place] [address] Apr, [facility] [place] [facility] [address] [id number] [place] [address] Apr, [facility] [place] [facility] [address] [id number] [place] [id number] Mar, [facility] [place] [facility] [id number] [place] [id number] Mar, [facility] [place] [facility] [address] [id number] [place] [address] Mar, [facility] [place] [facility] [address] [id number] [place] [address] Mar, [facility] [place] [facility] [address] [id number] [place] [address] Mar, [facility] [place] [facility] [address] [id number] [place] [address] Mar, [facility] [place] [facility] [address] [id number] [place] [address] February, [facility] [address] [id number] [place] [address] Jan, [facility] [place] [facility] [address] [id number] [place] [address] Jan, [facility] [address] [id number] [place] [address] Dec, [facility] [address] [id number] [place] [address] Dec, [facility] [place] [facility] [address] [id number] [place] [address] Dec, [facility] [place] [facility] [address] [id number] [place] [address] Dec, [facility] [place] [facility] [address] [id number] [place] [address] Dec, [facility] [place] [facility] [address] [id number] [place] [address] Nov, [facility] [place] [facility] [address] [id number] [place] [address] Oct, [facility] [place] [facility] [address] [id number] [place] [address] Oct, [facility] [place] [facility] [address] [id number] [place] [address] Sep, [facility] [place] [facility] [address] [id number] [address] Sep, [facility] [id number] [address] Aug, [facility] [id number] [address] Aug, [facility] [id number] [address] Jul, [facility] [id number] [address] Jul, [facility] [id number] [address] Jun, [facility] [id number] [address] February, [facility] [id number] [address] Jan, [facility] [id number] [address] Dec, IMMUNIZATIONS No Known Immunizations SOCIAL HISTORY Never Assessed REASON FOR VISIT PLAN OF CARE VITAL SIGNS Height 67.5 in 2014-12-16 Weight 182.12 lbs 2014-12-16 Temperature 98.8 degrees Fahrenheit 2014-12-16 Heart Rate 110 bpm 2014-12-16 Respiratory Rate 24 2014-12-16 Blood pressure systolic 110 mmHg 2014-12-16 Blood pressure diastolic 84 mmHg 2014-12-16 MEDICATIONS No Known Medications RESULTS No Results [...]
--- OUTSIDE RECORDS SUMMARY | 2019-05-18 01:23 | XMS REPORT ---
Author Author JOAN GARCIA [facility] Address [address] [place] [address] Care Team Providers Care Slope Runner Name Role Phone JOSEFELIPAJOAN Unavailable PROBLEMS Type Condition ICD9-CM Code MLO01-SX Code Onset Dates Condition Status SNOMED Code Problem PEARL (generalized anxiety disorder) F41.1 Active 71524193 Problem Seasonal allergic rhinitis, unspecified allergic rhinitis trigger J30.2 Active 680903371 Problem ADHD (attention deficit hyperactivity disorder), combined type F90.2 Active [id number] ALLERGIES No Information ENCOUNTERS Encounter Location Date Diagnosis [facility] [id number] [place] [address] February, Concern about STD in male without diagnosis Z71.1 [facility] [id number] [place] [address] Mar, [facility] [address] [address] Dec, ADHD (attention deficit hyperactivity disorder), combined type F90.2 and PEARL (generalized anxiety disorder) F41.1 [facility] [id number] [place] [address] Oct, Dysfunction of right eustachian tube H69.81 [facility] [id number] [place] [address] Oct, [facility] [address] [address] Oct, [facility] [id number] [place] [address] Oct, [facility] [address] [address] Sep, [facility] [id number] [place] [address] Aug, ADHD (attention deficit hyperactivity disorder), combined type F90.2 and PEARL (generalized anxiety disorder) F41.1 [facility] [id number] [address] Jul, [facility] [id number] [place] [address] Jul, [facility] [id number] [place] [address] Jun, [facility] [id number] [place] [address] May, [facility] [id number] [place] [address] May, [facility] [id number] [place] [address] Apr, [facility] [id number] [place] [address] Mar, [facility] [id number] [place] [address] February, [facility] [id number] [address] February, [facility] [id number] [place] [address] February, PEARL (generalized anxiety disorder) F41.1 [facility] [id number] [place] [address] February, [facility] [address] [address] February, Seasonal allergic rhinitis, unspecified allergic rhinitis trigger J30.2 [facility] [id number] [place] [address] Jan, PEARL (generalized anxiety disorder) F41.1 [facility] [address], [place] [address] Jan, ADHD (attention deficit hyperactivity disorder), combined type F90.2 and PEARL (generalized anxiety disorder) F41.1 [facility] [address] [address] Dec, [facility] [id number] [place] [address] Nov, [facility] [id number] [place] [address] Oct, [facility] [id number] [place] [address] Oct, [facility] [id number] [place] [address] Sep, [facility] [id number] [place] [address] Aug, ADHD (attention deficit hyperactivity disorder), combined type F90.2 and PEARL (generalized anxiety disorder) F41.1 [facility] [id number] [place] [address] Aug, [facility] [address] [address] Jul, [facility] [id number] [place] [address] Jun, ADHD (attention deficit hyperactivity disorder), combined type F90.2 ; ODD (oppositional defiant disorder) F91.3 and PEARL (generalized anxiety disorder) F41.1 [facility] [id number] [place] [address] Jun, [facility] [id number] [address] Jun, [facility] [address] [place] [address] May, [facility] [address] [place] [address] May, ODD (oppositional defiant disorder) F91.3 and ADHD (attention deficit hyperactivity disorder), combined type F90.2 [facility] [id number] [place] [address] May, [facility] [id number] [place] [address] Apr, [facility] [id number] [place] [address] Mar, [facility] [id number] [place] [address] February, [facility] [id number] [place] [address] Jan, [facility] [id number] [place] [address] Dec, [facility] [id number] [place] [address] Dec, [facility] [address] [place] [id number] Nov, Dental examination Z01.20 [facility] [address] [place] [address] Nov, [facility] [address], [place] [address] Nov, [facility] [id number] [place] [address] Nov, Disruptive mood dysregulation disorder F34.8 ; ADHD (attention deficit hyperactivity disorder), combined type F90.2 and ODD (oppositional defiant disorder) F91.3 [facility] [address] [place] [address] Sep, [facility] [address], [place] [address] Aug, [facility] [id number] [place] [address] Jul, [facility] [address], [place] [address] Jul, [facility] [id number] [place] [address] Jul, [facility] [address], [place] [address] Jun, Bipolar disorder, unspecified 296.80 ; Attention deficit disorder (ADD), child, 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 and ODD (oppositional defiant disorder) 313.81 [facility] [id number] [address] May, [facility] [id number] [address] May, [facility] [id number] [place] [address] May, [facility] [address], [place] [address] Apr, [facility] [address], [place] [address] Mar, [facility] [id number] [address] Mar, [facility] [id number] [address] February, Bipolar disorder, unspecified 296.80 ; Attention deficit disorder 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 and Oppositional defiant behavior 313.81 [facility] [address], [place] [address] February, [facility] [id number] [place] [address] [place] [address] 14 Jan, 2015 [facility] [place] [facility] [address] [id number] [place] [address] 13 Jan, 2015 [facility] [place] [facility] [address] [id number] [place] [address] 11 Dec, 2014 [facility] [place] [facility] [address] [id number] [place] [address] 10 Dec, 2014 [facility] [place] [facility] [address] [id number] [place] [address] 10 Dec, 2014 [facility] [place] [facility] [address] [id number] [place] [address] Nov, [facility] [place] [facility] [address] [id number] [place] [address] Nov, [facility] [place] [facility] [address] [id number] [place] [address] Nov, [facility] [place] [facility] [address] [id number] [place] [address] Nov, [facility] [place] [facility] [address] [id number] [place] [address] Nov, [facility] [place] [facility] [address] [id number] [place] [address] Nov, [facility] [place] [facility] [address] [id number] [place] [address] Nov, [facility] [place] [facility] [address] [id number] [place] [address] Nov, [facility] [place] [facility] [address] [id number] [place] [address] Oct, [facility] [place] [facility] [address] [id number] [place] [address] Oct, [facility] [place] [facility] [address] [id number] [place] [address] 15 Oct, 2014 [facility] [place] [facility] [address] [id number] [place] [address] 14 Oct, 2014 [facility] [place] [facility] [address] [id number] [place] [address] Oct, [facility] [place] [facility] [address] [id number] [place] [address] Oct, [facility] [place] [facility] [address] [id number] [place] [address] Oct, [facility] [place] [facility] [address] [id number] [place] [address] 16 Sep, 2014 [facility] [place] [facility] [address] [id number] [place] [address] 15 Sep, 2014 [facility] [place] [facility] [address] [id number] [place] [address] Sep, [facility] [place] [facility] [address] [id number] [place] [address] Aug, [facility] [place] [facility] [address] [id number] [place] [address] Aug, [facility] [place] [facility] [address] [id number] [place] [address] 14 Jul, 2014 [facility] [place] [facility] [address] [id number] [place] [address] Jul, [facility] [place] [facility] [address] [id number] [place] [address] Jun, [facility] [place] [facility] [address] [id number] [place] [address] Jun, [facility] [place] [facility] [address] [id number] [place] [address] May, [facility] [place] [facility] [address] [id number] [place] [address] May, [facility] [place] [facility] [address] [id number] [place] [address] May, [facility] [place] [facility] [address] [id number] [place] [address] May, [facility] [place] [facility] [address] [id number] [place] [address] Apr, [facility] [place] [facility] [address] [id number] [place] [address] Apr, [facility] [place] [facility] [address] [id number] [place] [address] Apr, [facility] [place] [facility] [address] [id number] [place] [address] Apr, [facility] [place] [facility] [address] [id number] [place] [address] Apr, [facility] [place] [facility] [address] [id number] [place] [address] Mar, [facility] [place] [facility] [address] [id number] [place] [address] Mar, [facility] [place] [facility] [address] [id number] [place] [address] Mar, [facility] [place] [facility] [address] [id number] [place] [address] Mar, [facility] [place] [facility] [address] [id number] [place] [address] Mar, [facility] [place] [facility] [address] [id number] [place] [address] February, [facility] [place] [facility] [address] [id number] [place] [address] February, [facility] [place] [facility] [address] [id number] [place] [address] February, [facility] [place] [facility] [address] [id number] [place] [address] Jan, [facility] [place] [facility] [address] [id number] [place] [address] 14 Jan, 2014 [facility] [place] [facility] [address] [id number] [place] [address] Dec, [facility] [place] [facility] [address] [id number] [place] [address] Dec, [facility] [place] [facility] [address] [id number] [place] [address] Nov, [facility] [place] [facility] [address] [id number] [place] [address] Nov, [facility] [place] [facility] [address] [id number] [place] [address] Sep, [facility] [place] [facility] [address] [id number] [place] [address] Sep, [facility] [place] [facility] [address] [id number] [place] [address] Sep, [facility] [place] [facility] [address] [id number] [place] [address] Sep, [facility] [place] [facility] [address] [id number] [place] [address] Aug, [facility] [place] [facility] [address] [id number] [place] [address] Aug, [facility] [place] [facility] [address] [id number] [place] [address] Aug, [facility] [place] [facility] [address] [id number] [place] [address] Aug, [facility] [place] [facility] [address] [id number] [place] [address] Jul, [facility] [place] [facility] [address] [id number] [place] [address] Jul, [facility] [place] [facility] [address] [id number] [place] [address] Jun, [facility] [address] [id number] [place] [address] 16 May, 2013 [facility] [place] [facility] [address] [id number] [place] [address] May, [facility] [place] [facility] [address] [id number] [place] [address] May, [facility] [place] [facility] [address] [id number] [place] [address] Apr, [facility] [place] [facility] [address] [id number] [place] [address] Apr, [facility] [place] [facility] [address] [id number] [place] [address] Oct, [facility] [place] [facility] [address] [id number] [place] [address] 24 Sep, 2012 [facility] [place] [facility] [address] [id number] [place] [address] Sep, [facility] [place] [facility] [address] [id number] [place] [address] Sep, [facility] [place] [facility] [address] [id number] [place] [address] Sep, [facility] [place] [facility] [address] [id number] [place] [address] Sep, [facility] [place] [facility] [address] [id number] [address] Sep, [facility] [place] [facility] [address] [id number] [place] [address] Sep, [facility] [place] [facility] [address] [id number] [place] [address] Aug, [facility] [place] [facility] [address] [id number] [place] [address] Aug, [facility] [place] [facility] [address] [id number] [place] [address] 14 Aug, 2012 [facility] [place] [facility] [address] [id number] [place] [address] Aug, [facility] [place] [facility] [address] [id number] [place] [address] Jul, [facility] [place] [facility] [address] [id number] [place] [address] Jul, [facility] [place] [facility] [address] [id number] [place] [address] Jul, [facility] [place] [facility] [address] [id number] [place] [address] Jun, [facility] [place] [facility] [address] [id number] [place] [address] May, [facility] [place] [facility] [address] [id number] [place] [address] May, [facility] [place] [facility] [address] [id number] [place] [address] May, [facility] [place] [facility] [address] [id number] [place] [address] May, [facility] [place] [facility] [address] [facility] [id number] [place] [address] May, [facility] [place] [facility] [address] [id number] [place] [address] Apr, [facility] [place] [facility] [address] [id number] [place] [address] Apr, [facility] [place] [facility] [address] [id number] [place] [id number] Mar, [facility] [place] [facility] [id number] [id number] Mar, [facility] [place] [facility] [address] [id number] [place] [address] Mar, [facility] [place] [facility] [address] [id number] [place] [address] Mar, [facility] [place] [facility] [address] [id number] [place] [address] Mar, [facility] [place] [facility] [address] [id number] [place] [address] Mar, [facility] [place] [facility] [address] [id number] [place] [address] February, [facility] [address] [id number] [place] [address] Jan, [facility] [place] [facility] [address] [id number] [place] [address] Jan, [facility] [address] [id number] [place] [address] Dec, [facility] [address] [id number] [place] [address] Dec, [facility] [place] [facility] [address] [id number] [place] [address] Dec, [facility] [place] [facility] [address] [id number] [place] [address] Dec, [facility] [place] [facility] [address] [id number] [place] [address] Dec, [facility] [place] [facility] [address] [id number] [place] [address] Nov, [facility] [place] [facility] [address] [id number] [place] [address] Oct, [facility] [place] [facility] [address] [id number] [place] [address] Oct, [facility] [place] [facility] [address] [id number] [place] [address] Sep, [facility] [place] [facility] [address] [id number] [address] Sep, [facility] [id number], [place] [address] Aug, [facility] [address], [place] [address] Aug, [facility] [address], [place] [address] Jul, [facility] [address], [place] [address] Jul, [facility] [address], [place] [address] Jun, [facility] [address], [place] [address] February, [facility] [address], [place] [address] Jan, [facility] [address], [place] [address] Dec, IMMUNIZATIONS No Known Immunizations SOCIAL HISTORY [...]
--- OUTSIDE RECORDS SUMMARY | 2019-05-18 01:24 | XMS REPORT ---
Author Author Migration, Doctor Organization [facility] Address Unknown Phone Unavailable Care Team Providers Care Lingo Cleaner Name Role Phone Migration, Doctor Unavailable Unavailable PROBLEMS Type Condition ICD9-CM Code KPH56-TS Code Onset Dates Condition Status SNOMED Code Problem PEARL (generalized anxiety disorder) F41.1 Active 33572248 Problem Seasonal allergic rhinitis, unspecified allergic rhinitis trigger J30.2 Active 704100431 Problem ADHD (attention deficit hyperactivity disorder), combined type F90.2 Active [id number] ALLERGIES No Information ENCOUNTERS Encounter Location Date Diagnosis [place] [id number] [place] [address] Mar, [place] [address] [address] Dec, ADHD (attention deficit hyperactivity disorder), combined type F90.2 and PEARL (generalized anxiety disorder) F41.1 [place] [id number] [place] [address] Oct, Dysfunction of right eustachian tube H69.81 [place] [id number] [place] [address] Oct, [place] [id number] [place] [address] Oct, [place] [id number] [place] [address] Oct, [place] [address] [address] Sep, [place] [id number] [place] [address] Aug, ADHD (attention deficit hyperactivity disorder), combined type F90.2 and PEARL (generalized anxiety disorder) F41.1 [place] [address] [address] Jul, [facility] [address] [address] Jul, [facility] [address] [address] Jun, [facility] [address] [address] May, [facility] [address] [address] May, [facility] [address] [place] [address], [place] [address] Apr, [facility] [address] [address] Mar, [facility] [address] [address] February, [facility] [address] [address] February, [facility] [address] [address] February, PEARL (generalized anxiety disorder) F41.1 [facility] [address] [address] February, [facility] [id number] [address] February, Seasonal allergic rhinitis, unspecified allergic rhinitis trigger J30.2 [facility] [address] [address] Jan, PEARL (generalized anxiety disorder) F41.1 [facility] [address] [address] Jan, ADHD (attention deficit hyperactivity disorder), combined type F90.2 and PEARL (generalized anxiety disorder) F41.1 [facility] [address] [address] Dec, [facility] [address] [address] Nov, [facility] [address] [address] Oct, [facility] [address] [address] Oct, [facility] [address] [address] Sep, [facility] [address] [address] Aug, ADHD (attention deficit hyperactivity disorder), combined type F90.2 and PEARL (generalized anxiety disorder) F41.1 [facility] [address] [address] Aug, [facility] [address] [address] Jul, [facility] [address] [address] Jun, ADHD (attention deficit hyperactivity disorder), combined type F90.2 ; ODD (oppositional defiant disorder) F91.3 and PEARL (generalized anxiety disorder) F41.1 [facility] [address] [address] Jun, [facility] [id number] [address] Jun, [facility] [address] [address] May, [facility] [id number] [address] May, ODD (oppositional defiant disorder) F91.3 and ADHD (attention deficit hyperactivity disorder), combined type F90.2 [facility] [address] [address] May, [facility] [id number] [place] [address] Apr, [facility] [id number] [place] [address] Mar, [facility] [id number] [place] [address] February, [facility] [id number] [place] [address] Jan, [facility] [id number] [place] [address] Dec, [facility] [id number] [place] [address] Dec, [facility] [id number] [place] [id number] Nov, Dental examination Z01.20 [facility] [id number] [place] [address] Nov, [facility] [id number] [place] [address] Nov, [facility] [id number] [place] [address] Nov, Disruptive mood dysregulation disorder F34.8 ; ADHD (attention deficit hyperactivity disorder), combined type F90.2 and ODD (oppositional defiant disorder) F91.3 [facility] [id number] [place] [address] Sep, [facility] [id number] [place] [address] Aug, [facility] [id number] [place] [address] Jul, [facility] [address] [address] Jul, [facility] [id number] [place] [address] Jul, [facility] [address] [address] Jun, Bipolar disorder, unspecified 296.80 ; Attention deficit disorder (ADD), child, 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 and ODD (oppositional defiant disorder) 313.81 [facility] [address] [address] May, [facility] [id number] [place] [address] May, [facility] [id number] [place] [address] May, [facility] [id number] [place] [address] Apr, [facility] [address] [address] Mar, [facility] [address] [place] [address] Mar, [facility] [address] [address] February, Bipolar disorder, unspecified 296.80 ; Attention deficit disorder 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 and Oppositional defiant behavior 313.81 [facility] [address] [address] February, [facility] [id number] [place] [address] Jan, [facility] [address] [address] Jan, [facility] [id number] [place] [address] Dec, [facility] [place] [facility] [address] [id number] [place] [address] Dec, [facility] [place] [facility] [address] [id number] [place] [address] Dec, [facility] [place] [facility] [address] [id number] [place] [address] Nov, 2014 [facility] [place] [facility] [address] [id number] [place] [address] Nov, 2014 [facility] [place] [facility] [address] [id number] [place] [address] Nov, [facility] [place] [facility] [address] [id number] [place] [address] Nov, [facility] [place] [facility] [address] [facility] [id number] [place] [address] Nov, [facility] [place] [facility] [address] [id number] [place] [address] Nov, [facility] [place] [facility] [address] [id number] [place] [address] Nov, [facility] [place] [facility] [address] [facility]NOTE 3] [id number] [place] [address] Nov, [facility] [place] [facility] [address] [facility] 3] [id number] [place] [address] Oct, [facility] [place] [facility] [address] [id number] [address] 16 Oct, 2014 [facility] [place] [facility] [address] [id number] [address] 15 Oct, 2014 [facility] [place] [facility] [address] [facility]] [id number] [place] [address] Oct, [facility] [place] [facility] [address] [facility] 3] [id number] [address] Oct, [facility] [place] [facility] [address] [id number] [place] [address] 08 Oct, 2014 [facility] [place] [facility] [address] [id number] [place] [address] Oct, [facility] [place] [facility] [address] [id number] [place] [address] 16 Sep, 2014 [facility] [place] [facility] [address] [id number] [place] [address] Sep, [facility] [place] [facility] [address] [id number] [place] [address] Sep, [facility] [place] [facility] [address] [id number] [place] [address] Aug, [facility] [place] [facility] [address] [id number] [place] [address] Aug, [facility] [place] [facility] [address] [id number] [place] [address] Jul, [facility] [place] [facility] [address] [id number] [place] [address] Jul, [facility] [place] [facility] [address] [id number] [place] [address] Jun, [facility] [place] [facility] [address] [id number] [place] [address] Jun, [facility] [place] [facility] [address] [id number] [place] [address] May, [facility] [place] [facility] [address] [id number] [place] [address] May, [facility] [place] [facility] [address] [id number] [place] [address] May, [facility] [place] [facility] [address] [id number] [place] [address] May, [facility] [place] [facility] [address] [id number] [place] [address] Apr, [facility] [place] [facility] [address] [id number] [place] [address] Apr, [facility] [place] [facility] [address] [id number] [place] [address] Apr, [facility] [place] [facility] [address] [id number] [place] [address] Apr, [facility] [place] [facility] [address] [id number] [place] [address] Apr, [facility] [place] [facility] [address] [id number] [place] [address] Mar, [facility] [place] [facility] [address] [id number] [place] [address] Mar, [facility] [place] [facility] [address] [id number] [place] [address] Mar, [facility] [place] [facility] [address] [id number] [place] [address] Mar, [facility] [place] [facility] [address] [id number] [place] [address] Mar, [facility] [place] [facility] [address] [id number] [place] [address] February, [facility] [place] [facility] [address] [id number] [place] [address] February, [facility] [place] [facility] [address] [id number] [place] [address] February, [facility] [place] [facility] [address] [id number] [place] [address] Jan, [facility] [place] [facility] [address] [id number] [place] [address] Jan, [facility] [place] [facility] [address] [id number] [place] [address] Dec, [facility] [place] [facility] [address] [id number] [place] [address] Dec, [facility] [address] [id number] [place] [address] Nov, [facility] [address] [id number] [place] [address] Nov, [facility] [address] [id number] [place] [address] Sep, [facility] [address] [id number] [place] [address] Sep, [facility] [address] [id number] [place] [address] Sep, [facility] [address] [id number] [place] [address] Sep, [facility] [address] [id number] [place] [address] Aug, [facility] [address] [id number] [place] [address] Aug, [facility] [address] [id number] [place] [address] Aug, [facility] [address] [id number] [place] [address] Aug, [facility] [place] [facility] [address] [id number] [place] [address] Jul, [facility] [place] [facility] [address] [id number] [place] [address] Jul, [facility] [place] [facility] [address] [id number] [place] [address] Jun, [facility] [place] [facility] [address] [id number] [place] [address] May, [facility] [place] [facility] [address] [id number] [place] [address] May, [facility] [place] [facility] [address] [id number] [place] [address] 15 May, 2013 [facility] [place] [facility] [address] [id number] [place] [address] 19 Apr, 2013 [facility] [place] [facility] [address] [id number] [place] [address] 18 Apr, 2013 [facility] [place] [facility] [address] [id number] [place] [address] 14 Oct, 2012 [facility] [place] [facility] [address] [id number] [place] [address] 24 Sep, 2012 [facility] [place] [facility] [address] [id number] [place] [address] Sep, [facility] [place] [facility] [address] [id number] [place] [address] Sep, [facility] [place] [facility] [address] [id number] [place] [address] 18 Sep, 2012 [facility] [place] [facility] [address] [id number] [place] [address] 18 Sep, 2012 [facility] [place] [facility] [address] [id number] [place] [address] Sep, [facility] [place] [facility] [address] [id number] [place] [address] Sep, [facility] [place] [facility] [address] [id number] [place] [address] 19 Aug, 2012 [facility] [place] [facility] [address] [id number] [place] [address] 19 Aug, 2012 [facility] [place] [facility] [address] [id number] [place] [address] 14 Aug, 2012 [facility] [place] [facility] [address] [id number] [place] [address] 14 Aug, 2012 [facility] [place] [facility] [address] [id number] [place] [address] Jul, [facility] [place] [facility] [address] [id number] [place] [address] Jul, [facility] [place] [facility] [address] [id number] [place] [address] Jul, [facility] [place] [facility] [address] [id number] [place] [address] Jun, [facility] [place] [facility] [address] [id number] [place] [address] May, [facility] [place] [facility] [address] [id number] [place] [address] May, [facility] [place] [facility] [address] [id number] [place] [address] May, [facility] [place] [facility] [address] [id number] [place] [address] May, [facility] [place] [facility] [address] [id number] [place] [address] May, [facility] [place] [facility] [address] [id number] [place] [address] Apr, [facility] [place] [facility] [address] [id number] [place] [address] Apr, [facility] [place] [facility] [address] [id number] [place] [address] Mar, [facility] [place] [facility] [address] [address] Mar, [facility] [place] [facility] [address] [id number] [place] [address] Mar, [facility] [place] [facility] [address] [id number] [place] [address] Mar, [facility] [place] [facility] [address] [id number] [place] [address] Mar, [facility] [place] [facility] [address] [id number] [place] [address] Mar, [facility] [address] [id number] [place] [address] February, [facility] [address] [id number] [place] [address] Jan, [facility] [address] [id number] [place] [address] Jan, [facility] [address] [id number] [place] [address] Dec, [facility] [address] [id number] [place] [address] Dec, [facility] [address] [id number] [place] [address] Dec, [facility] [address] [id number] [place] [address] Dec, [facility] [address] [id number] [place] [address] Dec, [facility] [address] [id number] [place] [address] Nov, [facility] [address] [id number] [place] [address] Oct, [facility] [address] [id number] [place] [address] Oct, [facility] [address] [id number] [place] [address] Sep, [facility] [place] [facility] [address] [id number] [place] [address] Sep, [facility] [address] [id number] [place] [address] Aug, [facility] [address] [id number] [place] [address] Aug, [facility] [address] [facility] 3[facility] [id number] [address] 29 Jul, 2011 [facility] [address] [address] Jul, [facility] [id number] [address] Jun, [facility] [address] [address] February, [facility] [id number] [address] Jan, [facility] [address] [address] Dec, IMMUNIZATIONS No Known Immunizations SOCIAL HISTORY Never Assessed REASON FOR VISIT EMR-[facility] PLAN OF CARE VITAL SIGNS MEDICATIONS Unknown Medications RESULTS No Results PROCEDURES No Known procedures INSTRUCTIONS MEDICATIONS ADMINISTERED No Known Medications MEDICAL (GENERAL) HISTORY Type Description Date Medical History Bipolar disorder, unspecified Medical History Bipolar disorder, unspecified Medical History ODD (oppositional defiant disorder) Medical History ODD (oppositional defiant disorder) Medical History Disruptive mood dysregulation disorder
--- OUTSIDE RECORDS SUMMARY | 2019-05-18 01:24 | XMS REPORT ---
Author Author Migration, Doctor Organization [facility] Address Unknown Phone Unavailable Care Team Providers Care Test Rack Operator Name Role Phone Migration, Doctor Unavailable Unavailable PROBLEMS Type Condition ICD9-CM Code [id number] Code Onset Dates Condition Status SNOMED Code Problem PEARL (generalized anxiety disorder) F41.1 Active 40891453 Problem Seasonal allergic rhinitis, unspecified allergic rhinitis trigger J30.2 Active 788833223 Problem ADHD (attention deficit hyperactivity disorder), combined type F90.2 Active [id number] ALLERGIES No Information ENCOUNTERS Encounter Location Date Diagnosis [place] [id number] [place] [address] Mar, [place] [address] [address] Dec, ADHD (attention deficit hyperactivity disorder), combined type F90.2 and PEARL (generalized anxiety disorder) F41.1 [place] [id number] [place] [address] Oct, Dysfunction of right eustachian tube H69.81 [place] [id number] [place] [address] Oct, [place] [id number] [place] [address] Oct, [place] [id number] [place] [address] Oct, [place] [address] [address] Sep, [place] [id number] [place] [address] Aug, ADHD (attention deficit hyperactivity disorder), combined type F90.2 and PEARL (generalized anxiety disorder) F41.1 [place] [address] [address] Jul, [facility] [place] [address] [address] Jul, [facility] [place] [address] [address] Jun, [facility] [place] [address] [address] May, [facility] [place] [address] [address] May, [facility] [place] [id number] [place] [address], [place] [address] Apr, [facility] [place] [address] [address] Mar, [facility] [place] [address] [address] February, [facility] [place] [address] [address] February, [facility] [place] [address] [address] February, PEARL (generalized anxiety disorder) F41.1 [facility] [place] [address] [address] February, [facility] [id number] [address] February, Seasonal allergic rhinitis, unspecified allergic rhinitis trigger J30.2 [facility] [place] [address] [address] Jan, PEARL (generalized anxiety disorder) F41.1 [facility] [place] [address] [address] Jan, ADHD (attention deficit hyperactivity disorder), combined type F90.2 and PEARL (generalized anxiety disorder) F41.1 [facility] [place] [address] [address] Dec, [facility] [place] [address] [address] Nov, [facility] [place] [address] [address] Oct, [facility] [place] [address] [address] Oct, [facility] [place] [address] [address] Sep, [facility] [place] [address] [address] Aug, ADHD (attention deficit hyperactivity disorder), combined type F90.2 and PEARL (generalized anxiety disorder) F41.1 [facility] [place] [address] [address] Aug, [facility] [place] [address] [address] Jul, [facility] [place] [address] [address] Jun, ADHD (attention deficit hyperactivity disorder), combined type F90.2 ; ODD (oppositional defiant disorder) F91.3 and PEARL (generalized anxiety disorder) F41.1 [facility] [place] [address] [address] Jun, [facility] [place] [id number] [address] Jun, [facility] [place] [address] [address] May, [facility] [place] [id number] [address] May, ODD (oppositional defiant disorder) F91.3 and ADHD (attention deficit hyperactivity disorder), combined type F90.2 [facility] [place] [address] [address] May, [facility] [place] [id number] [place] [address] Apr, [facility] [place] [id number] [place] [address] Mar, [facility] [place] [id number] [place] [address] February, [facility] [place] [id number] [place] [address] Jan, [facility] [place] [id number] [place] [address] Dec, [facility] [place] [id number] [place] [address] Dec, [facility] [id number] [place] [id number] Nov, Dental examination Z01.20 [facility] [place] [id number] [place] [address] Nov, [facility] [place] [id number] [place] [address] Nov, [facility] [place] [id number] [place] [address] Nov, Disruptive mood dysregulation disorder F34.8 ; ADHD (attention deficit hyperactivity disorder), combined type F90.2 and ODD (oppositional defiant disorder) F91.3 [facility] [place] [id number] [place] [address] Sep, [facility] [place] [id number] [place] [address] Aug, [facility] [place] [id number] [place] [address] Jul, [facility] [place] [address] [address] Jul, [facility] [place] [id number] [place] [address] Jul, [facility] [place] [address] [address] Jun, Bipolar disorder, unspecified 296.80 ; Attention deficit disorder (ADD), child, 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 and ODD (oppositional defiant disorder) 313.81 [facility] [place] [address] [address] May, [facility] [place] [id number] [place] [address] May, [facility] [place] [id number] [place] [address] May, [facility] [place] [id number] [place] [address] Apr, [facility] [place] [address] [address] Mar, [facility] [place] [id number] [place] [address] Mar, [facility] [place] [address] [address] February, Bipolar disorder, unspecified 296.80 ; Attention deficit disorder 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 and Oppositional defiant behavior 313.81 [facility] [place] [address] [address] February, [facility] [place] [id number] [place] [address] Jan, [facility] [place] [address] [address] Jan, [facility] [place] [id number] [place] [address] Dec, [facility] [place] [facility] [address] [id number] [place] [address] Dec, [facility] [place] [facility] [address] [id number] [place] [address] Dec, [facility] [place] [facility] [address] [id number] [place] [address] Nov, 2014 [facility] [place] [facility] [address] [id number] [place] [address] Nov, 2014 [facility] [place] [facility] [address] [id number] [place] [address] Nov, [facility] [place] [facility] [address] [id number] [place] [address] Nov, [facility] [place] [facility] [address] [facility] [id number] [place] [address] Nov, [facility] [place] [facility] [address] [id number] [place] [address] Nov, [facility] [place] [facility] [address] [id number] [place] [address] Nov, [facility] [place] [facility] [address] [facility] [id number] [place] [address] Nov, [facility] [place] [facility] [address] [facility] [id number] [place] [address] Oct, [facility] [place] [facility] [address] [id number] [address] 16 Oct, 2014 [facility] [place] [facility] [address] [id number] [address] 15 Oct, 2014 [facility] [place] [facility] [address] [facility] [id number] [place] [address] Oct, [facility] [place] [facility] [address] [facility] [id number] [address] Oct, [facility] [place] [facility] [address] [id number] [place] [address] 08 Oct, 2014 [facility] [place] [facility] [address] [id number] [place] [address] Oct, [facility] [place] [facility] [address] [id number] [place] [address] 16 Sep, 2014 [facility] [place] [facility] [address] [id number] [place] [address] Sep, [facility] [place] [facility] [address] [id number] [place] [address] Sep, [facility] [place] [facility] [address] [id number] [place] [address] Aug, [facility] [place] [facility] [address] [id number] [place] [address] Aug, [facility] [place] [facility] [address] [id number] [place] [address] Jul, [facility] [place] [facility] [address] [id number] [place] [address] Jul, [facility] [place] [facility] [address] [id number] [place] [address] Jun, [facility] [place] [facility] [address] [id number] [place] [address] Jun, [facility] [place] [facility] [address] [id number] [place] [address] May, [facility] [place] [facility] [address] [id number] [place] [address] May, [facility] [place] [facility] [address] [id number] [place] [address] May, [facility] [place] [facility] [address] [id number] [place] [address] May, [facility] [place] [facility] [address] [id number] [place] [address] Apr, [facility] [place] [facility] [address] [id number] [place] [address] Apr, [facility] [place] [facility] [address] [id number] [place] [address] Apr, [facility] [place] [facility] [address] [id number] [place] [address] Apr, [facility] [place] [facility] [address] [id number] [place] [address] Apr, [facility] [place] [facility] [address] [id number] [place] [address] Mar, [facility] [place] [facility] [address] [id number] [place] [address] Mar, [facility] [place] [facility] [address] [id number] [place] [address] Mar, [facility] [place] [facility] [address] [id number] [place] [address] Mar, [facility] [place] [facility] [address] [id number] [place] [address] Mar, [facility] [place] [facility] [address] [id number] [place] [address] February, [facility] [place] [facility] [address] [id number] [place] [address] February, [facility] [place] [facility] [address] [id number] [place] [address] February, [facility] [place] [facility] [address] [id number] [place] [address] Jan, [facility] [place] [facility] [address] [id number] [place] [address] Jan, [facility] [place] [facility] [address] [id number] [place] [address] Dec, [facility] [place] [facility] [address] [id number] [place] [address] Dec, [facility] [address] [id number] [place] [address] Nov, [facility] [address] [id number] [place] [address] Nov, [facility] [address] [id number] [place] [address] Sep, [facility] [address] [id number] [place] [address] Sep, [facility] [address] [id number] [place] [address] Sep, [facility] [address] [id number] [place] [address] Sep, [facility] [address] [id number] [place] [address] Aug, [facility] [address] [id number] [place] [address] Aug, [facility] [address] [id number] [place] [address] Aug, [facility] [address] [id number] [place] [address] Aug, [facility] [place] [facility] [address] [id number] [place] [address] Jul, [facility] [place] [facility] [address] [id number] [place] [address] Jul, [facility] [place] [facility] [address] [id number] [place] [address] Jun, [facility] [place] [facility] [address] [id number] [place] [address] May, [facility] [place] [facility] [address] [id number] [place] [address] May, [facility] [place] [facility] [address] [id number] [place] [address] 15 May, 2013 [facility] [place] [facility] [address] [id number] [place] [address] 19 Apr, 2013 [facility] [place] [facility] [address] [id number] [place] [address] 18 Apr, 2013 [facility] [place] [facility] [address] [id number] [place] [address] 14 Oct, 2012 [facility] [place] [facility] [address] [id number] [place] [address] 24 Sep, 2012 [facility] [place] [facility] [address] [id number] [place] [address] Sep, [facility] [place] [facility] [address] [id number] [place] [address] Sep, [facility] [place] [facility] [address] [id number] [place] [address] 18 Sep, 2012 [facility] [place] [facility] [address] [id number] [place] [address] 18 Sep, 2012 [facility] [place] [facility] [address] [id number] [place] [address] Sep, [facility] [place] [facility] [address] [id number] [place] [address] Sep, [facility] [place] [facility] [address] [id number] [place] [address] 19 Aug, 2012 [facility] [place] [facility] [address] [id number] [place] [address] 19 Aug, 2012 [facility] [place] [facility] [address] [id number] [place] [address] 14 Aug, 2012 [facility] [place] [facility] [address] [id number] [place] [address] 14 Aug, 2012 [facility] [place] [facility] [address] [id number] [place] [address] Jul, [facility] [place] [facility] [address] [id number] [place] [address] Jul, [facility] [place] [facility] [address] [id number] [place] [address] Jul, [facility] [place] [facility] [address] [id number] [place] [address] Jun, [facility] [place] [facility] [address] [id number] [place] [address] May, [facility] [place] [facility] [address] [id number] [place] [address] May, [facility] [place] [facility] [address] [id number] [place] [address] May, [facility] [place] [facility] [address] [id number] [place] [address] May, [facility] [place] [facility] [address] [id number] [place] [address] May, [facility] [place] [facility] [address] [id number] [place] [address] Apr, [facility] [place] [facility] [address] [id number] [place] [address] Apr, [facility] [place] [facility] [address] [id number] [place] [address] Mar, [facility] [place] [facility] [address] [address] Mar, [facility] [place] [facility] [address] [id number] [place] [address] Mar, [facility] [place] [facility] [address] [id number] [place] [address] Mar, [facility] [place] [facility] [address] [id number] [place] [address] Mar, [facility] [place] [facility] [address] [id number] [place] [address] Mar, [facility] [address] [id number] [place] [address] February, [facility] [address] [id number] [place] [address] Jan, [facility] [address] [id number] [place] [address] Jan, [facility] [address] [id number] [place] [address] Dec, [facility] [address] [id number] [place] [address] Dec, [facility] [address] [id number] [place] [address] Dec, [facility] [address] [id number] [place] [address] Dec, [facility] [address] [id number] [place] [address] Dec, [facility] [address] [id number] [place] [address] Nov, [facility] [address] [id number] [place] [address] Oct, [facility] [address] [id number] [place] [address] Oct, [facility] [address] [id number] [place] [address] Sep, [facility] [place] [facility] [address] [id number] [place] [address] Sep, [facility] [address] [id number] [place] [address] Aug, [facility] [address] [id number] [place] [address] Aug, [facility] [place] [address] [facility] [id number] [address] 29 Jul, 2011 [facility] [place] [id number] [address] Jul, [facility] [place] [id number] [address] Jun, [facility] [place] [id number] [address] February, [facility] [place] [id number] [address] Jan, [facility] [place] [id number] [address] Dec, IMMUNIZATIONS No Known Immunizations SOCIAL HISTORY Never Assessed REASON FOR VISIT EMR-[facility] PLAN OF CARE VITAL SIGNS MEDICATIONS Unknown Medications RESULTS No Results PROCEDURES No Known procedures INSTRUCTIONS MEDICATIONS ADMINISTERED No Known Medications MEDICAL (GENERAL) HISTORY Type Description Date Medical History Bipolar disorder, unspecified Medical History Bipolar disorder, unspecified Medical History ODD (oppositional defiant disorder) Medical History ODD (oppositional defiant disorder) Medical History Disruptive mood dysregulation disorder
--- OUTSIDE RECORDS SUMMARY | 2019-05-18 01:25 | XMS REPORT ---
Author Author Migration, Doctor Organization [facility] Address Unknown Phone Unavailable Care Team Providers Care Building Mover Name Role Phone Migration, Doctor Unavailable Unavailable PROBLEMS Type Condition ICD9-CM Code [id number] Code Onset Dates Condition Status SNOMED Code Problem PEARL (generalized anxiety disorder) F41.1 Active 18058843 Problem Seasonal allergic rhinitis, unspecified allergic rhinitis trigger J30.2 Active 400869683 Problem ADHD (attention deficit hyperactivity disorder), combined type F90.2 Active [id number] ALLERGIES No Information ENCOUNTERS Encounter Location Date Diagnosis [place] [id number] [place] [address] Mar, [place] [address] [address] Dec, ADHD (attention deficit hyperactivity disorder), combined type F90.2 and PEARL (generalized anxiety disorder) F41.1 [place] [id number] [place] [address] Oct, Dysfunction of right eustachian tube H69.81 [place] [id number] [place] [address] Oct, [place] [id number] [place] [address] Oct, [place] [id number] [place] [address] Oct, [place] [address] [address] Sep, [place] [id number] [place] [address] Aug, ADHD (attention deficit hyperactivity disorder), combined type F90.2 and PEARL (generalized anxiety disorder) F41.1 [place] [address] [address] Jul, [facility] [address] [address] Jul, [facility] [address], [place] [address] Jun, [facility] [address], [place] [address] May, [facility] [address], [place] [address] May, [facility] [id number] [place] [address], [place] [address] Apr, [facility] [address], [place] [address] Mar, [facility] [address], [place] [address] February, [facility] [address], [place] [address] February, [facility] [address] [address] February, PEARL (generalized anxiety disorder) F41.1 [facility] [address] [address] February, [facility] [id number] [address] February, Seasonal allergic rhinitis, unspecified allergic rhinitis trigger J30.2 [facility] [address], [place] [address] Jan, PEARL (generalized anxiety disorder) F41.1 [facility] [address], [place] [address] Jan, ADHD (attention deficit hyperactivity disorder), combined type F90.2 and PEARL (generalized anxiety disorder) F41.1 [facility] [address], [place] [address] Dec, [facility] [address], [place] [address] Nov, [facility] [address], [place] [address] Oct, [facility] [address], [place] [address] Oct, [facility] [address], [place] [address] Sep, [facility] [address], [place] [address] Aug, ADHD (attention deficit hyperactivity disorder), combined type F90.2 and PEARL (generalized anxiety disorder) F41.1 [facility] [address], [place] [address] Aug, [facility] [address], [place] [address] Jul, [facility] [address], [place] [address] Jun, ADHD (attention deficit hyperactivity disorder), combined type F90.2 ; ODD (oppositional defiant disorder) F91.3 and PEARL (generalized anxiety disorder) F41.1 [facility] [address], [place] [address] Jun, [facility] [id number], [place] [address] Jun, [facility] [address], [place] [address] May, [facility] [id number], [place] [address] May, ODD (oppositional defiant disorder) F91.3 and ADHD (attention deficit hyperactivity disorder), combined type F90.2 [facility] [address], [place] [address] May, [facility] [id number] [place] [address] Apr, [facility] [id number] [place] [address] Mar, [facility] [id number] [place] [address] February, [facility] [id number] [place] [address] Jan, [facility] [id number] [place] [address] Dec, [facility] [id number] [place] [address] Dec, [facility] [id number] [place] [id number] Nov, Dental examination Z01.20 [facility] [id number] [place] [address] Nov, [facility] [id number] [place] [address] Nov, [facility] [id number] [place] [address] Nov, Disruptive mood dysregulation disorder F34.8 ; ADHD (attention deficit hyperactivity disorder), combined type F90.2 and ODD (oppositional defiant disorder) F91.3 [facility] [id number] [place] [address] Sep, [facility] [id number] [place] [address] Aug, [facility] [id number] [place] [address] Jul, [facility] [address], [place] [address] Jul, [facility] [id number] [place] [address] Jul, [facility] [address], [place] [address] Jun, Bipolar disorder, unspecified 296.80 ; Attention deficit disorder (ADD), child, 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 and ODD (oppositional defiant disorder) 313.81 [facility] [address], [place] [address] May, [facility] [id number] [place] [address] May, [facility] [id number] [place] [address] May, [facility] [id number] [place] [address] Apr, [facility] [address], [place] [address] Mar, [facility] [id number] [place] [address] Mar, [facility] [address], [place] [address] February, Bipolar disorder, unspecified 296.80 ; Attention deficit disorder 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 and Oppositional defiant behavior 313.81 [facility] [address], [place] [address] February, [facility] [id number] [place] [address] Jan, [facility] [address], [place] [address] Jan, [facility] [id number] [place] [address] Dec, [facility] [place] [facility] [address] [id number] [place] [address] Dec, [facility] [place] [facility] [address] [id number] [place] [address] Dec, [facility] [place] [facility] [address] [id number] [place] [address] Nov, 2014 [facility] [place] [facility] [address] [id number] [place] [address] Nov, 2014 [facility] [place] [facility] [address] [id number] [place] [address] Nov, [facility] [place] [facility] [address] [id number] [place] [address] Nov, [facility] [place] [facility] [address] [facility] [id number] [place] [address] Nov, [facility] [place] [facility] [address] [id number] [place] [address] Nov, [facility] [place] [facility] [address] [id number] [place] [address] Nov, [facility] [place] [facility] [address] [facility] [id number] [place] [address] Nov, [facility] [place] [facility] [address] [facility] [id number] [place] [address] Oct, [facility] [place] [facility] [address] [id number] [address] 16 Oct, 2014 [facility] [place] [facility] [address] [id number] [address] 15 Oct, 2014 [facility] [place] [facility] [address] [facility] [id number] [place] [address] Oct, [facility] [place] [facility] [address] [facility] [id number] [address] Oct, [facility] [place] [facility] [address] [id number] [place] [address] 08 Oct, 2014 [facility] [place] [facility] [address] [id number] [place] [address] Oct, [facility] [place] [facility] [address] [id number] [place] [address] 16 Sep, 2014 [facility] [place] [facility] [address] [id number] [place] [address] Sep, [facility] [place] [facility] [address] [id number] [place] [address] Sep, [facility] [place] [facility] [address] [id number] [place] [address] Aug, [facility] [place] [facility] [address] [id number] [place] [address] Aug, [facility] [place] [facility] [address] [id number] [place] [address] Jul, [facility] [place] [facility] [address] [id number] [place] [address] Jul, [facility] [place] [facility] [address] [id number] [place] [address] Jun, [facility] [place] [facility] [address] [id number] [place] [address] Jun, [facility] [place] [facility] [address] [id number] [place] [address] May, [facility] [place] [facility] [address] [id number] [place] [address] May, [facility] [place] [facility] [address] [id number] [place] [address] May, [facility] [place] [facility] [address] [id number] [place] [address] May, [facility] [place] [facility] [address] [id number] [place] [address] Apr, [facility] [place] [facility] [address] [id number] [place] [address] Apr, [facility] [place] [facility] [address] [id number] [place] [address] Apr, [facility] [place] [facility] [address] [id number] [place] [address] Apr, [facility] [place] [facility] [address] [id number] [place] [address] Apr, [facility] [place] [facility] [address] [id number] [place] [address] Mar, [facility] [place] [facility] [address] [id number] [place] [address] Mar, [facility] [place] [facility] [address] [id number] [place] [address] Mar, [facility] [place] [facility] [address] [id number] [place] [address] Mar, [facility] [place] [facility] [address] [id number] [place] [address] Mar, [facility] [place] [facility] [address] [id number] [place] [address] February, [facility] [place] [facility] [address] [id number] [place] [address] February, [facility] [place] [facility] [address] [id number] [place] [address] February, [facility] [place] [facility] [address] [id number] [place] [address] Jan, [facility] [place] [facility] [address] [id number] [place] [address] Jan, [facility] [place] [facility] [address] [id number] [place] [address] Dec, [facility] [place] [facility] [address] [id number] [place] [address] Dec, [facility] [address] [id number] [place] [address] Nov, [facility] [address] [id number] [place] [address] Nov, [facility] [address] [id number] [place] [address] Sep, [facility] [address] [id number] [place] [address] Sep, [facility] [address] [id number] [place] [address] Sep, [facility] [address] [id number] [place] [address] Sep, [facility] [address] [id number] [place] [address] Aug, [facility] [address] [id number] [place] [address] Aug, [facility] [address] [id number] [place] [address] Aug, [facility] [address] [id number] [place] [address] Aug, [facility] [place] [facility] [address] [id number] [place] [address] Jul, [facility] [place] [facility] [address] [id number] [place] [address] Jul, [facility] [place] [facility] [address] [id number] [place] [address] Jun, [facility] [place] [facility] [address] [id number] [place] [address] May, [facility] [place] [facility] [address] [id number] [place] [address] May, [facility] [place] [facility] [address] [id number] [place] [address] 15 May, 2013 [facility] [place] [facility] [address] [id number] [place] [address] 19 Apr, 2013 [facility] [place] [facility] [address] [id number] [place] [address] 18 Apr, 2013 [facility] [place] [facility] [address] [id number] [place] [address] 14 Oct, 2012 [facility] [place] [facility] [address] [id number] [place] [address] 24 Sep, 2012 [facility] [place] [facility] [address] [id number] [place] [address] Sep, [facility] [place] [facility] [address] [id number] [place] [address] Sep, [facility] [place] [facility] [address] [id number] [place] [address] 18 Sep, 2012 [facility] [place] [facility] [address] [id number] [place] [address] 18 Sep, 2012 [facility] [place] [facility] [address] [id number] [place] [address] Sep, [facility] [place] [facility] [address] [id number] [place] [address] Sep, [facility] [place] [facility] [address] [id number] [place] [address] 19 Aug, 2012 [facility] [place] [facility] [address] [id number] [place] [address] 19 Aug, 2012 [facility] [place] [facility] [address] [id number] [place] [address] 14 Aug, 2012 [facility] [place] [facility] [address] [id number] [place] [address] 14 Aug, 2012 [facility] [place] [facility] [address] [id number] [place] [address] Jul, [facility] [place] [facility] [address] [id number] [place] [address] Jul, [facility] [place] [facility] [address] [id number] [place] [address] Jul, [facility] [place] [facility] [address] [id number] [place] [address] Jun, [facility] [place] [facility] [address] [id number] [place] [address] May, [facility] [place] [facility] [address] [id number] [place] [address] May, [facility] [place] [facility] [address] [id number] [place] [address] May, [facility] [place] [facility] [address] [id number] [place] [address] May, [facility] [place] [facility] [address] [id number] [place] [address] May, [facility] [place] [facility] [address] [id number] [place] [address] Apr, [facility] [place] [facility] [address] [id number] [place] [address] Apr, [facility] [place] [facility] [address] [id number] [place] [address] Mar, [facility] [place] [facility] [address] [address] Mar, [facility] [place] [facility] [address] [id number] [place] [address] Mar, [facility] [place] [facility] [address] [id number] [place] [address] Mar, [facility] [place] [facility] [address] [id number] [place] [address] Mar, [facility] [place] [facility] [address] [id number] [place] [address] Mar, [facility] [address] [id number] [place] [address] February, [facility] [address] [id number] [place] [address] Jan, [facility] [address] [id number] [place] [address] Jan, [facility] [address] [id number] [place] [address] Dec, [facility] [address] [id number] [place] [address] Dec, [facility] [address] [id number] [place] [address] Dec, [facility] [address] [id number] [place] [address] Dec, [facility] [address] [id number] [place] [address] Dec, [facility] [address] [id number] [place] [address] Nov, [facility] [address] [id number] [place] [address] Oct, [facility] [address] [id number] [place] [address] Oct, [facility] [address] [id number] [place] [address] Sep, [facility] [place] [facility] [address] [id number] [place] [address] Sep, [facility] [address] [id number] [place] [address] Aug, [facility] [address] [id number] [place] [address] Aug, [facility] [address] [facility] [id number], [place] [address] 29 Jul, 2011 [facility] [address] [address] Jul, [facility] [id number] [address] Jun, [facility] [address], [place] [address] February, [facility] [id number] [address] Jan, [facility] [address], [place] [address] Dec, IMMUNIZATIONS No Known Immunizations SOCIAL HISTORY Never Assessed REASON FOR VISIT EMR-[facility] [place] PLAN OF CARE VITAL SIGNS MEDICATIONS Unknown Medications RESULTS No Results PROCEDURES No Known procedures INSTRUCTIONS MEDICATIONS ADMINISTERED No Known Medications MEDICAL (GENERAL) HISTORY Type Description Date Medical History Bipolar disorder, unspecified Medical History Bipolar disorder, unspecified Medical History ODD (oppositional defiant disorder) Medical History ODD (oppositional defiant disorder) Medical History Disruptive mood dysregulation disorder
--- OUTSIDE RECORDS SUMMARY | 2019-05-18 01:25 | XMS REPORT ---
Author Author Migration, Doctor Organization [facility] Address Unknown Phone Unavailable Care Team Providers Care Improvement Lead Name Role Phone Migration, Doctor Unavailable Unavailable PROBLEMS Type Condition ICD9-CM Code FIA56-KN Code Onset Dates Condition Status SNOMED Code Problem PEARL (generalized anxiety disorder) F41.1 Active 49418556 Problem Seasonal allergic rhinitis, unspecified allergic rhinitis trigger J30.2 Active 641193756 Problem ADHD (attention deficit hyperactivity disorder), combined type F90.2 Active [id number] ALLERGIES No Information ENCOUNTERS Encounter Location Date Diagnosis [place] [id number] [place] [address] Mar, [place] [address] [address] Dec, ADHD (attention deficit hyperactivity disorder), combined type F90.2 and PEARL (generalized anxiety disorder) F41.1 [place] [id number] [place] [address] Oct, Dysfunction of right eustachian tube H69.81 [place] [id number] [place] [address] Oct, [place] [id number] [place] [address] Oct, [place] [id number] [place] [address] Oct, [place] [address] [address] Sep, [place] [id number] [place] [address] Aug, ADHD (attention deficit hyperactivity disorder), combined type F90.2 and PEARL (generalized anxiety disorder) F41.1 [place] [address] [address] Jul, [facility] [address] [address] Jul, [facility] [address] [address] Jun, [facility] [address] [address] May, [facility] [address] [address] May, [facility] [id number] [place] [address], [place] [address] Apr, [facility] [address] [address] Mar, [facility] [address] [address] February, [facility] [address] [address] February, [facility] [address] [address] February, PEARL (generalized anxiety disorder) F41.1 [facility] [address] [address] February, [facility] [id number] [address] February, Seasonal allergic rhinitis, unspecified allergic rhinitis trigger J30.2 [facility] [address] [address] Jan, PEARL (generalized anxiety disorder) F41.1 [facility] [address] [address] Jan, ADHD (attention deficit hyperactivity disorder), combined type F90.2 and PEARL (generalized anxiety disorder) F41.1 [facility] [address] [address] Dec, [facility] [address] [address] Nov, [facility] [address] [address] Oct, [facility] [address] [address] Oct, [facility] [address] [address] Sep, [facility] [address] [address] Aug, ADHD (attention deficit hyperactivity disorder), combined type F90.2 and PEARL (generalized anxiety disorder) F41.1 [facility] [address] [address] Aug, [facility] [address] [address] Jul, [facility] [address] [address] Jun, ADHD (attention deficit hyperactivity disorder), combined type F90.2 ; ODD (oppositional defiant disorder) F91.3 and PEARL (generalized anxiety disorder) F41.1 [facility] [address] [address] Jun, [facility] [id number] [address] Jun, [facility] [address] [address] May, [facility] [id number] [address] May, ODD (oppositional defiant disorder) F91.3 and ADHD (attention deficit hyperactivity disorder), combined type F90.2 [facility] [address] [address] May, [facility] [id number] [place] [address] Apr, [facility] [id number] [place] [address] Mar, [facility] [id number] [place] [address] February, [facility] [id number] [place] [address] Jan, [facility] [id number] [place] [address] Dec, [facility] [id number] [place] [address] Dec, [facility] [id number] [place] [id number] Nov, Dental examination Z01.20 [facility] [id number] [place] [address] Nov, [facility] [id number] [place] [address] Nov, [facility] [id number] [place] [address] Nov, Disruptive mood dysregulation disorder F34.8 ; ADHD (attention deficit hyperactivity disorder), combined type F90.2 and ODD (oppositional defiant disorder) F91.3 [facility] [id number] [place] [address] Sep, [facility] [id number] [place] [address] Aug, [facility] [id number] [place] [address] Jul, [facility] [address] [address] Jul, [facility] [id number] [place] [address] Jul, [facility] [address] [address] Jun, Bipolar disorder, unspecified 296.80 ; Attention deficit disorder (ADD), child, 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 and ODD (oppositional defiant disorder) 313.81 [facility] [address] [address] May, [facility] [id number] [place] [address] May, [facility] [id number] [place] [address] May, [facility] [id number] [place] [address] Apr, [facility] [address] [address] Mar, [facility] [id number] [place] [address] Mar, [facility] [address] [address] February, Bipolar disorder, unspecified 296.80 ; Attention deficit disorder 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 and Oppositional defiant behavior 313.81 [facility] [address] [address] February, [facility] [id number] [place] [address] Jan, [facility] [address] [address] Jan, [facility] [id number] [place] [address] Dec, [facility] [place] [facility] [address] [id number] [place] [address] Dec, [facility] [place] [facility] [address] [id number] [place] [address] Dec, [facility] [place] [facility] [address] [id number] [place] [address] Nov, 2014 [facility] [place] [facility] [address] [id number] [place] [address] Nov, 2014 [facility] [place] [facility] [address] [id number] [place] [address] Nov, [facility] [place] [facility] [address] [id number] [place] [address] Nov, [facility] [place] [facility] [address] [facility] [id number] [place] [address] Nov, [facility] [place] [facility] [address] [id number] [place] [address] Nov, [facility] [place] [facility] [address] [id number] [place] [address] Nov, [facility] [place] [facility] [address] [facility] [id number] [place] [address] Nov, [facility] [place] [facility] [address] [facility] [id number] [place] [address] Oct, [facility] [place] [facility] [address] [id number] [address] 16 Oct, 2014 [facility] [place] [facility] [address] [id number] [address] 15 Oct, 2014 [facility] [place] [facility] [address] [facility] [id number] [place] [address] Oct, [facility] [place] [facility] [address] [facility] [id number] [address] Oct, [facility] [place] [facility] [address] [id number] [place] [address] 08 Oct, 2014 [facility] [place] [facility] [address] [id number] [place] [address] Oct, [facility] [place] [facility] [address] [id number] [place] [address] 16 Sep, 2014 [facility] [place] [facility] [address] [id number] [place] [address] Sep, [facility] [place] [facility] [address] [id number] [place] [address] Sep, [facility] [place] [facility] [address] [id number] [place] [address] Aug, [facility] [place] [facility] [address] [id number] [place] [address] Aug, [facility] [place] [facility] [address] [id number] [place] [address] Jul, [facility] [place] [facility] [address] [id number] [place] [address] Jul, [facility] [place] [facility] [address] [id number] [place] [address] Jun, [facility] [place] [facility] [address] [id number] [place] [address] Jun, [facility] [place] [facility] [address] [id number] [place] [address] May, [facility] [place] [facility] [address] [id number] [place] [address] May, [facility] [place] [facility] [address] [id number] [place] [address] May, [facility] [place] [facility] [address] [id number] [place] [address] May, [facility] [place] [facility] [address] [id number] [place] [address] Apr, [facility] [place] [facility] [address] [id number] [place] [address] Apr, [facility] [place] [facility] [address] [id number] [place] [address] Apr, [facility] [place] [facility] [address] [id number] [place] [address] Apr, [facility] [place] [facility] [address] [id number] [place] [address] Apr, [facility] [place] [facility] [address] [id number] [place] [address] Mar, [facility] [place] [facility] [address] [id number] [place] [address] Mar, [facility] [place] [facility] [address] [id number] [place] [address] Mar, [facility] [place] [facility] [address] [id number] [place] [address] Mar, [facility] [place] [facility] [address] [id number] [place] [address] Mar, [facility] [place] [facility] [address] [id number] [place] [address] February, [facility] [place] [facility] [address] [id number] [place] [address] February, [facility] [place] [facility] [address] [id number] [place] [address] February, [facility] [place] [facility] [address] [id number] [place] [address] Jan, [facility] [place] [facility] [address] [id number] [place] [address] Jan, [facility] [place] [facility] [address] [id number] [place] [address] Dec, [facility] [place] [facility] [address] [id number] [place] [address] Dec, [facility] [address] [id number] [place] [address] Nov, [facility] [address] [id number] [place] [address] Nov, [facility] [address] [id number] [place] [address] Sep, [facility] [address] [id number] [place] [address] Sep, [facility] [address] [id number] [place] [address] Sep, [facility] [address] [id number] [place] [address] Sep, [facility] [address] [id number] [place] [address] Aug, [facility] [address] [id number] [place] [address] Aug, [facility] [address] [id number] [place] [address] Aug, [facility] [address] [id number] [place] [address] Aug, [facility] [place] [facility] [address] [id number] [place] [address] Jul, [facility] [place] [facility] [address] [id number] [place] [address] Jul, [facility] [place] [facility] [address] [id number] [place] [address] Jun, [facility] [place] [facility] [address] [id number] [place] [address] May, [facility] [place] [facility] [address] [id number] [place] [address] May, [facility] [place] [facility] [address] [id number] [place] [address] 15 May, 2013 [facility] [place] [facility] [address] [id number] [place] [address] 19 Apr, 2013 [facility] [place] [facility] [address] [id number] [place] [address] 18 Apr, 2013 [facility] [place] [facility] [address] [id number] [place] [address] 14 Oct, 2012 [facility] [place] [facility] [address] [id number] [place] [address] 24 Sep, 2012 [facility] [place] [facility] [address] [id number] [place] [address] Sep, [facility] [place] [facility] [address] [id number] [place] [address] Sep, [facility] [place] [facility] [address] [id number] [place] [address] 18 Sep, 2012 [facility] [place] [facility] [address] [id number] [place] [address] 18 Sep, 2012 [facility] [place] [facility] [address] [id number] [place] [address] Sep, [facility] [place] [facility] [address] [id number] [place] [address] Sep, [facility] [place] [facility] [address] [id number] [place] [address] 19 Aug, 2012 [facility] [place] [facility] [address] [id number] [place] [address] 19 Aug, 2012 [facility] [place] [facility] [address] [id number] [place] [address] 14 Aug, 2012 [facility] [place] [facility] [address] [id number] [place] [address] 14 Aug, 2012 [facility] [place] [facility] [address] [id number] [place] [address] Jul, [facility] [place] [facility] [address] [id number] [place] [address] Jul, [facility] [place] [facility] [address] [id number] [place] [address] Jul, [facility] [place] [facility] [address] [id number] [place] [address] Jun, [facility] [place] [facility] [address] [id number] [place] [address] May, [facility] [place] [facility] [address] [id number] [place] [address] May, [facility] [place] [facility] [address] [id number] [place] [address] May, [facility] [place] [facility] [address] [id number] [place] [address] May, [facility] [place] [facility] [address] [id number] [place] [address] May, [facility] [place] [facility] [address] [id number] [place] [address] Apr, [facility] [place] [facility] [address] [id number] [place] [address] Apr, [facility] [place] [facility] [address] [id number] [place] [address] Mar, [facility] [place] [facility] [address] [id number] Mar, [facility] [place] [facility] [address] [id number] [place] [address] Mar, [facility] [place] [facility] [address] [id number] [place] [address] Mar, [facility] [place] [facility] [address] [id number] [place] [address] Mar, [facility] [place] [facility] [address] [id number] [place] [address] Mar, [facility] [address] [id number] [place] [address] February, [facility] [address] [id number] [place] [address] Jan, [facility] [address] [id number] [place] [address] Jan, [facility] [address] [id number] [place] [address] Dec, [facility] [address] [id number] [place] [address] Dec, [facility] [address] [id number] [place] [address] Dec, [facility] [address] [id number] [place] [address] Dec, [facility] [address] [id number] [place] [address] Dec, [facility] [address] [id number] [place] [address] Nov, [facility] [address] [id number] [place] [address] Oct, [facility] [address] [id number] [place] [address] Oct, [facility] [address] [id number] [place] [address] Sep, [facility] [place] [facility] [address] [id number] [place] [address] Sep, [facility] [address] [id number] [place] [address] Aug, [facility] [address] [id number] [place] [address] Aug, [facility] [address] [facility] [id number] [address] 29 Jul, 2011 [facility] [address] [address] Jul, [facility] [id number] [address] Jun, [facility] [address] [address] February, [facility] [id number] [address] Jan, [facility] [address] [address] Dec, IMMUNIZATIONS No Known Immunizations SOCIAL HISTORY Never Assessed REASON FOR VISIT EMR-[facility] [place] PLAN OF CARE [...]
--- OUTSIDE RECORDS SUMMARY | 2019-05-18 01:25 | XMS REPORT ---
Author Author Migration, Doctor Organization [facility] Address Unknown Phone Unavailable Care Team Providers Care Shadow Graph Weight Operator Name Role Phone Migration, Doctor Unavailable Unavailable PROBLEMS Type Condition ICD9-CM Code LEZ15-WH Code Onset Dates Condition Status SNOMED Code Problem PEARL (generalized anxiety disorder) F41.1 Active 57047429 Problem Seasonal allergic rhinitis, unspecified allergic rhinitis trigger J30.2 Active 269991508 Problem ADHD (attention deficit hyperactivity disorder), combined type F90.2 Active [id number] ALLERGIES No Information ENCOUNTERS Encounter Location Date Diagnosis [place] [id number] [place] [address] Mar, [place] [address] [address] Dec, ADHD (attention deficit hyperactivity disorder), combined type F90.2 and PEARL (generalized anxiety disorder) F41.1 [place] [id number] [place] [address] Oct, Dysfunction of right eustachian tube H69.81 [place] [id number] [place] [address] Oct, [place] [id number] [place] [address] Oct, [place] [id number] [place] [address] Oct, [place] [address] [address] Sep, [place] [id number] [place] [address] Aug, ADHD (attention deficit hyperactivity disorder), combined type F90.2 and PEARL (generalized anxiety disorder) F41.1 [place] [address] [address] Jul, [facility] [address] [address] Jul, [facility] [address], [place] [address] Jun, [facility] [address] [address] May, [facility] [address], [place] [address] May, [facility] [id number] [place] [address], [place] [address] Apr, [facility] [address], [place] [address] Mar, [facility] [address], [place] [address] February, [facility] [address] [address] February, [facility] [address], [place] [address] February, PEARL (generalized anxiety disorder) F41.1 [facility] [address] [address] February, [facility] [id number] [address] February, Seasonal allergic rhinitis, unspecified allergic rhinitis trigger J30.2 [facility] [address], [place] [address] Jan, PEARL (generalized anxiety disorder) F41.1 [facility] [address], [place] [address] Jan, ADHD (attention deficit hyperactivity disorder), combined type F90.2 and PEARL (generalized anxiety disorder) F41.1 [facility] [address], [place] [address] Dec, [facility] [address], [place] [address] Nov, [facility] [address], [place] [address] Oct, [facility] [address], [place] [address] Oct, [facility] [address], [place] [address] Sep, [facility] [address], [place] [address] Aug, ADHD (attention deficit hyperactivity disorder), combined type F90.2 and PEARL (generalized anxiety disorder) F41.1 [facility] [address], [place] [address] Aug, [facility] [address], [place] [address] Jul, [facility] [address], [place] [address] Jun, ADHD (attention deficit hyperactivity disorder), combined type F90.2 ; ODD (oppositional defiant disorder) F91.3 and PEARL (generalized anxiety disorder) F41.1 [facility] [address], [place] [address] Jun, [facility] [id number], [place] [address] Jun, [facility] [address], [place] [address] May, [facility] [id number] [address] May, ODD (oppositional defiant disorder) F91.3 and ADHD (attention deficit hyperactivity disorder), combined type F90.2 [facility] [address], [place] [address] May, [facility] [id number] [place] [address] Apr, [facility] [id number] [place] [address] Mar, [facility] [id number] [place] [address] February, [facility] [id number] [place] [address] Jan, [facility] [id number] [place] [address] Dec, [facility] [id number] [place] [address] Dec, [facility] [id number] [place] [id number] Nov, Dental examination Z01.20 [facility] [id number] [place] [address] Nov, [facility] [id number] [place] [address] Nov, [facility] [id number] [place] [address] Nov, Disruptive mood dysregulation disorder F34.8 ; ADHD (attention deficit hyperactivity disorder), combined type F90.2 and ODD (oppositional defiant disorder) F91.3 [facility] [id number] [place] [address] Sep, [facility] [id number] [place] [address] Aug, [facility] [id number] [place] [address] Jul, [facility] [address], [place] [address] Jul, [facility] [id number] [place] [address] Jul, [facility] [address], [place] [address] Jun, Bipolar disorder, unspecified 296.80 ; Attention deficit disorder (ADD), child, 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 and ODD (oppositional defiant disorder) 313.81 [facility] [address], [place] [address] May, [facility] [id number] [place] [address] May, [facility] [id number] [place] [address] May, [facility] [id number] [place] [address] Apr, [facility] [address], [place] [address] Mar, [facility] [id number] [place] [address] Mar, [facility] [address], [place] [address] February, Bipolar disorder, unspecified 296.80 ; Attention deficit disorder 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 and Oppositional defiant behavior 313.81 [facility] [address], [place] [address] February, [facility] [id number] [place] [address] Jan, [facility] [address], [place] [address] Jan, [facility] [id number] [place] [address] Dec, [facility] [place] [facility] [address] [id number] [place] [address] Dec, [facility] [place] [facility] [address] [id number] [place] [address] Dec, [facility] [place] [facility] [address] [id number] [place] [address] Nov, 2014 [facility] [place] [facility] [address] [id number] [place] [address] Nov, 2014 [facility] [place] [facility] [address] [id number] [place] [address] Nov, [facility] [place] [facility] [address] [id number] [place] [address] Nov, [facility] [place] [facility] [address] [facility] [id number] [place] [address] Nov, [facility] [place] [facility] [address] [id number] [place] [address] Nov, [facility] [place] [facility] [address] [id number] [place] [address] Nov, [facility] [place] [facility] [address] [facility] [id number] [place] [address] Nov, [facility] [place] [facility] [address] [facility] [id number] [place] [address] Oct, [facility] [place] [facility] [address] [id number] [address] 16 Oct, 2014 [facility] [place] [facility] [address] [id number] [address] 15 Oct, 2014 [facility] [place] [facility] [address] [facility] [id number] [place] [address] Oct, [facility] [place] [facility] [address] [facility] [id number] [address] Oct, [facility] [place] [facility] [address] [id number] [place] [address] 08 Oct, 2014 [facility] [place] [facility] [address] [id number] [place] [address] Oct, [facility] [place] [facility] [address] [id number] [place] [address] 16 Sep, 2014 [facility] [place] [facility] [address] [id number] [place] [address] Sep, [facility] [place] [facility] [address] [id number] [place] [address] Sep, [facility] [place] [facility] [address] [id number] [place] [address] Aug, [facility] [place] [facility] [address] [id number] [place] [address] Aug, [facility] [place] [facility] [address] [id number] [place] [address] Jul, [facility] [place] [facility] [address] [id number] [place] [address] Jul, [facility] [place] [facility] [address] [id number] [place] [address] Jun, [facility] [place] [facility] [address] [id number] [place] [address] Jun, [facility] [place] [facility] [address] [id number] [place] [address] May, [facility] [place] [facility] [address] [id number] [place] [address] May, [facility] [place] [facility] [address] [id number] [place] [address] May, [facility] [place] [facility] [address] [id number] [place] [address] May, [facility] [place] [facility] [address] [id number] [place] [address] Apr, [facility] [place] [facility] [address] [id number] [place] [address] Apr, [facility] [place] [facility] [address] [id number] [place] [address] Apr, [facility] [place] [facility] [address] [id number] [place] [address] Apr, [facility] [place] [facility] [address] [id number] [place] [address] Apr, [facility] [place] [facility] [address] [id number] [place] [address] Mar, [facility] [place] [facility] [address] [id number] [place] [address] Mar, [facility] [place] [facility] [address] [id number] [place] [address] Mar, [facility] [place] [facility] [address] [id number] [place] [address] Mar, [facility] [place] [facility] [address] [id number] [place] [address] Mar, [facility] [place] [facility] [address] [id number] [place] [address] February, [facility] [place] [facility] [address] [id number] [place] [address] February, [facility] [place] [facility] [address] [id number] [place] [address] February, [facility] [place] [facility] [address] [id number] [place] [address] Jan, [facility] [place] [facility] [address] [id number] [place] [address] Jan, [facility] [place] [facility] [address] [id number] [place] [address] Dec, [facility] [place] [facility] [address] [id number] [place] [address] Dec, [facility] [address] [id number] [place] [address] Nov, [facility] [address] [id number] [place] [address] Nov, [facility] [address] [id number] [place] [address] Sep, [facility] [address] [id number] [place] [address] Sep, [facility] [address] [id number] [place] [address] Sep, [facility] [address] [id number] [place] [address] Sep, [facility] [address] [id number] [place] [address] Aug, [facility] [address] [id number] [place] [address] Aug, [facility] [address] [id number] [place] [address] Aug, [facility] [address] [id number] [place] [address] Aug, [facility] [place] [facility] [address] [id number] [place] [address] Jul, [facility] [place] [facility] [address] [id number] [place] [address] Jul, [facility] [place] [facility] [address] [id number] [place] [address] Jun, [facility] [place] [facility] [address] [id number] [place] [address] May, [facility] [place] [facility] [address] [id number] [place] [address] May, [facility] [place] [facility] [address] [id number] [place] [address] 15 May, 2013 [facility] [place] [facility] [address] [id number] [place] [address] 19 Apr, 2013 [facility] [place] [facility] [address] [id number] [place] [address] 18 Apr, 2013 [facility] [place] [facility] [address] [id number] [place] [address] 14 Oct, 2012 [facility] [place] [facility] [address] [id number] [place] [address] 24 Sep, 2012 [facility] [place] [facility] [address] [id number] [place] [address] Sep, [facility] [place] [facility] [address] [id number] [place] [address] Sep, [facility] [place] [facility] [address] [id number] [place] [address] 18 Sep, 2012 [facility] [place] [facility] [address] [id number] [place] [address] 18 Sep, 2012 [facility] [place] [facility] [address] [id number] [place] [address] Sep, [facility] [place] [facility] [address] [id number] [place] [address] Sep, [facility] [place] [facility] [address] [id number] [place] [address] 19 Aug, 2012 [facility] [place] [facility] [address] [id number] [place] [address] 19 Aug, 2012 [facility] [place] [facility] [address] [id number] [place] [address] 14 Aug, 2012 [facility] [place] [facility] [address] [id number] [place] [address] 14 Aug, 2012 [facility] [place] [facility] [address] [id number] [place] [address] Jul, [facility] [place] [facility] [address] [id number] [place] [address] Jul, [facility] [place] [facility] [address] [id number] [place] [address] Jul, [facility] [place] [facility] [address] [id number] [place] [address] Jun, [facility] [place] [facility] [address] [id number] [place] [address] May, [facility] [place] [facility] [address] [id number] [place] [address] May, [facility] [place] [facility] [address] [id number] [place] [address] May, [facility] [place] [facility] [address] [id number] [place] [address] May, [facility] [place] [facility] [address] [id number] [place] [address] May, [facility] [place] [facility] [address] [id number] [place] [address] Apr, [facility] [place] [facility] [address] [id number] [place] [address] Apr, [facility] [place] [facility] [address] [id number] [place] [id number] Mar, [facility] [place] [facility] [address] [address] Mar, [facility] [place] [facility] [address] [id number] [place] [address] Mar, [facility] [place] [facility] [address] [id number] [place] [address] Mar, [facility] [place] [facility] [address] [id number] [place] [address] Mar, [facility] [place] [facility] [address] [id number] [place] [address] Mar, [facility] [address] [id number] [place] [address] February, [facility] [address] [id number] [place] [address] Jan, [facility] [address] [id number] [place] [address] Jan, [facility] [address] [id number] [place] [address] Dec, [facility] [address] [id number] [place] [address] Dec, [facility] [address] [id number] [place] [address] Dec, [facility] [address] [id number] [place] [address] Dec, [facility] [address] [id number] [place] [address] Dec, [facility] [address] [id number] [place] [address] Nov, [facility] [address] [id number] [place] [address] Oct, [facility] [address] [id number] [place] [address] Oct, [facility] [address] [id number] [place] [address] Sep, [facility] [place] [facility] [address] [id number] [place] [address] Sep, [facility] [address] [id number] [place] [address] Aug, [facility] [address] [id number] [place] [address] Aug, [facility] [address] [facility] [id number], [place] [address] 29 Jul, 2011 [facility] [address] [address] Jul, [facility] [id number] [address] Jun, [facility] [address], [place] [address] February, [facility] [id number] [address] Jan, [facility] [address], [place] [address] Dec, IMMUNIZATIONS No Known Immunizations SOCIAL HISTORY Never Assessed [place]AS[place] [place] VITAL SIGNS MEDICATIONS Unknown Medications RESULTS No Results PROCEDURES No Known procedures INSTRUCTIONS MEDICATIONS ADMINISTERED No Known Medications MEDICAL (GENERAL) HISTORY Type Description Date Medical History Bipolar disorder, unspecified Medical History Bipolar disorder, unspecified Medical History ODD (oppositional defiant disorder) Medical History ODD (oppositional defiant disorder) Medical History Disruptive mood dysregulation disorder
--- OUTSIDE RECORDS SUMMARY | 2019-05-18 01:26 | XMS REPORT ---
Author Author Migration, Doctor Organization [facility] Address Unknown Phone Unavailable Care Team Providers Care Sociology Teacher Name Role Phone Migration, Doctor Unavailable Unavailable PROBLEMS Type Condition ICD9-CM Code CLW58-HH Code Onset Dates Condition Status SNOMED Code Problem PEARL (generalized anxiety disorder) F41.1 Active 44774334 Problem Seasonal allergic rhinitis, unspecified allergic rhinitis trigger J30.2 Active 285639648 Problem ADHD (attention deficit hyperactivity disorder), combined type F90.2 Active [id number] ALLERGIES No Information ENCOUNTERS Encounter Location Date Diagnosis [place] [id number] [place] [address] Mar, [place] [address] [address] Dec, ADHD (attention deficit hyperactivity disorder), combined type F90.2 and PEARL (generalized anxiety disorder) F41.1 [place] [id number] [place] [address] Oct, Dysfunction of right eustachian tube H69.81 [place] [id number] [place] [address] Oct, [place] [id number] [place] [address] Oct, [place] [id number] [place] [address] Oct, [place] [address] [address] Sep, [place] [id number] [place] [address] Aug, ADHD (attention deficit hyperactivity disorder), combined type F90.2 and PEARL (generalized anxiety disorder) F41.1 [place] [address] [address] Jul, [facility] [address] [address] Jul, [facility] [address] [address] Jun, [facility] [address] [address] May, [facility] [address] [address] May, [facility] [id number] [place] [address], [place] [address] Apr, [facility] [address] [address] Mar, [facility] [address] [address] February, [facility] [address] [address] February, [facility] [address] [address] February, PEARL (generalized anxiety disorder) F41.1 [facility] [address] [address] February, [facility] [id number] [address] February, Seasonal allergic rhinitis, unspecified allergic rhinitis trigger J30.2 [facility] [address] [address] Jan, PEARL (generalized anxiety disorder) F41.1 [facility] [address] [address] Jan, ADHD (attention deficit hyperactivity disorder), combined type F90.2 and PEARL (generalized anxiety disorder) F41.1 [facility] [address] [address] Dec, [facility] [address] [address] Nov, [facility] [address] [address] Oct, [facility] [address] [address] Oct, [facility] [address] [address] Sep, [facility] [address] [address] Aug, ADHD (attention deficit hyperactivity disorder), combined type F90.2 and PERAL (generalized anxiety disorder) F41.1 [facility] [address] [address] Aug, [facility] [address] [address] Jul, [facility] [address] [address] Jun, ADHD (attention deficit hyperactivity disorder), combined type F90.2 ; ODD (oppositional defiant disorder) F91.3 and PEARL (generalized anxiety disorder) F41.1 [facility] [address] [address] Jun, [facility] [id number] [address] Jun, [facility] [address] [address] May, [facility] [id number] [address] May, ODD (oppositional defiant disorder) F91.3 and ADHD (attention deficit hyperactivity disorder), combined type F90.2 [facility] [address] [address] May, [facility] [id number] [place] [address] Apr, [facility] [id number] [place] [address] Mar, [facility] [id number] [place] [address] February, [facility] [id number] [place] [address] Jan, [facility] [id number] [place] [address] Dec, [facility] [id number] [place] [address] Dec, [facility] [id number] [place] [id number] Nov, Dental examination Z01.20 [facility] [id number] [place] [address] Nov, [facility] [id number] [place] [address] Nov, [facility] [id number] [place] [address] Nov, Disruptive mood dysregulation disorder F34.8 ; ADHD (attention deficit hyperactivity disorder), combined type F90.2 and ODD (oppositional defiant disorder) F91.3 [facility] [id number] [place] [address] Sep, [facility] [id number] [place] [address] Aug, [facility] [id number] [place] [address] Jul, [facility] [address] [address] Jul, [facility] [id number] [place] [address] Jul, [facility] [address] [address] Jun, Bipolar disorder, unspecified 296.80 ; Attention deficit disorder (ADD), child, 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 and ODD (oppositional defiant disorder) 313.81 [facility] [address] [address] May, [facility] [id number] [place] [address] May, [facility] [id number] [place] [address] May, [facility] [id number] [place] [address] Apr, [facility] [address] [address] Mar, [facility] [address] [place] [address] Mar, [facility] [address] [address] February, Bipolar disorder, unspecified 296.80 ; Attention deficit disorder 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 and Oppositional defiant behavior 313.81 [facility] [address] [address] February, [facility] [id number] [place] [address] Jan, [facility] [address] [address] Jan, [facility] [id number] [place] [address] Dec, [facility] [place] [facility] [address] [id number] [place] [address] Dec, [facility] [place] [facility] [address] [id number] [place] [address] Dec, [facility] [place] [facility] [address] [id number] [place] [address] Nov, 2014 [facility] [place] [facility] [address] [id number] [place] [address] Nov, 2014 [facility] [place] [facility] [address] [id number] [place] [address] Nov, [facility] [place] [facility] [address] [id number] [place] [address] Nov, [facility] [place] [facility] [address] [facility] [id number] [place] [address] Nov, [facility] [place] [facility] [address] [id number] [place] [address] Nov, [facility] [place] [facility] [address] [id number] [place] [address] Nov, [facility] [place] [facility] [address] [facility] [id number] [place] [address] Nov, [facility] [place] [facility] [address] [facility] [id number] [place] [address] Oct, [facility] [place] [facility] [address] [id number] [place] [address] 16 Oct, 2014 [facility] [place] [facility] [address] [id number] [place] [address] 15 Oct, 2014 [facility] [place] [facility] [address] [facility] [id number] [place] [address] Oct, [facility] [place] [facility] [address] [facility] [id number] [address] Oct, [facility] [place] [facility] [address] [id number] [place] [address] 08 Oct, 2014 [facility] [place] [facility] [address] [id number] [place] [address] Oct, [facility] [place] [facility] [address] [id number] [place] [address] 16 Sep, 2014 [facility] [place] [facility] [address] [id number] [place] [address] Sep, [facility] [place] [facility] [address] [id number] [place] [address] Sep, [facility] [place] [facility] [address] [id number] [place] [address] Aug, [facility] [place] [facility] [address] [id number] [place] [address] Aug, [facility] [place] [facility] [address] [id number] [place] [address] Jul, [facility] [place] [facility] [address] [id number] [place] [address] Jul, [facility] [place] [facility] [address] [id number] [place] [address] Jun, [facility] [place] [facility] [address] [id number] [place] [address] Jun, [facility] [place] [facility] [address] [id number] [place] [address] May, [facility] [place] [facility] [address] [id number] [place] [address] May, [facility] [place] [facility] [address] [id number] [place] [address] May, [facility] [place] [facility] [address] [id number] [place] [address] May, [facility] [place] [facility] [address] [id number] [place] [address] Apr, [facility] [place] [facility] [address] [id number] [place] [address] Apr, [facility] [place] [facility] [address] [id number] [place] [address] Apr, [facility] [place] [facility] [address] [id number] [place] [address] Apr, [facility] [place] [facility] [address] [id number] [place] [address] Apr, [facility] [place] [facility] [address] [id number] [place] [address] Mar, [facility] [place] [facility] [address] [id number] [place] [address] Mar, [facility] [place] [facility] [address] [id number] [place] [address] Mar, [facility] [place] [facility] [address] [id number] [place] [address] Mar, [facility] [place] [facility] [address] [id number] [place] [address] Mar, [facility] [place] [facility] [address] [id number] [place] [address] February, [facility] [place] [facility] [address] [id number] [place] [address] February, [facility] [place] [facility] [address] [id number] [place] [address] February, [facility] [place] [facility] [address] [id number] [place] [address] Jan, [facility] [place] [facility] [address] [id number] [place] [address] Jan, [facility] [place] [facility] [address] [id number] [place] [address] Dec, [facility] [place] [facility] [address] [id number] [place] [address] Dec, [facility] [address] [id number] [place] [address] Nov, [facility] [address] [id number] [place] [address] Nov, [facility] [address] [id number] [place] [address] Sep, [facility] [address] [id number] [place] [address] Sep, [facility] [address] [id number] [place] [address] Sep, [facility] [address] [id number] [place] [address] Sep, [facility] [address] [id number] [place] [address] Aug, [facility] [address] [id number] [place] [address] Aug, [facility] [address] [id number] [place] [address] Aug, [facility] [address] [id number] [place] [address] Aug, [facility] [place] [facility] [address] [id number] [place] [address] Jul, [facility] [place] [facility] [address] [id number] [place] [address] Jul, [facility] [place] [facility] [address] [id number] [place] [address] Jun, [facility] [place] [facility] [address] [id number] [place] [address] May, [facility] [place] [facility] [address] [id number] [place] [address] May, [facility] [place] [facility] [address] [id number] [place] [address] 15 May, 2013 [facility] [place] [facility] [address] [id number] [place] [address] 19 Apr, 2013 [facility] [place] [facility] [address] [id number] [place] [address] 18 Apr, 2013 [facility] [place] [facility] [address] [id number] [place] [address] 14 Oct, 2012 [facility] [place] [facility] [address] [id number] [place] [address] 24 Sep, 2012 [facility] [place] [facility] [address] [id number] [place] [address] Sep, [facility] [place] [facility] [address] [id number] [place] [address] Sep, [facility] [place] [facility] [address] [id number] [place] [address] 18 Sep, 2012 [facility] [place] [facility] [address] [id number] [place] [address] 18 Sep, 2012 [facility] [place] [facility] [address] [id number] [place] [address] Sep, [facility] [place] [facility] [address] [id number] [place] [address] Sep, [facility] [place] [facility] [address] [id number] [place] [address] 19 Aug, 2012 [facility] [place] [facility] [address] [id number] [place] [address] 19 Aug, 2012 [facility] [place] [facility] [address] [id number] [place] [address] 14 Aug, 2012 [facility] [place] [facility] [address] [id number] [place] [address] 14 Aug, 2012 [facility] [place] [facility] [address] [id number] [place] [address] Jul, [facility] [place] [facility] [address] [id number] [place] [address] Jul, [facility] [place] [facility] [address] [id number] [place] [address] Jul, [facility] [place] [facility] [address] [id number] [place] [address] Jun, [facility] [place] [facility] [address] [id number] [place] [address] May, [facility] [place] [facility] [address] [id number] [place] [address] May, [facility] [place] [facility] [address] [id number] [place] [address] May, [facility] [place] [facility] [address] [id number] [place] [address] May, [facility] [place] [facility] [address] [id number] [place] [address] May, [facility] [place] [facility] [address] [id number] [place] [address] Apr, [facility] [place] [facility] [address] [id number] [place] [address] Apr, [facility] [place] [facility] [address] [id number] [place] [address] Mar, [facility] [place] [facility] [address] [address] Mar, [facility] [place] [facility] [address] [id number] [place] [address] Mar, [facility] [place] [facility] [address] [id number] [place] [address] Mar, [facility] [place] [facility] [address] [id number] [place] [address] Mar, [facility] [place] [facility] [address] [id number] [place] [address] Mar, [facility] [address] [id number] [place] [address] February, [facility] [address] [id number] [place] [address] Jan, [facility] [address] [id number] [place] [address] Jan, [facility] [address] [id number] [place] [address] Dec, [facility] [address] [id number] [place] [address] Dec, [facility] [address] [id number] [place] [address] Dec, [facility] [address] [id number] [place] [address] Dec, [facility] [address] [id number] [place] [address] Dec, [facility] [address] [id number] [place] [address] Nov, [facility] [address] [id number] [place] [address] Oct, [facility] [address] [id number] [place] [address] Oct, [facility] [address] [id number] [place] [address] Sep, [facility] [place] [facility] [address] [id number] [place] [address] Sep, [facility] [address] [id number] [place] [address] Aug, [facility] [address] [id number] [place] [address] Aug, [facility] [address] [facility] [id number] [place] [address] 29 Jul, 2011 [facility] [address] [address] Jul, [facility] [id number] [address] Jun, [facility] [address] [address] February, [facility] [id number] [address] Jan, [facility] [address] [address] Dec, IMMUNIZATIONS No Known Immunizations SOCIAL HISTORY Never Assessed [place]ASON FOR VISIT [place] [place] VITAL SIGNS MEDICATIONS Unknown Medications RESULTS No Results PROCEDURES No Known procedures INSTRUCTIONS MEDICATIONS ADMINISTERED No Known Medications MEDICAL (GENERAL) HISTORY Type Description Date Medical History Bipolar disorder, unspecified Medical History Bipolar disorder, unspecified Medical History ODD (oppositional defiant disorder) Medical History ODD (oppositional defiant disorder) Medical History Disruptive mood dysregulation disorder
--- OUTSIDE RECORDS SUMMARY | 2019-05-18 01:26 | XMS REPORT ---
Author Author Migration, Doctor Organization [facility] Address Unknown Phone Unavailable Care Team Providers Care Product Safety Head Name Role Phone Migration, Doctor Unavailable Unavailable PROBLEMS Type Condition ICD9-CM Code NFK69-KM Code Onset Dates Condition Status SNOMED Code Problem PEARL (generalized anxiety disorder) F41.1 Active 48204983 Problem Seasonal allergic rhinitis, unspecified allergic rhinitis trigger J30.2 Active 932214878 Problem ADHD (attention deficit hyperactivity disorder), combined type F90.2 Active 87527227 ALLERGIES No Information ENCOUNTERS Encounter Location Date Diagnosis [place] [id number] [place] [address] Mar, [place] [address] [address] Dec, ADHD (attention deficit hyperactivity disorder), combined type F90.2 and PEARL (generalized anxiety disorder) F41.1 [place] [id number] [place] [address] Oct, Dysfunction of right eustachian tube H69.81 [place] [id number] [place] [address] Oct, [place] [id number] [place] [address] Oct, [place] [id number] [place] [address] Oct, [place] [address] [address] Sep, [place] [id number] [place] [address] Aug, ADHD (attention deficit hyperactivity disorder), combined type F90.2 and PEARL (generalized anxiety disorder) F41.1 [place] [address] [address] Jul, [facility] [address] [address] Jul, [facility] [address] [address] Jun, [facility] [address] [address] May, [facility] [address] [address] May, [facility] [id number] [place] [address], [place] [address] Apr, [facility] [address] [address] Mar, [facility] [address] [address] February, [facility] [address] [address] February, [facility] [address] [address] February, PEARL (generalized anxiety disorder) F41.1 [facility] [address] [address] February, [facility] [id number] [address] February, Seasonal allergic rhinitis, unspecified allergic rhinitis trigger J30.2 [facility] [address] [address] Jan, PEARL (generalized anxiety disorder) F41.1 [facility] [address] [address] Jan, ADHD (attention deficit hyperactivity disorder), combined type F90.2 and PEARL (generalized anxiety disorder) F41.1 [facility] [address] [address] Dec, [facility] [address] [address] Nov, [facility] [address] [address] Oct, [facility] [address] [address] Oct, [facility] [address] [address] Sep, [facility] [address] [address] Aug, ADHD (attention deficit hyperactivity disorder), combined type F90.2 and PEARL (generalized anxiety disorder) F41.1 [facility] [address] [address] Aug, [facility] [address] [address] Jul, [facility] [address] [address] Jun, ADHD (attention deficit hyperactivity disorder), combined type F90.2 ; ODD (oppositional defiant disorder) F91.3 and PEARL (generalized anxiety disorder) F41.1 [facility] [address] [address] Jun, [facility] [id number] [address] Jun, [facility] [address] [address] May, [facility] [id number] [address] May, ODD (oppositional defiant disorder) F91.3 and ADHD (attention deficit hyperactivity disorder), combined type F90.2 [facility] [address] [address] May, [facility] [id number] [place] [address] Apr, [facility] [id number] [place] [address] Mar, [facility] [id number] [place] [address] February, [facility] [id number] [place] [address] Jan, [facility] [id number] [place] [address] Dec, [facility] [id number] [place] [address] Dec, [facility] [id number] [place] [id number] Nov, Dental examination Z01.20 [facility] [id number] [place] [address] Nov, [facility] [id number] [place] [address] Nov, [facility] [id number] [place] [address] Nov, Disruptive mood dysregulation disorder F34.8 ; ADHD (attention deficit hyperactivity disorder), combined type F90.2 and ODD (oppositional defiant disorder) F91.3 [facility] [id number] [place] [address] Sep, [facility] [id number] [place] [address] Aug, [facility] [id number] [place] [address] Jul, [facility] [address] [address] Jul, [facility] [id number] [place] [address] Jul, [facility] [address] [address] Jun, Bipolar disorder, unspecified 296.80 ; Attention deficit disorder (ADD), child, 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 and ODD (oppositional defiant disorder) 313.81 [facility] [address] [address] May, [facility] [id number] [place] [address] May, [facility] [id number] [place] [address] May, [facility] [id number] [place] [address] Apr, [facility] [address] [address] Mar, [facility] [id number] [place] [address] Mar, [facility] [address] [address] February, Bipolar disorder, unspecified 296.80 ; Attention deficit disorder 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 and Oppositional defiant behavior 313.81 [facility] [address] [address] February, [facility] [id number] [place] [address] Jan, [facility] [address] [address] Jan, [facility] [id number] [place] [address] Dec, [facility] [place] [facility] [address] [id number] [place] [address] Dec, [facility] [place] [facility] [address] [id number] [place] [address] Dec, [facility] [place] [facility] [address] [id number] [place] [address] Nov, 2014 [facility] [place] [facility] [address] [id number] [place] [address] Nov, 2014 [facility] [place] [facility] [address] [id number] [place] [address] Nov, [facility] [place] [facility] [address] [id number] [place] [address] Nov, [facility] [place] [facility] [address] [facility] [id number] [place] [address] Nov, [facility] [place] [facility] [address] [id number] [place] [address] Nov, [facility] [place] [facility] [address] [id number] [place] [address] Nov, [facility] [place] [facility] [address] [facility] [id number] [place] [address] Nov, [facility] [place] [facility] [address] [facility] [id number] [place] [address] Oct, [facility] [place] [facility] [address] [id number] [place] [address] 16 Oct, 2014 [facility] [place] [facility] [address] [id number] [place] [address] 15 Oct, 2014 [facility] [place] [facility] [address] [facility] [id number] [place] [address] Oct, [facility] [place] [facility] [address] [facility] [id number] [place] [address] Oct, [facility] [place] [facility] [address] [id number] [place] [address] 08 Oct, 2014 [facility] [place] [facility] [address] [id number] [place] [address] Oct, [facility] [place] [facility] [address] [id number] [place] [address] 16 Sep, 2014 [facility] [place] [facility] [address] [id number] [place] [address] Sep, [facility] [place] [facility] [address] [id number] [place] [address] Sep, [facility] [place] [facility] [address] [id number] [place] [address] Aug, [facility] [place] [facility] [address] [id number] [place] [address] Aug, [facility] [place] [facility] [address] [id number] [place] [address] Jul, [facility] [place] [facility] [address] [id number] [place] [address] Jul, [facility] [place] [facility] [address] [id number] [place] [address] Jun, [facility] [place] [facility] [address] [id number] [place] [address] Jun, [facility] [place] [facility] [address] [id number] [place] [address] May, [facility] [place] [facility] [address] [id number] [place] [address] May, [facility] [place] [facility] [address] [id number] [place] [address] May, [facility] [place] [facility] [address] [id number] [place] [address] May, [facility] [place] [facility] [address] [id number] [place] [address] Apr, [facility] [place] [facility] [address] [id number] [place] [address] Apr, [facility] [place] [facility] [address] [id number] [place] [address] Apr, [facility] [place] [facility] [address] [id number] [place] [address] Apr, [facility] [place] [facility] [address] [id number] [place] [address] Apr, [facility] [place] [facility] [address] [id number] [place] [address] Mar, [facility] [place] [facility] [address] [id number] [place] [address] Mar, [facility] [place] [facility] [address] [id number] [place] [address] Mar, [facility] [place] [facility] [address] [id number] [place] [address] Mar, [facility] [place] [facility] [address] [id number] [place] [address] Mar, [facility] [place] [facility] [address] [id number] [place] [address] February, [facility] [place] [facility] [address] [id number] [place] [address] February, [facility] [place] [facility] [address] [id number] [place] [address] February, [facility] [place] [facility] [address] [id number] [place] [address] Jan, [facility] [place] [facility] [address] [id number] [place] [address] Jan, [facility] [place] [facility] [address] [id number] [place] [address] Dec, [facility] [place] [facility] [address] [id number] [place] [address] Dec, [facility] [address] [id number] [place] [address] Nov, [facility] [address] [id number] [place] [address] Nov, [facility] [address] [id number] [place] [address] Sep, [facility] [address] [id number] [place] [address] Sep, [facility] [address] [id number] [place] [address] Sep, [facility] [address] [id number] [place] [address] Sep, [facility] [address] [id number] [place] [address] Aug, [facility] [address] [id number] [place] [address] Aug, [facility] [address] [id number] [place] [address] Aug, [facility] [address] [id number] [place] [address] Aug, [facility] [place] [facility] [address] [id number] [place] [address] Jul, [facility] [place] [facility] [address] [id number] [place] [address] Jul, [facility] [place] [facility] [address] [id number] [place] [address] Jun, [facility] [place] [facility] [address] [id number] [place] [address] May, [facility] [place] [facility] [address] [id number] [place] [address] May, [facility] [place] [facility] [address] [id number] [place] [address] 15 May, 2013 [facility] [place] [facility] [address] [id number] [place] [address] 19 Apr, 2013 [facility] [place] [facility] [address] [id number] [place] [address] 18 Apr, 2013 [facility] [place] [facility] [address] [id number] [place] [address] 14 Oct, 2012 [facility] [place] [facility] [address] [id number] [place] [address] 24 Sep, 2012 [facility] [place] [facility] [address] [id number] [place] [address] Sep, [facility] [place] [facility] [address] [id number] [place] [address] Sep, [facility] [place] [facility] [address] [id number] [place] [address] 18 Sep, 2012 [facility] [place] [facility] [address] [id number] [place] [address] 18 Sep, 2012 [facility] [place] [facility] [address] [id number] [place] [address] Sep, [facility] [place] [facility] [address] [id number] [place] [address] Sep, [facility] [place] [facility] [address] [id number] [place] [address] 19 Aug, 2012 [facility] [place] [facility] [address] [id number] [place] [address] 19 Aug, 2012 [facility] [place] [facility] [address] [id number] [place] [address] 14 Aug, 2012 [facility] [place] [facility] [address] [id number] [place] [address] 14 Aug, 2012 [facility] [place] [facility] [address] [id number] [place] [address] Jul, [facility] [place] [facility] [address] [id number] [place] [address] Jul, [facility] [place] [facility] [address] [id number] [place] [address] Jul, [facility] [place] [facility] [address] [id number] [place] [address] Jun, [facility] [place] [facility] [address] [id number] [place] [address] May, [facility] [place] [facility] [address] [id number] [place] [address] May, [facility] [place] [facility] [address] [id number] [place] [address] May, [facility] [place] [facility] [address] [id number] [place] [address] May, [facility] [place] [facility] [address] [id number] [place] [address] May, [facility] [place] [facility] [address] [id number] [place] [address] Apr, [facility] [place] [facility] [address] [id number] [place] [address] Apr, [facility] [place] [facility] [address] [id number] [place] [address] Mar, [facility] [place] [facility] [address] [address] Mar, [facility] [place] [facility] [address] [id number] [place] [address] Mar, [facility] [place] [facility] [address] [id number] [place] [address] Mar, [facility] [place] [facility] [address] [id number] [place] [address] Mar, [facility] [place] [facility] [address] [id number] [place] [address] Mar, [facility] [address] [id number] [place] [address] February, [facility] [address] [id number] [place] [address] Jan, [facility] [address] [id number] [place] [address] Jan, [facility] [address] [id number] [place] [address] Dec, [facility] [address] [id number] [place] [address] Dec, [facility] [address] [id number] [place] [address] Dec, [facility] [address] [id number] [place] [address] Dec, [facility] [address] [id number] [place] [address] Dec, [facility] [address] [id number] [place] [address] Nov, [facility] [address] [id number] [place] [address] Oct, [facility] [address] [id number] [place] [address] Oct, [facility] [address] [id number] [place] [address] Sep, [facility] [place] [facility] [address] [id number] [place] [address] Sep, [facility] [address] [id number] [place] [address] Aug, [facility] [address] [id number] [place] [address] Aug, [facility] [address] [facility] [id number] [place] [address] 29 Jul, 2011 [facility] [address] [address] Jul, [facility] [id number] [address] Jun, [facility] [address] [address] February, [facility] [id number] [address] Jan, [facility] [address] [address] Dec, IMMUNIZATIONS No Known Immunizations SOCIAL HISTORY Never Assessed REASON FOR VISIT EMR-[facility] PLAN OF CARE VITAL SIGNS MEDICATIONS Unknown Medications RESULTS No Results PROCEDURES No Known procedures INSTRUCTIONS MEDICATIONS ADMINISTERED No Known Medications MEDICAL (GENERAL) HISTORY Type Description Date Medical History Bipolar disorder, unspecified Medical History Bipolar disorder, unspecified Medical History ODD (oppositional defiant disorder) Medical History ODD (oppositional defiant disorder) Medical History Disruptive mood dysregulation disorder
--- OUTSIDE RECORDS SUMMARY | 2019-05-18 01:27 | XMS REPORT ---
Author Author Migration, Doctor Organization [facility] Address Unknown Phone Unavailable Care Team Providers Care Resolution Specialist Name Role Phone Migration, Doctor Unavailable Unavailable PROBLEMS Type Condition ICD9-CM Code CHD32-MP Code Onset Dates Condition Status SNOMED Code Problem PEARL (generalized anxiety disorder) F41.1 Active 35381046 Problem Seasonal allergic rhinitis, unspecified allergic rhinitis trigger J30.2 Active 608052499 Problem ADHD (attention deficit hyperactivity disorder), combined type F90.2 Active [id number] ALLERGIES No Information ENCOUNTERS Encounter Location Date Diagnosis [place] [id number] [place] [address] Mar, [place] [address] [address] Dec, ADHD (attention deficit hyperactivity disorder), combined type F90.2 and PEARL (generalized anxiety disorder) F41.1 [place] [id number] [place] [address] Oct, Dysfunction of right eustachian tube H69.81 [place] [id number] [place] [address] Oct, [place] [id number] [place] [address] Oct, [place] [id number] [place] [address] Oct, [place] [address] [address] Sep, [place] [id number] [place] [address] Aug, ADHD (attention deficit hyperactivity disorder), combined type F90.2 and PEARL (generalized anxiety disorder) F41.1 [place] [address] [address] Jul, [facility] [address] [address] Jul, [facility] [address] [address] Jun, [facility] [address] [address] May, [facility] [address] [address] May, [facility] [id number] [place] [address], [place] [address] Apr, [facility] [address] [address] Mar, [facility] [address] [address] February, [facility] [address] [address] February, [facility] [address] [address] February, PEARL (generalized anxiety disorder) F41.1 [facility] [address] [address] February, [facility] [id number] [address] February, Seasonal allergic rhinitis, unspecified allergic rhinitis trigger J30.2 [facility] [address] [address] Jan, PEARL (generalized anxiety disorder) F41.1 [facility] [address] [address] Jan, ADHD (attention deficit hyperactivity disorder), combined type F90.2 and PEARL (generalized anxiety disorder) F41.1 [facility] [address] [address] Dec, [facility] [address] [address] Nov, [facility] [address] [address] Oct, [facility] [address] [address] Oct, [facility] [address] [address] Sep, [facility] [address] [address] Aug, ADHD (attention deficit hyperactivity disorder), combined type F90.2 and PEARL (generalized anxiety disorder) F41.1 [facility] [address] [address] Aug, [facility] [address] [address] Jul, [facility] [address] [address] Jun, ADHD (attention deficit hyperactivity disorder), combined type F90.2 ; ODD (oppositional defiant disorder) F91.3 and PEARL (generalized anxiety disorder) F41.1 [facility] [address] [address] Jun, [facility] [id number] [address] Jun, [facility] [address] [address] May, [facility] [id number] [address] May, ODD (oppositional defiant disorder) F91.3 and ADHD (attention deficit hyperactivity disorder), combined type F90.2 [facility] [address] [address] May, [facility] [id number] [place] [address] Apr, [facility] [id number] [place] [address] Mar, [facility] [id number] [place] [address] February, [facility] [id number] [place] [address] Jan, [facility] [id number] [place] [address] Dec, [facility] [id number] [place] [address] Dec, [facility] [id number] [place] [id number] Nov, Dental examination Z01.20 [facility] [id number] [place] [address] Nov, [facility] [id number] [place] [address] Nov, [facility] [id number] [place] [address] Nov, Disruptive mood dysregulation disorder F34.8 ; ADHD (attention deficit hyperactivity disorder), combined type F90.2 and ODD (oppositional defiant disorder) F91.3 [facility] [id number] [place] [address] Sep, [facility] [id number] [place] [address] Aug, [facility] [id number] [place] [address] Jul, [facility] [address] [address] Jul, [facility] [id number] [place] [address] Jul, [facility] [address] [address] Jun, Bipolar disorder, unspecified 296.80 ; Attention deficit disorder (ADD), child, 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 and ODD (oppositional defiant disorder) 313.81 [facility] [address] [address] May, [facility] [id number] [place] [address] May, [facility] [id number] [place] [address] May, [facility] [id number] [place] [address] Apr, [facility] [address] [address] Mar, [facility] [id number] [place] [address] Mar, [facility] [address] [address] February, Bipolar disorder, unspecified 296.80 ; Attention deficit disorder 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 and Oppositional defiant behavior 313.81 [facility] [address] [address] February, [facility] [id number] [place] [address] Jan, [facility] [address] [address] Jan, [facility] [id number] [place] [address] Dec, [facility] [place] [facility] [address] [id number] [place] [address] Dec, [facility] [place] [facility] [address] [id number] [place] [address] Dec, [facility] [place] [facility] [address] [id number] [place] [address] Nov, 2014 [facility] [place] [facility] [address] [id number] [place] [address] Nov, 2014 [facility] [place] [facility] [address] [id number] [place] [address] Nov, [facility] [place] [facility] [address] [id number] [place] [address] Nov, [facility] [place] [facility] [address] [facility] [id number] [place] [address] Nov, [facility] [place] [facility] [address] [id number] [place] [address] Nov, [facility] [place] [facility] [address] [id number] [place] [address] Nov, [facility] [place] [facility] [address] [facility] [id number] [place] [address] Nov, [facility] [place] [facility] [address] [facility] [id number] [place] [address] Oct, [facility] [place] [facility] [address] [id number] [place] [address] 16 Oct, 2014 [facility] [place] [facility] [address] [id number] [place] [address] 15 Oct, 2014 [facility] [place] [facility] [address] [facility] [id number] [place] [address] Oct, [facility] [place] [facility] [address] [facility] [id number] [place] [address] Oct, [facility] [place] [facility] [address] [id number] [place] [address] 08 Oct, 2014 [facility] [place] [facility] [address] [id number] [place] [address] Oct, [facility] [place] [facility] [address] [id number] [place] [address] 16 Sep, 2014 [facility] [place] [facility] [address] [id number] [place] [address] Sep, [facility] [place] [facility] [address] [id number] [place] [address] Sep, [facility] [place] [facility] [address] [id number] [place] [address] Aug, [facility] [place] [facility] [address] [id number] [place] [address] Aug, [facility] [place] [facility] [address] [id number] [place] [address] Jul, [facility] [place] [facility] [address] [id number] [place] [address] Jul, [facility] [place] [facility] [address] [id number] [place] [address] Jun, [facility] [place] [facility] [address] [id number] [place] [address] Jun, [facility] [place] [facility] [address] [id number] [place] [address] May, [facility] [place] [facility] [address] [id number] [place] [address] May, [facility] [place] [facility] [address] [id number] [place] [address] May, [facility] [place] [facility] [address] [id number] [place] [address] May, [facility] [place] [facility] [address] [id number] [place] [address] Apr, [facility] [place] [facility] [address] [id number] [place] [address] Apr, [facility] [place] [facility] [address] [id number] [place] [address] Apr, [facility] [place] [facility] [address] [id number] [place] [address] Apr, [facility] [place] [facility] [address] [id number] [place] [address] Apr, [facility] [place] [facility] [address] [id number] [place] [address] Mar, [facility] [place] [facility] [address] [id number] [place] [address] Mar, [facility] [place] [facility] [address] [id number] [place] [address] Mar, [facility] [place] [facility] [address] [id number] [place] [address] Mar, [facility] [place] [facility] [address] [id number] [place] [address] Mar, [facility] [place] [facility] [address] [id number] [place] [address] February, [facility] [place] [facility] [address] [id number] [place] [address] February, [facility] [place] [facility] [address] [id number] [place] [address] February, [facility] [place] [facility] [address] [id number] [place] [address] Jan, [facility] [place] [facility] [address] [id number] [place] [address] Jan, [facility] [place] [facility] [address] [id number] [place] [address] Dec, [facility] [place] [facility] [address] [id number] [place] [address] Dec, [facility] [address] [id number] [place] [address] Nov, [facility] [address] [id number] [place] [address] Nov, [facility] [address] [id number] [place] [address] Sep, [facility] [address] [id number] [place] [address] Sep, [facility] [address] [id number] [place] [address] Sep, [facility] [address] [id number] [place] [address] Sep, [facility] [address] [id number] [place] [address] Aug, [facility] [address] [id number] [place] [address] Aug, [facility] [address] [id number] [place] [address] Aug, [facility] [address] [id number] [place] [address] Aug, [facility] [place] [facility] [address] [id number] [place] [address] Jul, [facility] [place] [facility] [address] [id number] [place] [address] Jul, [facility] [place] [facility] [address] [id number] [place] [address] Jun, [facility] [place] [facility] [address] [id number] [place] [address] May, [facility] [place] [facility] [address] [id number] [place] [address] May, [facility] [place] [facility] [address] [id number] [place] [address] 15 May, 2013 [facility] [place] [facility] [address] [id number] [place] [address] 19 Apr, 2013 [facility] [place] [facility] [address] [id number] [place] [address] 18 Apr, 2013 [facility] [place] [facility] [address] [id number] [place] [address] 14 Oct, 2012 [facility] [place] [facility] [address] [id number] [place] [address] 24 Sep, 2012 [facility] [place] [facility] [address] [id number] [place] [address] Sep, [facility] [place] [facility] [address] [id number] [place] [address] Sep, [facility] [place] [facility] [address] [id number] [place] [address] 18 Sep, 2012 [facility] [place] [facility] [address] [id number] [place] [address] 18 Sep, 2012 [facility] [place] [facility] [address] [id number] [place] [address] Sep, [facility] [place] [facility] [address] [id number] [place] [address] Sep, [facility] [place] [facility] [address] [id number] [place] [address] 19 Aug, 2012 [facility] [place] [facility] [address] [id number] [place] [address] 19 Aug, 2012 [facility] [place] [facility] [address] [id number] [place] [address] 14 Aug, 2012 [facility] [place] [facility] [address] [id number] [place] [address] 14 Aug, 2012 [facility] [place] [facility] [address] [id number] [place] [address] Jul, [facility] [place] [facility] [address] [id number] [place] [address] Jul, [facility] [place] [facility] [address] [id number] [place] [address] Jul, [facility] [place] [facility] [address] [id number] [place] [address] Jun, [facility] [place] [facility] [address] [id number] [place] [address] May, [facility] [place] [facility] [address] [id number] [place] [address] May, [facility] [place] [facility] [address] [id number] [place] [address] May, [facility] [place] [facility] [address] [id number] [place] [address] May, [facility] [place] [facility] [address] [id number] [place] [address] May, [facility] [place] [facility] [address] [id number] [place] [address] Apr, [facility] [place] [facility] [address] [id number] [place] [address] Apr, [facility] [place] [facility] [address] [id number] [place] [address] Mar, [facility] [place] [facility] [address] [address] Mar, [facility] [place] [facility] [address] [id number] [place] [address] Mar, [facility] [place] [facility] [address] [id number] [place] [address] Mar, [facility] [place] [facility] [address] [id number] [place] [address] Mar, [facility] [place] [facility] [address] [id number] [place] [address] Mar, [facility] [address] [id number] [place] [address] February, [facility] [address] [id number] [place] [address] Jan, [facility] [address] [id number] [place] [address] Jan, [facility] [address] [id number] [place] [address] Dec, [facility] [address] [id number] [place] [address] Dec, [facility] [address] [id number] [place] [address] Dec, [facility] [address] [id number] [place] [address] Dec, [facility] [address] [id number] [place] [address] Dec, [facility] [address] [id number] [place] [address] Nov, [facility] [address] [id number] [place] [address] Oct, [facility] [address] [id number] [place] [address] Oct, [facility] [address] [id number] [place] [address] Sep, [facility] [place] [facility] [address] [id number] [place] [address] Sep, [facility] [address] [id number] [place] [address] Aug, [facility] [address] [id number] [place] [address] Aug, [facility] [address] [facility] [id number] [place] [address] 29 Jul, 2011 [facility] [address] [address] Jul, [facility] [id number] [address] Jun, [facility] [address] [address] February, [facility] [id number] [address] Jan, [facility] [address] [address] Dec, IMMUNIZATIONS No Known Immunizations SOCIAL HISTORY Never Assessed REASON FOR VISIT [facility]MR-[facility] PLAN OF CARE VITAL SIGNS MEDICATIONS Unknown Medications RESULTS No Results PROCEDURES No Known procedures INSTRUCTIONS MEDICATIONS ADMINISTERED No Known Medications MEDICAL (GENERAL) HISTORY Type Description Date Medical History Bipolar disorder, unspecified Medical History Bipolar disorder, unspecified Medical History ODD (oppositional defiant disorder) Medical History ODD (oppositional defiant disorder) Medical History Disruptive mood dysregulation disorder
--- OUTSIDE RECORDS SUMMARY | 2019-05-18 01:27 | XMS REPORT ---
Author Author Migration, Doctor Organization [facility] Address Unknown Phone Unavailable Care Team Providers Care Housecleaner Name Role Phone Migration, Doctor Unavailable Unavailable PROBLEMS Type Condition ICD9-CM Code ALC99-EQ Code Onset Dates Condition Status SNOMED Code Problem PEARL (generalized anxiety disorder) F41.1 Active 19561485 Problem Seasonal allergic rhinitis, unspecified allergic rhinitis trigger J30.2 Active 390795000 Problem ADHD (attention deficit hyperactivity disorder), combined type F90.2 Active [id number] ALLERGIES No Information ENCOUNTERS Encounter Location Date Diagnosis [place] [id number] [place] [place] [address] Mar, [place] [address] [address] Dec, ADHD (attention deficit hyperactivity disorder), combined type F90.2 and PEARL (generalized anxiety disorder) F41.1 [place] [id number] [place] [address] Oct, Dysfunction of right eustachian tube H69.81 [place] [id number] [place] [place] [address] Oct, [place] [id number] [place] [place] [address] Oct, [place] [id number] [place] [place] [address] Oct, [place] [address] [address] Sep, [place] [id number] [place] [address] Aug, ADHD (attention deficit hyperactivity disorder), combined type F90.2 and PEARL (generalized anxiety disorder) F41.1 [place] [address] [address] Jul, [facility] [address], [place] [address] Jul, [facility] [address], [place] [address] Jun, [facility] [address], [place] [address] May, [facility] [address] [address] May, [facility] [id number] [place] [address], [place] [address] Apr, [facility] [address], [place] [address] Mar, [facility] [address], [place] [address] February, [facility] [address], [place] [address] February, [facility] [address], [place] [address] February, PEARL (generalized anxiety disorder) F41.1 [facility] [address], [place] [address] February, [facility] [id number], [place] [address] February, Seasonal allergic rhinitis, unspecified allergic rhinitis trigger J30.2 [facility] [address], [place] [address] Jan, PEARL (generalized anxiety disorder) F41.1 [facility] [address], [place] [address] Jan, ADHD (attention deficit hyperactivity disorder), combined type F90.2 and PEARL (generalized anxiety disorder) F41.1 [facility] [address], [place] [address] Dec, [facility] [address], [place] [address] Nov, [facility] [address], [place] [address] Oct, [facility] [address], [place] [address] Oct, [facility] [address], [place] [address] Sep, [facility] [address], [place] [address] Aug, ADHD (attention deficit hyperactivity disorder), combined type F90.2 and PEARL (generalized anxiety disorder) F41.1 [facility] [address], [place] [address] Aug, [facility] [address], [place] [address] Jul, [facility] [address], [place] [address] Jun, ADHD (attention deficit hyperactivity disorder), combined type F90.2 ; ODD (oppositional defiant disorder) F91.3 and PEARL (generalized anxiety disorder) F41.1 [facility] [address], [place] [address] Jun, [facility] [id number], [place] [address] Jun, [facility] [address], [place] [address] May, [facility] [id number], [place] [address] May, ODD (oppositional defiant disorder) F91.3 and ADHD (attention deficit hyperactivity disorder), combined type F90.2 [facility] [address], [place] [address] May, [facility] [id number] [place] [address] Apr, [facility] [id number] [place] [address] Mar, [facility] [id number] [place] [address] February, [facility] [id number] [place] [address] Jan, [facility] [id number] [place] [address] Dec, [facility] [id number] [place] [address] Dec, [facility] [id number] [place] [id number] Nov, Dental examination Z01.20 [facility] [id number] [place] [address] Nov, [facility] [id number] [place] [address] Nov, [facility] [id number] [place] [address] Nov, Disruptive mood dysregulation disorder F34.8 ; ADHD (attention deficit hyperactivity disorder), combined type F90.2 and ODD (oppositional defiant disorder) F91.3 [facility] [id number] [place] [address] Sep, [facility] [id number] [place] [address] Aug, [facility] [id number] [place] [address] Jul, [facility] [address], [place] [address] Jul, [facility] [id number] [place] [address] Jul, [facility] [address], [place] [address] Jun, Bipolar disorder, unspecified 296.80 ; Attention deficit disorder (ADD), child, 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 and ODD (oppositional defiant disorder) 313.81 [facility] [address], [place] [address] May, [facility] [id number] [place] [address] May, [facility] [id number] [place] [address] May, [facility] [id number] [place] [address] Apr, [facility] [address], [place] [address] Mar, [facility] [id number] [place] [address] Mar, [facility] [address], [place] [address] February, Bipolar disorder, unspecified 296.80 ; Attention deficit disorder 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 and Oppositional defiant behavior 313.81 [facility] [address], [place] [address] February, [facility] [id number] [place] [address] Jan, [facility] [address], [place] [address] Jan, [facility] [id number] [place] [address] Dec, [facility] [place] [facility] [address] [id number] [place] [address] Dec, [facility] [place] [facility] [address] [id number] [place] [address] Dec, [facility] [place] [facility] [address] [id number] [place] [address] Nov, 2014 [facility] [place] [facility] [address] [id number] [place] [address] Nov, 2014 [facility] [place] [facility] [address] [id number] [place] [address] Nov, [facility] [place] [facility] [address] [id number] [place] [address] Nov, [facility] [place] [facility] [address] [facility] [id number] [place] [address] Nov, [facility] [place] [facility] [address] [id number] [place] [address] Nov, [facility] [place] [facility] [address] [id number] [place] [address] Nov, [facility] [place] [facility] [address] [facility] [id number] [place] [address] Nov, [facility] [place] [facility] [address] [facility] [id number] [place] [address] Oct, [facility] [place] [facility] [address] [id number] [address] 16 Oct, 2014 [facility] [place] [facility] [address] [id number], [place] [address] 15 Oct, 2014 [facility] [place] [facility] [address] [facility] [id number] [place] [address] Oct, [facility] [place] [facility] [address] [facility] [id number] [address] Oct, [facility] [place] [facility] [address] [id number] [place] [address] 08 Oct, 2014 [facility] [place] [facility] [address] [id number] [place] [address] Oct, [facility] [place] [facility] [address] [id number] [place] [address] 16 Sep, 2014 [facility] [place] [facility] [address] [id number] [place] [address] Sep, [facility] [place] [facility] [address] [id number] [place] [address] Sep, [facility] [place] [facility] [address] [id number] [place] [address] Aug, [facility] [place] [facility] [address] [id number] [place] [address] Aug, [facility] [place] [facility] [address] [id number] [place] [address] Jul, [facility] [place] [facility] [address] [id number] [place] [address] Jul, [facility] [place] [facility] [address] [id number] [place] [address] Jun, [facility] [place] [facility] [address] [id number] [place] [address] Jun, [facility] [place] [facility] [address] [id number] [place] [address] May, [facility] [place] [facility] [address] [id number] [place] [address] May, [facility] [place] [facility] [address] [id number] [place] [address] May, [facility] [place] [facility] [address] [id number] [place] [address] May, [facility] [place] [facility] [address] [id number] [place] [address] Apr, [facility] [place] [facility] [address] [id number] [place] [address] Apr, [facility] [place] [facility] [address] [id number] [place] [address] Apr, [facility] [place] [facility] [address] [id number] [place] [address] Apr, [facility] [place] [facility] [address] [id number] [place] [address] Apr, [facility] [place] [facility] [address] [id number] [place] [address] Mar, [facility] [place] [facility] [address] [id number] [place] [address] Mar, [facility] [place] [facility] [address] [id number] [place] [address] Mar, [facility] [place] [facility] [address] [id number] [place] [address] Mar, [facility] [place] [facility] [address] [id number] [place] [address] Mar, [facility] [place] [facility] [address] [id number] [place] [address] February, [facility] [place] [facility] [address] [id number] [place] [address] February, [facility] [place] [facility] [address] [id number] [place] [address] February, [facility] [place] [facility] [address] [id number] [place] [address] Jan, [facility] [place] [facility] [address] [id number] [place] [address] Jan, [facility] [place] [facility] [address] [id number] [place] [address] Dec, [facility] [place] [facility] [address] [id number] [place] [address] Dec, [facility] [address] [id number] [place] [address] Nov, [facility] [address] [id number] [place] [address] Nov, [facility] [address] [id number] [place] [address] Sep, [facility] [address] [id number] [place] [address] Sep, [facility] [address] [id number] [place] [address] Sep, [facility] [address] [id number] [place] [address] Sep, [facility] [address] [id number] [place] [address] Aug, [facility] [address] [id number] [place] [address] Aug, [facility] [address] [id number] [place] [address] Aug, [facility] [address] [id number] [place] [address] Aug, [facility] [place] [facility] [address] [id number] [place] [address] Jul, [facility] [place] [facility] [address] [id number] [place] [address] Jul, [facility] [place] [facility] [address] [id number] [place] [address] Jun, [facility] [place] [facility] [address] [id number] [place] [address] May, [facility] [place] [facility] [address] [id number] [place] [address] May, [facility] [place] [facility] [address] [id number] [place] [address] 15 May, 2013 [facility] [place] [facility] [address] [id number] [place] [address] 19 Apr, 2013 [facility] [place] [facility] [address] [id number] [place] [address] 18 Apr, 2013 [facility] [place] [facility] [address] [id number] [place] [address] 14 Oct, 2012 [facility] [place] [facility] [address] [id number] [place] [address] 24 Sep, 2012 [facility] [place] [facility] [address] [id number] [place] [address] Sep, [facility] [place] [facility] [address] [id number] [place] [address] Sep, [facility] [place] [facility] [address] [id number] [place] [address] 18 Sep, 2012 [facility] [place] [facility] [address] [id number] [place] [address] 18 Sep, 2012 [facility] [place] [facility] [address] [id number] [place] [address] Sep, [facility] [place] [facility] [address] [id number] [place] [address] Sep, [facility] [place] [facility] [address] [id number] [place] [address] 19 Aug, 2012 [facility] [place] [facility] [address] [id number] [place] [address] 19 Aug, 2012 [facility] [place] [facility] [address] [id number] [place] [address] 14 Aug, 2012 [facility] [place] [facility] [address] [id number] [place] [address] 14 Aug, 2012 [facility] [place] [facility] [address] [id number] [place] [address] Jul, [facility] [place] [facility] [address] [id number] [place] [address] Jul, [facility] [place] [facility] [address] [id number] [place] [address] Jul, [facility] [place] [facility] [address] [id number] [place] [address] Jun, [facility] [place] [facility] [address] [id number] [place] [address] May, [facility] [place] [facility] [address] [id number] [place] [address] May, [facility] [place] [facility] [address] [id number] [place] [address] May, [facility] [place] [facility] [address] [id number] [place] [address] May, [facility] [place] [facility] [address] [id number] [place] [address] May, [facility] [place] [facility] [address] [id number] [place] [address] Apr, [facility] [place] [facility] [address] [id number] [place] [address] Apr, [facility] [place] [facility] [address] [id number] [place] [id number] Mar, [facility] [place] [facility] [address] [id number] Mar, [facility] [place] [facility] [address] [id number] [place] [address] Mar, [facility] [place] [facility] [address] [id number] [place] [address] Mar, [facility] [place] [facility] [address] [id number] [place] [address] Mar, [facility] [place] [facility] [address] [id number] [place] [address] Mar, [facility] [address] [id number] [place] [address] February, [facility] [address] [id number] [place] [address] Jan, [facility] [address] [id number] [place] [address] Jan, [facility] [address] [id number] [place] [address] Dec, [facility] [address] [id number] [place] [address] Dec, [facility] [address] [id number] [place] [address] Dec, [facility] [address] [id number] [place] [address] Dec, [facility] [address] [id number] [place] [address] Dec, [facility] [address] [id number] [place] [address] Nov, [facility] [address] [id number] [place] [address] Oct, [facility] [address] [id number] [place] [address] Oct, [facility] [address] [id number] [place] [address] Sep, [facility] [place] [facility] [address] [id number] [place] [address] Sep, [facility] [address] [id number] [place] [address] Aug, [facility] [address] [id number] [place] [address] Aug, [facility] [address] [facility] [id number] [address] 29 Jul, 2011 [facility] [address] [address] Jul, [facility] [address] [id number] [address] Jun, [facility] [id number] [address] February, [facility] [address] [id number] [address] Jan, [facility] [id number] [address] Dec, IMMUNIZATIONS No Known Immunizations SOCIAL HISTORY Never Assessed REASON FOR VISIT EMR-[facility] [place] PLAN OF CARE [...]
--- OUTSIDE RECORDS SUMMARY | 2019-05-18 01:28 | XMS REPORT ---
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 Name Role Phone Migration, Doctor Unavailable Unavailable PROBLEMS Type Condition ICD9-CM Code ASG64-CG Code Onset Dates Condition Status SNOMED Code Problem PEARL (generalized anxiety disorder) F41.1 Active 93238702 Problem Seasonal allergic rhinitis, unspecified allergic rhinitis trigger J30.2 Active 888341254 Problem ADHD (attention deficit hyperactivity disorder), combined type F90.2 Active 14383335 ALLERGIES No Information ENCOUNTERS Encounter Location Date Diagnosis [place] [id number] [place] [address] Mar, [place] [address] [address] Dec, ADHD (attention deficit hyperactivity disorder), combined type F90.2 and PEARL (generalized anxiety disorder) F41.1 [place] [id number] [place] [address] Oct, Dysfunction of right eustachian tube H69.81 [place] [id number] [place] [address] Oct, [place] [id number] [place] [address] Oct, [place] [id number] [place] [address] Oct, [place] [address] [address] Sep, [place] [id number] [place] [address] Aug, ADHD (attention deficit hyperactivity disorder), combined type F90.2 and PEARL (generalized anxiety disorder) F41.1 [place] [address] [address] Jul, [facility] [address] [address] Jul, [facility] [address] [address] Jun, [facility] [address] [address] May, [facility] [address] [address] May, [facility] [id number] [place] [address], [place] [address] Apr, [facility] [address] [address] Mar, [facility] [address] [address] February, [facility] [address] [address] February, [facility] [address] [address] February, PEARL (generalized anxiety disorder) F41.1 [facility] [address] [address] February, [facility] [id number] [address] February, Seasonal allergic rhinitis, unspecified allergic rhinitis trigger J30.2 [facility] [address] [address] Jan, PEARL (generalized anxiety disorder) F41.1 [facility] [address] [address] Jan, ADHD (attention deficit hyperactivity disorder), combined type F90.2 and PEARL (generalized anxiety disorder) F41.1 [facility] [address] [address] Dec, [facility] [address] [address] Nov, [facility] [address] [address] Oct, [facility] [address] [address] Oct, [facility] [address] [address] Sep, [facility] [address] [address] Aug, ADHD (attention deficit hyperactivity disorder), combined type F90.2 and PEARL (generalized anxiety disorder) F41.1 [facility] [address] [address] Aug, [facility] [address] [address] Jul, [facility] [address] [address] Jun, ADHD (attention deficit hyperactivity disorder), combined type F90.2 ; ODD (oppositional defiant disorder) F91.3 and PEARL (generalized anxiety disorder) F41.1 [facility] [address] [address] Jun, [facility] [id number] [address] Jun, [facility] [address] [address] May, [facility] [id number] [address] May, ODD (oppositional defiant disorder) F91.3 and ADHD (attention deficit hyperactivity disorder), combined type F90.2 [facility] [address] [address] May, [facility] [id number] [place] [address] Apr, [facility] [id number] [place] [address] Mar, [facility] [id number] [place] [address] February, [facility] [id number] [place] [address] Jan, [facility] [id number] [place] [address] Dec, [facility] [id number] [place] [address] Dec, [facility] [id number] [place] [id number] Nov, Dental examination Z01.20 [facility] [id number] [place] [address] Nov, [facility] [id number] [place] [address] Nov, [facility] [id number] [place] [address] Nov, Disruptive mood dysregulation disorder F34.8 ; ADHD (attention deficit hyperactivity disorder), combined type F90.2 and ODD (oppositional defiant disorder) F91.3 [facility] [id number] [place] [address] Sep, [facility] [id number] [place] [address] Aug, [facility] [id number] [place] [address] Jul, [facility] [address] [address] Jul, [facility] [id number] [place] [address] Jul, [facility] [address] [address] Jun, Bipolar disorder, unspecified 296.80 ; Attention deficit disorder (ADD), child, 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 and ODD (oppositional defiant disorder) 313.81 [facility] [address] [address] May, [facility] [id number] [place] [address] May, [facility] [id number] [place] [address] May, [facility] [id number] [place] [address] Apr, [facility] [address] [address] Mar, [facility] [address] [place] [address] Mar, [facility] [address] [address] February, Bipolar disorder, unspecified 296.80 ; Attention deficit disorder 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 and Oppositional defiant behavior 313.81 [facility] [address] [address] February, [facility] [id number] [place] [address] Jan, [facility] [address] [address] Jan, [facility] [id number] [place] [address] Dec, [facility] [place] [facility] [address] [id number] [place] [address] Dec, [facility] [place] [facility] [address] [id number] [place] [address] Dec, [facility] [place] [facility] [address] [id number] [place] [address] Nov, 2014 [facility] [place] [facility] [address] [id number] [place] [address] Nov, 2014 [facility] [place] [facility] [address] [id number] [place] [address] Nov, [facility] [place] [facility] [address] [id number] [place] [address] Nov, [facility] [place] [facility] [address] [facility] [id number] [place] [address] Nov, [facility] [place] [facility] [address] [id number] [place] [address] Nov, [facility] [place] [facility] [address] [id number] [place] [address] Nov, [facility] [place] [facility] [address] [facility] [id number] [place] [address] Nov, [facility] [place] [facility] [address] [facility] [id number] [place] [address] Oct, [facility] [place] [facility] [address] [id number] [address] 16 Oct, 2014 [facility] [place] [facility] [address] [id number] [address] 15 Oct, 2014 [facility] [place] [facility] [address] [facility] [id number] [place] [address] Oct, [facility] [place] [facility] [address] [facility] [id number] [address] Oct, [facility] [place] [facility] [address] [id number] [place] [address] 08 Oct, 2014 [facility] [place] [facility] [address] [id number] [place] [address] Oct, [facility] [place] [facility] [address] [id number] [place] [address] 16 Sep, 2014 [facility] [place] [facility] [address] [id number] [place] [address] Sep, [facility] [place] [facility] [address] [id number] [place] [address] Sep, [facility] [place] [facility] [address] [id number] [place] [address] Aug, [facility] [place] [facility] [address] [id number] [place] [address] Aug, [facility] [place] [facility] [address] [id number] [place] [address] Jul, [facility] [place] [facility] [address] [id number] [place] [address] Jul, [facility] [place] [facility] [address] [id number] [place] [address] Jun, [facility] [place] [facility] [address] [id number] [place] [address] Jun, [facility] [place] [facility] [address] [id number] [place] [address] May, [facility] [place] [facility] [address] [id number] [place] [address] May, [facility] [place] [facility] [address] [id number] [place] [address] May, [facility] [place] [facility] [address] [id number] [place] [address] May, [facility] [place] [facility] [address] [id number] [place] [address] Apr, [facility] [place] [facility] [address] [id number] [place] [address] Apr, [facility] [place] [facility] [address] [id number] [place] [address] Apr, [facility] [place] [facility] [address] [id number] [place] [address] Apr, [facility] [place] [facility] [address] [id number] [place] [address] Apr, [facility] [place] [facility] [address] [id number] [place] [address] Mar, [facility] [place] [facility] [address] [id number] [place] [address] Mar, [facility] [place] [facility] [address] [id number] [place] [address] Mar, [facility] [place] [facility] [address] [id number] [place] [address] Mar, [facility] [place] [facility] [address] [id number] [place] [address] Mar, [facility] [place] [facility] [address] [id number] [place] [address] February, [facility] [place] [facility] [address] [id number] [place] [address] February, [facility] [place] [facility] [address] [id number] [place] [address] February, [facility] [place] [facility] [address] [id number] [place] [address] Jan, [facility] [place] [facility] [address] [id number] [place] [address] Jan, [facility] [place] [facility] [address] [id number] [place] [address] Dec, [facility] [place] [facility] [address] [id number] [place] [address] Dec, [facility] [address] [id number] [place] [address] Nov, [facility] [address] [id number] [place] [address] Nov, [facility] [address] [id number] [place] [address] Sep, [facility] [address] [id number] [place] [address] Sep, [facility] [address] [id number] [place] [address] Sep, [facility] [address] [id number] [place] [address] Sep, [facility] [address] [id number] [place] [address] Aug, [facility] [address] [id number] [place] [address] Aug, [facility] [address] [id number] [place] [address] Aug, [facility] [address] [id number] [place] [address] Aug, [facility] [place] [facility] [address] [id number] [place] [address] Jul, [facility] [place] [facility] [address] [id number] [place] [address] Jul, [facility] [place] [facility] [address] [id number] [place] [address] Jun, [facility] [place] [facility] [address] [id number] [place] [address] May, [facility] [place] [facility] [address] [id number] [place] [address] May, [facility] [place] [facility] [address] [id number] [place] [address] 15 May, 2013 [facility] [place] [facility] [address] [id number] [place] [address] 19 Apr, 2013 [facility] [place] [facility] [address] [id number] [place] [address] 18 Apr, 2013 [facility] [place] [facility] [address] [id number] [place] [address] 14 Oct, 2012 [facility] [place] [facility] [address] [id number] [place] [address] 24 Sep, 2012 [facility] [place] [facility] [address] [id number] [place] [address] Sep, [facility] [place] [facility] [address] [id number] [place] [address] Sep, [facility] [place] [facility] [address] [id number] [place] [address] 18 Sep, 2012 [facility] [place] [facility] [address] [id number] [place] [address] 18 Sep, 2012 [facility] [place] [facility] [address] [id number] [place] [address] Sep, [facility] [place] [facility] [address] [id number] [place] [address] Sep, [facility] [place] [facility] [address] [id number] [place] [address] 19 Aug, 2012 [facility] [place] [facility] [address] [id number] [place] [address] 19 Aug, 2012 [facility] [place] [facility] [address] [id number] [place] [address] 14 Aug, 2012 [facility] [place] [facility] [address] [id number] [place] [address] 14 Aug, 2012 [facility] [place] [facility] [address] [id number] [place] [address] Jul, [facility] [place] [facility] [address] [id number] [place] [address] Jul, [facility] [place] [facility] [address] [id number] [place] [address] Jul, [facility] [place] [facility] [address] [id number] [place] [address] Jun, [facility] [place] [facility] [address] [id number] [place] [address] May, [facility] [place] [facility] [address] [id number] [place] [address] May, [facility] [place] [facility] [address] [id number] [place] [address] May, [facility] [place] [facility] [address] [id number] [place] [address] May, [facility] [place] [facility] [address] [id number] [place] [address] May, [facility] [place] [facility] [address] [id number] [place] [address] Apr, [facility] [place] [facility] [address] [id number] [place] [address] Apr, [facility] [place] [facility] [address] [id number] [place] [id number] Mar, [facility] [place] [facility] [address] [address] Mar, [facility] [place] [facility] [address] [id number] [place] [address] Mar, [facility] [place] [facility] [address] [id number] [place] [address] Mar, [facility] [place] [facility] [address] [id number] [place] [address] Mar, [facility] [place] [facility] [address] [id number] [place] [address] Mar, [facility] [address] [id number] [place] [address] February, [facility] [address] [id number] [place] [address] Jan, [facility] [address] [id number] [place] [address] Jan, [facility] [address] [id number] [place] [address] Dec, [facility] [address] [id number] [place] [address] Dec, [facility] [address] [id number] [place] [address] Dec, [facility] [address] [id number] [place] [address] Dec, [facility] [address] [id number] [place] [address] Dec, [facility] [address] [id number] [place] [address] Nov, [facility] [address] [id number] [place] [address] Oct, [facility] [address] [id number] [place] [address] Oct, [facility] [address] [id number] [place] [address] Sep, [facility] [place] [facility] [address] [id number] [place] [address] Sep, [facility] [address] [id number] [place] [address] Aug, [facility] [address] [id number] [place] [address] Aug, [facility] [address] [facility] [id number] [address] 29 Jul, 2011 [facility] [address] [address] Jul, [facility] [id number] [address] Jun, [facility] [address] [address] February, [facility] [id number] [address] Jan, [facility] [address] [address] Dec, IMMUNIZATIONS No Known Immunizations SOCIAL HISTORY Never Assessed REASON FOR VISIT EMR-[facility] [place] PLAN OF CARE VITAL SIGNS MEDICATIONS Unknown Medications RESULTS No Results PROCEDURES No Known procedures INSTRUCTIONS MEDICATIONS ADMINISTERED No Known Medications MEDICAL (GENERAL) HISTORY Type Description Date Medical History Bipolar disorder, unspecified Medical History Bipolar disorder, unspecified Medical History ODD (oppositional defiant disorder) Medical History ODD (oppositional defiant disorder) Medical History Disruptive mood dysregulation disorder
--- OUTSIDE RECORDS SUMMARY | 2019-05-18 01:28 | XMS REPORT ---
Author Author Migration, Doctor Organization [facility] Address Unknown Phone Unavailable Care Team Providers Care Assembler Faucets Name Role Phone Migration, Doctor Unavailable Unavailable PROBLEMS Type Condition ICD9-CM Code [id number] Code Onset Dates Condition Status SNOMED Code Problem PEARL (generalized anxiety disorder) F41.1 Active 22506670 Problem Seasonal allergic rhinitis, unspecified allergic rhinitis trigger J30.2 Active 299084456 Problem ADHD (attention deficit hyperactivity disorder), combined type F90.2 Active [id number] ALLERGIES No Information ENCOUNTERS Encounter Location Date Diagnosis [place] [id number] [place] [address] Mar, [place] [address] [address] Dec, ADHD (attention deficit hyperactivity disorder), combined type F90.2 and PEARL (generalized anxiety disorder) F41.1 [place] [id number] [place] [address] Oct, Dysfunction of right eustachian tube H69.81 [place] [id number] [place] [address] Oct, [place] [id number] [place] [address] Oct, [place] [id number] [place] [address] Oct, [place] [address] [address] Sep, [place] [address] [address] Aug, ADHD (attention deficit hyperactivity disorder), combined type F90.2 and PEARL (generalized anxiety disorder) F41.1 [place] [address] [address] Jul, [facility] [address] [address] Jul, [facility] [address] [address] Jun, [facility] [address] [address] May, [facility] [address] [address] May, [facility] [id number] [place] [address], [place] [address] Apr, [facility] [address] [address] Mar, [facility] [address] [address] February, [facility] [address] [address] February, [facility] [address] [address] February, PEARL (generalized anxiety disorder) F41.1 [facility] [address] [address] February, [facility] [id number] [address] February, Seasonal allergic rhinitis, unspecified allergic rhinitis trigger J30.2 [facility] [address] [address] Jan, PEARL (generalized anxiety disorder) F41.1 [facility] [address] [address] Jan, ADHD (attention deficit hyperactivity disorder), combined type F90.2 and PEARL (generalized anxiety disorder) F41.1 [facility] [address] [address] Dec, [facility] [address] [address] Nov, [facility] [address] [address] Oct, [facility] [address] [address] Oct, [facility] [address] [address] Sep, [facility] [address] [address] Aug, ADHD (attention deficit hyperactivity disorder), combined type F90.2 and PEARL (generalized anxiety disorder) F41.1 [facility] [address] [address] Aug, [facility] [address] [address] Jul, [facility] [address] [address] Jun, ADHD (attention deficit hyperactivity disorder), combined type F90.2 ; ODD (oppositional defiant disorder) F91.3 and PEARL (generalized anxiety disorder) F41.1 [facility] [address] [address] Jun, [facility] [id number] [address] Jun, [facility] [address] [address] May, [facility] [id number] [address] May, ODD (oppositional defiant disorder) F91.3 and ADHD (attention deficit hyperactivity disorder), combined type F90.2 [facility] [address] [address] May, [facility] [id number] [place] [address] Apr, [facility] [id number] [place] [address] Mar, [facility] [id number] [place] [address] February, [facility] [id number] [place] [address] Jan, [facility] [id number] [place] [address] Dec, [facility] [id number] [place] [address] Dec, [facility] [id number] [place] [id number] Nov, Dental examination Z01.20 [facility] [id number] [place] [address] Nov, [facility] [id number] [place] [address] Nov, [facility] [id number] [place] [address] Nov, Disruptive mood dysregulation disorder F34.8 ; ADHD (attention deficit hyperactivity disorder), combined type F90.2 and ODD (oppositional defiant disorder) F91.3 [facility] [id number] [place] [address] Sep, [facility] [id number] [place] [address] Aug, [facility] [id number] [place] [address] Jul, [facility] [address] [address] Jul, [facility] [id number] [place] [address] Jul, [facility] [address] [address] Jun, Bipolar disorder, unspecified 296.80 ; Attention deficit disorder (ADD), child, 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 and ODD (oppositional defiant disorder) 313.81 [facility] [address] [address] May, [facility] [id number] [place] [address] May, [facility] [id number] [place] [address] May, [facility] [id number] [place] [address] Apr, [facility] [address] [address] Mar, [facility] [id number] [place] [address] Mar, [facility] [address] [address] February, Bipolar disorder, unspecified 296.80 ; Attention deficit disorder 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 and Oppositional defiant behavior 313.81 [facility] [address] [address] February, [facility] [id number] [place] [address] Jan, [facility] [address] [address] Jan, [facility] [id number] [place] [address] Dec, [facility] [place] [facility] [address] [id number] [place] [address] Dec, [facility] [place] [facility] [address] [id number] [place] [address] Dec, [facility] [place] [facility] [address] [id number] [place] [address] Nov, 2014 [facility] [place] [facility] [address] [id number] [place] [address] Nov, 2014 [facility] [place] [facility] [address] [id number] [place] [address] Nov, [facility] [place] [facility] [address] [id number] [place] [address] Nov, [facility] [place] [facility] [address] [facility] [id number] [place] [address] Nov, [facility] [place] [facility] [address] [id number] [place] [address] Nov, [facility] [place] [facility] [address] [id number] [place] [address] Nov, [facility] [place] [facility] [address] [facility] [id number] [place] [address] Nov, [facility] [place] [facility] [address] [facility] [id number] [place] [address] Oct, [facility] [place] [facility] [address] [id number] [address] 16 Oct, 2014 [facility] [place] [facility] [address] [id number] [address] 15 Oct, 2014 [facility] [place] [facility] [address] [facility] [id number] [place] [address] Oct, [facility] [place] [facility] [address] [facility] [id number] [address] Oct, [facility] [place] [facility] [address] [id number] [place] [address] 08 Oct, 2014 [facility] [place] [facility] [address] [id number] [place] [address] Oct, [facility] [place] [facility] [address] [id number] [place] [address] 16 Sep, 2014 [facility] [place] [facility] [address] [id number] [place] [address] Sep, [facility] [place] [facility] [address] [id number] [place] [address] Sep, [facility] [place] [facility] [address] [id number] [place] [address] Aug, [facility] [place] [facility] [address] [id number] [place] [address] Aug, [facility] [place] [facility] [address] [id number] [place] [address] Jul, [facility] [place] [facility] [address] [id number] [place] [address] Jul, [facility] [place] [facility] [address] [id number] [place] [address] Jun, [facility] [place] [facility] [address] [id number] [place] [address] Jun, [facility] [place] [facility] [address] [id number] [place] [address] May, [facility] [place] [facility] [address] [id number] [place] [address] May, [facility] [place] [facility] [address] [id number] [place] [address] May, [facility] [place] [facility] [address] [id number] [place] [address] May, [facility] [place] [facility] [address] [id number] [place] [address] Apr, [facility] [place] [facility] [address] [id number] [place] [address] Apr, [facility] [place] [facility] [address] [id number] [place] [address] Apr, [facility] [place] [facility] [address] [id number] [place] [address] Apr, [facility] [place] [facility] [address] [id number] [place] [address] Apr, [facility] [place] [facility] [address] [id number] [place] [address] Mar, [facility] [place] [facility] [address] [id number] [place] [address] Mar, [facility] [place] [facility] [address] [id number] [place] [address] Mar, [facility] [place] [facility] [address] [id number] [place] [address] Mar, [facility] [place] [facility] [address] [id number] [place] [address] Mar, [facility] [place] [facility] [address] [id number] [place] [address] February, [facility] [place] [facility] [address] [id number] [place] [address] February, [facility] [place] [facility] [address] [id number] [place] [address] February, [facility] [place] [facility] [address] [id number] [place] [address] Jan, [facility] [place] [facility] [address] [id number] [place] [address] Jan, [facility] [place] [facility] [address] [id number] [place] [address] Dec, [facility] [place] [facility] [address] [id number] [place] [address] Dec, [facility] [address] [id number] [place] [address] Nov, [facility] [address] [id number] [place] [address] Nov, [facility] [address] [id number] [place] [address] Sep, [facility] [address] [id number] [place] [address] Sep, [facility] [address] [id number] [place] [address] Sep, [facility] [address] [id number] [place] [address] Sep, [facility] [address] [id number] [place] [address] Aug, [facility] [address] [id number] [place] [address] Aug, [facility] [address] [id number] [place] [address] Aug, [facility] [address] [id number] [place] [address] Aug, [facility] [place] [facility] [address] [id number] [place] [address] Jul, [facility] [place] [facility] [address] [id number] [place] [address] Jul, [facility] [place] [facility] [address] [id number] [place] [address] Jun, [facility] [place] [facility] [address] [id number] [place] [address] May, [facility] [place] [facility] [address] [id number] [place] [address] May, [facility] [place] [facility] [address] [id number] [place] [address] 15 May, 2013 [facility] [place] [facility] [address] [id number] [place] [address] 19 Apr, 2013 [facility] [place] [facility] [address] [id number] [place] [address] 18 Apr, 2013 [facility] [place] [facility] [address] [id number] [place] [address] 14 Oct, 2012 [facility] [place] [facility] [address] [id number] [place] [address] 24 Sep, 2012 [facility] [place] [facility] [address] [id number] [place] [address] Sep, [facility] [place] [facility] [address] [id number] [place] [address] Sep, [facility] [place] [facility] [address] [id number] [place] [address] 18 Sep, 2012 [facility] [place] [facility] [address] [id number] [place] [address] 18 Sep, 2012 [facility] [place] [facility] [address] [id number] [place] [address] Sep, [facility] [place] [facility] [address] [id number] [place] [address] Sep, [facility] [place] [facility] [address] [id number] [place] [address] 19 Aug, 2012 [facility] [place] [facility] [address] [id number] [place] [address] 19 Aug, 2012 [facility] [place] [facility] [address] [id number] [place] [address] 14 Aug, 2012 [facility] [place] [facility] [address] [id number] [place] [address] 14 Aug, 2012 [facility] [place] [facility] [address] [id number] [place] [address] Jul, [facility] [place] [facility] [address] [id number] [place] [address] Jul, [facility] [place] [facility] [address] [id number] [place] [address] Jul, [facility] [place] [facility] [address] [id number] [place] [address] Jun, [facility] [place] [facility] [address] [id number] [place] [address] May, [facility] [place] [facility] [address] [id number] [place] [address] May, [facility] [place] [facility] [address] [id number] [place] [address] May, [facility] [place] [facility] [address] [id number] [place] [address] May, [facility] [place] [facility] [address] [id number] [place] [address] May, [facility] [place] [facility] [address] [id number] [place] [address] Apr, [facility] [place] [facility] [address] [id number] [place] [address] Apr, [facility] [place] [facility] [address] [id number] [place] [address] Mar, [facility] [place] [facility] [address] [address] Mar, [facility] [place] [facility] [address] [id number] [place] [address] Mar, [facility] [place] [facility] [address] [id number] [place] [address] Mar, [facility] [place] [facility] [address] [id number] [place] [address] Mar, [facility] [place] [facility] [address] [id number] [place] [address] Mar, [facility] [address] [id number] [place] [address] February, [facility] [address] [id number] [place] [address] Jan, [facility] [address] [id number] [place] [address] Jan, [facility] [address] [id number] [place] [address] Dec, [facility] [address] [id number] [place] [address] Dec, [facility] [address] [id number] [place] [address] Dec, [facility] [address] [id number] [place] [address] Dec, [facility] [address] [id number] [place] [address] Dec, [facility] [address] [id number] [place] [address] Nov, [facility] [address] [id number] [place] [address] Oct, [facility] [address] [id number] [place] [address] Oct, [facility] [address] [id number] [place] [address] Sep, [facility] [place] [facility] [address] [id number] [place] [address] Sep, [facility] [address] [id number] [place] [address] Aug, [facility] [address] [id number] [place] [address] Aug, [facility] [address] [facility] [id number] [address] 29 Jul, 2011 [facility] [address] [address] Jul, [facility] [id number] [address] Jun, [facility] [address] [address] February, [facility] [id number] [address] Jan, [facility] [address] [address] Dec, IMMUNIZATIONS No Known Immunizations SOCIAL HISTORY Never Assessed REASON FOR VISIT EMR-[facility] [place] PLAN OF CARE VITAL SIGNS MEDICATIONS Unknown Medications RESULTS No Results PROCEDURES No Known procedures INSTRUCTIONS MEDICATIONS ADMINISTERED No Known Medications MEDICAL (GENERAL) HISTORY Type Description Date Medical History Bipolar disorder, unspecified Medical History Bipolar disorder, unspecified Medical History ODD (oppositional defiant disorder) Medical History ODD (oppositional defiant disorder) Medical History Disruptive mood dysregulation disorder
--- OUTSIDE RECORDS SUMMARY | 2019-05-18 01:29 | XMS REPORT ---
Author Author Migration, Doctor Organization [facility] Address Unknown Phone Unavailable Care Team Providers Care Prosthetics Lab Technician Name Role Phone Migration, Doctor Unavailable Unavailable PROBLEMS Type Condition ICD9-CM Code [id number] Code Onset Dates Condition Status SNOMED Code Problem PEARL (generalized anxiety disorder) F41.1 Active 83447510 Problem Seasonal allergic rhinitis, unspecified allergic rhinitis trigger J30.2 Active 247994586 Problem ADHD (attention deficit hyperactivity disorder), combined type F90.2 Active [id number] ALLERGIES No Information ENCOUNTERS Encounter Location Date Diagnosis [place] [id number] [place] [address] Mar, [place] [address] [address] Dec, ADHD (attention deficit hyperactivity disorder), combined type F90.2 and PEARL (generalized anxiety disorder) F41.1 [place] [id number] [place] [address] Oct, Dysfunction of right eustachian tube H69.81 [place] [id number] [place] [address] Oct, [place] [id number] [place] [address] Oct, [place] [id number] [place] [address] Oct, [place] [address] [address] Sep, [place] [address] [address] Aug, ADHD (attention deficit hyperactivity disorder), combined type F90.2 and PEARL (generalized anxiety disorder) F41.1 [place] [address] [address] Jul, [facility] [address] [address] Jul, [facility] [address] [address] Jun, [facility] [address] [address] May, [facility] [address] [address] May, [facility] [id number] [place] [address], [place] [address] Apr, [facility] [address] [address] Mar, [facility] [address] [address] February, [facility] [address] [address] February, [facility] [address] [address] February, PEARL (generalized anxiety disorder) F41.1 [facility] [address] [address] February, [facility] [id number] [address] February, Seasonal allergic rhinitis, unspecified allergic rhinitis trigger J30.2 [facility] [address] [address] Jan, PEARL (generalized anxiety disorder) F41.1 [facility] [address] [address] Jan, ADHD (attention deficit hyperactivity disorder), combined type F90.2 and PEARL (generalized anxiety disorder) F41.1 [facility] [address] [address] Dec, [facility] [address] [address] Nov, [facility] [address] [address] Oct, [facility] [address] [address] Oct, [facility] [address] [address] Sep, [facility] [address] [address] Aug, ADHD (attention deficit hyperactivity disorder), combined type F90.2 and PEARL (generalized anxiety disorder) F41.1 [facility] [id number] [address] Aug, [facility] [id number] [address] Jul, [facility] [address] [address] Jun, ADHD (attention deficit hyperactivity disorder), combined type F90.2 ; ODD (oppositional defiant disorder) F91.3 and PEARL (generalized anxiety disorder) F41.1 [facility] [address] [address] Jun, [facility] [id number] [address] Jun, [facility] [address] [address] May, [facility] [id number] [address] May, ODD (oppositional defiant disorder) F91.3 and ADHD (attention deficit hyperactivity disorder), combined type F90.2 [facility] [address] [address] May, [facility] [id number] [place] [address] Apr, [facility] [id number] [place] [address] Mar, [facility] [id number] [place] [address] February, [facility] [id number] [place] [address] Jan, [facility] [id number] [place] [address] Dec, [facility] [id number] [place] [address] Dec, [facility] [id number] [place] [id number] Nov, Dental examination Z01.20 [facility] [id number] [place] [address] Nov, [facility] [id number] [place] [address] Nov, [facility] [id number] [place] [address] Nov, Disruptive mood dysregulation disorder F34.8 ; ADHD (attention deficit hyperactivity disorder), combined type F90.2 and ODD (oppositional defiant disorder) F91.3 [facility] [id number] [place] [address] Sep, [facility] [id number] [place] [address] Aug, [facility] [id number] [place] [address] Jul, [facility] [address] [address] Jul, [facility] [id number] [place] [address] Jul, [facility] [address] [address] Jun, Bipolar disorder, unspecified 296.80 ; Attention deficit disorder (ADD), child, 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 and ODD (oppositional defiant disorder) 313.81 [facility] [address] [address] May, [facility] [id number] [place] [address] May, [facility] [id number] [place] [address] May, [facility] [id number] [place] [address] Apr, [facility] [address] [address] Mar, [facility] [id number] [place] [address] Mar, [facility] [address] [address] February, Bipolar disorder, unspecified 296.80 ; Attention deficit disorder 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 and Oppositional defiant behavior 313.81 [facility] [address] [address] February, [facility] [id number] [place] [address] Jan, [facility] [address] [address] Jan, [facility] [id number] [place] [address] Dec, [facility] [place] [facility] [address] [id number] [place] [address] Dec, [facility] [place] [facility] [address] [id number] [place] [address] Dec, [facility] [place] [facility] [address] [id number] [place] [address] Nov, 2014 [facility] [place] [facility] [address] [id number] [place] [address] Nov, 2014 [facility] [place] [facility] [address] [id number] [place] [address] Nov, [facility] [place] [facility] [address] [id number] [place] [address] Nov, [facility] [place] [facility] [address] [facility] [id number] [place] [address] Nov, [facility] [place] [facility] [address] [id number] [place] [address] Nov, [facility] [place] [facility] [address] [id number] [place] [address] Nov, [facility] [place] [facility] [address] [facility] [id number] [place] [address] Nov, [facility] [place] [facility] [address] [facility] [id number] [place] [address] Oct, [facility] [place] [facility] [address] [id number] [address] 16 Oct, 2014 [facility] [place] [facility] [address] [id number] [address] 15 Oct, 2014 [facility] [place] [facility] [address] [facility] [id number] [place] [address] Oct, [facility] [place] [facility] [address] [facility] [id number] [address] Oct, [facility] [place] [facility] [address] [id number] [place] [address] 08 Oct, 2014 [facility] [place] [facility] [address] [id number] [place] [address] Oct, [facility] [place] [facility] [address] [id number] [place] [address] 16 Sep, 2014 [facility] [place] [facility] [address] [id number] [place] [address] Sep, [facility] [place] [facility] [address] [id number] [place] [address] Sep, [facility] [place] [facility] [address] [id number] [place] [address] Aug, [facility] [place] [facility] [address] [id number] [place] [address] Aug, [facility] [place] [facility] [address] [id number] [place] [address] Jul, [facility] [place] [facility] [address] [id number] [place] [address] Jul, [facility] [place] [facility] [address] [id number] [place] [address] Jun, [facility] [place] [facility] [address] [id number] [place] [address] Jun, [facility] [place] [facility] [address] [id number] [place] [address] May, [facility] [place] [facility] [address] [id number] [place] [address] May, [facility] [place] [facility] [address] [id number] [place] [address] May, [facility] [place] [facility] [address] [id number] [place] [address] May, [facility] [place] [facility] [address] [id number] [place] [address] Apr, [facility] [place] [facility] [address] [id number] [place] [address] Apr, [facility] [place] [facility] [address] [id number] [place] [address] Apr, [facility] [place] [facility] [address] [id number] [place] [address] Apr, [facility] [place] [facility] [address] [id number] [place] [address] Apr, [facility] [place] [facility] [address] [id number] [place] [address] Mar, [facility] [place] [facility] [address] [id number] [place] [address] Mar, [facility] [place] [facility] [address] [id number] [place] [address] Mar, [facility] [place] [facility] [address] [id number] [place] [address] Mar, [facility] [place] [facility] [address] [id number] [place] [address] Mar, [facility] [place] [facility] [address] [id number] [place] [address] February, [facility] [place] [facility] [address] [id number] [place] [address] February, [facility] [place] [facility] [address] [id number] [place] [address] February, [facility] [place] [facility] [address] [id number] [place] [address] Jan, [facility] [place] [facility] [address] [id number] [place] [address] Jan, [facility] [place] [facility] [address] [id number] [place] [address] Dec, [facility] [place] [facility] [address] [id number] [place] [address] Dec, [facility] [address] [id number] [place] [address] Nov, [facility] [address] [id number] [place] [address] Nov, [facility] [address] [id number] [place] [address] Sep, [facility] [address] [id number] [place] [address] Sep, [facility] [address] [id number] [place] [address] Sep, [facility] [address] [id number] [place] [address] Sep, [facility] [address] [id number] [place] [address] Aug, [facility] [address] [id number] [place] [address] Aug, [facility] [address] [id number] [place] [address] Aug, [facility] [address] [id number] [place] [address] Aug, [facility] [place] [facility] [address] [id number] [place] [address] Jul, [facility] [place] [facility] [address] [id number] [place] [address] Jul, [facility] [place] [facility] [address] [id number] [place] [address] Jun, [facility] [place] [facility] [address] [id number] [place] [address] May, [facility] [place] [facility] [address] [id number] [place] [address] May, [facility] [place] [facility] [address] [id number] [place] [address] 15 May, 2013 [facility] [place] [facility] [address] [id number] [place] [address] 19 Apr, 2013 [facility] [place] [facility] [address] [id number] [place] [address] 18 Apr, 2013 [facility] [place] [facility] [address] [id number] [place] [address] 14 Oct, 2012 [facility] [place] [facility] [address] [id number] [place] [address] 24 Sep, 2012 [facility] [place] [facility] [address] [id number] [place] [address] Sep, [facility] [place] [facility] [address] [id number] [place] [address] Sep, [facility] [place] [facility] [address] [id number] [place] [address] 18 Sep, 2012 [facility] [place] [facility] [address] [id number] [place] [address] 18 Sep, 2012 [facility] [place] [facility] [address] [id number] [place] [address] Sep, [facility] [place] [facility] [address] [id number] [place] [address] Sep, [facility] [place] [facility] [address] [id number] [place] [address] 19 Aug, 2012 [facility] [place] [facility] [address] [id number] [place] [address] 19 Aug, 2012 [facility] [place] [facility] [address] [id number] [place] [address] 14 Aug, 2012 [facility] [place] [facility] [address] [id number] [place] [address] 14 Aug, 2012 [facility] [place] [facility] [address] [id number] [place] [address] Jul, [facility] [place] [facility] [address] [id number] [place] [address] Jul, [facility] [place] [facility] [address] [id number] [place] [address] Jul, [facility] [place] [facility] [address] [id number] [place] [address] Jun, [facility] [place] [facility] [address] [id number] [place] [address] May, [facility] [place] [facility] [address] [id number] [place] [address] May, [facility] [place] [facility] [address] [id number] [place] [address] May, [facility] [place] [facility] [address] [id number] [place] [address] May, [facility] [place] [facility] [address] [id number] [place] [address] May, [facility] [place] [facility] [address] [id number] [place] [address] Apr, [facility] [place] [facility] [address] [id number] [place] [address] Apr, [facility] [place] [facility] [address] [id number] [place] [id number] Mar, [facility] [place] [facility] [address] [address] Mar, [facility] [place] [facility] [address] [id number] [place] [address] Mar, [facility] [place] [facility] [address] [id number] [place] [address] Mar, [facility] [place] [facility] [address] [id number] [place] [address] Mar, [facility] [place] [facility] [address] [id number] [place] [address] Mar, [facility] [address] [id number] [place] [address] February, [facility] [address] [id number] [place] [address] Jan, [facility] [address] [id number] [place] [address] Jan, [facility] [address] [id number] [place] [address] Dec, [facility] [address] [id number] [place] [address] Dec, [facility] [address] [id number] [place] [address] Dec, [facility] [address] [id number] [place] [address] Dec, [facility] [address] [id number] [place] [address] Dec, [facility] [address] [id number] [place] [address] Nov, [facility] [address] [id number] [place] [address] Oct, [facility] [address] [id number] [place] [address] Oct, [facility] [address] [id number] [place] [address] Sep, [facility] [place] [facility] [address] [id number] [place] [address] Sep, [facility] [address] [id number] [place] [address] Aug, [facility] [address] [id number] [place] [address] Aug, [facility] [address] [facility] [id number] [address] 29 Jul, 2011 [facility] [address] [address] Jul, [facility] [id number] [address] Jun, [facility] [address] [address] February, [facility] [id number] [address] Jan, [facility] [address] [address] Dec, IMMUNIZATIONS No Known Immunizations SOCIAL HISTORY Never Assessed REASON [place] [place] VITAL SIGNS MEDICATIONS Unknown Medications RESULTS No Results PROCEDURES No Known procedures INSTRUCTIONS MEDICATIONS ADMINISTERED No Known Medications MEDICAL (GENERAL) HISTORY Type Description Date Medical History Bipolar disorder, unspecified Medical History Bipolar disorder, unspecified Medical History ODD (oppositional defiant disorder) Medical History ODD (oppositional defiant disorder) Medical History Disruptive mood dysregulation disorder
--- OUTSIDE RECORDS SUMMARY | 2019-05-18 01:29 | XMS REPORT ---
Author Author Migration, Doctor Organization [facility] Address Unknown Phone Unavailable Care Team Providers Care Pocket Builder Name Role Phone Migration, Doctor Unavailable Unavailable PROBLEMS Type Condition ICD9-CM Code FCG77-CL Code Onset Dates Condition Status SNOMED Code Problem PEARL (generalized anxiety disorder) F41.1 Active 42359967 Problem Seasonal allergic rhinitis, unspecified allergic rhinitis trigger J30.2 Active 794735623 Problem ADHD (attention deficit hyperactivity disorder), combined type F90.2 Active [id number] ALLERGIES No Information ENCOUNTERS Encounter Location Date Diagnosis [place] [id number] [place] [address] Mar, [place] [address] [address] Dec, ADHD (attention deficit hyperactivity disorder), combined type F90.2 and PEARL (generalized anxiety disorder) F41.1 [place] [id number] [place] [address] Oct, Dysfunction of right eustachian tube H69.81 [place] [id number] [place] [address] Oct, [place] [id number] [place] [address] Oct, [place] [id number] [place] [address] Oct, [place] [address] [address] Sep, [place] [id number] [place] [address] Aug, ADHD (attention deficit hyperactivity disorder), combined type F90.2 and PEARL (generalized anxiety disorder) F41.1 [place] [address] [address] Jul, [facility] [address], [place] [address] Jul, [facility] [address], [place] [address] Jun, [facility] [address], [place] [address] May, [facility] [address], [place] [address] May, [facility] [id number] [place] [address], [place] [address] Apr, [facility] [address], [place] [address] Mar, [facility] [address], [place] [address] February, [facility] [address], [place] [address] February, [facility] [address], [place] [address] February, PEARL (generalized anxiety disorder) F41.1 [facility] [address], [place] [address] February, [facility] [id number] [address] February, Seasonal allergic rhinitis, unspecified allergic rhinitis trigger J30.2 [facility] [address], [place] [address] Jan, PEARL (generalized anxiety disorder) F41.1 [facility] [address], [place] [address] Jan, ADHD (attention deficit hyperactivity disorder), combined type F90.2 and PEARL (generalized anxiety disorder) F41.1 [facility] [address], [place] [address] Dec, [facility] [address], [place] [address] Nov, [facility] [address], [place] [address] Oct, [facility] [address], [place] [address] Oct, [facility] [address], [place] [address] Sep, [facility] [address], [place] [address] Aug, ADHD (attention deficit hyperactivity disorder), combined type F90.2 and PEARL (generalized anxiety disorder) F41.1 [facility] [address], [place] [address] Aug, [facility] [address], [place] [address] Jul, [facility] [address], [place] [address] Jun, ADHD (attention deficit hyperactivity disorder), combined type F90.2 ; ODD (oppositional defiant disorder) F91.3 and PEARL (generalized anxiety disorder) F41.1 [facility] [address], [place] [address] Jun, [facility] [id number], [place] [address] Jun, [facility] [address], [place] [address] May, [facility] [id number], [place] [address] May, ODD (oppositional defiant disorder) F91.3 and ADHD (attention deficit hyperactivity disorder), combined type F90.2 [facility] [address], [place] [address] May, [facility] [id number] [place] [address] Apr, [facility] [id number] [place] [address] Mar, [facility] [id number] [place] [address] February, [facility] [id number] [place] [address] Jan, [facility] [id number] [place] [address] Dec, [facility] [id number] [place] [address] Dec, [facility] [id number] [place] [id number] Nov, Dental examination Z01.20 [facility] [id number] [place] [address] Nov, [facility] [id number] [place] [address] Nov, [facility] [id number] [place] [address] Nov, Disruptive mood dysregulation disorder F34.8 ; ADHD (attention deficit hyperactivity disorder), combined type F90.2 and ODD (oppositional defiant disorder) F91.3 [facility] [id number] [place] [address] Sep, [facility] [id number] [place] [address] Aug, [facility] [id number] [place] [address] Jul, [facility] [address], [place] [address] Jul, [facility] [id number] [place] [address] Jul, [facility] [address], [place] [address] Jun, Bipolar disorder, unspecified 296.80 ; Attention deficit disorder (ADD), child, 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 and ODD (oppositional defiant disorder) 313.81 [facility] [address], [place] [address] May, [facility] [id number] [place] [address] May, [facility] [id number] [place] [address] May, [facility] [id number] [place] [address] Apr, [facility] [address], [place] [address] Mar, [facility] [id number] [place] [address] Mar, [facility] [address], [place] [address] February, Bipolar disorder, unspecified 296.80 ; Attention deficit disorder 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 and Oppositional defiant behavior 313.81 [facility] [address], [place] [address] February, [facility] [id number] [place] [address] Jan, [facility] [address], [place] [address] Jan, [facility] [id number] [place] [address] Dec, [facility] [place] [facility] [address] [id number] [place] [address] Dec, [facility] [place] [facility] [address] [id number] [place] [address] Dec, [facility] [place] [facility] [address] [id number] [place] [address] Nov, 2014 [facility] [place] [facility] [address] [id number] [place] [address] Nov, 2014 [facility] [place] [facility] [address] [id number] [place] [address] Nov, [facility] [place] [facility] [address] [id number] [place] [address] Nov, [facility] [place] [facility] [address] [facility] [id number] [place] [address] Nov, [facility] [place] [facility] [address] [id number] [place] [address] Nov, [facility] [place] [facility] [address] [id number] [place] [address] Nov, [facility] [place] [facility] [address] [facility] [id number] [place] [address] Nov, [facility] [place] [facility] [address] [facility] [id number] [place] [address] Oct, [facility] [place] [facility] [address] [id number] [address] 16 Oct, 2014 [facility] [place] [facility] [address] [id number] [address] 15 Oct, 2014 [facility] [place] [facility] [address] [facility] [id number] [place] [address] Oct, [facility] [place] [facility] [address] [facility] [id number] [address] Oct, [facility] [place] [facility] [address] [id number] [place] [address] 08 Oct, 2014 [facility] [place] [facility] [address] [id number] [place] [address] Oct, [facility] [place] [facility] [address] [id number] [place] [address] 16 Sep, 2014 [facility] [place] [facility] [address] [id number] [place] [address] Sep, [facility] [place] [facility] [address] [id number] [place] [address] Sep, [facility] [place] [facility] [address] [id number] [place] [address] Aug, [facility] [place] [facility] [address] [id number] [place] [address] Aug, [facility] [place] [facility] [address] [id number] [place] [address] Jul, [facility] [place] [facility] [address] [id number] [place] [address] Jul, [facility] [place] [facility] [address] [id number] [place] [address] Jun, [facility] [place] [facility] [address] [id number] [place] [address] Jun, [facility] [place] [facility] [address] [id number] [place] [address] May, [facility] [place] [facility] [address] [id number] [place] [address] May, [facility] [place] [facility] [address] [id number] [place] [address] May, [facility] [place] [facility] [address] [id number] [place] [address] May, [facility] [place] [facility] [address] [id number] [place] [address] Apr, [facility] [place] [facility] [address] [id number] [place] [address] Apr, [facility] [place] [facility] [address] [id number] [place] [address] Apr, [facility] [place] [facility] [address] [id number] [place] [address] Apr, [facility] [place] [facility] [address] [id number] [place] [address] Apr, [facility] [place] [facility] [address] [id number] [place] [address] Mar, [facility] [place] [facility] [address] [id number] [place] [address] Mar, [facility] [place] [facility] [address] [id number] [place] [address] Mar, [facility] [place] [facility] [address] [id number] [place] [address] Mar, [facility] [place] [facility] [address] [id number] [place] [address] Mar, [facility] [place] [facility] [address] [id number] [place] [address] February, [facility] [place] [facility] [address] [id number] [place] [address] February, [facility] [place] [facility] [address] [id number] [place] [address] February, [facility] [place] [facility] [address] [id number] [place] [address] Jan, [facility] [place] [facility] [address] [id number] [place] [address] Jan, [facility] [place] [facility] [address] [id number] [place] [address] Dec, [facility] [place] [facility] [address] [id number] [place] [address] Dec, [facility] [address] [id number] [place] [address] Nov, [facility] [address] [id number] [place] [address] Nov, [facility] [address] [id number] [place] [address] Sep, [facility] [address] [id number] [place] [address] Sep, [facility] [address] [id number] [place] [address] Sep, [facility] [address] [id number] [place] [address] Sep, [facility] [address] [id number] [place] [address] Aug, [facility] [address] [id number] [place] [address] Aug, [facility] [address] [id number] [place] [address] Aug, [facility] [address] [id number] [place] [address] Aug, [facility] [place] [facility] [address] [id number] [place] [address] Jul, [facility] [place] [facility] [address] [id number] [place] [address] Jul, [facility] [place] [facility] [address] [id number] [place] [address] Jun, [facility] [place] [facility] [address] [id number] [place] [address] May, [facility] [place] [facility] [address] [id number] [place] [address] May, [facility] [place] [facility] [address] [id number] [place] [address] 15 May, 2013 [facility] [place] [facility] [address] [id number] [place] [address] 19 Apr, 2013 [facility] [place] [facility] [address] [id number] [place] [address] 18 Apr, 2013 [facility] [place] [facility] [address] [id number] [place] [address] 14 Oct, 2012 [facility] [place] [facility] [address] [id number] [place] [address] 24 Sep, 2012 [facility] [place] [facility] [address] [id number] [place] [address] Sep, [facility] [place] [facility] [address] [id number] [place] [address] Sep, [facility] [place] [facility] [address] [id number] [place] [address] 18 Sep, 2012 [facility] [place] [facility] [address] [id number] [place] [address] 18 Sep, 2012 [facility] [place] [facility] [address] [id number] [place] [address] Sep, [facility] [place] [facility] [address] [id number] [place] [address] Sep, [facility] [place] [facility] [address] [id number] [place] [address] 19 Aug, 2012 [facility] [place] [facility] [address] [id number] [place] [address] 19 Aug, 2012 [facility] [place] [facility] [address] [id number] [place] [address] 14 Aug, 2012 [facility] [place] [facility] [address] [id number] [place] [address] 14 Aug, 2012 [facility] [place] [facility] [address] [id number] [place] [address] Jul, [facility] [place] [facility] [address] [id number] [place] [address] Jul, [facility] [place] [facility] [address] [id number] [place] [address] Jul, [facility] [place] [facility] [address] [id number] [place] [address] Jun, [facility] [place] [facility] [address] [id number] [place] [address] May, [facility] [place] [facility] [address] [id number] [place] [address] May, [facility] [place] [facility] [address] [id number] [place] [address] May, [facility] [place] [facility] [address] [id number] [place] [address] May, [facility] [place] [facility] [address] [id number] [place] [address] May, [facility] [place] [facility] [address] [id number] [place] [address] Apr, [facility] [place] [facility] [address] [id number] [place] [address] Apr, [facility] [place] [facility] [address] [id number] [place] [id number] Mar, [facility] [place] [facility] [address] [address] Mar, [facility] [place] [facility] [address] [id number] [place] [address] Mar, [facility] [place] [facility] [address] [id number] [place] [address] Mar, [facility] [place] [facility] [address] [id number] [place] [address] Mar, [facility] [place] [facility] [address] [id number] [place] [address] Mar, [facility] [address] [id number] [place] [address] February, [facility] [address] [id number] [place] [address] Jan, [facility] [address] [id number] [place] [address] Jan, [facility] [address] [id number] [place] [address] Dec, [facility] [address] [id number] [place] [address] Dec, [facility] [address] [id number] [place] [address] Dec, [facility] [address] [id number] [place] [address] Dec, [facility] [address] [id number] [place] [address] Dec, [facility] [address] [id number] [place] [address] Nov, [facility] [address] [id number] [place] [address] Oct, [facility] [address] [id number] [place] [address] Oct, [facility] [address] [id number] [place] [address] Sep, [facility] [place] [facility] [address] [id number] [place] [address] Sep, [facility] [address] [id number] [place] [address] Aug, [facility] [address] [id number] [place] [address] Aug, [facility] [address] [facility] [id number] [address] 29 Jul, 2011 [facility] [id number] [address] Jul, [facility] [address] [id number] [address] Jun, [facility] [id number] [address] February, [facility] [address] [id number] [address] Jan, [facility] [id number] [address] Dec, IMMUNIZATIONS No Known Immunizations SOCIAL HISTORY Never Assessed REASON FOR VISIT [facility] PLAN OF CARE [...]
--- OUTSIDE RECORDS SUMMARY | 2019-05-18 01:30 | XMS REPORT ---
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 Name Role Phone Migration, Doctor Unavailable Unavailable PROBLEMS Type Condition ICD9-CM Code KLS24-VQ Code Onset Dates Condition Status SNOMED Code Problem PEARL (generalized anxiety disorder) F41.1 Active 17150244 Problem Seasonal allergic rhinitis, unspecified allergic rhinitis trigger J30.2 Active 949662155 Problem ADHD (attention deficit hyperactivity disorder), combined type F90.2 Active 84440105 ALLERGIES No Information ENCOUNTERS Encounter Location Date Diagnosis [place] [id number] [place] [address] Mar, [place] [address] [address] Dec, ADHD (attention deficit hyperactivity disorder), combined type F90.2 and PEARL (generalized anxiety disorder) F41.1 [place] [id number] [place] [address] Oct, Dysfunction of right eustachian tube H69.81 [place] [id number] [place] [address] Oct, [place] [id number] [place] [address] Oct, [place] [id number] [place] [address] Oct, [place] [address] [address] Sep, [place] [id number] [place] [address] Aug, ADHD (attention deficit hyperactivity disorder), combined type F90.2 and PEARL (generalized anxiety disorder) F41.1 [place] [address], [place] [address] Jul, [facility] [address], [place] [address] Jul, [facility] [address], [place] [address] Jun, [facility] [address], [place] [address] May, [facility] [address], [place] [address] May, [facility] [id number] [place] [address], [place] [address] Apr, [facility] [address], [place] [address] Mar, [facility] [address], [place] [address] February, [facility] [address], [place] [address] February, [facility] [address], [place] [address] February, PEARL (generalized anxiety disorder) F41.1 [facility] [address], [place] [address] February, [facility] [id number] [address] February, Seasonal allergic rhinitis, unspecified allergic rhinitis trigger J30.2 [facility] [address], [place] [address] Jan, PEARL (generalized anxiety disorder) F41.1 [facility] [address], [place] [address] Jan, ADHD (attention deficit hyperactivity disorder), combined type F90.2 and PEARL (generalized anxiety disorder) F41.1 [facility] [address], [place] [address] Dec, [facility] [address], [place] [address] Nov, [facility] [address], [place] [address] Oct, [facility] [address], [place] [address] Oct, [facility] [address], [place] [address] Sep, [facility] [address], [place] [address] Aug, ADHD (attention deficit hyperactivity disorder), combined type F90.2 and PEARL (generalized anxiety disorder) F41.1 [facility] [address], [place] [address] Aug, [facility] [address], [place] [address] Jul, [facility] [address], [place] [address] Jun, ADHD (attention deficit hyperactivity disorder), combined type F90.2 ; ODD (oppositional defiant disorder) F91.3 and PEARL (generalized anxiety disorder) F41.1 [facility] [address], [place] [address] Jun, [facility] [id number] [address] Jun, [facility] [address], [place] [address] May, [facility] [id number], [place] [address] May, ODD (oppositional defiant disorder) F91.3 and ADHD (attention deficit hyperactivity disorder), combined type F90.2 [facility] [address], [place] [address] May, [facility] [id number] [place] [address] Apr, [facility] [id number] [place] [address] Mar, [facility] [id number] [place] [address] February, [facility] [id number] [place] [address] Jan, [facility] [id number] [place] [address] Dec, [facility] [id number] [place] [address] Dec, [facility] [id number] [place] [id number] Nov, Dental examination Z01.20 [facility] [id number] [place] [address] Nov, [facility] [id number] [place] [address] Nov, [facility] [id number] [place] [address] Nov, Disruptive mood dysregulation disorder F34.8 ; ADHD (attention deficit hyperactivity disorder), combined type F90.2 and ODD (oppositional defiant disorder) F91.3 [facility] [id number] [place] [address] Sep, [facility] [id number] [place] [address] Aug, [facility] [id number] [place] [address] Jul, [facility] [address], [place] [address] Jul, [facility] [id number] [place] [address] Jul, [facility] [address], [place] [address] Jun, Bipolar disorder, unspecified 296.80 ; Attention deficit disorder (ADD), child, 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 and ODD (oppositional defiant disorder) 313.81 [facility] [address], [place] [address] May, [facility] [id number] [place] [address] May, [facility] [id number] [place] [address] May, [facility] [id number] [place] [address] Apr, [facility] [address], [place] [address] Mar, [facility] [address] [place] [address] Mar, [facility] [address], [place] [address] February, Bipolar disorder, unspecified 296.80 ; Attention deficit disorder 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 and Oppositional defiant behavior 313.81 [facility] [address], [place] [address] February, [facility] [id number] [place] [address] Jan, [facility] [address], [place] [address] Jan, [facility] [id number] [place] [address] Dec, [facility] [place] [facility] [address] [id number] [place] [address] Dec, [facility] [place] [facility] [address] [id number] [place] [address] Dec, [facility] [place] [facility] [address] [id number] [place] [address] Nov, 2014 [facility] [place] [facility] [address] [id number] [place] [address] Nov, 2014 [facility] [place] [facility] [address] [id number] [place] [address] Nov, [facility] [place] [facility] [address] [id number] [place] [address] Nov, [facility] [place] [facility] [address] [facility] [id number] [place] [address] Nov, [facility] [place] [facility] [address] [id number] [place] [address] Nov, [facility] [place] [facility] [address] [id number] [place] [address] Nov, [facility] [place] [facility] [address] [facility] [id number] [place] [address] Nov, [facility] [place] [facility] [address] [facility] [id number] [place] [address] Oct, [facility] [place] [facility] [address] [id number], [place] [address] 16 Oct, 2014 [facility] [place] [facility] [address] [id number], [place] [address] 15 Oct, 2014 [facility] [place] [facility] [address] [facility] [id number] [place] [address] Oct, [facility] [place] [facility] [address] [facility] [id number], [place] [address] Oct, [facility] [place] [facility] [address] [id number] [place] [address] 08 Oct, 2014 [facility] [place] [facility] [address] [id number] [place] [address] Oct, [facility] [place] [facility] [address] [id number] [place] [address] 16 Sep, 2014 [facility] [place] [facility] [address] [id number] [place] [address] Sep, [facility] [place] [facility] [address] [id number] [place] [address] Sep, [facility] [place] [facility] [address] [id number] [place] [address] Aug, [facility] [place] [facility] [address] [id number] [place] [address] Aug, [facility] [place] [facility] [address] [id number] [place] [address] Jul, [facility] [place] [facility] [address] [id number] [place] [address] Jul, [facility] [place] [facility] [address] [id number] [place] [address] Jun, [facility] [place] [facility] [address] [id number] [place] [address] Jun, [facility] [place] [facility] [address] [id number] [place] [address] May, [facility] [place] [facility] [address] [id number] [place] [address] May, [facility] [place] [facility] [address] [id number] [place] [address] May, [facility] [place] [facility] [address] [id number] [place] [address] May, [facility] [place] [facility] [address] [id number] [place] [address] Apr, [facility] [place] [facility] [address] [id number] [place] [address] Apr, [facility] [place] [facility] [address] [id number] [place] [address] Apr, [facility] [place] [facility] [address] [id number] [place] [address] Apr, [facility] [place] [facility] [address] [id number] [place] [address] Apr, [facility] [place] [facility] [address] [id number] [place] [address] Mar, [facility] [place] [facility] [address] [id number] [place] [address] Mar, [facility] [place] [facility] [address] [id number] [place] [address] Mar, [facility] [place] [facility] [address] [id number] [place] [address] Mar, [facility] [place] [facility] [address] [id number] [place] [address] Mar, [facility] [place] [facility] [address] [id number] [place] [address] February, [facility] [place] [facility] [address] [id number] [place] [address] February, [facility] [place] [facility] [address] [id number] [place] [address] February, [facility] [place] [facility] [address] [id number] [place] [address] Jan, [facility] [place] [facility] [address] [id number] [place] [address] Jan, [facility] [place] [facility] [address] [id number] [place] [address] Dec, [facility] [place] [facility] [address] [id number] [place] [address] Dec, [facility] [address] [id number] [place] [address] Nov, [facility] [address] [id number] [place] [address] Nov, [facility] [address] [id number] [place] [address] Sep, [facility] [address] [id number] [place] [address] Sep, [facility] [address] [id number] [place] [address] Sep, [facility] [address] [id number] [place] [address] Sep, [facility] [address] [id number] [place] [address] Aug, [facility] [address] [id number] [place] [address] Aug, [facility] [address] [id number] [place] [address] Aug, [facility] [address] [id number] [place] [address] Aug, [facility] [place] [facility] [address] [id number] [place] [address] Jul, [facility] [place] [facility] [address] [id number] [place] [address] Jul, [facility] [place] [facility] [address] [id number] [place] [address] Jun, [facility] [place] [facility] [address] [id number] [place] [address] May, [facility] [place] [facility] [address] [id number] [place] [address] May, [facility] [place] [facility] [address] [id number] [place] [address] 15 May, 2013 [facility] [place] [facility] [address] [id number] [place] [address] 19 Apr, 2013 [facility] [place] [facility] [address] [id number] [place] [address] 18 Apr, 2013 [facility] [place] [facility] [address] [id number] [place] [address] 14 Oct, 2012 [facility] [place] [facility] [address] [id number] [place] [address] 24 Sep, 2012 [facility] [place] [facility] [address] [id number] [place] [address] Sep, [facility] [place] [facility] [address] [id number] [place] [address] Sep, [facility] [place] [facility] [address] [id number] [place] [address] 18 Sep, 2012 [facility] [place] [facility] [address] [id number] [place] [address] 18 Sep, 2012 [facility] [place] [facility] [address] [id number] [place] [address] Sep, [facility] [place] [facility] [address] [id number] [place] [address] Sep, [facility] [place] [facility] [address] [id number] [place] [address] 19 Aug, 2012 [facility] [place] [facility] [address] [id number] [place] [address] 19 Aug, 2012 [facility] [place] [facility] [address] [id number] [place] [address] 14 Aug, 2012 [facility] [place] [facility] [address] [id number] [place] [address] 14 Aug, 2012 [facility] [place] [facility] [address] [id number] [place] [address] Jul, [facility] [place] [facility] [address] [id number] [place] [address] Jul, [facility] [place] [facility] [address] [id number] [place] [address] Jul, [facility] [place] [facility] [address] [id number] [place] [address] Jun, [facility] [place] [facility] [address] [id number] [place] [address] May, [facility] [place] [facility] [address] [id number] [place] [address] May, [facility] [place] [facility] [address] [id number] [place] [address] May, [facility] [place] [facility] [address] [id number] [place] [address] May, [facility] [place] [facility] [address] [id number] [place] [address] May, [facility] [place] [facility] [address] [id number] [place] [address] Apr, [facility] [place] [facility] [address] [id number] [place] [address] Apr, [facility] [place] [facility] [address] [id number] [place] [id number] Mar, [facility] [place] [facility] [address] [address] Mar, [facility] [place] [facility] [address] [id number] [place] [address] Mar, [facility] [place] [facility] [address] [id number] [place] [address] Mar, [facility] [place] [facility] [address] [id number] [place] [address] Mar, [facility] [place] [facility] [address] [id number] [place] [address] Mar, [facility] [address] [id number] [place] [address] February, [facility] [address] [id number] [place] [address] Jan, [facility] [address] [id number] [place] [address] Jan, [facility] [address] [id number] [place] [address] Dec, [facility] [address] [id number] [place] [address] Dec, [facility] [address] [id number] [place] [address] Dec, [facility] [address] [id number] [place] [address] Dec, [facility] [address] [id number] [place] [address] Dec, [facility] [address] [id number] [place] [address] Nov, [facility] [address] [id number] [place] [address] Oct, [facility] [address] [id number] [place] [address] Oct, [facility] [address] [id number] [place] [address] Sep, [facility] [place] [facility] [address] [id number] [place] [address] Sep, [facility] [address] [id number] [place] [address] Aug, [facility] [address] [id number] [place] [address] Aug, [facility] [address] [facility] [id number], [place] [address] 29 Jul, 2011 [facility] [address], [place] [address] Jul, [facility] [id number], [place] [address] Jun, [facility] [address], [place] [address] February, [facility] [id number], [place] [address] Jan, [facility] [address], [place] [address] Dec, IMMUNIZATIONS No Known Immunizations SOCIAL HISTORY Never Assessed REASON FOR VISIT EMR-[facility] PLAN OF CARE VITAL SIGNS [...]
--- OUTSIDE RECORDS SUMMARY | 2019-05-18 01:30 | XMS REPORT ---
Author Author Migration, Doctor Organization [facility] Address Unknown Phone Unavailable Care Team Providers Care Employee Placement Specialist Name Role Phone Migration, Doctor Unavailable Unavailable PROBLEMS Type Condition ICD9-CM Code ZGY63-AJ Code Onset Dates Condition Status SNOMED Code Problem PEARL (generalized anxiety disorder) F41.1 Active 54625191 Problem Seasonal allergic rhinitis, unspecified allergic rhinitis trigger J30.2 Active 583220976 Problem ADHD (attention deficit hyperactivity disorder), combined type F90.2 Active [id number] ALLERGIES No Information ENCOUNTERS Encounter Location Date Diagnosis [place] [id number] [place] [address] Mar, [place] [address] [address] Dec, ADHD (attention deficit hyperactivity disorder), combined type F90.2 and PEARL (generalized anxiety disorder) F41.1 [place] [id number] [place] [address] Oct, Dysfunction of right eustachian tube H69.81 [place] [id number] [place] [address] Oct, [place] [id number] [place] [address] Oct, [place] [id number] [place] [address] Oct, [place] [address] [address] Sep, [place] [id number] [place] [address] Aug, ADHD (attention deficit hyperactivity disorder), combined type F90.2 and PEARL (generalized anxiety disorder) F41.1 [place] [address], [place] [address] Jul, [facility] [address], [place] [address] Jul, [facility] [address], [place] [address] Jun, [facility] [address], [place] [address] May, [facility] [address], [place] [address] May, [facility] [id number] [place] [address], [place] [address] Apr, [facility] [address], [place] [address] Mar, [facility] [address], [place] [address] February, [facility] [address], [place] [address] February, [facility] [id number], [place] [address] February, PEARL (generalized anxiety disorder) F41.1 [facility] [id number], [place] [address] February, [facility] [id number], [place] [address] February, Seasonal allergic rhinitis, unspecified allergic rhinitis trigger J30.2 [facility] [address], [place] [address] Jan, PEARL (generalized anxiety disorder) F41.1 [facility] [address], [place] [address] Jan, ADHD (attention deficit hyperactivity disorder), combined type F90.2 and PEARL (generalized anxiety disorder) F41.1 [facility] [address], [place] [address] Dec, [facility] [id number], [place] [address] Nov, [facility] [id number], [place] [address] Oct, [facility] [id number], [place] [address] Oct, [facility] [address], [place] [address] Sep, [facility] [address], [place] [address] Aug, ADHD (attention deficit hyperactivity disorder), combined type F90.2 and PEARL (generalized anxiety disorder) F41.1 [facility] [address], [place] [address] Aug, [facility] [address], [place] [address] Jul, [facility] [address], [place] [address] Jun, ADHD (attention deficit hyperactivity disorder), combined type F90.2 ; ODD (oppositional defiant disorder) F91.3 and PEARL (generalized anxiety disorder) F41.1 [facility] [address], [place] [address] Jun, [facility] [id number], [place] [address] Jun, [facility] [address], [place] [address] May, [facility] [id number], [place] [address] May, ODD (oppositional defiant disorder) F91.3 and ADHD (attention deficit hyperactivity disorder), combined type F90.2 [facility] [address], [place] [address] May, [facility] [id number] [place] [address] Apr, [facility] [id number] [place] [address] Mar, [facility] [id number] [place] [address] February, [facility] [id number] [place] [address] Jan, [facility] [id number] [place] [address] Dec, [facility] [id number] [place] [address] Dec, [facility] [id number] [place] [id number] Nov, Dental examination Z01.20 [facility] [id number] [place] [address] Nov, [facility] [id number] [place] [address] Nov, [facility] [id number] [place] [address] Nov, Disruptive mood dysregulation disorder F34.8 ; ADHD (attention deficit hyperactivity disorder), combined type F90.2 and ODD (oppositional defiant disorder) F91.3 [facility] [id number] [place] [address] Sep, [facility] [id number] [place] [address] Aug, [facility] [id number] [place] [address] Jul, [facility] [address], [place] [address] Jul, [facility] [id number] [place] [address] Jul, [facility] [address], [place] [address] Jun, Bipolar disorder, unspecified 296.80 ; Attention deficit disorder (ADD), child, 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 and ODD (oppositional defiant disorder) 313.81 [facility] [address], [place] [address] May, [facility] [id number] [place] [address] May, [facility] [id number] [place] [address] May, [facility] [id number] [place] [address] Apr, [facility] [address], [place] [address] Mar, [facility] [id number] [place] [address] Mar, [facility] [address], [place] [address] February, Bipolar disorder, unspecified 296.80 ; Attention deficit disorder 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 and Oppositional defiant behavior 313.81 [facility] [address], [place] [address] February, [facility] [id number] [place] [address] Jan, [facility] [address], [place] [address] Jan, [facility] [id number] [place] [address] Dec, [facility] [place] [facility] [address] [id number] [place] [address] Dec, [facility] [place] [facility] [address] [id number] [place] [address] Dec, [facility] [place] [facility] [address] [id number] [place] [address] Nov, 2014 [facility] [place] [facility] [address] [id number] [place] [address] Nov, 2014 [facility] [place] [facility] [address] [id number] [place] [address] Nov, [facility] [place] [facility] [address] [id number] [place] [address] Nov, [facility] [place] [facility] [address] [facility] [id number] [place] [address] Nov, [facility] [place] [facility] [address] [id number] [place] [address] Nov, [facility] [place] [facility] [address] [id number] [place] [address] Nov, [facility] [place] [facility] [address] [facility] [id number] [place] [address] Nov, [facility] [place] [facility] [address] [facility] [id number] [place] [address] Oct, [facility] [place] [facility] [address] [id number], [place] [address] 16 Oct, 2014 [facility] [place] [facility] [address] [id number], [place] [address] 15 Oct, 2014 [facility] [place] [facility] [address] [facility] [id number] [place] [address] Oct, [facility] [place] [facility] [address] [facility] [id number], [place] [address] Oct, [facility] [place] [facility] [address] [id number] [place] [address] 08 Oct, 2014 [facility] [place] [facility] [address] [id number] [place] [address] Oct, [facility] [place] [facility] [address] [id number] [place] [address] 16 Sep, 2014 [facility] [place] [facility] [address] [id number] [place] [address] Sep, [facility] [place] [facility] [address] [id number] [place] [address] Sep, [facility] [place] [facility] [address] [id number] [place] [address] Aug, [facility] [place] [facility] [address] [id number] [place] [address] Aug, [facility] [place] [facility] [address] [id number] [place] [address] Jul, [facility] [place] [facility] [address] [id number] [place] [address] Jul, [facility] [place] [facility] [address] [id number] [place] [address] Jun, [facility] [place] [facility] [address] [id number] [place] [address] Jun, [facility] [place] [facility] [address] [id number] [place] [address] May, [facility] [place] [facility] [address] [id number] [place] [address] May, [facility] [place] [facility] [address] [id number] [place] [address] May, [facility] [place] [facility] [address] [id number] [place] [address] May, [facility] [place] [facility] [address] [id number] [place] [address] Apr, [facility] [place] [facility] [address] [id number] [place] [address] Apr, [facility] [place] [facility] [address] [id number] [place] [address] Apr, [facility] [place] [facility] [address] [id number] [place] [address] Apr, [facility] [place] [facility] [address] [id number] [place] [address] Apr, [facility] [place] [facility] [address] [id number] [place] [address] Mar, [facility] [place] [facility] [address] [id number] [place] [address] Mar, [facility] [place] [facility] [address] [id number] [place] [address] Mar, [facility] [place] [facility] [address] [id number] [place] [address] Mar, [facility] [place] [facility] [address] [id number] [place] [address] Mar, [facility] [place] [facility] [address] [id number] [place] [address] February, [facility] [place] [facility] [address] [id number] [place] [address] February, [facility] [place] [facility] [address] [id number] [place] [address] February, [facility] [place] [facility] [address] [id number] [place] [address] Jan, [facility] [place] [facility] [address] [id number] [place] [address] Jan, [facility] [place] [facility] [address] [id number] [place] [address] Dec, [facility] [place] [facility] [address] [id number] [place] [address] Dec, [facility] [address] [id number] [place] [address] Nov, [facility] [address] [id number] [place] [address] Nov, [facility] [address] [id number] [place] [address] Sep, [facility] [address] [id number] [place] [address] Sep, [facility] [address] [id number] [place] [address] Sep, [facility] [address] [id number] [place] [address] Sep, [facility] [address] [id number] [place] [address] Aug, [facility] [address] [id number] [place] [address] Aug, [facility] [address] [id number] [place] [address] Aug, [facility] [address] [id number] [place] [address] Aug, [facility] [place] [facility] [address] [id number] [place] [address] Jul, [facility] [place] [facility] [address] [id number] [place] [address] Jul, [facility] [place] [facility] [address] [id number] [place] [address] Jun, [facility] [place] [facility] [address] [id number] [place] [address] May, [facility] [place] [facility] [address] [id number] [place] [address] May, [facility] [place] [facility] [address] [id number] [place] [address] 15 May, 2013 [facility] [place] [facility] [address] [id number] [place] [address] 19 Apr, 2013 [facility] [place] [facility] [address] [id number] [place] [address] 18 Apr, 2013 [facility] [place] [facility] [address] [id number] [place] [address] 14 Oct, 2012 [facility] [place] [facility] [address] [id number] [place] [address] 24 Sep, 2012 [facility] [place] [facility] [address] [id number] [place] [address] Sep, [facility] [place] [facility] [address] [id number] [place] [address] Sep, [facility] [place] [facility] [address] [id number] [place] [address] 18 Sep, 2012 [facility] [place] [facility] [address] [id number] [place] [address] 18 Sep, 2012 [facility] [place] [facility] [address] [id number] [place] [address] Sep, [facility] [place] [facility] [address] [id number] [place] [address] Sep, [facility] [place] [facility] [address] [id number] [place] [address] 19 Aug, 2012 [facility] [place] [facility] [address] [id number] [place] [address] 19 Aug, 2012 [facility] [place] [facility] [address] [id number] [place] [address] 14 Aug, 2012 [facility] [place] [facility] [address] [id number] [place] [address] 14 Aug, 2012 [facility] [place] [facility] [address] [id number] [place] [address] Jul, [facility] [place] [facility] [address] [id number] [place] [address] Jul, [facility] [place] [facility] [address] [id number] [place] [address] Jul, [facility] [place] [facility] [address] [id number] [place] [address] Jun, [facility] [place] [facility] [address] [id number] [place] [address] May, [facility] [place] [facility] [address] [id number] [place] [address] May, [facility] [place] [facility] [address] [id number] [place] [address] May, [facility] [place] [facility] [address] [id number] [place] [address] May, [facility] [place] [facility] [address] [id number] [place] [address] May, [facility] [place] [facility] [address] [id number] [place] [address] Apr, [facility] [place] [facility] [address] [id number] [place] [address] Apr, [facility] [place] [facility] [address] [id number] [place] [id number] Mar, [facility] [place] [facility] [address] [id number] Mar, [facility] [place] [facility] [address] [id number] [place] [address] Mar, [facility] [place] [facility] [address] [id number] [place] [address] Mar, [facility] [place] [facility] [address] [id number] [place] [address] Mar, [facility] [place] [facility] [address] [id number] [place] [address] Mar, [facility] [address] [id number] [place] [address] February, [facility] [address] [id number] [place] [address] Jan, [facility] [address] [id number] [place] [address] Jan, [facility] [address] [id number] [place] [address] Dec, [facility] [address] [id number] [place] [address] Dec, [facility] [address] [id number] [place] [address] Dec, [facility] [address] [id number] [place] [address] Dec, [facility] [address] [id number] [place] [address] Dec, [facility] [address] [id number] [place] [address] Nov, [facility] [address] [id number] [place] [address] Oct, [facility] [address] [id number] [place] [address] Oct, [facility] [address] [id number] [place] [address] Sep, [facility] [place] [facility] [address] [id number] [place] [address] Sep, [facility] [address] [id number] [place] [address] Aug, [facility] [address] [id number] [place] [address] Aug, [facility] [address] [facility] [id number], [place] [address] 29 Jul, 2011 [facility] [address], [place] [address] Jul, [facility] [id number], [place] [address] Jun, [facility] [address], [place] [address] February, [facility] [id number], [place] [address] Jan, [facility] [address] [place] [address] Dec, IMMUNIZATIONS No Known Immunizations SOCIAL HISTORY Never Assessed REASON FOR VISIT [place] [place] [...]
--- OUTSIDE RECORDS SUMMARY | 2019-05-18 01:31 | XMS REPORT ---
Author Author Migration, Doctor Organization [facility] Address Unknown Phone Unavailable Care Team Providers Care Budget Analyst Name Role Phone Migration, Doctor Unavailable Unavailable PROBLEMS Type Condition ICD9-CM Code OCW79-[place] Code Onset Dates Condition Status SNOMED Code Problem PEARL (generalized anxiety disorder) F41.1 Active 52832448 Problem Seasonal allergic rhinitis, unspecified allergic rhinitis trigger J30.2 Active 367769494 Problem ADHD (attention deficit hyperactivity disorder), combined type F90.2 Active [id number] ALLERGIES No Information ENCOUNTERS Encounter Location Date Diagnosis [place] [id number] [place] [address] Mar, [place] [address] [address] Dec, ADHD (attention deficit hyperactivity disorder), combined type F90.2 and PEARL (generalized anxiety disorder) F41.1 [place] [id number] [place] [address] Oct, Dysfunction of right eustachian tube H69.81 [place] [id number] [place] [address] Oct, [place] [id number] [place] [address] Oct, [place] [id number] [place] [address] Oct, [place] [address] [address] Sep, [place] [id number] [place] [address] Aug, ADHD (attention deficit hyperactivity disorder), combined type F90.2 and PEARL (generalized anxiety disorder) F41.1 [place] [address], [place] [address] Jul, [facility] [address], [place] [address] Jul, [facility] [address], [place] [address] Jun, [facility] [address], [place] [address] May, [facility] [address], [place] [address] May, [facility] [id number] [place] [address], [place] [address] Apr, [facility] [address], [place] [address] Mar, [facility] [address], [place] [address] February, [facility] [address], [place] [address] February, [facility] [address], [place] [address] February, PEARL (generalized anxiety disorder) F41.1 [facility] [address], [place] [address] February, [facility] [id number], [place] [address] February, Seasonal allergic rhinitis, unspecified allergic rhinitis trigger J30.2 [facility] [address], [place] [address] Jan, PEARL (generalized anxiety disorder) F41.1 [facility] [address], [place] [address] Jan, ADHD (attention deficit hyperactivity disorder), combined type F90.2 and PEARL (generalized anxiety disorder) F41.1 [facility] [address], [place] [address] Dec, [facility] [address], [place] [address] Nov, [facility] [address], [place] [address] Oct, [facility] [address], [place] [address] Oct, [facility] [address], [place] [address] Sep, [facility] [address], [place] [address] Aug, ADHD (attention deficit hyperactivity disorder), combined type F90.2 and PEARL (generalized anxiety disorder) F41.1 [facility] [address], [place] [address] Aug, [facility] [address], [place] [address] Jul, [facility] [address], [place] [address] Jun, ADHD (attention deficit hyperactivity disorder), combined type F90.2 ; ODD (oppositional defiant disorder) F91.3 and PEARL (generalized anxiety disorder) F41.1 [facility] [address], [place] [address] Jun, [facility] [id number], [place] [address] Jun, [facility] [address], [place] [address] May, [facility] [id number], [place] [address] May, ODD (oppositional defiant disorder) F91.3 and ADHD (attention deficit hyperactivity disorder), combined type F90.2 [facility] [address], [place] [address] May, [facility] [id number] [place] [address] Apr, [facility] [id number] [place] [address] Mar, [facility] [id number] [place] [address] February, [facility] [id number] [place] [address] Jan, [facility] [id number] [place] [address] Dec, [facility] [id number] [place] [address] Dec, [facility] [id number] [place] [id number] Nov, Dental examination Z01.20 [facility] [id number] [place] [address] Nov, [facility] [id number] [place] [address] Nov, [facility] [id number] [place] [address] Nov, Disruptive mood dysregulation disorder F34.8 ; ADHD (attention deficit hyperactivity disorder), combined type F90.2 and ODD (oppositional defiant disorder) F91.3 [facility] [id number] [place] [address] Sep, [facility] [id number] [place] [address] Aug, [facility] [id number] [place] [address] Jul, [facility] [address], [place] [address] Jul, [facility] [id number] [place] [address] Jul, [facility] [address], [place] [address] Jun, Bipolar disorder, unspecified 296.80 ; Attention deficit disorder (ADD), child, 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 and ODD (oppositional defiant disorder) 313.81 [facility] [address], [place] [address] May, [facility] [id number] [place] [address] May, [facility] [id number] [place] [address] May, [facility] [id number] [place] [address] Apr, [facility] [address], [place] [address] Mar, [facility] [id number] [place] [address] Mar, [facility] [address], [place] [address] February, Bipolar disorder, unspecified 296.80 ; Attention deficit disorder 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 and Oppositional defiant behavior 313.81 [facility] [address], [place] [address] February, [facility] [id number] [place] [address] Jan, [facility] [address], [place] [address] Jan, [facility] [id number] [place] [address] Dec, [facility] [place] [facility] [address] [id number] [place] [address] Dec, [facility] [place] [facility] [address] [id number] [place] [address] Dec, [facility] [place] [facility] [address] [id number] [place] [address] Nov, 2014 [facility] [place] [facility] [address] [id number] [place] [address] Nov, 2014 [facility] [place] [facility] [address] [id number] [place] [address] Nov, [facility] [place] [facility] [address] [id number] [place] [address] Nov, [facility] [place] [facility] [address] [facility] [id number] [place] [address] Nov, [facility] [place] [facility] [address] [id number] [place] [address] Nov, [facility] [place] [facility] [address] [id number] [place] [address] Nov, [facility] [place] [facility] [address] [facility] [id number] [place] [address] Nov, [facility] [place] [facility] [address] [facility] [id number] [place] [address] Oct, [facility] [place] [facility] [address] [id number], [place] [address] 16 Oct, 2014 [facility] [place] [facility] [address] [id number], [place] [address] 15 Oct, 2014 [facility] [place] [facility] [address] [facility] [id number] [place] [address] Oct, [facility] [place] [facility] [address] [facility] [id number], [place] [address] Oct, [facility] [place] [facility] [address] [id number] [place] [address] 08 Oct, 2014 [facility] [place] [facility] [address] [id number] [place] [address] Oct, [facility] [place] [facility] [address] [id number] [place] [address] 16 Sep, 2014 [facility] [place] [facility] [address] [id number] [place] [address] Sep, [facility] [place] [facility] [address] [id number] [place] [address] Sep, [facility] [place] [facility] [address] [id number] [place] [address] Aug, [facility] [place] [facility] [address] [id number] [place] [address] Aug, [facility] [place] [facility] [address] [id number] [place] [address] Jul, [facility] [place] [facility] [address] [id number] [place] [address] Jul, [facility] [place] [facility] [address] [id number] [place] [address] Jun, [facility] [place] [facility] [address] [id number] [place] [address] Jun, [facility] [place] [facility] [address] [id number] [place] [address] May, [facility] [place] [facility] [address] [id number] [place] [address] May, [facility] [place] [facility] [address] [id number] [place] [address] May, [facility] [place] [facility] [address] [id number] [place] [address] May, [facility] [place] [facility] [address] [id number] [place] [address] Apr, [facility] [place] [facility] [address] [id number] [place] [address] Apr, [facility] [place] [facility] [address] [id number] [place] [address] Apr, [facility] [place] [facility] [address] [id number] [place] [address] Apr, [facility] [place] [facility] [address] [id number] [place] [address] Apr, [facility] [place] [facility] [address] [id number] [place] [address] Mar, [facility] [place] [facility] [address] [id number] [place] [address] Mar, [facility] [place] [facility] [address] [id number] [place] [address] Mar, [facility] [place] [facility] [address] [id number] [place] [address] Mar, [facility] [place] [facility] [address] [id number] [place] [address] Mar, [facility] [place] [facility] [address] [id number] [place] [address] February, [facility] [place] [facility] [address] [id number] [place] [address] February, [facility] [place] [facility] [address] [id number] [place] [address] February, [facility] [place] [facility] [address] [id number] [place] [address] Jan, [facility] [place] [facility] [address] [id number] [place] [address] Jan, [facility] [place] [facility] [address] [id number] [place] [address] Dec, [facility] [place] [facility] [address] [id number] [place] [address] Dec, [facility] [address] [id number] [place] [address] Nov, [facility] [address] [id number] [place] [address] Nov, [facility] [address] [id number] [place] [address] Sep, [facility] [address] [id number] [place] [address] Sep, [facility] [address] [id number] [place] [address] Sep, [facility] [address] [id number] [place] [address] Sep, [facility] [address] [id number] [place] [address] Aug, [facility] [address] [id number] [place] [address] Aug, [facility] [address] [id number] [place] [address] Aug, [facility] [address] [id number] [place] [address] Aug, [facility] [place] [facility] [address] [id number] [place] [address] Jul, [facility] [place] [facility] [address] [id number] [place] [address] Jul, [facility] [place] [facility] [address] [id number] [place] [address] Jun, [facility] [place] [facility] [address] [id number] [place] [address] May, [facility] [place] [facility] [address] [id number] [place] [address] May, [facility] [place] [facility] [address] [id number] [place] [address] 15 May, 2013 [facility] [place] [facility] [address] [id number] [place] [address] 19 Apr, 2013 [facility] [place] [facility] [address] [id number] [place] [address] 18 Apr, 2013 [facility] [place] [facility] [address] [id number] [place] [address] 14 Oct, 2012 [facility] [place] [facility] [address] [id number] [place] [address] 24 Sep, 2012 [facility] [place] [facility] [address] [id number] [place] [address] Sep, [facility] [place] [facility] [address] [id number] [place] [address] Sep, [facility] [place] [facility] [address] [id number] [place] [address] 18 Sep, 2012 [facility] [place] [facility] [address] [id number] [place] [address] 18 Sep, 2012 [facility] [place] [facility] [address] [id number] [place] [address] Sep, [facility] [place] [facility] [address] [id number] [place] [address] Sep, [facility] [place] [facility] [address] [id number] [place] [address] 19 Aug, 2012 [facility] [place] [facility] [address] [id number] [place] [address] 19 Aug, 2012 [facility] [place] [facility] [address] [id number] [place] [address] 14 Aug, 2012 [facility] [place] [facility] [address] [id number] [place] [address] 14 Aug, 2012 [facility] [place] [facility] [address] [id number] [place] [address] Jul, [facility] [place] [facility] [address] [id number] [place] [address] Jul, [facility] [place] [facility] [address] [id number] [place] [address] Jul, [facility] [place] [facility] [address] [id number] [place] [address] Jun, [facility] [place] [facility] [address] [id number] [place] [address] May, [facility] [place] [facility] [address] [id number] [place] [address] May, [facility] [place] [facility] [address] [id number] [place] [address] May, [facility] [place] [facility] [address] [id number] [place] [address] May, [facility] [place] [facility] [address] [id number] [place] [address] May, [facility] [place] [facility] [address] [id number] [place] [address] Apr, [facility] [place] [facility] [address] [id number] [place] [address] Apr, [facility] [place] [facility] [address] [id number] [place] [id number] Mar, [facility] [place] [facility] [address] [address] Mar, [facility] [place] [facility] [address] [id number] [place] [address] Mar, [facility] [place] [facility] [address] [id number] [place] [address] Mar, [facility] [place] [facility] [address] [id number] [place] [address] Mar, [facility] [place] [facility] [address] [id number] [place] [address] Mar, [facility] [address] [id number] [place] [address] February, [facility] [address] [id number] [place] [address] Jan, [facility] [address] [id number] [place] [address] Jan, [facility] [address] [id number] [place] [address] Dec, [facility] [address] [id number] [place] [address] Dec, [facility] [address] [id number] [place] [address] Dec, [facility] [address] [id number] [place] [address] Dec, [facility] [address] [id number] [place] [address] Dec, [facility] [address] [id number] [place] [address] Nov, [facility] [address] [id number] [place] [address] Oct, [facility] [address] [id number] [place] [address] Oct, [facility] [address] [id number] [place] [address] Sep, [facility] [place] [facility] [address] [id number] [place] [address] Sep, [facility] [address] [id number] [place] [address] Aug, [facility] [address] [id number] [place] [address] Aug, [facility] [address] [facility] [id number], [place] [address] Jul, [facility] [id number], [place] [address] Jul, [facility] [address] [facility] [id number], [place] [address] Jun, [facility] [address], [place] [address] February, [facility] [address] [facility] [id number] [address] Jan, [facility] [address] [facility] [id number] [address] Dec, IMMUNIZATIONS No Known Immunizations SOCIAL HISTORY Never Assessed REASON FOR VISIT [facility] PLAN OF CARE VITAL SIGNS MEDICATIONS Medication Instructions Dosage Frequency Start Date End Date Duration Status Depakote ER 500 mg 1 tablet by Oral route 1 time per day at for mood Nov, Active Celexa 10 mg 1 tablet by Oral route 1 time per day Nov, Active cetirizine 10 mg 1 tablet by Oral route 1 daily PRN allergy symptoms Mar, Active Concerta 54 mg 1 tablet by Oral route 1 time per day q0800, for adhd Dec, Active RESULTS No Results PROCEDURES No Known procedures INSTRUCTIONS MEDICATIONS ADMINISTERED No Known Medications MEDICAL (GENERAL) HISTORY Type Description Date Medical History Bipolar disorder, unspecified Medical History Bipolar disorder, unspecified Medical History ODD (oppositional defiant disorder) Medical History ODD (oppositional defiant disorder) Medical History Disruptive mood dysregulation disorder
--- OUTSIDE RECORDS SUMMARY | 2019-05-18 01:34 | XMS REPORT | Continuity of Care Document ---
Author Organization Unknown Address Unknown Phone Unavailable Allergies There is no data. Medications There is no data. Problems Date Dx Coded Attending Type Code [...] WITH OTHER RESPIRATORY MANIFESTATIONS 12/28/2010 V58.69 LONG-TERM (CURRENT) USE OF OTHER MEDICATIONS 12/28/2010 TOMEKA ANDERSON [...] LEN Hoffman 313.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 01/31/2011 LEN MARTINEZ PHD 296.90 MO MOOD DIS NOS 01/31/2011 LEN MARTINEZ PHD 313.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 01/31/2011 296.90 MO MOOD DIS NOS 01/31/2011 313.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 01/31/2011 TOMEKA ANDERSON MD 296.90 MO MOOD DIS NOS 01/31/2011 TOMEKA ANDERSON MD 313.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 01/31/2011 FERDINAND CRUZ, TROY 296.90 MO MOOD DIS NOS 01/31/2011 FERDINAND CRUZ, TROY 313.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 01/31/2011 JOSE DRAMATIC DIRECTOR, JOAN J 296.90 MO MOOD DIS NOS 01/31/2011 JOSE DRAMATIC DIRECTOR, JOAN J 313.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 01/31/2011 JOSE DRAMATIC DIRECTOR, JOAN J 296.90 MO MOOD DIS NOS 01/31/2011 OJSE DRAMATIC DIRECTOR, JOAN J 313.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 01/31/2011 JOSE DRAMATIC DIRECTOR, JOAN J 296.90 MO MOOD DIS NOS 01/31/2011 JOSE DRAMATIC DIRECTOR, JOAN J 313.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 01/31/2011 JOSE DRAMATIC DIRECTOR, JOAN J 296.90 MO MOOD DIS NOS 01/31/2011 JOSE DRAMATIC DIRECTOR, JOAN J 313.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 01/31/2011 JOSE DRAMATIC DIRECTOR, JOAN J 296.90 MO MOOD DIS NOS 01/31/2011 JOSE DRAMATIC DIRECTOR, JOAN J 313.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 01/31/2011 JOSE DRAMATIC DIRECTOR, JOAN J 296.90 MO MOOD DIS NOS 01/31/2011 JOSE DRAMATIC DIRECTOR, JOAN J 313.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 01/31/2011 JOSE DRAMATIC DIRECTOR, JOAN J 296.90 MO MOOD DIS NOS 01/31/2011 JOSE DRAMATIC DIRECTOR, JOAN J 313.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 03/21/2012 JUAN GILLIAM, LEN Hoffman V04.89 GARDASIL (HPV) DX 03/21/2012 JUAN GILLIAM, LEN Hoffman V06.1 TDAP DX 03/21/2012 LEN MARTINEZ PHD V20.2 WELL CHILD 03/21/2012 LEN MARTINEZ PHD V04.89 GARDASIL (HPV) DX 03/21/2012 LEN MARTINEZ PHD V06.1 TDAP DX 03/21/2012 JUAN PHD, LEN A V20.2 WELL CHILD 03/21/2012 V04.89 GARDASIL (HPV) DX 03/21/2012 V06.1 TDAP DX 03/21/2012 V20.2 WELL CHILD 03/21/2012 JUSTIN CRUZ, TOMEKA V04.89 GARDASIL (HPV) DX 03/21/2012 JUSTIN CRUZ, TOMEKA V06.1 TDAP DX 03/21/2012 JUSTIN CRUZ, TOMEKA V20.2 WELL CHILD 03/21/2012 FERDINAND CRUZ, TROY V04.89 GARDASIL (HPV) DX 03/21/2012 FERDINAND CRUZ, TROY V06.1 TDAP DX 03/21/2012 FERDINAND CRUZ, TROY V20.2 WELL CHILD 03/21/2012 JOSE BOWERS JOAN [...] JOAN J V04.89 GARDASIL (HPV) DX 03/21/2012 JOSE BOWERS JOAN J V06.1 TDAP DX 03/21/2012 JOSE BOWERS JOAN J V20.2 WELL CHILD 03/21/2012 JOSE BOWERS JOAN J V04.89 GARDASIL (HPV) DX 03/21/2012 JOSE BOWERS JOAN J V06.1 TDAP DX 03/21/2012 MARIO GARCIA [...] NOS 04/14/2012 296.80 MO BIPOLAR NOS 04/14/2012 JUSTIN CRUZ, TOMEKA 296.80 MO BIPOLAR NOS 04/14/2012 FERDINAND CRUZ, TROY 296.80 MO BIPOLAR NOS 04/14/2012 MARIO GARCIA [...] GARCIA APRNA J 296.80 MO BIPOLAR NOS 06/04/2013 JUSTIN CRUZ, TOMEKA 728.85 MUSCLE SPASM 06/04/2013 TOMEKA ANDERSON MD V41.0 vision problems 06/04/2013 FERDINAND CRUZ, TROY 728.85 MUSCLE SPASM 06/04/2013 FERDINAND CRUZ, TROY V41.0 vision problems 06/04/2013 JOAN GARCIA APRN 728.85 MUSCLE SPASM 06/04/2013 MARIO GARCIA APRNA J V41.0 vision problems 06/04/2013 JOAN GARCIA APRN J 728.85 MUSCLE SPASM 06/04/2013 JOAN GARCIA APRN V41.0 vision problems 06/04/2013 JOAN GARCIA APRN 728.85 MUSCLE SPASM 06/04/2013 JOSE DRAMATIC DIRECTOR, JOAN J V41.0 vision problems 06/04/2013 JOSE DRAMATIC DIRECTOR, JONA J 728.85 MUSCLE SPASM 06/04/2013 JOSE DRAMATIC DIRECTOR, JOAN J V41.0 vision problems 06/04/2013 JOSE DRAMATIC DIRECTOR, JOAN J 728.85 MUSCLE SPASM 06/04/2013 JOSE DRAMATIC DIRECTOR, JOAN J V41.0 vision problems 06/04/2013 JOSE DRAMATIC DIRECTOR, JOAN J 728.85 MUSCLE SPASM 06/04/2013 JOSE DRAMATIC DIRECTOR, JOAN J V41.0 vision problems 06/04/2013 JOSE DRAMATIC DIRECTOR, JOAN J 728.85 MUSCLE SPASM 06/04/2013 JOSE BOWERS JOAN J V41.0 vision problems 04/01/2014 FERDINAND CRUZ, TROY 477.0 ALLERGIC RHINITIS DUE TO POLLEN 04/01/2014 MARIO GARCIA APRNA J 477.0 ALLERGIC RHINITIS DUE TO POLLEN 04/01/2014 MARIO GARCIA APRNA J 477.0 ALLERGIC RHINITIS DUE TO POLLEN 04/01/2014 MARIO GARCIA APRNA J 477.0 ALLERGIC RHINITIS DUE TO POLLEN 04/01/2014 JOSE BOWERS JOAN J 477.0 ALLERGIC RHINITIS DUE TO POLLEN 04/01/2014 MARIO GARCIA APRNA J 477.0 ALLERGIC RHINITIS DUE TO POLLEN 04/01/2014 MARIO GARCIA APRNA J 477.0 ALLERGIC RHINITIS DUE TO POLLEN 04/01/2014 MARIO GARCIA APRNA J 477.0 ALLERGIC RHINITIS DUE TO POLLEN Procedures Code [place] [address] PSYCH FAMILY TX W/PAT 09/09/2012 08339 PSYCH FAMILY TX NO PATIENT 09/22/2012 66308 PSYCH PHARM MGMT 09/22/2012 67678 PURE TONE HEARING TEST AIR 06/04/2013 AYALA DAMON 06/04/2013 Results There is no data. Encounters ACCT No. Visit Date/Time Discharge Status Pt. Type Provider Facility Loc./Unit Complaint [id number] 12/16/2014 15:44:00 12/16/2014 23:59:59 CLS Outpatient JOAN GARCIA APRN [id number] 10/28/2014 16:40:00 10/28/2014 23:59:59 CLS Outpatient JOAN GARCIA APRN [id number] 10/28/2014 16:40:00 10/28/2014 23:59:59 CLS Outpatient JOAN GARCIA APRN [id number] 08/03/2014 16:32:00 08/03/2014 23:59:59 CLS Outpatient JOAN GARCIA APRN [id number] 08/03/2014 16:32:00 08/03/2014 23:59:59 CLS Outpatient JOAN GARCIA APRN [id number] 06/10/2014 15:47:00 06/10/2014 23:59:59 CLS Outpatient JOAN GARCIA APRN [id number] 06/10/2014 15:47:00 06/10/2014 23:59:59 CLS Outpatient JOAN GARCIA APRN [id number] 04/01/2014 10:57:00 04/01/2014 23:59:59 CLS Outpatient TROY STREETER MD [id number] 06/04/2013 13:20:00 06/04/2013 23:59:59 CLS Outpatient TOMEKA ANDERSON MD [id number] 09/22/2012 11:33:00 09/22/2012 23:59:59 CLS Outpatient LEN MARTINEZ PHD [id number] 09/08/2012 14:12:00 09/08/2012 23:59:59 CLS Outpatient LEN MARTINEZ PHD [id number] 05/08/2013 10:33:00 Document Registration [id number] 02/27/2019 14:00:00 02/27/2019 23:59:59 CLS Outpatient JOAN GARCIA APRN [facility]
[2019-05-18 02:04] VITALS: BP 144/89
--- NOTE | 2019-05-18 02:04 | NUR ---
REFERRED TO FERMIN SULLIVAN FOR SANE APPOINTMENT WITH [facility] AT 0800 IN THE [facility]. PATIENT VERBLIZES UNDERSTANDING.
== END 2019-05-18 02:04 | disposition home or self-care (01) ==
LOC: EDUNIT# 01:13 → ER 01:15
DX: T76.21XA Adult sexual abuse, suspected, initial encounter (principal); Y07.9 Unspecified perpetrator of maltreatment and neglect
CPT/HCPCS: 99283

== ENCOUNTER 2021-11-15 20:32 | Emergency (ER) | payer SELFPAY ==
[~2021-11-15] VITALS: Ht 175.2 cm; Wt 96.1 kg
--- NOTE | 2021-11-15 21:52 | ED General ---
General Chief Complaint: COVID19 Suspect/Confirmed Stated Complaint: SHAKEY/METALIC TASTE IN MOUTH Nursing Triage Note: PATIENT STATES THAT AT APPROX. 2019 THIS EVENING, HE BECAME SOA, FELT SHAKY, FELT HIS "HEART POUNDING AND HAD A METALLIC TASTE IN MY MOUTH". THIS LASTED APPROX. 1 1/2 MIN. HE ALSO C/O REFLUX IN HIS THROAT AND STATES THAT HE HAS A HX OF GERD. HE ALSO STATES THAT HE DID SMOKE MARIJUANA TODAY. Source of Information: Patient Exam Limitations: No Limitations History of Present Illness Date Seen by Provider: Nov 15, 2021 Time Seen by Provider: 20:53 Initial Comments Patient ER by EMS from his home with chief complaint that he smoked weed for the first time in several months was playing some video games and had a transient episode where he felt dizzy off, had a little pounding of his heart in his ch est, shaky and a metallic taste in the back of his mouth. Last about 1 to 1-1/2 minutes. He has a history of GERD and takes omeprazole although does not know his remember to take it. He does not have any reflux right now. Is not having any pain right now. EMS was summonsed and noted his blood sugar to be 60. He has a brother with type 2 diabetes and a grandfather with diabetes. He is not drinking alcohol. He does not use stimulants. He quit smoking cigarettes a year ago. He has no other known medical history. He plans on establishing care with a primary care doctor soon. Allergies and Home Medications Allergies Coded Allergies: No Known Drug Allergies (Unverified , 09/15/18) Patient Home Medication List Home Medication List Reviewed: Yes [Tamiflu] , (Reported) Entered as Reported by: SHILOH NARVAEZ on 12/23/18 431 Review of Systems Review of Systems Constitutional: No chills, No diaphoresis; dizziness EENTM: No ear discharge, No ear pain Respiratory: No cough, No short of breath Cardiovascular: No chest pain, No palpitations Gastrointestinal: No abdominal pain, No nausea, No vomiting Genitourinary: No discharge, No dysuria Musculoskeletal: No back pain, No joint pain Skin: No pruritus, No rash All Other Systems Reviewed Negative Unless Noted: Yes Past Mdxwjoq-Gtvtrn-Udsbll Hx Patient Social History Tobacco Use?: No Tobacco type used: Cigarettes Smoking Status: Former Smoker Smokeless Tobacco Frequency: Former User Use of E-Cig and/or Vaping dev: No Substance use?: Yes Substance type: Marijuana Substance frequency: Once in a while Alcohol Use?: No Pt feels they are or have been: No Immunizations Up To Date Influenza Vaccine Up-to-Date: No; Not Current First/Initial COVID19 Vaccinat: DECEMBER 2020 Second COVID19 Vaccination Gianni: JANUARY 2021 COVID19 Vaccine Concentrator Operator: MODERNA Seasonal Allergies Seasonal Allergies: No Past Medical History Surgeries: No Respiratory: No Cardiac: No Neurological: No Genitourinary: No Gastrointestinal: No Musculoskeletal: No Endocrine: No HEENT: No Cancer: No Psychosocial: No Integumentary: No Blood Disorders: No Physical Exam Vital Signs Vital Signs - First Documented 11/15/21 20:35 Temp 36.9 Pulse 124 Resp 22 B/P (MAP) 133/81 (98) Pulse Ox 98 O2 Delivery Room Air Capillary Refill : Less Than 3 Seconds Height, Weight, BMI Height: 5'10.00" Weight: 185lbs. 0oz. 83.536503ez; 31.00 BMI Method:Stated General Appearance: No Apparent Distress, WD/WN Eyes: Bilateral Eye Normal Inspection, Bilateral Eye PERRL, Bilateral Eye EOMI HEENT: PERRL/EOMI, TMs Normal, Normal ENT Inspection, Pharynx Normal, Moist Mucous Membranes Neck: Full Range of Motion, Normal Inspection, Non Tender Respiratory: Lungs Clear, Normal Breath Sounds, No Accessory Muscle Use, No Respiratory Distress Cardiovascular: Regular Rate, Rhythm, Normal Peripheral Pulses Gastrointestinal: Normal Bowel Sounds, Non Tender, Soft Neurologic/Psychiatric: Alert, Oriented x3, No Motor/Sensory Deficits Skin: Normal Color, Warm/Dry Progress/Results/Core Measures Suspected Sepsis SIRS Temperature: Pulse: 124 Respiratory Rate: 22 Blood Pressure 133 /81 Mean: 98 Results/Orders Vital Signs/I&O 11/15/21 20:35 Temp 36.9 Pulse 124 Resp 22 B/P (MAP) 133/81 (98) Pulse Ox 98 O2 Delivery Room Air Capillary Refill : Less Than 3 Seconds Blood Pressure Mean: 98 Progress Note : Time: 21:52 Progress Note Suspect perhaps the gentleman had a transient hypoglycemic attack. His sugar was 60 for EMS but is 80 now and he is asymptomatic. His symptoms were transient. We have discussed establishing care with a primary care doctor and looking for signs of diabetes and a pattern. Return precautions were discussed. Patient is okay with this plan and ready to go home Departure Impression Primary Impression: Hypoglycemic syndrome Disposition: 01 HOME, SELF-CARE Condition: Stable Departure-Patient Inst. Decision time for Depature: 21:54 Referrals: [facility] ([facility]Family) Primary Care Physician Patient Instructions: Low Blood Sugar in People Without Diabetes Add. Discharge Instructions: I suspect may be you have a little hypoglycemic episode. This usually results in a damon of adrenaline which would explain the chest pounding which then releases glycogen from the muscles and liver which will correct it rather quickly. If this becomes a pattern and happens frequently then you need to follow-up with a primary care doctor to explore whether or not you have a reason to be hypoglycemic. All discharge instructions reviewed with patient and/or family. Voiced understanding. MONICA BEE Nov 15, 2021 21:52
[2021-11-15 22:00] VITALS: BP 125/75
== END 2021-11-15 22:02 | disposition home or self-care (01) ==
LOC: EDUNIT# 20:32 → ER 20:34
DX: E16.2 Hypoglycemia, unspecified (principal); K21.9 Gastro-esophageal reflux disease without esophagitis; Z87.891 Personal history of nicotine dependence; Z79.899 Other long term (current) drug therapy
CPT/HCPCS: 82947

== ENCOUNTER 2022-02-18 20:44 | Emergency (ER) | payer OTHER ==
[~2022-02-18] VITALS: Ht 175 cm; Wt 95.2 kg
[2022-02-18 20:50] VITALS: BP 154/97
[2022-02-18 21:36] LABS: BASOPHILS # (AUTO) 0.1 10^3/uL (0.0-0.1); BASOPHILS % (AUTO) 1 % (0-10); EOSINOPHILS # (AUTO) 0.3 10^3/uL (0.0-0.3); EOSINOPHILS % (AUTO) 2 % (0-10); HEMATOCRIT 45 % (40-54); HEMOGLOBIN 15.5 g/dL (13.3-17.7); LYMPHOCYTES # (AUTO) 3.6 10^3/uL (1.0-4.0); LYMPHOCYTES % (AUTO) 31 % (12-44); MEAN CORPUSCULAR HEMOGLOBIN 31 pg (25-34); MEAN CORPUSCULAR HGB CONC 35 g/dL (32-36); MEAN CORPUSCULAR VOLUME 88 fL (80-99); MEAN PLATELET VOLUME 9.9 fL (9.0-12.2); MONOCYTES # (AUTO) 0.7 10^3/uL (0.0-1.0); MONOCYTES % (AUTO) 6 % (0-12); NEUTROPHILS # (AUTO) 6.8 10^3/uL (1.8-7.8); NEUTROPHILS % (AUTO) 59 % (42-75); PLATELET COUNT 281 10^3/uL (130-400); WHITE BLOOD COUNT 11.5 10^3/uL (4.3-11.0)
[2022-02-18 21:53] LABS: ALBUMIN 4.5 GM/DL (3.2-4.5); POTASSIUM 3.7 MMOL/L (3.6-5.0)
[2022-02-18 21:56] LABS: BILIRUBIN,URINE NEGATIVE (NEGATIVE); CLARITY,URINE CLEAR; COLOR,URINE YELLOW; GLUCOSE, URINE (UA) NEGATIVE (NEGATIVE); KETONES,URINE NEGATIVE (NEGATIVE); LEUKOCYTE ESTERASE ,URINE NEGATIVE (NEGATIVE); NITRITE,URINE NEGATIVE (NEGATIVE); PROTEIN,URINE NEGATIVE (NEGATIVE)
[2022-02-18 21:56] LABS: TOTAL PROTEIN 7.3 GM/DL (6.4-8.2)
[2022-02-18 21:57] LABS: BILIRUBIN,TOTAL 0.5 MG/DL (0.1-1.0)
[2022-02-18 21:59] LABS: CREATININE SERUM 0.92 MG/DL (0.60-1.30)
--- NOTE | 2022-02-18 22:00 | Diagnostic Imaging Report ---
EXAMINATION: Chest 1 view. HISTORY: Chest pain. Headache. COMPARISON: None available. FINDINGS: The lung volumes are normal. No focal consolidation is seen. No large pleural effusion or pneumothorax is seen. The cardiomediastinal silhouette is normal in size and contour. No acute osseous abnormality is seen. IMPRESSION: No acute pleuroparenchymal process. Dictated by: Dictated on workstation # [id number]
[2022-02-18 22:02] LABS: MAGNESIUM 1.8 MG/DL (1.6-2.4)
[2022-02-18 22:06] LABS: BACTERIA,URINE NEGATIVE /HPF; RBC,URINE RARE /HPF; WBC,URINE RARE /HPF
[2022-02-18] MEDS ORDERED: LACTATED RINGERS 1,000 ML IV ONE (22:15)
[2022-02-18 22:22] LABS: TSH (THYROID ANALYZER) 3.82 UIU/ML (0.35-4.94)
--- NOTE | 2022-02-18 22:25 | ED General ---
General Chief Complaint: Head/Cervical Problems Stated Complaint: MIGRAINES/STOMACH DISCOMFORT/DIZZY Nursing Triage Note: ARRIVES W/ C/O HEADACHE, WITH VAGUE ASSOCIATED SX, SUCH SOB. 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 CALL LIGHT IN REACH. Source of Information: Patient Exam Limitations: No Limitations History of Present Illness Date Seen by Provider: February 18, 2022 Time Seen by Provider: 20:56 Initial Comments This 21-year-old young man presents to the emergency room with complaints of vaguely not feeling well for about a month. Over the past 2 weeks he has been h aving frequent "migraine headaches". Headaches are primarily on the right side. He sometimes feels dizzy and has tremors. He was prescribed migraine medication by [facility] and his onsite work provider. He took Ubrelvy tonight which did seem to improve his symptoms. He also reports having some episodes of nausea and vomiting. He reports today he was feeling well until t his evening when symptoms returned. He states his chest also felt tight briefly. He had some chills with no fever. Stools have been softer than usual. He has had some burning sensation in his abdomen. He reports there was some discussion from his outpatient provider about testing for H. pylori but that test has not been collected yet. He also complains of some occasional blurry vision. He does not complain of any focal neurologic deficits or chest pain at this time. Patient feels rather anxious at this time. He also reports stopping marijuana use about 2 weeks ago. Prior to that he was a heavy daily smoker. Allergies and Home Medications Allergies Coded Allergies: No Known Drug Allergies (Unverified , 09/15/18) Patient Home Medication List Home Medication List Reviewed: Yes [Tamiflu] , (Reported) Entered as Reported by: SHILOH NARVAEZ on 12/23/18 9012 Review of Systems Review of Systems Constitutional: see HPI EENTM: no symptoms reported Respiratory: no symptoms reported Cardiovascular: see HPI Gastrointestinal: see HPI Genitourinary: no symptoms reported Musculoskeletal: no symptoms reported Skin: no symptoms reported Psychiatric/Neurological: See HPI Hematologic/Lymphatic: No Symptoms Reported Immunological/Allergic: no symptoms reported Past Xrtblmf-Rwmobu-Gokaxy Hx Patient Social History Tobacco Use?: Yes Tobacco type used: Cigarettes Smoking Status: Current Everyday Smoker Use of E-Cig and/or Vaping dev: No Substance use?: No Alcohol Use?: Yes Alcohol type: Beer Alcohol Frequency: Several times a month Immunizations Up To Date First/Initial COVID19 Vaccinat: 2020 Second COVID19 Vaccination Gianni: 2020 COVID19 Vaccine Chemical Manager: MODERNDalton Seasonal Allergies Seasonal Allergies: No Past Medical History Surgeries: No Respiratory: No Cardiac: No Neurological: No Genitourinary: No Gastrointestinal: No Musculoskeletal: No Endocrine: No HEENT: No Cancer: No Psychosocial: No Integumentary: No Blood Disorders: No Physical Exam Vital Signs Vital Signs - First Documented 02/18/22 20:50 Temp 36.9 Pulse 113 Resp 20 B/P (MAP) 154/97 (116) Pulse Ox 99 O2 Delivery Room Air Capillary Refill : Less Than 3 Seconds Height, Weight, BMI Height: 5'10.00" Weight: 185lbs. 0oz. 83.320921wk; 31.00 BMI Method:Stated General Appearance: No Apparent Distress, WD/WN HEENT: PERRL/EOMI, Normal ENT Inspection Neck: Normal Inspection Respiratory: Lungs Clear, Normal Breath Sounds, No Accessory Muscle Use Cardiovascular: No Edema, No Murmur, Tachycardia (Regular) Gastrointestinal: Normal Bowel Sounds, Non Tender, Soft Extremity: Normal Inspection, Non Tender, No Pedal Edema Neurologic/Psychiatric: Alert, Oriented x3, No Motor/Sensory Deficits, optical brightener maker helper II- XII Norm as Tested, Other (Mildly anxious) Skin: Normal Color, Warm/Dry Progress/Results/Core Measures Suspected Sepsis SIRS Temperature: Pulse: 113 Respiratory Rate: 20 Laboratory Tests 02/18/22 21:20: White Blood Count 11.5H Blood Pressure 154 /97 Mean: 116 Laboratory Tests 02/18/22 21:20: Creatinine 0.92, INR Comment 1.0, Platelet Count 281, Total Bilirubin 0.5 Results/Orders Lab Results Laboratory Tests Test 02/18/22 21:20 02/18/22 21:51 Range/Units White Blood Count 11.5 H 4.3-11.0 10^3/uL Red Blood Count 5.08 4.30-5.52 10^6/uL Hemoglobin 15.5 13.3-17.7 g/dL Hematocrit 45 40-54 % Mean Corpuscular Volume 88 80-99 fL Mean Corpuscular Hemoglobin 31 25-34 pg Mean Corpuscular Hemoglobin Concent 35 32-36 g/dL Red Cell Distribution Width 12.1 10.0-14.5 % Platelet Count 281 130-400 10^3/uL Mean Platelet Volume 9.9 9.0-12.2 fL Immature Granulocyte % (Auto) 0 % Neutrophils (%) (Auto) 59 42-75 % Lymphocytes (%) (Auto) 31 12-44 % Monocytes (%) (Auto) 6 0-12 % Eosinophils (%) (Auto) 2 0-10 % Basophils (%) (Auto) 1 0-10 % Neutrophils # (Auto) 6.8 1.8-7.8 10^3/uL Lymphocytes # (Auto) 3.6 1.0-4.0 10^3/uL Monocytes # (Auto) 0.7 0.0-1.0 10^3/uL Eosinophils # (Auto) 0.3 0.0-0.3 10^3/uL Basophils # (Auto) 0.1 0.0-0.1 10^3/uL Immature Granulocyte # (Auto) 0.0 0.0-0.1 10^3/uL Erythrocyte Sedimentation Rate 2 0-15 MM/HR Prothrombin Time 13.0 12.2-14.7 SEC INR Comment 1.0 0.8-1.4 Activated Partial Thromboplast Time 31 24-35 SEC Sodium Level 141 135-145 MMOL/L Potassium Level 3.7 3.6-5.0 MMOL/L Chloride Level 104 98-107 MMOL/L Carbon Dioxide Level 23 21-32 MMOL/L Anion Gap 14 5-14 MMOL/L Blood Urea Nitrogen 16 7-18 MG/DL Creatinine 0.92 0.60-1.30 MG/DL Estimat Glomerular Filtration Rate 120 BUN/Creatinine Ratio 17 Glucose Level 99 70-105 MG/DL Calcium Level 9.0 8.5-10.1 MG/DL Corrected Calcium 8.6 8.5-10.1 MG/DL Magnesium Level 1.8 1.6-2.4 MG/DL Total Bilirubin 0.5 0.1-1.0 MG/DL Aspartate Amino Transf (AST/SGOT) 19 5-34 U/L Alanine Aminotransferase (ALT/SGPT) 36 0-55 U/L Alkaline Phosphatase 48 40-136 U/L Myoglobin 25.6 10.0-92.0 NG/ML Troponin I < 0.028 <0.028 NG/ML C-Reactive Protein High Sensitivity 0.20 0.00-0.50 MG/DL Total Protein 7.3 6.4-8.2 GM/DL Albumin 4.5 3.2-4.5 GM/DL TSH [place] Testing 3.82 0.35-4.94 UIU/ML Urine Color YELLOW Urine Clarity CLEAR Urine pH 7.0 5-9 Urine Specific [place] 1.015 L 1.016-1.022 Urine Protein NEGATIVE NEGATIVE Urine Glucose (UA) NEGATIVE NEGATIVE Urine Ketones NEGATIVE NEGATIVE Urine Nitrite NEGATIVE NEGATIVE Urine Bilirubin NEGATIVE NEGATIVE Urine Urobilinogen 0.2 < = 1.0 MG/DL Urine Leukocyte Esterase NEGATIVE NEGATIVE Urine RBC (Auto) NEGATIVE NEGATIVE Urine RBC RARE /HPF Urine WBC RARE /HPF Urine Squamous Epithelial Cells NONE /HPF Urine Renal Epithelial Cells NONE /HPF Urine Crystals NONE /LPF Urine Bacteria NEGATIVE /HPF Urine Casts NONE /LPF Urine Mucus NEGATIVE /LPF Urine Culture Indicated NO My Orders Orders - MARILU DURHAM MD Cbc With Automated Diff (02/18/22 21:10) Magnesium (02/18/22 21:10) Chest 1 View, Ap/Pa Only (02/18/22 21:10) Ekg Tracing (02/18/22 21:10) Comprehensive Metabolic Panel (02/18/22 21:10) Myoglobin Serum (02/18/22 21:10) Protime With Inr (02/18/22 21:10) Partial Thromboplastin Time (02/18/22 21:10) O2 (02/18/22 21:10) Monitor-Rhythm Ecg Trace Only (02/18/22 21:10) Ed Iv/Invasive Line Start (02/18/22 21:10) Troponin I [place] (02/18/22 21:10) Hs C Reactive Protein (02/18/22 21:10) Thyroid Analyzer (02/18/22 21:10) Ua Culture If Indicated (02/18/22 21:10) Erythrocyte Sedimentation Rate (02/18/22 21:10) Vital Signs/I&O 02/18/22 20:50 Temp 36.9 Pulse 113 Resp 20 B/P (MAP) 154/97 (116) Pulse Ox 99 O2 Delivery Room Air Capillary Refill : Less Than 3 Seconds Blood Pressure Mean: 116 Progress Note : Progress Note Patient declined CT scan of the head and lieu of arranging this as an outpatient. He believes with his insurance arrangements it will be less expensive if ordered outpatient. He was also offered IV fluids because of his tachycardia. He believes his tachycardia is due to anxiety at the medical environment. He declines IV fluids. I offered to send his note to the primary care provider for convenience which he consented to. ECG Initial ECG Impression Date: February 18, 2022 Initial ECG Impression Time: 21:24 Initial ECG Rate: 104 Initial ECG Rhythm: S.Tach Initial ECG Impression: Normal Comment Sinus tachycardia with no ST elevation or depression. QRS 121 ms. Normal QT interval. No axis deviation. Diagnostic Imaging Diagonstic Imaging: Xray Plain Films/CT/US/NM/MRI: chest Comments Chest x-ray viewed by me and report reviewed. See report below: NAME: JOSÉ MANUEL RE[facility]ER [facility] REC#: [id number] PT STATUS: REG ER : 2000 PHYSICIAN: MARILU DURHAM MD ADMIT DATE: 02/18/22/ER Signed Date of Exam:02/18/22 CHEST 1 VIEW, AP/PA ONLY EXAMINATION: Chest 1 view. HISTORY: Chest pain. Headache. COMPARISON: None available. FINDINGS: The lung volumes are normal. No focal consolidation is seen. No large pleural effusion or pneumothorax is seen. The cardiomediastinal silhouette is normal in size and contour. No acute osseous abnormality is seen. IMPRESSION: No acute pleuroparenchymal process. Dictated by: Dictated on workstation # [id number] Dict: 02/18/222151 Trans: 02/18/222203 [facility] [id number] Interpreted by: ADOLPH MCINTOSH DO Electronically signed by: ADOLPH MCINTOSH DO 02/18/222203 Departure Impression Primary Impression: Recurrent headache Additional Impressions: Sinus tachycardia GERD (gastroesophageal reflux disease) Qualified Codes: K21.9 - Gastro-esophageal reflux disease without esophagitis Disposition: HOME, SELF-CARE Condition: Stable Departure-Patient Inst. Decision time for Depature: 22:49 Referrals: [facility] ([facility]Family) Primary Care Physician Patient Instructions: Headache, Adult ED, Tachycardia Add. Discharge Instructions: The exact cause of your recurrent headaches is uncertain. It may be related to, at least in part, to withdrawal from substance use. Drink plenty of clear liquids to stay well-hydrated. You may take Tylenol up to 1000 mg every 6 hours as needed for pain. Ibuprofen can be used sparingly up to 600 mg every 6 hours as needed for pain not resolved by Tylenol. Avoid frequent or prolonged use of ibuprofen as it may worsen your stomach problems. Use an antacid medication such as omeprazole 20 mg daily or Pepcid (famotidine) 20 mg twice daily for at least the next 2 weeks to calm down your acid reflux. Avoid the following: Eating large meals, eating close to bedtime, caffeine, carbonation, citrus fruits and juices, alcohol, tobacco, mints, chocolate, to tiim products, fatty/greasy foods, spicy foods, NSAID medications such as ibuprofen and naproxen, and anything else you know irritates your stomach. Follow-up with your primary care provider soon as possible. You may discuss further work-up for possible causes of headache which might include imaging of the head, vitamin D levels, etc. Return to the ER if you have worsening symptoms despite following these instructions. All discharge instructions reviewed with patient and/or family. Voiced understanding. Copy Copies To 1: WARREN CARRANZA JOSHUA T MD February 18, 2022 22:25
== END 2022-02-18 23:04 | disposition home or self-care (01) ==
LOC: EDUNIT# 20:44 → ER 20:46
DX: G43.909 Migraine, unspecified, not intractable, without status migrainosus (principal); R00.0 Tachycardia, unspecified; K21.9 Gastro-esophageal reflux disease without esophagitis; F17.210 Nicotine dependence, cigarettes, uncomplicated; Z79.899 Other long term (current) drug therapy
CPT/HCPCS: 36415; 71045; 80053; 81000; 83735; 83874; 84443; 84484; 85025; 85610; 85652; 85730; 86141; 93005; 93041